=== PATIENT | female | born 1975 | race African-American/Black ===

== ENCOUNTER 2019-06-28 08:25 | Emergency (ER) | payer OTHER, SELFPAY ==
--- NOTE | ~2019-06-28 | XR_ITS ---
XR chest 2V 06/28/2019 09:16 Indication: Chest pain. Shortness of breath. Procedure: 2 view chest Comparison: Comparison to multiple prior studies sequentially, with oldest reviewed study dated 07/2017. Findings: Elevated right diaphragm with right basilar atelectasis. Cardiomegaly. No focal pneumonia, pulmonary edema, pleural effusion or pneumothorax. Impression: 1: Right basilar atelectasis. Reviewed, dictated and finalized at location A. Impression: 1: Right basilar atelectasis.
--- NOTE | 2019-06-28 08:26 | ECG_ITS ---
Measurements Intervals [place] Rate: 83 P: 64 VT: 196 QRS: -17 QRSD: 121 T: 117 QT: 398 QTc: 470 Interpretive Statements SINUS RHYTHM LEFT VENTRICULAR HYPERTROPHY AND ST-T CHANGE DELAYED PRECORDIAL R/S TRANSITION BASELINE WANDER- V4-V6 BORDERLINE ECG Electronically Signed On 06-28-2019 8:59:59 CDT by Chano Camarena D.O.
[2019-06-28 08:31] VITALS: BP 182/126; PULSE 84; RESP 18; TEMP 36.1; O2SAT 99
--- NOTE | 2019-06-28 08:34 | ED.CHESTPAIN ---
HPI - Chest Pain General Chief Complaint: Chest Pain Stated Complaint: chest pain and SOB Time Seen by Provider: 06/28/19 08:33 Source: patient Mode of arrival: ambulatory Limitations: no limitations History of Present Illness HPI narrative: A 44 y/o female presents to the ED with c/o left sided CP. Pt states that that left sided CP started at 0600 this morning while she was in bed and has been intermittent since. She notes that when the episodes of CP occur, they last approximately 5 minutes and are aggravated when lying flat. Pt reports SOB, left arm numbness and tingling, and sweats, but denies N/V. She did not take any pain medication prior to her ED visit. Pt has a PMHx of cardiac catheterization, CHF, and HTN. Dr. White is her alcoholic counselor. complaint: chest pain (Left sided) Pertinent past history: other (HTN, CHF, cardiac catheterization) Onset (ago): hour(s) (2.5) Timing of current episode: episodic Onset: during rest Pain location: left chest Exacerbating factors: other (Lying flat) Associated symptoms: diaphoresis, dyspnea and other (Left arm numbness and tingling) Treatment prior to arrival: none Related Data Home Medications Medication Instructions Recorded Confirmed amlodipine 5 mg PO DAILY 06/28/19 furosemide 60 mg PO DAILY 06/28/19 hydralazine 25 mg PO BID 06/28/19 metoprolol succinate 200 mg PO DAILY 06/28/19 sacubitril-valsartan [Entresto] 1 tablet PO BID 06/28/19 spironolactone 50 mg PO DAILY 06/28/19 Allergies Allergy/AdvReac Type Severity Reaction Status Date / Time No Known Allergies Allergy Verified 06/28/19 08:30 Review of Systems Review of Systems: All systems reviewed & are unremarkable except as noted in HPI and below Cardiovascular: Cardiovascular: Reports chest pain (Left sided) and Reports other (Diaphoresis) Respiratory: Respiratory: Reports dyspnea Gastrointestinal: Gastrointestinal: Denies nausea and Denies vomiting Neurologic: Reports numbness (Left arm) and Reports tingling (Left arm) [facility] Past Medical History Medical History (Updated 06/28/19 @ 13:01 by Hammad Michel MD) Arthritis Asthma CHF (congestive heart failure) History of angina HTN (hypertension) Seasonal allergies Sleep apnea UTI (urinary tract infection) Surgical History Surgical History (Updated 06/28/19 @ 08:50 by Renée Monson) History of cardiac catheterization History of cholecystectomy History of knee surgery Right History of tubal ligation Family History Family History Father Diabetes mellitus Hypertension Asthma Patient's father is in good health Family history of cardiovascular disease Mother Hypertension Patient's mother is in good health Sibling Patient's sister is in good health Social History Social History Smoking status: Never smoker Alcohol intake: never Gender identity (if verbalized by the patient): Female Exam Narrative: Exam Narrative: GENERAL: Well-appearing, well-nourished, and in no acute distress. HEAD: Normocephalic, atraumatic. ENT: Mucous membranes moist. NECK: Supple. CHEST: Clear to auscultation. No respiratory distress. TTP left anterior chest wall mid clavicular line. HEART: Regular rate and rhythm. Normal peripheral pulses. ABDOMEN: Soft, nontender, nondistended. EXTREMITIES: Normal range of motion. No edema. NEURO: Alert and oriented x3. PSYCH: Normal mood and affect. Course Course Emergency Course: Chest pain free s/p tylenol, trop negative x 2. D/c home. Vital Signs Vital signs: Vital Signs Temperature 97 F L 06/28/19 08:31 Pulse Rate 84 06/28/19 08:31 Respiratory Rate 18 06/28/19 08:31 Blood Pressure 182/126 H 06/28/19 08:31 Pulse Oximetry 99 06/28/19 08:31 Temperature 97 F L 06/28/19 08:31 Pulse Rate 73 06/28/19 12:18 Respiratory Rate 21 H 06/28/19 12:18 Blood Pressure 151/90 H 032
[2019-06-28 08:40] VITALS: PULSE 80
[2019-06-28] MEDS: ASPIRIN 81 MG CHEWABLE TABLET 324 MG PO (08:51)
[2019-06-28 09:00] VITALS: BP 135/82; PULSE 82; RESP 20; O2SAT 97
[2019-06-28 09:03] LABS: Basophils Absolute Auto 0.1 K/mm3 (0.0-0.1); Basophils Percent Auto 0.4 % (0.2-1.2); Eosinophils Absolute Auto 0.1 K/mm3 (0-0.3); Eosinophils Percent Auto 0.9 % (0-4.4); Hematocrit 38.9 % (37.0-47.0); Hemoglobin 11.9 g/dL (12.0-15.0); Immature Granulocyte Absolute 0.02 K/mm3 (0.00-0.031); Immature Granulocyte Percent A 0.2 % (0-0.5); Lymphocytes Absolute Auto 3.45 K/mm3 (0.9-3.2); Mean Corpuscular HGB Conc 30.6 g/dl (32-36); Mean Corpuscular Hemoglobin 25.2 pg (26-34); Mean Corpuscular Volume 82.4 fl (80-100); Mean Platelet Volume 11.8 fl (7.4-10.4); Monocytes Absolute Auto 0.6 K/mm3 (0.1-0.6); Monocytes Percent Auto 5.4 % (2.6-8.5); Neutrophils Absolute Auto 6.9 K/mm3 (1.3-6.7); Neutrophils Percent Auto 62.1 % (45.5-73.1); Platelet Count Result 361 k/mm3 (150-375); Red Blood Count 4.72 M/mm3 (4.2-5.4); Red Cell Distribution Width 16.4 % (11.5-14.5); White Blood Count 11.1 K/mm3 (4.5-10.0)
[2019-06-28 09:28] LABS: INR 1.1; Prothrombin Time 14.2 Seconds (11.1-14.7)
[2019-06-28 09:29] LABS: Partial Thromboplastin Time 29.1 SECONDS (22.3-36.8)
[2019-06-28 09:32] LABS: Blood Urea Nitrogen 10 mg/dL (7-17); Calcium 8.6 mg/dL (8.4-10.2); Carbon Dioxide 23 mmol/L (22-30); Chloride 104 mmol/L (98-107); Estimated CRCL calculation 124 ml/min; Estimated Glomerular Filt Rate > 60; Glucose 178 mg/dL (65-105); Potassium 4.1 mmol/L (3.4-5.0); Sodium 137 mmol/L (137-145)
[2019-06-28 09:43] LABS: Troponin I < 0.012 ng/mL (0.000-0.034)
[2019-06-28] MEDS: ACETAMINOPHEN 500 MG TABLET 1000 MG PO (10:28)
[2019-06-28 10:29] VITALS: BP 140/88; PULSE 82; RESP 20; O2SAT 98
--- NOTE | 2019-06-28 11:50 | PC.NURSE ---
Patient ambulated to bathroom. Rates pain in head 4/10 at this time.
[2019-06-28 12:06] LABS: Troponin I < 0.012 ng/mL (0.000-0.034)
[2019-06-28 12:18] VITALS: BP 151/90; PULSE 73; RESP 21; O2SAT 98
[2019-06-28 13:12] VITALS: BP 147/78; PULSE 72; RESP 19; O2SAT 99
== END 2019-06-28 13:12 | disposition home or self-care (01) ==
PROVIDERS: Emergency Provider Emergency Medicine; PCP Family Medicine
DX: R07.89 Other chest pain (principal); I50.9 Heart failure, unspecified; I11.0 Hypertensive heart disease with heart failure; J45.909 Unspecified asthma, uncomplicated; M19.90 Unspecified osteoarthritis, unspecified site; G47.30 Sleep apnea, unspecified; Z87.440 Personal history of urinary (tract) infections; R94.31 Abnormal electrocardiogram [ECG] [EKG]; I51.7 Cardiomegaly
CPT/HCPCS: 36415; 71046; 80048; 84484; 85025; 85610; 85730; 93005; 99284; A9270

== ENCOUNTER 2019-09-30 10:38 | Emergency (ER) | payer OTHER, SELFPAY ==
[2019-09-30 10:39] VITALS: BP 164/86; PULSE 97; RESP 18; TEMP 36.1; O2SAT 100
--- NOTE | 2019-09-30 11:42 | ED.GENADULT ---
HPI - General Adult General Chief complaint: Skin/Abscess/Foreign Body <ARNOLD Contreras Last Filed: 09/30/19 11:47> Stated complaint: rash on breast <ARNOLD Contreras Last Filed: 09/30/19 11:47> Time Seen by Provider: 09/30/19 11:02 <ARNOLD Contreras Last Filed: 09/30/19 11:47> Source: patient <ARNOLD Contreras Last Filed: 09/30/19 11:47> Mode of arrival: ambulatory <ARNOLD Contreras Last Filed: 09/30/19 11:47> Limitations: no limitations <ARNOLD Contreras Last Filed: 09/30/19 11:47> History of Present Illness HPI narrative: Patient is a 44-year-old female who presents for evaluation of rash under the right breast noting itching burning rash that has increased in size with some redness swelling and irritation denies injury trauma recent illness has not taken anything other than some [id number] medications with no improvement patient denies fever chills nausea vomiting is otherwise in the room in no distress upon arrival <ARNOLD Contreras Last Filed: 09/30/19 11:47> Related Data Home medications: Home Medications Medication Instructions Recorded Confirmed amlodipine 5 mg PO DAILY 06/28/19 furosemide 60 mg PO DAILY 06/28/19 hydralazine 25 mg PO BID 06/28/19 metoprolol succinate 200 mg PO DAILY 06/28/19 sacubitril-valsartan [Entresto] 1 tablet PO BID 06/28/19 spironolactone 50 mg PO DAILY 06/28/19 <ARNOLD Contreras Last Filed: 09/30/19 11:47> Allergies/adverse reactions: Allergies Allergy/AdvReac Type Severity Reaction Status Date / Time No Known Allergies Allergy Verified 09/30/19 10:41 <ARNOLD Contreras Last Filed: 09/30/19 11:47> Review of Systems Review of Systems: All systems reviewed & are unremarkable except as noted in HPI and below <ARNOLD Contreras Last Filed: 09/30/19 11:47> PMFSH Past Medical History Medical History: Medical History Arthritis Asthma CHF (congestive heart failure) History of angina HTN (hypertension) Seasonal allergies Sleep apnea UTI (urinary tract infection) <Aries Edwards PA-C - Last Filed: 09/30/19 11:47> Surgical History Surgical History: Surgical History History of cardiac catheterization History of cholecystectomy History of knee surgery Right History of tubal ligation <Aries Edwards PA-C - Last Filed: 09/30/19 11:47> Social History Social History: Social History Smoking status: Never smoker Alcohol intake: never Gender identity (if verbalized by the patient): Female <Aries Edwards PA-C - Last Filed: 09/30/19 11:47> Exam Narrative: Exam Narrative: GENERAL: Well-appearing, well-nourished, and in no acute distress. HEAD: Normocephalic, atraumatic. EYES: PERRLA and EOMI. NECK: Supple. No adenopathy or masses. No carotid bruits or JVD CHEST: Clear to auscultation. No respiratory distress. No wheezes rales or rhonchi HEART: Regular rate and rhythm. No murmur heard. EXTREMITIES: Normal range of motion. No edema. SKIN: Warm, dry, patient with confluent erythematous rash with some satellite lesions under the right breast and spread to the epigastrium NEURO: No focal deficits. Alert and oriented x3. PSYCH: Normal mood and affect. <Aries Edwards PA-C - Last Filed: 09/30/19 11:47> Course Course Emergency Course: Patient in the room in no distress aware of case findings treatment plan and diagnosis <Aries Edwards PA-C - Last Filed: 09/30/19 11:47> Vital Signs Vital signs: Vital Signs Temperature 97.0 F L 09/30/19 10:39 Pulse Rate 97 09/30/19 10:39 Respiratory Rate 18 09/30/19 10:39 Blood Pressure 164/86 H 09/30/19 10:39 Pulse Oximetry 100 09/30/19 10:39 Temperature 97.0
[2019-09-30 12:05] VITALS: BP 129/68; PULSE 75; RESP 16; O2SAT 97
== END 2019-09-30 12:06 | disposition home or self-care (01) ==
PROVIDERS: Emergency Provider Emergency Medicine; PCP Family Medicine
DX: B37.9 Candidiasis, unspecified (principal); M19.90 Unspecified osteoarthritis, unspecified site; J45.909 Unspecified asthma, uncomplicated; I11.0 Hypertensive heart disease with heart failure; I50.9 Heart failure, unspecified; G47.30 Sleep apnea, unspecified
CPT/HCPCS: 99283

== ENCOUNTER 2020-06-10 10:08 | Outpatient (CLI) | payer OTHER, SELFPAY ==
--- NOTE | 2020-06-10 11:00 | NEURO_ITS ---
Impression: # Complains of numbness of hands. # No Carpal Tunnel Syndrome or ulnar neuropathy. # Normal nerve conduction study. # Normal needle/EMG exam. Nerve Conduction Studies Anti Sensory Summary Table Stim Site NR Peak (ms) P-T Amp (?V) Site1 Site2 Delta-P (ms) Dist (cm) Zeferino (m/s) Left Median Anti Sensory (2-3nd Digit) Wrist 2.8 105.8 Wrist 2-3nd Digit 2.8 14.0 50 Wrist 2.9 126.5 Wrist 2-3nd Digit 2.8 14.0 50 Right Median Anti Sensory (2-3nd Digit) Wrist 2.8 96.4 Wrist 2-3nd Digit 2.8 14.0 50 Wrist 2.7 94.2 Wrist 2-3nd Digit 2.8 14.0 50 Left Radial Anti Sensory (Base 1st Digit) Wrist 2.6 36.6 Wrist Base 1st Digit 2.6 0.0 Right Radial Anti Sensory (Base 1st Digit) Wrist 2.3 41.0 Wrist Base 1st Digit 2.3 16.0 70 Left Ulnar Anti Sensory (5th Digit) Wrist 2.7 91.2 Wrist 5th Digit 2.7 14.0 52 Right Ulnar Anti Sensory (5th Digit) Wrist 2.2 57.8 Wrist 5th Digit 2.2 14.0 64 Motor Summary Table Stim Site NR Onset (ms) O-P Amp (mV) Site1 Site2 Delta-0 (ms) Dist (cm) Zeferino (m/s) Left Median Motor (Abd Poll Brev) Wrist 3.2 3.3 Elbow Wrist 4.9 29.0 59 Elbow 8.1 2.0 Right Median Motor (Abd Poll Brev) Wrist 2.9 5.1 Elbow Wrist 4.4 27.0 61 Elbow 7.3 3.1 Left Ulnar Motor (Abd Dig Minimi) Wrist 3.0 5.2 A Elbow Wrist 4.7 29.0 62 A Elbow 7.7 4.3 Right Ulnar Motor (Abd Dig Minimi) Wrist 2.7 5.7 A Elbow Wrist 4.6 27.0 59 A Elbow 7.3 4.9 F Wave Studies NR F-Lat (ms) L-R F-Lat (ms) Left Median (Mrkrs) (Abd Poll Brev) 26.49 0.71 Right Median (Mrkrs) (Abd Poll Brev) 25.78 0.71 Left Ulnar (Mrkrs) (Abd Dig Min) 27.03 0.10 Right Ulnar (Mrkrs) (Abd Dig Min) 26.93 0.10 EMG Side Muscle Nerve Root Ins Act Fibs Amp Dur Recrt Comment Right 1stDorInt Ulnar C8-T1 Nml Nml Nml Nml Nml Right Ext Indicis Radial (Post Int) C7-8 Nml Nml Nml Nml Nml Right Ext Digitorum Radial (Post Int) C7-8 Nml Nml Nml Nml Nml Right BrachioRad Radial C5-6 Nml Nml Nml Nml Nml Right PronatorTeres Median C6-7 Nml Nml Nml Nml Nml Right Abd Poll Brev Median C8-T1 Nml Nml Nml Nml Nml Left 1stDorInt Ulnar C8-T1 Nml Nml Nml Nml Nml Left Ext Indicis Radial (Post Int) C7-8 Nml Nml Nml Nml Nml Left Ext Digitorum Radial (Post Int) C7-8 Nml Nml Nml Nml Nml Left BrachioRad Radial C5-6 Nml Nml Nml Nml Nml Left PronatorTeres Median C6-7 Nml Nml Nml Nml Nml Left Abd Poll Brev Median C8-T1 Nml Nml Nml Nml Nml Right ABD Dig Min Ulnar C8-T1 Nml Nml Nml Nml Nml Left ABD Dig Min Ulnar C8-T1 Nml Nml Nml Nml Nml MTDD
== END 2020-06-10 10:09 | disposition home or self-care (01) ==
LOC: ANHNEURO 10:09
PROVIDERS: PCP Family Medicine; Visit Provider Family Medicine
DX: G56.03 Carpal tunnel syndrome, bilateral upper limbs (principal)
CPT/HCPCS: 95886; 95911

== ENCOUNTER 2020-06-10 11:05 | Emergency (ER) | payer OTHER, SELFPAY ==
--- NOTE | 2020-06-10 11:22 | ECG_ITS ---
Measurements Intervals [place] Rate: 90 P: 21 MD: 158 QRS: -22 QRSD: 120 T: 136 QT: 347 QTc: 425 Interpretive Statements SINUS RHYTHM DELAYED PRECORDIAL R/S TRANSITION LEFT VENTRICULAR HYPERTROPHY AND ST-T CHANGE BASELINE WANDER- V5 BORDERLINE ECG Electronically Signed On 06-10-2020 11:46:25 MATERIAL ANALYST by Chano Camarena D.O.
[2020-06-10 11:52] VITALS: PULSE 83; RESP 17; O2SAT 99
[2020-06-10] MEDS: CYCLOBENZAPRINE HCL 10 MG TABLET PO (11:59)
[2020-06-10 12:00] VITALS: PULSE 83; RESP 22; O2SAT 96
[2020-06-10 12:01] VITALS: BP 151/90; BP 154/91; PULSE 84; PULSE 90; PULSE 92; RESP 14; RESP 18; TEMP 36.4; O2SAT 99
[2020-06-10] MEDS: KETOROLAC 30 MG/ML VIAL (*BKC) IV PUSH (12:01)
--- NOTE | 2020-06-10 12:05 | ED.GENADULT ---
HPI - General Adult General Chief complaint: Unspecified Stated complaint: neck & arm stiff for 45 minutes Time Seen by Provider: 06/10/20 11:16 History of Present Illness HPI narrative: Patient is a 45-year-old female who presents ER with left-sided shoulder pain beginning of 45 minutes prior to arrival. Is a tightness in her trapezius going into her neck. Worse with movements of the arm and head. No numbness or tingling in the arms. No chest pain or shortness of breath. Does not take any pain medication. She does take some diuretic medications. Does not report history of hypokalemia or electrolyte abnormality. Is found no alleviating factors. Related Data Home Medications Medication Instructions Recorded Confirmed amlodipine 5 mg PO DAILY 06/28/19 metoprolol succinate 200 mg PO DAILY 06/28/19 spironolactone 50 mg PO DAILY 06/28/19 albuterol sulfate INHALATION 06/10/20 06/10/20 chlorthalidone 06/10/20 gabapentin 06/10/20 lisinopril 06/10/20 Allergies Allergy/AdvReac Type Severity Reaction Status Date / Time No Known Allergies Allergy Verified 06/10/20 12:47 Review of Systems Review of Systems: All systems reviewed & are unremarkable except as noted in HPI and below Constitutional: Constitutional: Denies chills, Denies fatigue and Denies fever(s) Cardiovascular: Cardiovascular: Denies chest pain, Denies rapid heart rate and Denies radiating jaw, neck or arm pain Respiratory: Respiratory: Denies cough and Denies dyspnea Musculoskeletal: Musculoskeletal: Reports back pain, Reports muscle cramps and Reports neck pain Neurologic: Denies numbness, Denies tingling and Denies weakness [facility] Past Medical History Medical History (Updated 06/10/20 @ 12:52 by Hammad Michel MD) Arthritis Asthma CHF (congestive heart failure) History of angina HTN (hypertension) Seasonal allergies Sleep apnea UTI (urinary tract infection) Surgical History Surgical History History of cardiac catheterization History of cholecystectomy History of knee surgery Right History of tubal ligation Family History Family History Father Diabetes mellitus Hypertension Asthma Patient's father is in good health Family history of cardiovascular disease Mother Hypertension Patient's mother is in good health Sibling Patient's sister is in good health Social History Social History Smoking status: Never smoker Alcohol intake: never Gender identity (if verbalized by the patient): Female Exam Narrative: Exam Narrative: GENERAL: Well-appearing, well-nourished, and in no acute distress. HEAD: Normocephalic, atraumatic. CHEST: Clear to auscultation. No respiratory distress. HEART: Regular rate and rhythm. Normal peripheral pulses. Back: Palpable spasm and tenderness of paraspinal musculature of cervical spine and trapezius. No midline tenderness. No right-sided paraspinal muscular tenderness or trapezius pain. EXTREMITIES: Normal range of motion. No edema. SKIN: Warm, dry, no rash. NEURO: Alert and oriented x3. Course Course Emergency Course: Labs unremarkable. Pain improving with Toradol and Flexeril. Discharge home with anti-inflammatories and muscle relaxers. Patient verbalized understanding treatment plan as well as return precautions. Vital Signs Vital signs: Vital Signs Pulse Rate 83 06/10/20 11:52 Respiratory Rate 17 06/10/20 11:52 Pulse Oximetry 99 06/10/20 11:52 Temperature 97.6 F 06/10/20 12:01 Pulse Rate 81 06/10/20 12:31 Respiratory Rate 20 06/10/20 12:31 Blood Pressure 153/87 H 06/10/20 12:31 Pulse Oximetry 98 06/10/20 12:31 Medical Decision Making Vital Signs Vital Signs: Vital Signs Pulse Rate 83 06/10/20 11:52 Respiratory Rate 17 06/10/20 11:52 Pulse Oximetry 99 06/10/20
[2020-06-10 12:16] VITALS: BP 154/86; PULSE 94; RESP 25; O2SAT 100
[2020-06-10 12:18] LABS: Basophils Absolute Auto 0.1 K/mm3 (0.0-0.1); Basophils Percent Auto 0.5 % (0.2-1.2); Eosinophils Percent Auto 0.3 % (0-4.4); Hematocrit 35.1 % (37.0-47.0); Hemoglobin 11.1 g/dL (12.0-15.0); Immature Granulocyte Absolute 0.03 K/mm3 (0.00-0.031); Immature Granulocyte Percent A 0.3 % (0-0.5); Lymphocytes Percent Auto 30.7 % (18.3-44.2); Mean Corpuscular HGB Conc 31.6 g/dl (32-36); Mean Corpuscular Hemoglobin 25.9 pg (26-34); Mean Corpuscular Volume 81.8 fl (80-100); Mean Platelet Volume 10.8 fl (7.4-10.4); Monocytes Absolute Auto 0.5 K/mm3 (0.1-0.6); Monocytes Percent Auto 4.2 % (2.6-8.5); Neutrophils Absolute Auto 6.9 K/mm3 (1.3-6.7); Platelet Count Result 325 k/mm3 (150-375); Red Blood Count 4.29 M/mm3 (4.2-5.4); White Blood Count 10.7 K/mm3 (4.5-10.0)
[2020-06-10 12:31] VITALS: BP 153/87; PULSE 81; RESP 20; O2SAT 98
[2020-06-10 12:31] LABS: Anion Gap 6 mmol/L (8-16); Blood Urea Nitrogen 23 mg/dL (7-17); Calcium 9.1 mg/dL (8.4-10.2); Carbon Dioxide 27 mmol/L (22-30); Chloride 106 mmol/L (98-107); Estimated Glomerular Filt Rate > 60; Glucose 95 mg/dL (65-105); Sodium 139 mmol/L (137-145)
[2020-06-10 12:46] VITALS: BP 157/88; PULSE 84; RESP 31; O2SAT 98
== END 2020-06-10 13:03 | disposition home or self-care (01) ==
PROVIDERS: Emergency Provider Emergency Medicine; PCP Family Medicine
DX: M62.830 Muscle spasm of back (principal); M19.90 Unspecified osteoarthritis, unspecified site; J45.909 Unspecified asthma, uncomplicated; I50.9 Heart failure, unspecified; I11.0 Hypertensive heart disease with heart failure; G47.30 Sleep apnea, unspecified; Z87.440 Personal history of urinary (tract) infections; I51.7 Cardiomegaly
CPT/HCPCS: 36415; 80048; 85025; 93005; 95886; 95911; 96374; 99284; A9270; J1885

== ENCOUNTER → 2020-08-09 00:18 | Outpatient (CLI) | payer OTHER, SELFPAY ==
[2020-08-09 19:16] LABS: SARS-CoV-2 RNA PCR Negative
== END ==
PROVIDERS: PCP Family Medicine; Visit Provider Internal Medicine Critical Care Medicine
DX: R68.89 Other general symptoms and signs (principal); Z20.822 Contact with and (suspected) exposure to COVID-19
CPT/HCPCS: C9803; U0003; U0005

== ENCOUNTER 2020-08-18 09:38 | Outpatient (CLI) | payer OTHER, SELFPAY ==
--- NOTE | ~2020-08-18 | MM_ITS ---
EXAMINATION: MM screening ursula BI w bob HISTORY: Screening mammogram TECHNIQUE: Craniocaudal and mediolateral oblique 3-D tomosynthesis images were obtained and synthetic 2-D images were generated. CAD analysis was submitted and interpreted. COMPARISON: No prior mammogram is available for comparison at this institution. BREAST PARENCHYMAL COMPOSITION: There are scattered areas of fibroglandular density. FINDINGS: RIGHT BREAST: Focal asymmetry is present in the middle third of the inner, slightly upper breast 7 cm from the nipple. LEFT BREAST: An asymmetry is present in the posterior third of the breast on the mediolateral oblique view. IMPRESSION: 1. Bilateral breast findings which may represent the patient's baseline however no comparison is curr ently available. 2. Comparison with prior mammograms is necessary. BI-RADS Category 0: Incomplete: Needs comparison with prior mammograms. Reviewed, dictated and finalized at location A. IMPRESSION: 1. Bilateral breast findings which may represent the patient's baseline however no comparison is currently available. 2. Comparison with prior mammograms is necessary. BI-RADS Category 0: Incomplete: Needs comparison with prior mammograms.
== END 2020-08-18 09:39 | disposition home or self-care (01) ==
PROVIDERS: PCP Family Medicine; Visit Provider Family Medicine
DX: Z12.31 Encounter for screening mammogram for malignant neoplasm of breast (principal); R92.8 Other abnormal and inconclusive findings on diagnostic imaging of breast
CPT/HCPCS: 77063; 77067

== ENCOUNTER → 2020-08-30 03:30 | Outpatient (CLI) | payer OTHER, SELFPAY ==
[2020-09-01 12:58] LABS: SARS-CoV-2 RNA PCR Negative
== END ==
PROVIDERS: PCP Family Medicine; Visit Provider Internal Medicine Critical Care Medicine
DX: R68.89 Other general symptoms and signs (principal); Z20.822 Contact with and (suspected) exposure to COVID-19
CPT/HCPCS: C9803; U0003; U0005

== ENCOUNTER → 2020-10-26 02:24 | Outpatient (CLI) | payer OTHER, SELFPAY ==
[2020-10-26 17:52] LABS: SARS-CoV-2 RNA PCR Negative
== END ==
PROVIDERS: PCP Family Medicine; Visit Provider Internal Medicine Critical Care Medicine
DX: R68.89 Other general symptoms and signs (principal); Z20.822 Contact with and (suspected) exposure to COVID-19
CPT/HCPCS: C9803; U0003; U0005

== ENCOUNTER 2020-10-29 08:09 | Outpatient (CLI) | payer OTHER, SELFPAY ==
--- NOTE | 2020-11-21 21:34 | WPDSLEEPSTUD ---
Sleep Study Date of Study: 10/29/20 Ordering Provider: Trinh Machado, Interpreting Physician: Melissa Avila MD Sleep Study Type: Split Polysomnogram Height: 1.59 m Weight: 131.542 kg Body Mass Index: 52.2 Neck Circumference (inches): 15 [place]: 5 Reason for Sleep Study nonischemic cardiomyopathy, snoring Sleep History Angelica Kruse is a 45 year old female with nonischemic cardiomyopathy, hypertension, history of supraventricular tachycardia status post ablation, possible bicuspid aortic valve, known obstructive sleep apnea [place] and morbid obesity. Ejection fraction on 06/24/2017 was EF of 30%. She has frequent snoring, rarely loud enough that it bothers others. She frequently has trouble sleeping with a cold. She rarely gasps for breath at night. She rarely sweats excessively at night. She occasionally falls asleep in the day, rarely involuntarily, never while driving. She does not have loss of muscle tone with strong emotion. She rarely feels paralyzed on waking or falling asleep. She rarely has vivid dreamlike scenes upon waking or falling asleep. She is not afraid to go to sleep. She rarely has nightmares. She occasionally remembers her dreams. She rarely has racing thoughts, rarely has anxiety. She occasionally kicks at night and occasionally has uncomfortable feelings in her legs at night. She never has morning jaw pain. She occasionally is bothered by pain in the day, rarely wakes due to pain during the night. She occasionally wakes up feeling stiff in the morning with sore achy muscles and pain in the neck, spine and joints. She has headaches and palpitations. There is a family history of sleep apnea, with her father being treated for obstructive sleep apnea. Normal bedtime is 10 - 11 pm, taking 30-40 minutes to fall asleep, waking 2-3 times , and during these awakenings, she will watch TV and try to get back to sleep. It can take hours to return to sleep. She takes naps, and short naps are not refreshing. She feels better in the afternoon compared to the morning. e wakes in the am at 8:00-9:00 a.m. She estimates getting 6-7 hours of sleep at night. Habits: No tobacco ever, caffeine 1-2 per day, no alcohol or recreational drugs. [facility] Past Medical History Medical History (Updated 11/22/20 @ 15:24 by Melissa Avila MD) Arthritis Asthma CHF (congestive heart failure) History of angina HTN (hypertension) Nonischemic cardiomyopathy Seasonal allergies Sleep apnea UTI (urinary tract infection) Surgical History Surgical History History of cardiac catheterization History of cholecystectomy History of knee surgery Right History of tubal ligation Family History Family History Father Diabetes mellitus Hypertension Asthma Patient's father is in good health Family history of cardiovascular disease Mother Hypertension Patient's mother is in good health Sibling Patient's sister is in good health Social History Social History Smoking status: Never smoker Alcohol intake: never Gender identity (if verbalized by the patient): Female Medications Home Medications Medication Instructions Recorded Confirmed Type amlodipine 5 mg PO DAILY 06/28/19 History metoprolol succinate 200 mg PO DAILY 06/28/19 History spironolactone 50 mg PO DAILY 06/28/19 History albuterol sulfate INHALATION 06/10/20 06/10/20 History chlorthalidone 06/10/20 History cyclobenzaprine 10 mg PO TID PRN #16 tablet 06/10/20 Rx gabapentin 06/10/20 History lisinopril 06/10/20 History naproxen 500 mg PO BID #20 tablet 06/10/20 Rx Sleep Procedure This test was performed using the [employer] multiple channel system including EOG, EEG, submental EMG, EKG, nasal and oral airflow using thermistors and nasal pressure sensors, chest and abdominal belts for body po
[2020-11-22 15:28] VITALS: BMI 52.2
== END 2020-10-30 08:00 | disposition home or self-care (01) ==
LOC: ANHCSM 11-01 08:09
PROVIDERS: PCP Family Medicine; Visit Provider Family Medicine
DX: G47.33 Obstructive sleep apnea (adult) (pediatric) (principal)
CPT/HCPCS: 95811

== ENCOUNTER → 2020-11-05 06:47 | Outpatient (CLI) | payer OTHER, SELFPAY ==
[2020-11-05 18:53] LABS: SARS-CoV-2 RNA PCR Negative
== END ==
PROVIDERS: PCP Family Medicine
DX: Z01.812 Encounter for preprocedural laboratory examination (principal); Z20.822 Contact with and (suspected) exposure to COVID-19
CPT/HCPCS: C9803; U0003; U0005

== ENCOUNTER 2021-06-03 13:25 | Outpatient (CLI) | payer OTHER, SELFPAY ==
[2021-06-03 14:01] LABS: Alveolar/Arterial O2 Gradient 24.6 mmHg; Carboxyhemoglobin 0.1 % THb (0-2.0); Fractional Inspired Oxygen 21 %; HCO3 ABG 22.1 mEq/l (22.0-26.0); Methemoglobin ABG 0.5 %THb (0-1.5); Oxygen Saturation ABG 96.3 % (95.0-100.0); PCO2 ABG 35.6 mmHg (35.0-45.0); PO2 ABG 82.5 mmHg (80.0-100.0); PO2 FiO2 Ratio Arterial Blood 3.93 %; Reduced Hemoglobin 4.4 %THb (0-5.0); Total Hemoglobin 13.4 g/dL (12.0-18.0)
--- NOTE | 2021-06-06 13:13 | WPDPFTINT ---
PFT Procedure Performed PFT Procedure Performed Spirometry with Pre/Post Bronchodilator Plethysmography (Lung Vol) Diffusing Cap (DLCO) Flow Vol Loop PFT Interpretation Lung volumes were measured with the body plethysmography method. The diminished lung volumes are indicative of mild restrictive respiratory disease. Spirometry showed diminished expiratory flow rates and a normal FEV1 to FVC ratio of 83%, also consistent with restrictive respiratory disease. Following administration of a bronchodilator there was no significant increase in expiratory flow rates. Lung diffusion capacity is mildly reduced at 65% predicted. The flow volume loop is consistent with suboptimal effort. Impression: Mild restrictive respiratory disease possibly related to suboptimal effort and or morbid obesity. Clinical correlation advised. Mild reduction in lung diffusion capacity.
== END 2021-06-03 13:26 | disposition home or self-care (01) ==
PROVIDERS: PCP Family Medicine
DX: E66.01 Morbid (severe) obesity due to excess calories (principal); Z68.42 Body mass index [BMI] 45.0-49.9, adult; R94.2 Abnormal results of pulmonary function studies
CPT/HCPCS: 36600; 82375; 82805; 83050; 94060; 94726; 94729

== ENCOUNTER 2021-09-27 10:47 | Outpatient (CLI) | payer OTHER, SELFPAY ==
[2021-09-27 11:22] LABS: Basophils Percent Auto 0.3 % (0.2-1.2); Eosinophils Absolute Auto 0.1 K/mm3 (0-0.3); Eosinophils Percent Auto 1.2 % (0-4.4); Hematocrit 37.6 % (37.0-47.0); Hemoglobin 12.2 g/dL (12.0-15.0); Immature Granulocyte Absolute 0.03 K/mm3 (0.00-0.031); Immature Granulocyte Percent A 0.3 % (0-0.5); Lymphocytes Percent Auto 26.3 % (18.3-44.2); Mean Corpuscular HGB Conc 32.4 g/dl (32-36); Mean Corpuscular Hemoglobin 27.8 pg (26-34); Mean Corpuscular Volume 85.6 fl (80-100); Mean Platelet Volume 12.1 fl (7.4-10.4); Monocytes Absolute Auto 0.5 K/mm3 (0.1-0.6); Monocytes Percent Auto 5.7 % (2.6-8.5); Neutrophils Absolute Auto 6.3 K/mm3 (1.3-6.7); Neutrophils Percent Auto 66.2 % (45.5-73.1); Platelet Count Result 283 k/mm3 (150-375); Red Blood Count 4.39 M/mm3 (4.2-5.4); Red Cell Distribution Width 14.6 % (11.5-14.5); White Blood Count 9.5 K/mm3 (4.5-10.0)
[2021-09-27 11:43] LABS: Alanine Aminotransferase 16 U/L (6-35); Albumin Level 3.8 g/dL (3.5-5.1); Alkaline Phosphatase 73 U/L (38-126); Anion Gap 7 mmol/L (8-16); Aspartate Amino Transferase 29 U/L (14-36); Bilirubin,Total 0.3 mg/dL (0.2-1.3); Blood Urea Nitrogen 9 mg/dL (7-17); Calcium 8.9 mg/dL (8.4-10.2); Carbon Dioxide 29 mmol/L (22-30); Chloride 104 mmol/L (98-107); Cholesterol 181 mg/dL (0-200); Estimated Glomerular Filt Rate > 60; Glucose 94 mg/dL (65-110); HDL Direct 46 mg/dL; Magnesium 1.6 mg/dL (1.6-2.3); Phosphorus 3.4 mg/dL (2.5-4.5); Potassium 3.3 mmol/L (3.4-5.0); Sodium 140 mmol/L (137-145); Triglycerides 142 mg/dL (<150)
[2021-09-27 11:46] LABS: Iron 47 ug/dL (37-170)
[2021-09-27 11:54] LABS: LDL Cholesterol Direct 81 mg/dL; Transferrin 209 mg/dL (206-381)
[2021-09-27 11:58] LABS: Percent Iron Saturation 15 % (20-50)
[2021-09-27 12:09] LABS: Parathyroid Intact 108.3 pg/mL (7.5-53.5)
[2021-09-27 12:33] LABS: Vitamin D 25 Hydroxy 34.9 ng/mL
[2021-09-27 12:48] LABS: Folic Acid 9.5 ng/mL (2.76->20)
[2021-09-30 11:42] LABS: Vitamin B1 <6 nmol/L (8-30)
== END 2021-09-27 10:48 | disposition home or self-care (01) ==
LOC: ANHLAB 10:59
PROVIDERS: PCP Family Medicine
DX: E66.01 Morbid (severe) obesity due to excess calories (principal); Z90.3 Acquired absence of stomach [part of]; Z98.84 Bariatric surgery status
CPT/HCPCS: 36415; 80053; 80061; 82306; 82607; 82728; 82746; 83540; 83550; 83735; 83970; 84100; 84425; 84466; 85025

== ENCOUNTER 2021-10-31 21:33 | Emergency (ER) | payer OTHER, SELFPAY ==
--- NOTE | ~2021-10-31 | US_ITS ---
EXAMINATION: US pelvic complete w TV DATE: 11/01/2021 02:59 INDICATION: Right pelvic pain. Evaluate for torsion. Comparison:No prior studies for comparison. TECHNIQUE: Multiple transabdominal and endovaginal sonographic images of the pelvis performed. FINDINGS: The uterus measures 9 x 5 x 4.5 cm. There is a uterine fibroid posterior aspect of the uter us measuring 2.4 x 1.9 x 2.1 cm. The endometrial complex measures 9 mm. The right ovary measures 4 x 1.9 x 2.1 cm and the left ovary is not visualized. There are small follicles in the right ovary. Normal doppler signal in the right ovaries. There is free fluid in the pelvis. There are no abnormal masses seen on either side. IMPRESSION: 1. Uterine fibroid measuring up to 2.4 cm. 2: Normal right ovary without evidence for torsion. Left ovary not visualized due to bowel gas. Reviewed, dictated and finalized at location L.
--- NOTE | ~2021-10-31 | CT_ITS ---
EXAMINATION: CT abdomen pelvis w con DATE: 10/31/2021 23:58 INDICATION: Lower abdominal pain TECHNIQUE: Computed tomography (CT) of the abdomen and pelvis was performed with 100 mL Omnipaque-300 intravenous contrast. Automated exposure control and iterative reconstruction technique were employe d. The dose-length product was 1138.78 mGy-cm. COMPARISON: Chest CT dated 12/23/2018 FINDINGS: Mild atelectasis at the bilateral lung bases. Chronic elevation the right hemidiaphragm. Heart size i s normal. No pericardial or pleural effusion. Postoperative change of prior Mercedes-en-Y gastric bypass procedure. Cholecystectomy clips the gallbladder fossa. Focal hepatic steatosis at the ligamentum ter es. Pancreas, spleen and bilateral adrenal glands are normal. Bilateral subcentimeter low-attenuation renal cysts the larger on the left measuring 6 mm. Likely nonobstructing 1-2 mm left renal stone. Ve ry small fat-containing umbilical hernia. No bowel obstruction. Normal appendix. Bladder, anteverted uterus and left adnexa are unremarkable. There are couple peripherally enhancing likely corpus luteum cyst at the right adnexa, the larger measuring 1.7 cm in maximal diameter. Small amount of free flui d in the cul-de-sac. No abscess or free intraperitoneal gas. No pathologically enlarged abdominal or pelvic lymphadenopathy. Mild degenerative skeletal changes in the pelvis and visualized spine. IMPRESSION: 1. Small amount of likely physiologic free fluid in the pelvis with a couple small right ovarian like ly corpus luteum cyst. No other acute intra-abdominal/pelvic process. 2. Nonobstructing 1-2 mm left renal stone. Reviewed, dictated and finalized at location A. IMPRESSION: 1. Small amount of likely physiologic free fluid in the pelvis with a couple sm all right ovarian likely corpus luteum cyst. No other acute intra-abdominal/pel nisha process. 2. Nonobstructing 1-2 mm left renal stone.
[2021-10-31 22:19] VITALS: BP 150/97; PULSE 100; RESP 18; TEMP 36.4; O2SAT 99
[2021-10-31 22:22] LABS: Basophils Percent Auto 0.3 % (0.2-1.2); Eosinophils Percent Auto 0.4 % (0-4.4); Hematocrit 39.7 % (37.0-47.0); Hemoglobin 12.5 g/dL (12.0-15.0); Immature Granulocyte Absolute 0.02 K/mm3 (0.00-0.031); Immature Granulocyte Percent A 0.2 % (0-0.5); Lymphocytes Absolute Auto 3.78 K/mm3 (0.9-3.2); Lymphocytes Percent Auto 34.2 % (18.3-44.2); Mean Corpuscular HGB Conc 31.5 g/dl (32-36); Mean Corpuscular Hemoglobin 26.8 pg (26-34); Mean Corpuscular Volume 85.2 fl (80-100); Mean Platelet Volume 12.3 fl (7.4-10.4); Monocytes Absolute Auto 0.7 K/mm3 (0.1-0.6); Neutrophils Absolute Auto 6.5 K/mm3 (1.3-6.7); Neutrophils Percent Auto 58.9 % (45.5-73.1); Platelet Count Result 256 k/mm3 (150-375); Red Blood Count 4.66 M/mm3 (4.2-5.4); Red Cell Distribution Width 14.6 % (11.5-14.5); White Blood Count 11.1 K/mm3 (4.5-10.0)
--- NOTE | 2021-10-31 22:26 | PC.NURSE ---
patient in waiting room eating pizza that she had delivered
[2021-10-31 22:32] LABS: Alanine Aminotransferase 10 U/L (6-35); Albumin Level 3.8 g/dL (3.5-5.1); Alkaline Phosphatase 79 U/L (38-126); Anion Gap 12 mmol/L (8-16); Aspartate Amino Transferase 19 U/L (14-36); Bilirubin,Total 0.4 mg/dL (0.2-1.3); Blood Urea Nitrogen 8 mg/dL (7-17); Calcium 9.4 mg/dL (8.4-10.2); Carbon Dioxide 25 mmol/L (22-30); Chloride 103 mmol/L (98-107); Estimated CRCL calculation 92 ml/min; Estimated Glomerular Filt Rate > 60; Glucose 90 mg/dL (65-110); Lipase 56 U/L (23-300); Potassium 3.6 mmol/L (3.4-5.0); Sodium 140 mmol/L (137-145)
[2021-10-31 23:06] VITALS: O2SAT 98
[2021-10-31 23:11] LABS: Bacteria Urine Trace /hpf; Mucus Urine Few /lpf; RBC Urine 21-50 /hpf (0-2); Squamous Epithelial Cell Urine Many /hpf (Few)
[2021-10-31 23:12] LABS: Appearance Urine Slightly Cloudy (Clear); Bilirubin Urine 2+ (Negative); Blood Urine 2+ (Negative); Color Urine Yellow (Yellow); Glucose Urine UA Negative (Negative); Ketones Urine 4+ mg/dL (Negative); Leukocyte Esterase Ur Negative LEU/UL (Negative); Nitrate Urine Negative (Negative); Protein Urine Trace mg/dL (Negative); Specific Grav Ur >= 1.030 (1.001-1.035); pH Urine 5.5 (5.0-9.0)
[2021-10-31 23:14] LABS: Add Urine Microscopic? YES
[2021-10-31 23:15] VITALS: O2SAT 100
[2021-10-31 23:17] VITALS: BP 152/89; O2SAT 97
[2021-10-31] MEDS: MORPHINE SULFATE (*CRX) 4 MG/ML INJ IV PUSH (23:29)
[2021-10-31] MEDS: ONDANSETRON INJ 4 MG/2 ML VIAL IV PUSH (23:29)
[2021-10-31 23:30] VITALS: O2SAT 100
--- NOTE | 2021-10-31 23:42 | ED.ABDPAIN ---
HPI - Abdominal Pain General Chief Complaint: Abdominal Pain Stated Complaint: abd pain Time Seen by Provider: 10/31/21 22:54 Source: patient and RN notes reviewed Mode of arrival: ambulatory Limitations: no limitations History of Present Illness HPI narrative: This is a 46 year old female who presents for evaluation of right lower abdominal pain. She has been having this pain intermittently for 1 week. She states her pain may last for 1 day and resolve. She is unsure of any exacerbating factors. She has been taking tylenol for her pain with some improvement of her pain. She has nasuea but denies vomiting. She states her last bowel movement was yesterday. She denies fever or chills. She had a gastric bypass in July in [place], [place]. She rates her pain 11/16. MD elicited complaint: abdominal pain Onset (ago): week(s) Pain Consistency: intermittent Location: none Quality: fullness Radiation: RLQ Related Data Home Medications Medication Instructions Recorded Confirmed amlodipine 5 mg tablet 5 mg PO DAILY 06/28/19 metoprolol succinate 200 mg 200 mg PO DAILY 06/28/19 tablet,extended release 24 hr spironolactone 50 mg tablet 50 mg PO DAILY 06/28/19 albuterol sulfate 90 mcg/actuation inhalation 06/10/20 06/10/20 aerosol inhaler chlorthalidone 50 mg tablet 06/10/20 gabapentin 100 mg capsule 06/10/20 lisinopril 40 mg tablet 06/10/20 Allergies Allergy/AdvReac Type Severity Reaction Status Date / Time No Known Allergies Allergy Verified 10/31/21 23:03 Review of Systems Review of Systems: All systems reviewed & are unremarkable except as noted in HPI and below Constitutional: Constitutional: Denies chills and Denies fatigue Gastrointestinal: Gastrointestinal: Reports abdominal pain and Reports nausea Genitourinary: Genitourinary: Denies hematuria, Denies nocturia and Denies dysuria [facility] Past Medical History Medical History Arthritis Asthma CHF (congestive heart failure) History of angina HTN (hypertension) Nonischemic cardiomyopathy Seasonal allergies Sleep apnea UTI (urinary tract infection) Surgical History Surgical History History of cardiac catheterization History of cholecystectomy History of knee surgery Right History of tubal ligation Family History Family History Father Diabetes mellitus Hypertension Asthma Patient's father is in good health Family history of cardiovascular disease Mother Hypertension Patient's mother is in good health Sibling Patient's sister is in good health Social History Social History Smoking status: Never smoker Alcohol intake: never Gender identity (if verbalized by the patient): Female Exam Const: General: alert Nutritional Appearance: obese Orientation/consciousness: patient oriented x3 Limitations: no limitations HENMT: Head: normal to inspection Eyes: EOM: EOMs intact bilaterally Chest: Chest palpation & inspection: normal inspection of the chest Resp: Effort & Inspection: normal respiratory effort Auscultation: clear to auscultation bilaterally and breath sounds present Cardio: Rate: regular rate Rhythm: regular rhythm Heart sounds: no murmurs GI: GI Palp: Yes Soft to palpation, Yes Tenderness to palpation present (GI) (RLQ, RUQ), No Guarding due to palpation present (GI) and No Rigid due to palpation Auscultation: normal bowel sounds Skin: General skin exam: normal color Rashes: no rashes Wounds: no wounds Neuro: General: patient oriented x3, moves all extremities and CN's II-XI intact bilaterally Extrem: General: normal to inspection Psych: Mental Status: mental status grossly normal Affect: normal affect Attitude: cooperative Course Reevaluation(s) Reevaluatio
[2021-11-01] VITALS (20 sets, daily range): BP systolic 123–160; BP diastolic 64–87; PULSE 64–87; RESP 18–20; O2SAT 94–100
[2021-11-01] MEDS: MORPHINE SULFATE (*CRX) 4 MG/ML INJ IV PUSH ×2 (01:40→05:31)
== END 2021-11-01 06:40 | disposition home or self-care (01) ==
PROVIDERS: Emergency Medicine; Emergency Provider General Practice; PCP Family Medicine
DX: N83.201 Unspecified ovarian cyst, right side (principal); J45.909 Unspecified asthma, uncomplicated; I50.9 Heart failure, unspecified; I11.0 Hypertensive heart disease with heart failure; I42.8 Other cardiomyopathies; G47.30 Sleep apnea, unspecified; M19.90 Unspecified osteoarthritis, unspecified site; Z87.440 Personal history of urinary (tract) infections
CPT/HCPCS: 36415; 74177; 76830; 76856; 80053; 81001; 81025; 83690; 85025; 87086; 96365; 96374; 96375; 96376; 99284; J0131; J2270; J2405; Q9967

== ENCOUNTER 2021-11-17 12:38 | Outpatient (CLI) | payer OTHER, SELFPAY ==
[2021-11-17 15:06] LABS: Basophils Absolute Auto 0.1 K/mm3 (0.0-0.1); Basophils Percent Auto 0.5 % (0.2-1.2); Eosinophils Absolute Auto 0.1 K/mm3 (0-0.3); Hematocrit 34.3 % (37.0-47.0); Hemoglobin 10.3 g/dL (12.0-15.0); Immature Granulocyte Absolute 0.02 K/mm3 (0.00-0.031); Immature Granulocyte Percent A 0.2 % (0-0.5); Lymphocytes Absolute Auto 2.49 K/mm3 (0.9-3.2); Lymphocytes Percent Auto 22.1 % (18.3-44.2); Mean Corpuscular Hemoglobin 26.8 pg (26-34); Mean Corpuscular Volume 89.3 fl (80-100); Mean Platelet Volume 12.6 fl (7.4-10.4); Monocytes Absolute Auto 0.9 K/mm3 (0.1-0.6); Monocytes Percent Auto 8.1 % (2.6-8.5); Neutrophils Absolute Auto 7.7 K/mm3 (1.3-6.7); Neutrophils Percent Auto 68.1 % (45.5-73.1); Platelet Count Result 312 k/mm3 (150-375); Red Blood Count 3.84 M/mm3 (4.2-5.4); White Blood Count 11.3 K/mm3 (4.5-10.0)
[2021-11-17 15:17] LABS: Alanine Aminotransferase 14 U/L (6-35); Albumin Level 3.6 g/dL (3.5-5.1); Alkaline Phosphatase 82 U/L (38-126); Amylase 49 U/L (30-110); Anion Gap 9 mmol/L (8-16); Aspartate Amino Transferase 20 U/L (14-36); Bilirubin,Total 0.3 mg/dL (0.2-1.3); Blood Urea Nitrogen 11 mg/dL (7-17); Calcium 8.6 mg/dL (8.4-10.2); Carbon Dioxide 28 mmol/L (22-30); Chloride 100 mmol/L (98-107); Estimated Glomerular Filt Rate > 60; Glucose 89 mg/dL (65-110); Lipase 33 U/L (23-300); Potassium 3.5 mmol/L (3.4-5.0); Sodium 137 mmol/L (137-145)
[2021-11-17 15:19] LABS: Appearance Urine Cloudy (Clear); Bilirubin Urine 3+ (Negative); Color Urine Amber (Yellow); Glucose Urine UA Negative (Negative); Ketones Urine 2+ mg/dL (Negative); Leukocyte Esterase Ur Negative LEU/UL (Negative); Nitrate Urine Positive (Negative); Protein Urine 2+ mg/dL (Negative); Specific Grav Ur >= 1.030 (1.001-1.035); pH Urine 5.5 (5.0-9.0)
[2021-11-17 15:29] LABS: Bacteria Urine Trace /hpf; Calcium Oxalate Crystals Urine Many /hpf; Mucus Urine Heavy /lpf; Squamous Epithelial Cell Urine Many /hpf (Few)
[2021-11-17 15:31] LABS: Add Urine Microscopic? YES; Blood Urine Trace-Intact (Negative)
== END 2021-11-17 12:39 | disposition home or self-care (01) ==
LOC: ANHLAB 12:46
PROVIDERS: PCP Family Medicine
DX: R10.84 Generalized abdominal pain (principal); N39.0 Urinary tract infection, site not specified; R31.9 Hematuria, unspecified; Z98.84 Bariatric surgery status
CPT/HCPCS: 36415; 80053; 81001; 82150; 83690; 85025; 87086; 87088

== ENCOUNTER 2022-01-23 15:15 | Outpatient (CLI) | payer OTHER, SELFPAY ==
[2022-01-23 15:53] LABS: Basophils Absolute Auto 0.1 K/mm3 (0.0-0.1); Basophils Percent Auto 0.7 % (0.2-1.2); Eosinophils Absolute Auto 0.1 K/mm3 (0-0.3); Eosinophils Percent Auto 0.7 % (0-4.4); Hematocrit 37.4 % (37.0-47.0); Hemoglobin 11.7 g/dL (12.0-15.0); Immature Granulocyte Absolute 0.02 K/mm3 (0.00-0.031); Immature Granulocyte Percent A 0.2 % (0-0.5); Lymphocytes Absolute Auto 3.14 K/mm3 (0.9-3.2); Mean Corpuscular HGB Conc 31.3 g/dl (32-36); Mean Corpuscular Hemoglobin 26.2 pg (26-34); Mean Corpuscular Volume 83.7 fl (80-100); Monocytes Absolute Auto 0.5 K/mm3 (0.1-0.6); Monocytes Percent Auto 5.5 % (2.6-8.5); Neutrophils Absolute Auto 5.2 K/mm3 (1.3-6.7); Neutrophils Percent Auto 57.9 % (45.5-73.1); Platelet Count Result 316 k/mm3 (150-375); Red Blood Count 4.47 M/mm3 (4.2-5.4); Red Cell Distribution Width 15.2 % (11.5-14.5)
[2022-01-23 16:06] LABS: Alanine Aminotransferase 12 U/L (6-35); Albumin Level 3.9 g/dL (3.5-5.1); Alkaline Phosphatase 94 U/L (38-126); Anion Gap 9 mmol/L (8-16); Aspartate Amino Transferase 18 U/L (14-36); Bilirubin,Total 0.3 mg/dL (0.2-1.3); Blood Urea Nitrogen 5 mg/dL (7-17); Carbon Dioxide 29 mmol/L (22-30); Chloride 102 mmol/L (98-107); Cholesterol 196 mg/dL (0-200); Estimated Glomerular Filt Rate > 60; Glucose 99 mg/dL (65-110); HDL Direct 56 mg/dL; Sodium 140 mmol/L (137-145); Triglycerides 141 mg/dL (<150)
[2022-01-23 16:13] LABS: Anisocytosis 1+ (NORMAL); Hypochromasia 1+ (NORMAL); Platelet Estimate Adequate (Adequate); Schistocytes None Seen (NORMAL)
[2022-01-23 16:14] LABS: Atypical Lymphocytes Present
[2022-01-23 16:17] LABS: LDL Cholesterol Direct 81 mg/dL
[2022-01-23 16:21] LABS: Vitamin D 25 Hydroxy 22.8 ng/mL
[2022-01-23 17:33] LABS: Folic Acid 6.2 ng/mL (2.76->20)
[2022-01-23 18:25] LABS: Parathyroid Intact 87.9 pg/mL (7.5-53.5)
[2022-01-23 18:53] LABS: Iron 71 ug/dL (37-170); Percent Iron Saturation 22 % (20-50)
[2022-01-25 23:08] LABS: Transferrin 296 mg/dL (206-381)
[2022-01-27 06:21] LABS: Vitamin B1 <6 nmol/L (8-30)
== END 2022-01-23 15:16 | disposition home or self-care (01) ==
PROVIDERS: PCP Physician Assistant
DX: E66.01 Morbid (severe) obesity due to excess calories (principal); K91.2 Postsurgical malabsorption, not elsewhere classified; Z98.84 Bariatric surgery status
CPT/HCPCS: 36415; 80053; 80061; 82306; 82607; 82728; 82746; 83540; 83550; 83735; 83970; 84100; 84425; 84466; 85025

== ENCOUNTER 2022-02-22 14:00 | Outpatient (CLI) | payer OTHER, SELFPAY ==
[2022-02-22 14:27] LABS: Basophils Absolute Auto 0.1 K/mm3 (0.0-0.1); Basophils Percent Auto 0.6 % (0.2-1.2); Eosinophils Absolute Auto 0.1 K/mm3 (0-0.3); Eosinophils Percent Auto 1.1 % (0-4.4); Hematocrit 39.4 % (37.0-47.0); Hemoglobin 12.5 g/dL (12.0-15.0); Immature Granulocyte Absolute 0.04 K/mm3 (0.00-0.031); Immature Granulocyte Percent A 0.4 % (0-0.5); Lymphocytes Absolute Auto 3.29 K/mm3 (0.9-3.2); Lymphocytes Percent Auto 33.1 % (18.3-44.2); Mean Corpuscular HGB Conc 31.7 g/dl (32-36); Mean Corpuscular Hemoglobin 26.4 pg (26-34); Mean Corpuscular Volume 83.1 fl (80-100); Mean Platelet Volume 11.2 fl (7.4-10.4); Monocytes Absolute Auto 0.5 K/mm3 (0.1-0.6); Monocytes Percent Auto 5.4 % (2.6-8.5); Neutrophils Absolute Auto 5.9 K/mm3 (1.3-6.7); Neutrophils Percent Auto 59.4 % (45.5-73.1); Platelet Count Result 325 k/mm3 (150-375); Red Blood Count 4.74 M/mm3 (4.2-5.4); Red Cell Distribution Width 15.6 % (11.5-14.5); White Blood Count 9.9 K/mm3 (4.5-10.0)
[2022-02-22 14:41] LABS: Alanine Aminotransferase 14 U/L (6-35); Albumin Level 4.1 g/dL (3.5-5.1); Alkaline Phosphatase 101 U/L (38-126); Anion Gap 10 mmol/L (8-16); Aspartate Amino Transferase 27 U/L (14-36); Bilirubin,Total 0.4 mg/dL (0.2-1.3); Blood Urea Nitrogen 8 mg/dL (7-17); Calcium 9.2 mg/dL (8.4-10.2); Carbon Dioxide 30 mmol/L (22-30); Chloride 99 mmol/L (98-107); Cholesterol 224 mg/dL (0-200); Estimated Glomerular Filt Rate > 60; Glucose 98 mg/dL (65-110); HDL Direct 63 mg/dL; Potassium 3.2 mmol/L (3.4-5.0); Sodium 139 mmol/L (137-145); Triglycerides 120 mg/dL (<150)
[2022-02-22 14:57] LABS: LDL Cholesterol Direct 93 mg/dL
[2022-02-22 15:06] LABS: Iron 77 ug/dL (37-170)
[2022-02-22 15:15] LABS: Percent Iron Saturation 22 % (20-50)
[2022-02-22 15:24] LABS: Free T4 Free Thyroxine 0.86 ng/mL (0.78-2.19)
[2022-02-22 15:30] LABS: Hemoglobin A1C 5.2 % (<5.7)
[2022-02-22 15:39] LABS: Parathyroid Intact 80.2 pg/mL (7.5-53.5)
[2022-02-22 16:59] LABS: Folic Acid 7.4 ng/mL (2.76->20)
== END 2022-02-22 14:01 | disposition home or self-care (01) ==
LOC: ANHLAB 14:05
PROVIDERS: PCP Physician Assistant
DX: Z98.84 Bariatric surgery status (principal)
CPT/HCPCS: 36415; 80053; 80061; 82607; 82728; 82746; 83036; 83540; 83550; 83970; 84425; 84439; 84443; 85025

== ENCOUNTER 2022-04-06 15:35 | Outpatient (CLI) | payer OTHER, SELFPAY ==
[2022-04-06 17:24] LABS: Hemoglobin A1C 5.5 % (<5.7)
[2022-04-06 17:25] LABS: Free T4 Free Thyroxine 0.97 ng/mL (0.78-2.19); Vitamin D 25 Hydroxy 28.3 ng/mL
== END 2022-04-06 15:36 | disposition home or self-care (01) ==
LOC: ANHLAB 15:38
PROVIDERS: PCP Physician Assistant; Visit Provider Physician Assistant
DX: Z98.84 Bariatric surgery status (principal); E21.3 Hyperparathyroidism, unspecified
CPT/HCPCS: 36415; 82306; 83036; 83970; 84439; 84443

== ENCOUNTER 2022-04-27 15:08 | Outpatient (CLI) | payer OTHER, SELFPAY ==
--- NOTE | ~2022-04-27 | MM_ITS ---
EXAMINATION: MM screening ursula BI w bob HISTORY: Screening mammogram TECHNIQUE: Craniocaudal and mediolateral oblique 3-D tomosynthesis images were obtained and synthetic 2-D images were generated. CAD analysis was submitted and interpreted. COMPARISON: 08/18/2020, 12/01/2014 bilateral screening mammogram examinations BREAST PARENCHYMAL COMPOSITION: There are scattered areas of fibroglandular density. FINDINGS: There is no evidence of suspicious mass, calcification, or architectural distortion to sugg est malignancy in either breast. There has been no suspicious interval change. IMPRESSION: 1. No mammographic evidence of malignancy. 2. Recommend routine screening mammography in one year. BI-RADS Category 1: Negative Reviewed, dictated and finalized at location B. 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
[2022-04-27 15:38] LABS: Basophils Absolute Auto 0.1 K/mm3 (0.0-0.1); Basophils Percent Auto 0.4 % (0.2-1.2); Eosinophils Percent Auto 0.2 % (0-4.4); Hemoglobin 12.2 g/dL (12.0-15.0); Immature Granulocyte Absolute 0.09 K/mm3 (0.00-0.031); Immature Granulocyte Percent A 0.5 % (0-0.5); Lymphocytes Absolute Auto 1.86 K/mm3 (0.9-3.2); Lymphocytes Percent Auto 9.9 % (18.3-44.2); Mean Corpuscular HGB Conc 32.1 g/dl (32-36); Mean Corpuscular Hemoglobin 26.7 pg (26-34); Mean Corpuscular Volume 83.2 fl (80-100); Mean Platelet Volume 11.4 fl (7.4-10.4); Monocytes Percent Auto 5.5 % (2.6-8.5); Neutrophils Absolute Auto 15.7 K/mm3 (1.3-6.7); Neutrophils Percent Auto 83.5 % (45.5-73.1); Platelet Count Result 256 k/mm3 (150-375); Red Blood Count 4.57 M/mm3 (4.2-5.4); Red Cell Distribution Width 17.3 % (11.5-14.5); White Blood Count 18.8 K/mm3 (4.5-10.0)
[2022-04-27 15:53] LABS: Alanine Aminotransferase 17 U/L (6-35); Albumin Level 3.9 g/dL (3.5-5.1); Alkaline Phosphatase 96 U/L (38-126); Anion Gap 7 mmol/L (8-16); Aspartate Amino Transferase 18 U/L (14-36); Bilirubin,Total 0.4 mg/dL (0.2-1.3); Blood Urea Nitrogen 14 mg/dL (7-17); Calcium 8.6 mg/dL (8.4-10.2); Carbon Dioxide 26 mmol/L (22-30); Chloride 104 mmol/L (98-107); Cholesterol 186 mg/dL (0-200); Estimated Glomerular Filt Rate > 60; Glucose 105 mg/dL (65-110); HDL Direct 68 mg/dL; Potassium 3.1 mmol/L (3.4-5.0); Sodium 137 mmol/L (137-145); Triglycerides 118 mg/dL (<150)
[2022-04-27 16:06] LABS: LDL Cholesterol Direct 64 mg/dL
[2022-04-27 16:56] LABS: Folic Acid 12.2 ng/mL (2.76->20)
[2022-04-27 20:05] LABS: Parathyroid Intact 87.7 pg/mL (7.5-53.5)
[2022-04-27 21:19] LABS: Iron 14 ug/dL (37-170)
[2022-04-27 21:31] LABS: Percent Iron Saturation 4 % (20-50)
[2022-05-05 13:27] LABS: Vitamin B1 24 nmol/L (8-30)
== END 2022-04-27 15:09 | disposition home or self-care (01) ==
PROVIDERS: PCP Physician Assistant; Visit Provider Obstetrics & Gynecology Gynecology
DX: Z12.31 Encounter for screening mammogram for malignant neoplasm of breast (principal); E51.9 Thiamine deficiency, unspecified
CPT/HCPCS: 36415; 77063; 77067; 80053; 80061; 82607; 82728; 82746; 83540; 83550; 83970; 84425; 85025

== ENCOUNTER 2022-04-27 16:12 | Emergency (ER) | payer OTHER, SELFPAY ==
--- NOTE | ~2022-04-27 | XR_ITS ---
EXAMINATION: XR chest 2V DATE: 04/27/2022 18:35 INDICATION: Shortness of breath and cough and chest pain. TECHNIQUE: Frontal and lateral views of the chest were obtained. COMPARISON: Chest 2 views 06/28/2019 FINDINGS: There is no pneumonia, pleural effusion, or pneumothorax. The heart size is normal. There a re surgical clips in the abdomen. IMPRESSION: 1. No acute cardiopulmonary disease. Reviewed, dictated and finalized at location A. 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
--- NOTE | ~2022-04-27 | CT_ITS ---
EXAMINATION: CTA chest PE protocol DATE: 04/27/2022 19:54 INDICATION: Chest pain and shortness of breath. TECHNIQUE: Computed tomography angiography (CTA) of the chest was performed with 200 mL Omnipaque-350 intravenous contrast timed to evaluate the pulmonary arteries. Coronal maximum intensity projection 3D-reconstructions were created by the technologist. Automated exposure control and iterative reconst ruction technique were employed. The dose-length product was 522.12 mGy-cm. COMPARISON: Chest CT 12/23/2018 FINDINGS: The lungs demonstrate mild atelectasis. There is mild elevation of right hemidiaphragm. No pleural effusion. The heart size is normal. No pericardial effusion. There is no pulmonary embolus. T here are surgical changes in the stomach. There are changes of cholecystectomy. There are bridging en dplate osteophytes at multiple levels in the spine, consistent with diffuse idiopathic skeletal hyper ostosis (DISH). IMPRESSION: 1. No pulmonary embolus. Reviewed, dictated and finalized at location A. 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 No pulmonary embolus.
[2022-04-27 16:41] VITALS: BP 142/93; PULSE 115; RESP 14; TEMP 36.4; O2SAT 100
[2022-04-27 17:32] LABS: Influenza A QL RT-PCR Negative (Negative); Influenza B QL RT-PCR Negative (Negative); RSV RNA, RT-PCR Negative (Negative); SARS-CoV-2 RNA PCR Negative
--- NOTE | 2022-04-27 17:58 | ED.URI ---
HPI - URI/Sore Throat General Chief Complaint: Upper Respiratory Infection Stated Complaint: chills, body aches Time Seen by Provider: 04/27/22 17:57 Source: patient Mode of arrival: ambulatory Limitations: no limitations History of Present Illness HPI Narrative: Patient is a 47-year-old female who presents the ED with multiple complaints. Patient reports she began feeling unwell early Sunday morning. She states she woke up with sweats and chills. She did not document a fever at that time. She also reports having body aches, fatigue, left upper extremity pain and heaviness, mild cough, sore throat, headache, mild shortness of breath, nausea. Patient has not tried anything for symptoms. She states the heaviness in her left arm seemed to travel into her chest when she woke up this morning, which prompted her presentation. Patient denies any sick contacts. She is vaccinated for COVID and flu. Denies urinary symptoms, abdominal pain. Related Data Home Medications Medication Instructions Recorded Confirmed amlodipine 5 mg tablet 5 mg PO DAILY 06/28/19 metoprolol succinate 200 mg 200 mg PO DAILY 06/28/19 tablet,extended release 24 hr spironolactone 50 mg tablet 50 mg PO DAILY 06/28/19 albuterol sulfate 90 mcg/actuation inhalation 06/10/20 06/10/20 aerosol inhaler chlorthalidone 50 mg tablet 06/10/20 gabapentin 100 mg capsule 06/10/20 lisinopril 40 mg tablet 06/10/20 Allergies Allergy/AdvReac Type Severity Reaction Status Date / Time No Known Allergies Allergy Verified 10/31/21 23:03 Review of Systems Review of Systems: CONSTITUTIONAL: See HPI. ENT: See HPI. CARDIOVASCULAR: See HPI. RESPIRATORY: See HPI. GASTROINTESTINAL: Reports nausea. Denies abdominal pain, vomiting, or diarrhea. GENITOURINARY: Denies dysuria or hematuria. SKIN: Denies rash or itching. MUSCULOSKELETAL: See HPI. NEUROLOGIC: See HPI. All systems reviewed & are unremarkable except as noted in HPI and below PMFSH Past Medical History Medical History Arthritis Asthma CHF (congestive heart failure) History of angina HTN (hypertension) Nonischemic cardiomyopathy Seasonal allergies Sleep apnea UTI (urinary tract infection) Surgical History Surgical History History of cardiac catheterization History of cholecystectomy History of knee surgery Right History of tubal ligation Family History Family History Father Diabetes mellitus Hypertension Asthma Patient's father is in good health Family history of cardiovascular disease Mother Hypertension Patient's mother is in good health Sibling Patient's sister is in good health Social History Social History Smoking status: Never smoker Alcohol intake: never Gender identity (if verbalized by the patient): Female Exam Narrative: GENERAL: Mildly ill appearing, obese, non-toxic, in no acute distress. HEAD: Normocephalic, atraumatic. EYES: PERRLA/EOMI, conjunctiva clear. ENT: Moderate posterior pharynx erythema. Mild tonsillar hypertrophy, no asymmetric enlargement. No tonsillar exudates. Uvula midline. No stridor. Airway patent. NECK: Supple. Mild anterior lymphadenopathy, R > L, no masses. RESPIRATORY: Airway patent, respirations nonlabored. Clear to auscultation bilaterally, no rales, rhonchi, wheezing. CARDIOVASCULAR: Regular rate and rhythm without murmurs, rubs, or gallops. Radial pulses 2+ and equal bilaterally. ABDOMINAL: Soft, nontender, nondistended, no hepatosplenomegaly. Normoactive BS. MUSCULOSKELETAL: Moves all extremities. Strength/ROM intact without gross deformities. No edema. No chest wall tenderness to palpation. SKIN: Warm, dry, normal color. No rashes. NEURO: A&O X3. Speech clear. Cranial nerves II-XII rah
[2022-04-27 18:00] VITALS: BP 138/92; PULSE 109; RESP 12; O2SAT 99
--- NOTE | 2022-04-27 18:14 | ECG_ITS ---
Measurements Intervals [place] Rate: 102 P: 26 WV: 183 QRS: -25 QRSD: 105 T: 97 QT: 342 QTc: 447 Interpretive Statements SINUS TACHYCARDIA DELAYED PRECORDIAL R/S TRANSITION LEFT VENTRICULAR HYPERTROPHY AND ST-T CHANGE CONSIDER INFERIOR INFARCT, AGE INDETERMINATE BORDERLINE T WAVE ABNORMALITY- LATERAL LEADS ABNORMAL ECG COMPARED TO ECG 06/10/2020 11:17:48 SINUS TACHYCARDIA NOW PRESENT Electronically Signed On 04-27-2022 20:21:52 [employer] WORKER by Chano Camarena D.O.
[2022-04-27] MEDS: SODIUM CHLORIDE 0.9% IV 1,000 ML 999 ML IV CONT ×2 (18:46→19:18)
[2022-04-27 19:01] LABS: Basophils Absolute Auto 0.1 K/mm3 (0.0-0.1); Basophils Percent Auto 0.3 % (0.2-1.2); Eosinophils Percent Auto 0.1 % (0-4.4); Hematocrit 37.3 % (37.0-47.0); Hemoglobin 12.3 g/dL (12.0-15.0); Immature Granulocyte Absolute 0.09 K/mm3 (0.00-0.031); Immature Granulocyte Percent A 0.5 % (0-0.5); Lymphocytes Absolute Auto 2.41 K/mm3 (0.9-3.2); Lymphocytes Percent Auto 12.9 % (18.3-44.2); Mean Corpuscular Hemoglobin 26.5 pg (26-34); Mean Corpuscular Volume 80.4 fl (80-100); Mean Platelet Volume 11.4 fl (7.4-10.4); Monocytes Percent Auto 5.5 % (2.6-8.5); Neutrophils Percent Auto 80.7 % (45.5-73.1); Platelet Count Result 253 k/mm3 (150-375); Red Blood Count 4.64 M/mm3 (4.2-5.4); Red Cell Distribution Width 16.8 % (11.5-14.5); White Blood Count 18.6 K/mm3 (4.5-10.0)
[2022-04-27 19:04] LABS: Alanine Aminotransferase 17 U/L (6-35); Alkaline Phosphatase 90 U/L (38-126); Anion Gap 8 mmol/L (8-16); Aspartate Amino Transferase 20 U/L (14-36); Bilirubin,Total 0.4 mg/dL (0.2-1.3); Blood Urea Nitrogen 13 mg/dL (7-17); Calcium 8.9 mg/dL (8.4-10.2); Carbon Dioxide 28 mmol/L (22-30); Chloride 102 mmol/L (98-107); Estimated CRCL calculation 85 ml/min; Estimated Glomerular Filt Rate > 60; Glucose 99 mg/dL (65-110); Potassium 3.2 mmol/L (3.4-5.0); Sodium 138 mmol/L (137-145)
[2022-04-27 19:17] LABS: D Dimer 0.68 ug/mL (<0.48); Troponin I < 0.012 ng/mL (0.000-0.034)
[2022-04-27] MEDS: POTASSIUM CHLORIDE 20 MEQ TABLET 40 MEQ PO (19:18)
[2022-04-27 20:15] LABS: Appearance Urine Clear (Clear); Bilirubin Urine Negative (Negative); Blood Urine Trace-intact (Negative); Color Urine Yellow (Yellow); Glucose Urine UA Negative (Negative); Ketones Urine 1+ mg/dL (Negative); Leukocyte Esterase Ur Negative LEU/UL (Negative); Nitrate Urine Negative (Negative); Protein Urine Negative (Negative); Specific Grav Ur <= 1.005 (1.001-1.035); Urobilinogen Urine 0.2 mg/dL (<2.0); pH Urine 5.5 (5.0-9.0)
[2022-04-27 20:26] VITALS: BP 125/77; PULSE 91; RESP 12; O2SAT 98
[2022-04-27 20:26] LABS: Bacteria Urine Trace /hpf; Mucus Urine Rare /lpf; Squamous Epithelial Cell Urine Many /hpf (Few); WBC Urine 0-3 /hpf
[2022-04-27 20:30] LABS: Add Urine Microscopic? YES
[2022-04-27 20:38] LABS: Strep Group A RT-PCR DETECTED (Negative)
[2022-04-27] MEDS: AMOXICILLIN 500 MG CAPSULE PO (21:13)
[2022-04-27 22:08] VITALS: BP 129/73; PULSE 70; RESP 12; O2SAT 98
== END 2022-04-27 22:09 | disposition home or self-care (01) ==
PROVIDERS: Emergency Medicine; Emergency Provider Physician Assistant; PCP Physician Assistant
DX: J02.0 Streptococcal pharyngitis (principal); D72.829 Elevated white blood cell count, unspecified; Z20.822 Contact with and (suspected) exposure to COVID-19; J45.909 Unspecified asthma, uncomplicated; I50.9 Heart failure, unspecified; I11.0 Hypertensive heart disease with heart failure; I42.8 Other cardiomyopathies; G47.30 Sleep apnea, unspecified; M19.90 Unspecified osteoarthritis, unspecified site; Z87.440 Personal history of urinary (tract) infections; R00.0 Tachycardia, unspecified; I51.7 Cardiomegaly; R94.31 Abnormal electrocardiogram [ECG] [EKG]
CPT/HCPCS: 36415; 71046; 71275; 80053; 81001; 84484; 85025; 85380; 87637; 87651; 93005; 96361; 96365; 99284; A9270; J0131; J7030; Q9967

== ENCOUNTER 2022-05-31 12:10 | Outpatient (RCR) | payer OTHER, SELFPAY | END 2022-05-31 12:12 | disposition home or self-care (01) | LOC: ANHPT 12:10 | PROVIDERS: PCP Physician Assistant; Visit Provider Physician Assistant | DX: M19.012 Primary osteoarthritis, left shoulder (principal) | CPT/HCPCS: 99199 ==

== ENCOUNTER 2022-06-27 13:48 | Outpatient (CLI) | payer OTHER, SELFPAY ==
[2022-06-27 15:43] LABS: Alanine Aminotransferase 14 U/L (6-35); Albumin Level 4.1 g/dL (3.5-5.1); Alkaline Phosphatase 91 U/L (38-126); Anion Gap 6 mmol/L (8-16); Aspartate Amino Transferase 18 U/L (14-36); Bilirubin,Total 0.5 mg/dL (0.2-1.3); Blood Urea Nitrogen 12 mg/dL (7-17); Carbon Dioxide 27 mmol/L (22-30); Chloride 106 mmol/L (98-107); Cholesterol 211 mg/dL (0-200); Estimated Glomerular Filt Rate > 60; Glucose 89 mg/dL (65-110); HDL Direct 65 mg/dL; Magnesium 1.9 mg/dL (1.6-2.3); Potassium 3.8 mmol/L (3.4-5.0); Sodium 139 mmol/L (137-145); Triglycerides 84 mg/dL (<150)
[2022-06-27 15:50] LABS: Basophils Absolute Auto 0.1 K/mm3 (0.0-0.1); Basophils Percent Auto 0.7 % (0.2-1.2); Eosinophils Absolute Auto 0.1 K/mm3 (0-0.3); Eosinophils Percent Auto 1.3 % (0-4.4); Hematocrit 37.5 % (37.0-47.0); Hemoglobin 11.8 g/dL (12.0-15.0); Immature Granulocyte Absolute 0.01 K/mm3 (0.00-0.031); Immature Granulocyte Percent A 0.1 % (0-0.5); Lymphocytes Absolute Auto 2.91 K/mm3 (0.9-3.2); Lymphocytes Percent Auto 38.2 % (18.3-44.2); Mean Corpuscular HGB Conc 31.5 g/dl (32-36); Mean Corpuscular Hemoglobin 27.2 pg (26-34); Mean Corpuscular Volume 86.4 fl (80-100); Mean Platelet Volume 11.4 fl (7.4-10.4); Monocytes Absolute Auto 0.4 K/mm3 (0.1-0.6); Monocytes Percent Auto 5.6 % (2.6-8.5); Neutrophils Absolute Auto 4.1 K/mm3 (1.3-6.7); Neutrophils Percent Auto 54.1 % (45.5-73.1); Platelet Count Result 279 k/mm3 (150-375); Red Blood Count 4.34 M/mm3 (4.2-5.4); Red Cell Distribution Width 15.8 % (11.5-14.5); White Blood Count 7.6 K/mm3 (4.5-10.0)
[2022-06-27 15:55] LABS: LDL Cholesterol Direct 89 mg/dL; Transferrin 245 mg/dL (206-381)
[2022-06-27 15:56] LABS: Parathyroid Intact 107.7 pg/mL (7.5-53.5)
[2022-06-27 16:45] LABS: Iron 67 ug/dL (37-170); Percent Iron Saturation 20 % (20-50)
[2022-06-27 16:52] LABS: Folic Acid 15.3 ng/mL (2.76->20)
[2022-06-27 17:00] LABS: Vitamin D 25 Hydroxy 41.3 ng/mL
[2022-07-02 09:25] LABS: Vitamin B1 16 nmol/L (8-30)
== END 2022-06-27 13:49 | disposition home or self-care (01) ==
PROVIDERS: PCP Physician Assistant
DX: E66.01 Morbid (severe) obesity due to excess calories (principal); K91.2 Postsurgical malabsorption, not elsewhere classified; Z98.84 Bariatric surgery status
CPT/HCPCS: 36415; 80053; 80061; 82306; 82607; 82728; 82746; 83540; 83550; 83735; 83970; 84100; 84425; 84466; 85025

== ENCOUNTER 2022-11-29 12:49 | Outpatient (CLI) | payer OTHER, SELFPAY ==
[2022-12-01 19:37] LABS: Amphetamines NEGATIVE ng/mL (<500); Barbiturates NEGATIVE ng/mL (<300); Benzodiazepines NEGATIVE ng/mL (<100); Cocaine Metabolite POSITIVE ng/mL (<150); Marijuana Metabolite NEGATIVE ng/mL (<20); Methadone Metabolite NEGATIVE ng/mL (<100); Opiates NEGATIVE ng/mL (<100); Oxidant NEGATIVE mcg/mL (<200); pH 5.8 (4.5-9.0)
[2022-12-01 23:29] LABS: Zinc 71 mcg/dL (60-130)
[2022-12-03 00:11] LABS: Vitamin A 50 mcg/dL (38-98)
== END 2022-11-29 12:50 | disposition home or self-care (01) ==
PROVIDERS: PCP Physician Assistant
DX: K28.9 Gastrojejunal ulcer, unspecified as acute or chronic, without hemorrhage or perforation (principal); Z98.84 Bariatric surgery status
CPT/HCPCS: 36415; 80307; 80323; 82525; 84590; 84630; G0480

== ENCOUNTER 2022-12-20 16:00 | Outpatient (CLI) | payer OTHER, SELFPAY ==
[2022-12-20 16:22] LABS: Hematocrit 26.9 % (37.0-47.0); Hemoglobin 8.1 g/dL (12.0-15.0); Mean Corpuscular HGB Conc 30.1 g/dl (32-36); Mean Corpuscular Hemoglobin 24.9 pg (26-34); Mean Corpuscular Volume 82.8 fl (80-100); Platelet Count Result 367 k/mm3 (150-375); Red Blood Count 3.25 M/mm3 (4.2-5.4); Red Cell Distribution Width 16.9 % (11.5-14.5); White Blood Count 6.8 K/mm3 (4.5-10.0)
[2022-12-20 17:12] LABS: Iron 17 ug/dL (37-170)
[2022-12-20 17:21] LABS: Percent Iron Saturation 4 % (20-50)
[2022-12-20 17:47] LABS: Ferritin 3.93 ng/mL (6.24-137)
== END 2022-12-20 16:01 | disposition home or self-care (01) ==
PROVIDERS: PCP Physician Assistant; Visit Provider Nurse Practitioner
DX: D50.9 Iron deficiency anemia, unspecified (principal); K27.9 Peptic ulcer, site unspecified, unspecified as acute or chronic, without hemorrhage or perforation; R82.5 Elevated urine levels of drugs, medicaments and biological substances; R79.89 Other specified abnormal findings of blood chemistry
CPT/HCPCS: 36415; 82728; 83540; 83550; 85027

== ENCOUNTER 2023-01-25 08:15 | Outpatient (CLI) | payer OTHER, SELFPAY ==
[2023-01-28 14:43] LABS: Amphetamines NEGATIVE ng/mL (<500); Barbiturates NEGATIVE ng/mL (<300); Benzodiazepines NEGATIVE ng/mL (<100); Cocaine Metabolite NEGATIVE ng/mL (<150); Marijuana Metabolite NEGATIVE ng/mL (<20); Methadone Metabolite NEGATIVE ng/mL (<100); Opiates NEGATIVE ng/mL (<100); Oxidant NEGATIVE mcg/mL (<200); pH 5.7 (4.5-9.0)
== END 2023-01-25 08:16 | disposition home or self-care (01) ==
PROVIDERS: PCP Physician Assistant
DX: R79.89 Other specified abnormal findings of blood chemistry (principal); R82.5 Elevated urine levels of drugs, medicaments and biological substances
CPT/HCPCS: 36415; 80307; 82310; 83970

== ENCOUNTER 2023-01-26 01:19 | Day surgery (SDC) | payer OTHER, SELFPAY ==
[2023-01-17 12:56] VITALS: BMI 28.9
[2023-01-26 09:46] VITALS: BP 135/90; PULSE 94; RESP 18; TEMP 36.3; O2SAT 100; BMI 28.6
[2023-01-26] MEDS: LACTATED RINGERS 1,000 ML 150 ML IV CONT (09:54)
--- NOTE | 2023-01-26 10:03 | WPDANESEPPF ---
Anes - Initial Pre Proc Eval Procedure: Operation Date: 01/26/23 10:30 Proposed Procedures p Esophagogastroduodenoscopy - Chencho Schultz MD Date/Time: 01/26/23 10:03 Surgeon: Chencho Schultz MD Pre Op Diagnosis: iron deficiency anemia,Peptic ulcer Patient Data Age: 47 Gender: F Height: 1.6 m Weight: 73.3 kg Last Vital Signs Temp 97.3 F L 01/26/23 09:46 Pulse 94 01/26/23 09:46 Resp 18 01/26/23 09:46 BP 135/90 01/26/23 09:46 Pulse Ox 100 01/26/23 09:46 O2 Del Method Room Air 01/26/23 09:46 Allergies Allergy/AdvReac Type Severity Reaction Status Date / Time No Known Allergies Allergy Verified 01/26/23 09:44 Home Medications Medication Instructions Recorded Confirmed Type metoprolol succinate 200 mg 100 mg PO DAILY 06/28/19 01/26/23 History tablet,extended release 24 hr albuterol sulfate 90 mcg/actuation 1 puff inhalation DAILY PRN 06/10/20 01/26/23 History aerosol inhaler allergies cyclobenzaprine 10 mg tablet 10 mg PO TID PRN muscle spasm #16 06/10/20 01/26/23 Rx tabs gabapentin 100 mg capsule 100 mg PO DAILY 06/10/20 01/26/23 History lisinopril 40 mg tablet 40 mg PO DAILY 06/10/20 01/26/23 History omeprazole 40 mg capsule,delayed 40 mg PO BID #60 caps 12/20/22 01/26/23 Rx release sucralfate 100 mg/mL oral 1 g (10 mL) PO ACHS 30 days #1,200 12/20/22 01/26/23 Rx suspension (Carafate) mL ferrous sulfate 324 mg (65 mg 324 mg PO BID #60 tabs 12/21/22 01/26/23 Rx iron) tablet,delayed release ascorbic acid (vitamin C) 500 mg 500 mg PO DAILY 01/17/23 01/26/23 History tablet thiamine HCl (vitamin B1) 50 mg 500 mg PO DAILY 01/17/23 01/26/23 History tablet dicyclomine 10 mg capsule 10 mg PO QID PRN abdominal pain 01/22/23 01/26/23 Rx #120 caps Patient hx anesthesia problems: none Family hx anesthesia problems: none Results Review: All pre-operative results and documents have been reviewed as part of the pre-operative evaluation. [facility] Past Medical History Medical History (Updated 12/20/22 @ 16:13 by Cara Pratt APRN) Abdominal pain Arthritis Asthma CHF (congestive heart failure) Colon cancer screening History of angina HTN (hypertension) Hx of diverticulitis of colon HAYLEY (iron deficiency anemia) Internal hemorrhoid Nonischemic cardiomyopathy PUD (peptic ulcer disease) Seasonal allergies Sleep apnea UTI (urinary tract infection) Surgical History Surgical History (Updated 12/20/22 @ 16:13 by Cara Pratt APRN) History of cardiac catheterization History of cholecystectomy History of knee surgery Right History of tubal ligation Hx of gastric bypass Family History Family History Father Diabetes mellitus Hypertension Asthma Patient's father is in good health Family history of cardiovascular disease Mother Hypertension Patient's mother is in good health Sibling Patient's sister is in good health Social History Social History Smoking status: Never smoker Alcohol intake: never Substance use type: does not use Living arrangements: with family Gender identity (if verbalized by the patient): Female Spiritual care concerns: No Anes - Eval Final PreProcedure Day of Procedure 01/26/23 10:03 Patient weight: normal Heart: regular rate and rhythm Lungs: clear to auscultation Airway: Mallampati scale class II Neurological: alert and oriented Last oral intake: >/= 8 hours ASA classification: III Emergent: no Anesthetic plan: proceed Anesthesia type and monitoring: general GIVS and standard monitoring Results Review: All pre-operative results and documents have been reviewed as part of the pre-operative evaluation. Informed Consent: The patient's anesthetic plan and its attendant risks and benefits were discussed with the patient/family/POA. Questions were nerissa
--- NOTE | 2023-01-26 10:12 | PM.HPGS ---
History of Present Illness History of Present Illness Consent: Risks, benefits, and alternatives have been discussed and questions answered. Patient agrees to proceed with procedure. Chief complaint: iron deficiency anemia,Peptic ulcer Narrative: Angelica Kruse is a 47 year old female with gastric bypass in 2019 as bariatric surgery (it was done in [facility]) then with recurrent anemia/UGIB, she had 2 ulcers measuring 8 mm and 4 mm at the GJ anastomosis junction status post clipping of larger ulcer on the 11/21/2022 and required blood transfusion, colonoscopy 2021.? She has been taking omeprazole 40 mg b.i.d. and carafate suspension, here to reassess site. Review of Systems Constitutional: Constitutional: Denies headache(s) and Denies weakness Eyes: Eyes: Denies blurry vision ENT: Reports Normal hearing present, Denies headache(s) and Denies neck pain Cardiovascular: Cardiovascular: Denies chest pain and Denies dyspnea Respiratory: Respiratory: Denies dyspnea Gastrointestinal: Gastrointestinal: Reports no additional gastrointestinal complaints Genitourinary: Genitourinary: Denies dysuria Musculoskeletal: Musculoskeletal: Denies neck pain Integumentary/Breasts: Skin/Breast: Denies dry skin Neurologic: Reports Normal hearing present, Denies headache(s) and Denies weakness Psychiatric: Psychiatric: Denies anxiety Endocrine: Endocrine: Denies change in body appearance Hematologic/Lymphatic: Hematologic/Lymphatic: Denies easy bleeding Allergic/Immunologic: Allergic/Immunologic: Denies urticaria PMFSH Past Medical History Medical History (Updated 12/20/22 @ 16:13 by Cara Pratt APRN) Abdominal pain Arthritis Asthma CHF (congestive heart failure) Colon cancer screening History of angina HTN (hypertension) Hx of diverticulitis of colon HAYLEY (iron deficiency anemia) Internal hemorrhoid Nonischemic cardiomyopathy PUD (peptic ulcer disease) Seasonal allergies Sleep apnea UTI (urinary tract infection) Surgical History Surgical History (Updated 12/20/22 @ 16:13 by Cara Pratt APRN) History of cardiac catheterization History of cholecystectomy History of knee surgery Right History of tubal ligation Hx of gastric bypass Family History Family History Father Diabetes mellitus Hypertension Asthma Patient's father is in good health Family history of cardiovascular disease Mother Hypertension Patient's mother is in good health Sibling Patient's sister is in good health Social History Social History Smoking status: Never smoker Alcohol intake: never Substance use type: does not use Living arrangements: with family Gender identity (if verbalized by the patient): Female Spiritual care concerns: No Meds Home Medications and Allergies Home Medications Medication Instructions Recorded Confirmed Type metoprolol succinate 200 mg 100 mg PO DAILY 06/28/19 01/26/23 History tablet,extended release 24 hr albuterol sulfate 90 mcg/actuation 1 puff inhalation DAILY PRN 06/10/20 01/26/23 History aerosol inhaler allergies cyclobenzaprine 10 mg tablet 10 mg PO TID PRN muscle spasm #16 06/10/20 01/26/23 Rx tabs gabapentin 100 mg capsule 100 mg PO DAILY 06/10/20 01/26/23 History lisinopril 40 mg tablet 40 mg PO DAILY 06/10/20 01/26/23 History omeprazole 40 mg capsule,delayed 40 mg PO BID #60 caps 12/20/22 01/26/23 Rx release sucralfate 100 mg/mL oral 1 g (10 mL) PO ACHS 30 days #1,200 12/20/22 01/26/23 Rx suspension (Carafate) mL ferrous sulfate 324 mg (65 mg 324 mg PO BID #60 tabs 12/21/22 01/26/23 Rx iron) tablet,delayed release ascorbic acid (vitamin C) 500 mg 500 mg PO DAILY 01/17/23 01/26/23 History tablet thiamine HCl (vitamin B1) 50 mg 500 mg PO DAILY 01/17/23 01/26/23 History tablet dicyclomine 10 mg capsule 10 mg PO QID PRN abdominal
[2023-01-26 10:26] VITALS: BP 129/87; PULSE 78; RESP 20; O2SAT 98
[2023-01-26 10:36] VITALS: BP 120/87; PULSE 72; RESP 22; O2SAT 99
[2023-01-26 10:46] VITALS: BP 140/90; PULSE 76; RESP 19; O2SAT 99
--- NOTE | 2023-01-26 11:23 | SUR.PHASEII ---
daughter delayed picking pt up.
== END 2023-01-26 11:23 | disposition home or self-care (01) ==
PROVIDERS: PCP Physician Assistant; Visit Provider Internal Medicine Gastroenterology
PROC: 0DJ08ZZ Inspection of Upper Intestinal Tract, Via Natural or Artificial Opening Endoscopic (ICD-10-PCS; CPT 43235; principal; 2023-01-26 10:30)
DX: K25.9 Gastric ulcer, unspecified as acute or chronic, without hemorrhage or perforation (principal); K52.9 Noninfective gastroenteritis and colitis, unspecified; D50.9 Iron deficiency anemia, unspecified; J45.909 Unspecified asthma, uncomplicated; I10 Essential (primary) hypertension; I42.8 Other cardiomyopathies; G47.30 Sleep apnea, unspecified; Z79.51 Long term (current) use of inhaled steroids; Z98.84 Bariatric surgery status; Z98.0 Intestinal bypass and anastomosis status
CPT/HCPCS: 43239; 88305; J2704; J7120

== ENCOUNTER 2023-06-28 14:42 | Outpatient (CLI) | payer OTHER, SELFPAY ==
--- NOTE | ~2023-06-28 | MM_ITS ---
EXAMINATION: MM screening ursula BI w bob HISTORY: Screening TECHNIQUE: Craniocaudal and mediolateral oblique 3-D tomosynthesis images were obtained and synthetic 2-D images were generated. CAD analysis was submitted and interpreted. COMPARISON: Comparison to multiple prior studies sequentially, with oldest reviewed study dated 12/01. BREAST PARENCHYMAL COMPOSITION: There are scattered areas of fibroglandular density. FINDINGS: There is no evidence of suspicious mass, calcification, or architectural distortion to sugg est malignancy in either breast. There has been no suspicious interval change. IMPRESSION: 1. No mammographic evidence of malignancy. 2. Recommend routine screening mammography in one year. BI-RADS Category 1: Negative Reviewed, dictated and finalized at location A.
== END 2023-06-28 14:43 | disposition home or self-care (01) ==
PROVIDERS: PCP Physician Assistant; Visit Provider Physician Assistant
DX: Z12.31 Encounter for screening mammogram for malignant neoplasm of breast (principal)
CPT/HCPCS: 77063; 77067

== ENCOUNTER 2023-07-12 09:01 | Outpatient (CLI) | payer OTHER, SELFPAY ==
[2023-07-12 09:26] LABS: Basophils Absolute Auto 0.1 K/mm3 (0.0-0.1); Eosinophils Absolute Auto 0.2 K/mm3 (0-0.3); Eosinophils Percent Auto 2.6 % (0-4.4); Hematocrit 40.7 % (37.0-47.0); Hemoglobin 12.1 g/dL (12.0-15.0); Immature Granulocyte Absolute 0.02 K/mm3 (0.00-0.031); Immature Granulocyte Percent A 0.3 % (0-0.5); Immature Platelet Fraction Pct 4.7 % (0.9-11.2); Lymphocytes Absolute Auto 2.31 K/mm3 (0.9-3.2); Lymphocytes Percent Auto 39.8 % (18.3-44.2); Mean Corpuscular HGB Conc 29.7 g/dl (32-36); Mean Corpuscular Hemoglobin 24.5 pg (26-34); Mean Corpuscular Volume 82.6 fl (80-100); Mean Platelet Volume 10.1 fl (7.4-10.4); Monocytes Absolute Auto 0.3 K/mm3 (0.1-0.6); Monocytes Percent Auto 5.5 % (2.6-8.5); Neutrophils Absolute Auto 2.9 K/mm3 (1.3-6.7); Neutrophils Percent Auto 50.8 % (45.5-73.1); Platelet Count Result 271 k/mm3 (150-375); Red Blood Count 4.93 M/mm3 (4.2-5.4); Red Cell Distribution Width 20.9 % (11.5-14.5); White Blood Count 5.8 K/mm3 (4.5-10.0)
[2023-07-12 10:52] LABS: Anisocytosis 1+; Hypochromasia 1+; Microcytosis 1+ (NORMAL); Ovalocytes 1+; Platelet Estimate Adequate (Adequate); Schistocytes None Seen
[2023-07-12 20:24] LABS: Iron 67 ug/dL (37-170)
[2023-07-12 20:35] LABS: Percent Iron Saturation 19 % (20-50)
== END 2023-07-12 09:02 | disposition home or self-care (01) ==
LOC: ANHLAB 09:04
PROVIDERS: PCP Physician Assistant; Visit Provider Physician Assistant
DX: E61.1 Iron deficiency (principal)
CPT/HCPCS: 36415; 82728; 83540; 83550; 85025; 85055

== ENCOUNTER 2023-08-01 12:56 | Outpatient (CLI) | payer OTHER, SELFPAY ==
--- NOTE | 2023-08-01 14:45 | NEURO_ITS ---
Impression: # Complains of numbness of hands. Non-diabetic. # Normal Nerve Conduction Study. No Carpal Tunnel Syndrome or ulnar neuropathy. # Normal needle/EMG exam. # Clinical correlation recommended. Nerve Conduction Studies Anti Sensory Summary Table Stim Site NR Peak (ms) P-T Amp (?V) Site1 Site2 Delta-P (ms) Dist (cm) Zeferino (m/s) Left Median Anti Sensory (2-3nd Digit) Wrist 2.6 87.6 Wrist 2-3nd Digit 2.6 14.0 54 Wrist 2.8 87.5 Wrist 2-3nd Digit 2.6 14.0 54 Right Median Anti Sensory (2-3nd Digit) Wrist 2.5 80.7 Wrist 2-3nd Digit 2.5 14.0 56 Wrist 2.5 80.3 Wrist 2-3nd Digit 2.5 14.0 56 Left Radial Anti Sensory (Base 1st Digit) Wrist 2.3 22.6 Wrist Base 1st Digit 2.3 0.0 Right Radial Anti Sensory (Base 1st Digit) Wrist 2.2 31.8 Wrist Base 1st Digit 2.2 0.0 Left Ulnar Anti Sensory (5th Digit) Wrist 2.4 75.0 Wrist 5th Digit 2.4 14.0 58 Right Ulnar Anti Sensory (5th Digit) Wrist 2.3 64.5 Wrist 5th Digit 2.3 14.0 61 Motor Summary Table Stim Site NR Onset (ms) O-P Amp (mV) Site1 Site2 Delta-0 (ms) Dist (cm) Zeferino (m/s) Left Median Motor (Abd Poll Brev) Wrist 2.7 5.6 Elbow Wrist 4.6 26.0 57 Elbow 7.3 6.4 Right Median Motor (Abd Poll Brev) Wrist 3.0 6.2 Elbow Wrist 5.1 31.0 61 Elbow 8.1 4.8 Left Ulnar Motor (Abd Dig Minimi) Wrist 2.6 5.7 A Elbow Wrist 4.8 29.0 60 A Elbow 7.4 5.4 Right Ulnar Motor (Abd Dig Minimi) Wrist 2.8 3.4 A Elbow Wrist 5.0 30.0 60 A Elbow 7.8 3.1 F Wave Studies NR F-Lat (ms) L-R F-Lat (ms) Left Median (Mrkrs) (Abd Poll Brev) 25.57 0.53 Right Median (Mrkrs) (Abd Poll Brev) 26.09 0.53 Left Ulnar (Mrkrs) (Abd Dig Min) 26.88 0.30 Right Ulnar (Mrkrs) (Abd Dig Min) 27.17 0.30 EMG Side Muscle Nerve Root Ins Act Fibs Amp Dur Recrt Comment Right 1stDorInt Ulnar C8-T1 Nml Nml Nml Nml Nml Right Ext Indicis Radial (Post Int) C7-8 Nml Nml Nml Nml Nml Right Ext Digitorum Radial (Post Int) C7-8 Nml Nml Nml Nml Nml Right BrachioRad Radial C5-6 Nml Nml Nml Nml Nml Right PronatorTeres Median C6-7 Nml Nml Nml Nml Nml Right Abd Poll Brev Median C8-T1 Nml Nml Nml Nml Nml Right ABD Dig Min Ulnar C8-T1 Nml Nml Nml Nml Nml Left 1stDorInt Ulnar C8-T1 Nml Nml Nml Nml Nml Left Ext Indicis Radial (Post Int) C7-8 Nml Nml Nml Nml Nml Left Ext Digitorum Radial (Post Int) C7-8 Nml Nml Nml Nml Nml Left BrachioRad Radial C5-6 Nml Nml Nml Nml Nml Left PronatorTeres Median C6-7 Nml Nml Nml Nml Nml Left Abd Poll Brev Median C8-T1 Nml Nml Nml Nml Nml Left ABD Dig Min Ulnar C8-T1 Nml Nml Nml Nml Nml MTDD
== END 2023-08-01 12:57 | disposition home or self-care (01) ==
LOC: ANHNEURO 12:58
PROVIDERS: PCP Physician Assistant; Visit Provider Physician Assistant
DX: R20.2 Paresthesia of skin (principal)
CPT/HCPCS: 95886; 95911

== ENCOUNTER 2024-09-25 10:01 | Inpatient (IN) | payer OTHER, SELFPAY ==
[2024-09-25] VITALS (20 sets, daily range): BP systolic 114–179; BP diastolic 55–98; PULSE 67–107; RESP 11–25; TEMP 36.4–37.2; O2SAT 93–100; BMI 42.6
--- NOTE | ~2024-09-25 | CT_ITS ---
CT ANGIOGRAM NECK AND HEAD History: Left-sided weakness. Technique: Serial spiral axial images through the head and neck were obtained during arterial phase I V injection of 100 cc of Omnipaque 350. 3-D postprocessing and MIP images were then reconstructed on the remote workstation. Dose reduction technique was used on this scan by utilizing automated exposur e control and iterative reconstruction technique. The dose-length product (DLP) was 997.70 mGy-cm. CTA neck findings: Bilateral vertebral arteries are patent. Bowel, carotid, internal carotid and ext ernal carotid arteries are patent. No large vessel occlusion or stenosis. No aneurysm. Both internal carotid arteries take a partially retropharyngeal course. The proximal right internal carotid artery demonstrates 0% stenosis relative to the normal distal artery lumen diameter. The proximal left inter nal carotid artery demonstrates 0% stenosis relative to the normal distal artery lumen diameter. CTA head findings: Distal vertebral arteries, basilar artery, and posterior cerebral arteries are pat ent. Distal internal carotid arteries, middle cerebral arteries, and anterior cerebral arteries are p atent. No large vessel occlusion or stenosis. No aneurysm. Impression: No significant abnormality seen. Reviewed, dictated and finalized at location . Impression: No significant abnormality seen.
--- NOTE | ~2024-09-25 | XR_ITS ---
XR chest 2V Ordering provider: Dulce Ellison III, DO History: 49 years Female with . CHEST TIGHTNESS AND PAIN, NUMBNESS IN LEFT ARM X 4 HOURS . Comparison: April 27, 2022 FINDINGS: MEDIASTINUM: The cardiac silhouette is not enlarged. Congestive tracey. LUNGS: No effusions or pneumothorax. Prominent markings in the lower lobes. OTHER: No free air under the diaphragm. IMPRESSION: Prominent markings in the lower lobes which may indicate atelectasis versus pneumonia. Reviewed, dictated and finalized at location A. IMPRESSION: Prominent markings in the lower lobes which may indicate atelectasis versus pne umonia.
--- NOTE | ~2024-09-25 | CT_ITS ---
Non-contrast Head CT History: CVA Technique: Axial non-contrast imaging of the brain was performed. Dose reduction technique was used on this scan by utilizing automated exposure control and iterative reconstruction technique. The dose -length product (DLP) was 605.33 mGy-cm. Findings: There is no evidence of intracranial hemorrhage, mass lesion, or acute infarct. Brain par enchyma appears normal. The ventricles and subarachnoid spaces are normal in size. The calvarium ap pears normal. The visualized paranasal sinuses and mastoid air cells are clear. Impression: No significant abnormality seen. Case discussed with Dr. Gaming at 10:32 AM on 09/25/2024. Reviewed, dictated and finalized at location M. Impression: No significant abnormality seen. Case discussed with Dr. Gaming at 10:32 AM on 09/25/2024.
--- NOTE | ~2024-09-25 | MR_ITS ---
EXAMINATION: MR brain/brain stem wo con DATE: 09/27/2024 13:51 INDICATION: Left-sided weakness TECHNIQUE: Magnetic resonance imaging (MRI) of the brain and brainstem was performed without intraven ous contrast. Sequences included sagittal and axial T1-weighted SE, axial diffusion-weighted FS SE, a xial 3D SWAN, axial T2-weighted FLAIR, and axial T2-weighted FSE. Apparent diffusion coefficient (ADC ) maps were created. COMPARISON: None. FINDINGS: There multiple small foci of restricted diffusion consistent with acute infarct in the bilateral cere bellar hemispheres, bilateral occipital lobes, the left subinsular white matter and in the bilateral frontal and parietal lobes. No intracranial hemorrhage or abnormal intracranial mass lesion. There ar e a few scattered small foci of nonspecific increased T2-weighted signal intensity in the cerebral wh ite matter which is within normal limits for age and likely sequela of chronic small vessel ischemic disease. There are few small foci of susceptibility artifact at the bilateral thalami and basal gangl ia consistent with sequela of chronic microhemorrhage typically seen in the setting of hypertension. The ventricles are symmetric and normal in size. There are no abnormal extra-axial fluid collections. Flow voids are seen in the cerebral arteries on the T2-weighted sequences consistent with their expe cted patency. Mild mucosal thickening the bilateral ethmoid sinuses. Visualized orbits and soft tissu es are unremarkable. IMPRESSION: 1. Multiple small acute infarcts on both the left and right involving predominantly posterior but als o some of the anterior circulation which suggests a shower of emboli from a central source proximal t o the aorta. 2. Several small foci of susceptibility artifact bilateral thalami and basal ganglia consistent with sequela of chronic microhemorrhage such as in the setting of hypertension with differential also incl uding amyloid angiopathy. Reviewed, dictated and finalized at location A. IMPRESSION: 1. Multiple small acute infarcts on both the left and right involving predomina ntly posterior but also some of the anterior circulation which suggests a showe r of emboli from a central source proximal to the aorta. 2. Several small foci of susceptibility artifact bilateral thalami and basal ga nglia consistent with sequela of chronic microhemorrhage such as in the setting of hypertension with differential also including amyloid angiopathy.
--- NOTE | ~2024-09-25 | CT_ITS ---
Clinical Indication: Embolic showering CT Scan of the Chest with Contrast: Technique: Contiguous sections were acquired throughout the chest after intravenous administration of 100 cc of Omnipaque 350. Dose reduction technique was used on this scan by utilizing automated expos ure control and iterative reconstruction technique. The dose-length product (DLP) was 981.64 mGy-cm. COMPARISON: 04/27/2022 Findings: There is no evidence of any significant mediastinal, hilar or axillary lymphadenopathy. There is no f illing defect in the pulmonary arterial tree to suggest pulmonary embolus. There is no evidence of ao rtic dissection or aneurysm. There is no evidence of pleural or pericardial effusion. The lungs are clear, aside from mild right basilar atelectatic change. Images through the upper abdomen reveal no abnormalities. Impression: No significant abnormality seen. Reviewed, dictated and finalized at [facility]. Impression: No significant abnormality seen.
--- NOTE | 2024-09-25 10:02 | ECG_ITS ---
Test Date: 2024-09-25 10:08:55 Measurements Intervals [place] Rate: 96 P: 37 OK: 160 QRS: -14 QRSD: 113 T: 112 QT: 348 QTc: 442 Interpretive Statements SINUS RHYTHM WITH OCCASIONAL VENTRICULAR PREMATURE COMPLEXES POSSIBLE LEFT ATRIAL ENLARGEMENT DELAYED PRECORDIAL R/S TRANSITION LEFT VENTRICULAR HYPERTROPHY WITH ST-T CHANGE BORDERLINE ST-T WAVE ABNORMALITY- LATERAL LEADS BASELINE ARTIFACT- I, II, III ,AVR, AVL, AVF BORDERLINE ECG No previous ECG available for comparison Electronically Signed On 09-25-2024 10:12:39 CDT by Chano Camarena D.O.
--- NOTE | 2024-09-25 10:07 | ED.CHESTPAIN ---
HPI - Chest Pain General Chief Complaint: Chest Pain <ARNOLD Rodriguez Filed: 09/25/24 13:02> Stated Complaint: CHEST PAIN TODAY <ARNOLD Rodriguez Filed: 09/25/24 13:02> Time Seen by Provider: 09/25/24 10:04 <ARNOLD Rodriguez Last Filed: 09/25/24 13:02> Source: patient and old records reviewed <ARNOLD Rodriguez Filed: 09/25/24 13:02> Mode of arrival: ambulatory <ARNOLD Rodriguez Filed: 09/25/24 13:02> Limitations: no limitations <ARNOLD Rodriguez Filed: 09/25/24 13:02> History of Present Illness HPI narrative: Patient is a 49 y/o female, with PMH of gastric bypass surgery, hypertension, CHF, who presents to the ED with c/o CP. Patient reports she developed midsternal chest pain last night as well as a headache. Went to sleep around midnight. She states she woke up around 3:00 a.m. to use the restroom voice she began having some paresthesias of her left arm. Woke up around 7am this morning with persistent CP, persistent paresthesias and weakness of LUE/LLE. States her left arm and leg feel very heavy. Reports mild shortness breath, which has been intermittent over some time. Reports some swelling in her lower extremities. Is on spironolactone, no other diuretics. <ARNOLD Rodriguez Filed: 09/25/24 13:02> Related Data Home Medications: Home Medications ?Medication ?Instructions ?Recorded ?Confirmed ?Last Taken ?Type metoprolol succinate 200 mg 200 mg PO DAILY 06/28/19 09/25/24 09/24/24 History tablet,extended release 24 hr albuterol sulfate 90 mcg/actuation 1 puff inhalation DAILY PRN 06/10/20 09/25/24 09/24/24 History aerosol inhaler allergies gabapentin 100 mg capsule 300 mg PO TID 06/10/20 09/25/2409/24/25 History lisinopril 40 mg tablet 40 mg PO DAILY 06/10/20 09/25/24 09/24/24 History ascorbic acid (vitamin C) 500 mg 500 mg PO DAILY 01/17/23 09/25/24 09/24/24 History tablet thiamine HCl (vitamin B1) 50 mg 500 mg PO DAILY 01/17/23 09/25/24 09/24/24 History tablet biotin 5 mg capsule 5 mg PO DAILY 09/25/24 09/25/24 09/24/24 History buspirone 10 mg tablet 10 mg PO BID 09/25/24 09/25/24 09/24/24 History calcium 600 mg (as 1 tablet PO DAILY 09/25/24 09/25/24 09/24/24 History carbonate)-vitamin D3 10 mcg (400 unit) tablet hydroxyzine HCl 25 mg tablet 25 mg PO TID 09/25/24 09/25/24 09/24/24 History loratadine 10 mg tablet (Allergy 10 mg PO DAILY 09/25/24 09/25/24 09/24/24 History Relief (loratadine)) mecobalamin (vitamin B12) 500 mcg 500 mcg PO DAILY 09/25/24 09/25/24 09/24/24 History chewable tablet metoprolol tartrate 100 mg tablet 100 mg PO BID 09/25/24 09/25/24 09/24/24 History nifedipine 30 mg tablet,extended 30 mg PO DAILY 09/25/24 09/25/24 09/24/24 History release 24 hr nifedipine 60 mg tablet,extended 60 mg PO DAILY 09/25/24 09/25/24 09/24/24 History release 24 hr nifedipine 90 mg tablet,extended 90 mg PO DAILY 09/25/24 09/25/24 09/24/24 History release 24 hr spironolactone 50 mg tablet 50 mg PO DAILY 09/25/24 09/25/24 09/25/24 History <Sunita Gaming PA-C - Last Filed: 09/25/24 13:02> Allergies/Adverse Reactions: Allergies Allergy/AdvReac Type Severity Reaction Status Date / Time No Known Allergies Allergy Verified 09/25/24 13:52 <Sunita Gaming PA-C - Last Filed: 09/25/24 13:02> Review of Systems Review of Systems: All systems reviewed & are unremarkable except as noted in HPI. <Sunita Gaming PA-C - Last Filed: 09/25/24 13:02> All systems reviewed & are unremarkable except as noted in HPI and below <Sunita Gaming PA-C - Last Filed: 09/25/24 13:02> [facility]LY [facility] Past Medical History Medical History: Medical History (Updated 09/25/24 @ 15:03 by Chiquita Olson MD) SVT (supraventricular tachycardia) Colon cancer screening Abdominal pain Internal hemorrhoid Hx of diverticulitis of colon HAYLEY (iron deficiency anemia) PUD (peptic ulcer disease) Nonischemic cardiomyopathy Arthritis UTI (urinary tract infection) Sleep apnea Asthma HTN (hypertension) History of angina Seasonal allergies CHF (congestive heart failure) <Sunita Gaming PA-C - Last Filed: 09/25/24 13:02> Surgical History Surgical History: Surgical History Hx of gastric bypass History of knee surgery Right History of tubal ligation History of cholecystectomy History of cardiac catheterization <Sunita Gaming PA-C - Last Filed: 09/25/24 13:02> Family History Family History: Family History Father Diabetes mellitus Hypertension Asthma Patient's father is in good health Family history of cardiovascular disease Mother Hypertension Patient's mother is in good health Sibling Patient's sister is in good health <Sunita Gaming PA-C - Last Filed: 09/25/24 13:02> Social History Social History: Social History Smoking status: Never smoker Alcohol intake: never Substance use: never Substance use type: does not use Do You Feel Safe in your Home?: Yes Lack of Transportation: No Lack of Food: Never True Current Housing: I Have Housing Concerned About Future Housing: No Difficulty Paying Gas/Electric Bills: No Difficulty Paying for Meds: No Currently Unemployed: No Education: High School Diploma/GED Difficulty w/ Childcare or Family Care: No Living arrangements: with family Gender identity (if verbalized by the patient): Female Spiritual care concerns: No <ARNOLD Rodriguez Last Filed: 09/25/24 13:02> Exam Narrative: GENERAL: Well appearing, morbidly obese with BMI of 42.6, non-toxic, in no acute distress. HEAD: Normocephalic, atraumatic. EYES: PERRL/EOMI, conjunctivae clear bilaterally. No nystagmus. NECK: Supple. No meningeal signs. RESPIRATORY: Airway patent, respirations nonlabored. Rhonchi in bases bilaterally, occasional expiratory wheezing CARDIOVASCULAR: Regular rate and rhythm without murmurs, rubs, or gallops. Radial pulses 2+ and equal bilaterally. MUSCULOSKELETAL: Moves all extremities. No gross deformities. SKIN: Warm, dry, normal color. No rashes. NEURO: A&O X3. Speech clear. No dysarthria or aphasia. Follows commands. CN II-XII intact. Sensation grossly intact, no discrepancies between extremities. No ataxic movements. +pronator drift in LUE. Weakness of LUE/LLE compared to R side, some effort, but noticably weak. Bipo-sk-tjen and gpoxzk-my-giwi testing in RUE/RLE, more difficult in L side. L internal communications intern strength decreased compared to R. PSYCHIATRIC: Appropriate mood and affect. Normal interaction. <ARNOLD Rodriguez Last Filed: 09/25/24 13:02> Course Vital Signs Vital signs: Vital Signs Temperature 97.6 F 09/25/24 10:04 Pulse Rate 99 09/25/24 10:04 Respiratory Rate 20 09/25/24 10:04 Pulse Oximetry 95 09/25/24 10:04 Oxygen Delivery Room Air 09/25/24 10:04 Temperature 98.3 F 09/25/24 13:08 Pulse Rate 71 09/25/24 18:00 Respiratory Rate 18 09/25/24 13:08 Blood Pressure 157/82 H 09/25/24 13:08 Pulse Oximetry 98 09/25/24 13:08 Oxygen Delivery Room Air 09/25/24 16:00 <ARNOLD Rodriguez Filed: 09/25/24 13:02> Vital Signs Temperature 97.6 F 09/25/24 10:04 Pulse Rate 99 09/25/24 10:04 Respiratory Rate 20 09/25/24 10:04 Pulse Oximetry 95 09/25/24 10:04 Oxygen Delivery Room Air 09/25/24 10:04 Temperature 98.3 F 09/25/24 13:08 Pulse Rate 71 09/25/24 18:00 Respiratory Rate 18 09/25/24 13:08 Blood Pressure 157/82 H 09/25/24 13:08 Pulse Oximetry 98 09/25/24 13:08 Oxygen Delivery Room Air 09/25/24 16:00 <Dulce Jamal Ellison III, DO - Last Filed: 09/25/24 18:23> MDM - Chest Pain MDM Narrative Medical decision making narrative: Patient presented to ED with chest pain, headache, also reporting left-sided weakness/paresthesias. Stroke protocol was initiated. On exam, patient does have noticeable left-sided arm and leg weakness compared to the right. No dysarthria, aphasia, facial asymmetry, sensation discrepancies. NIH stroke scale 4 based on weakness of LUE/LLE. CT brain negative. CTA of brain and carotids also unremarkable. EKG with some nonspecific T-wave inversions in lateral leads. Appears fairly consistent with previous records. Baseline troponin is undetectable. Will continue to trend. BNP 1050. CXR w/o pulmonary edema, does show atelectasis versus pneumonia. Patient denies any recent cough or cold symptoms. Denies fevers. HEART score =[address] Lamar, neurology, agrees w/ plan for admission for MRI/ECHO. Will come down to see patient in the ED. Discussed case with Dr. Stevens, hospitalist, accepted patient for admission. Cardiology consulted. Patient in agreement with plan and need for admission. IMU status. <Sunita Gaming PA-C - Last Filed: 09/25/24 13:02> Medical Records Data Attestation: I reviewed the patient's medical records. <ARNOLD Rodriguez Last Filed: 09/25/24 13:02> Lab Data Attestation: I reviewed the patient's lab results. <Suinta Gaming PA-C - Last Filed: 09/25/24 13:02> Result diagrams: 09/25/24 10:35 09/25/24 10:35 <Sunita Gaming PA-C - Last Filed: 09/25/24 13:02> Labs: Lab Results 09/25/24 09/25/24 09/25/24 Range/Units 10:13 10:35 11:26 WBC 9.9 (4.5-10.0) K/mm3 RBC 5.21 (4.2-5.4) M/mm3 Hgb 13.2 (12.0-15.0) g/dL Hct 43.5 (37.0-47.0) % MCV 83.5 (80-100) fl MCH 25.3 L (26-34) pg MCHC 30.3 L (32-36) g/dl RDW 15.9 H (11.5-14.5) % Plt Count 297 (150-375) k/mm3 MPV 11.4 H (7.4-10.4) fl Immature Gran % (Auto) 0.1 (0-0.5) % Neut % (Auto) 54.9 (45.5-73.1) % Lymph % (Auto) 36.5 (18.3-44.2) % [place] % (Auto) 5.9 (2.6-8.5) % Eos % (Auto) 2.1 (0-4.4) % Baso % (Auto) 0.5 (0.2-1.2) % Lymph # (Auto) 3.62 H (0.9-3.2) K/mm3 [place] # (Auto) 0.6 (0.1-0.6) K/mm3 Eos # (Auto) 0.2 (0-0.3) K/mm3 Baso # (Auto) 0.1 (0.0-0.1) K/mm3 Abs Immat Gran (auto) 0.01 (0.00-0.031) K/mm3 Absolute Neuts (auto) 5.4 (1.3-6.7) K/mm3 Absolute Nucleated RBC 0.000 (0.0-0.012) K/mm3 Nucleated RBC % 0.0 (0.0-0.2) % PT 13.5 (11.1-14.7) Seconds INR 1.0 APTT 29.0 (22.3-36.8) Seconds Sodium 140 (137-145) mmol/L Potassium 3.7 (3.4-5.0) mmol/L Chloride 105 (98-107) mmol/L Carbon Dioxide 25 (22-30) mmol/L Anion Gap 10 (4-12) mmol/L BUN 12 (7-17) mg/dL Creatinine 0.63 L (0.7-1.0) mg/dL Estim Creat Clear Calc 107 ml/min Estimated GFR > 60 (59 - ) Glucose 109 (65-110) mg/dL POC Capillary Glucose 107 H (65-105) mg/dl Calcium 9.1 (8.4-10.2) mg/dL Total Bilirubin 0.4 (0.2-1.3) mg/dL AST 31 (14-36) U/L ALT 24 (6-35) U/L Alkaline Phosphatase 97 (38-126) U/L Troponin I < 0.012 (0.000-0.034) ng/mL NT-Pro-B Natriuret Pep 1050 H (19.9-100) pg/mL Total Protein 8.1 (6.3-8.2) g/dL Albumin 4.1 (3.5-5.1) g/dL Lipase 93 (23-300) U/L POC Urine HCG, Qual Negative (Negative) <Sunita Gaming PA-C - Last Filed: 09/25/24 13:02> Lab Results 09/25/24 09/25/24 09/25/24 Range/Units 10:13 10:35 11:26 WBC 9.9 (4.5-10.0) K/mm3 RBC 5.21 (4.2-5.4) M/mm3 Hgb 13.2 (12.0-15.0) g/dL Hct 43.5 (37.0-47.0) % MCV 83.5 (80-100) fl MCH 25.3 L (26-34) pg MCHC 30.3 L (32-36) g/dl RDW 15.9 H (11.5-14.5) % Plt Count 297 (150-375) k/mm3 MPV 11.4 H (7.4-10.4) fl Immature Gran % (Auto) 0.1 (0-0.5) % Neut % (Auto) 54.9 (45.5-73.1) % Lymph % (Auto) 36.5 (18.3-44.2) % [place] % (Auto) 5.9 (2.6-8.5) % Eos % (Auto) 2.1 (0-4.4) % Baso % (Auto) 0.5 (0.2-1.2) % Lymph # (Auto) 3.62 H (0.9-3.2) K/mm3 [place] # (Auto) 0.6 (0.1-0.6) K/mm3 Eos # (Auto) 0.2 (0-0.3) K/mm3 Baso # (Auto) 0.1 (0.0-0.1) K/mm3 Abs Immat Gran (auto) 0.01 (0.00-0.031) K/mm3 Absolute Neuts (auto) 5.4 (1.3-6.7) K/mm3 Absolute Nucleated RBC 0.000 (0.0-0.012) K/mm3 Nucleated RBC % 0.0 (0.0-0.2) % PT 13.5 (11.1-14.7) Seconds INR 1.0 APTT 29.0 (22.3-36.8) Seconds Sodium 140 (137-145) mmol/L Potassium 3.7 (3.4-5.0) mmol/L Chloride 105 (98-107) mmol/L Carbon Dioxide 25 (22-30) mmol/L Anion Gap 10 (4-12) mmol/L BUN 12 (7-17) mg/dL Creatinine 0.63 L (0.7-1.0) mg/dL Estim Creat Clear Calc 107 ml/min Estimated GFR > 60 (59 - ) Glucose 109 (65-110) mg/dL POC Capillary Glucose 107 H (65-105) mg/dl Calcium 9.1 (8.4-10.2) mg/dL Total Bilirubin 0.4 (0.2-1.3) mg/dL AST 31 (14-36) U/L ALT 24 (6-35) U/L Alkaline Phosphatase 97 (38-126) U/L Troponin I < 0.012 (0.000-0.034) ng/mL NT-Pro-B Natriuret Pep 1050 H (19.9-100) pg/mL Total Protein 8.1 (6.3-8.2) g/dL Albumin 4.1 (3.5-5.1) g/dL Lipase 93 (23-300) U/L POC Urine HCG, Qual Negative (Negative) <Dulce Ellison III, DO - Last Filed: 09/25/24 18:23> Imaging Data Attestation: I personally reviewed and interpreted this imaging study as follows: <Sunita Gaming PA-C - Last Filed: 09/25/24 13:02> Radiologist's impression: ITS Impressions Head CT 09/25/24 10:32 Impression: No significant abnormality seen. Case discussed with Dr. Gaming at 10:32 AM on 09/25/2024. Head/Neck CTA 09/25/24 10:33 Impression: No significant abnormality seen. Chest X-Ray 09/25/24 11:27 IMPRESSION: Prominent markings in the lower lobes which may indicate atelectasis versus pneumonia. <Sunita Gaming PA-C - Last Filed: 09/25/24 13:02> ECG Data EKG #1: Attestation: I personally reviewed and interpreted this ECG as follows: <Sunita Gaming PA-C - Last Filed: 09/25/24 13:02> ECG completion date: 09/25/24 <ARNOLD Rodriguez Last Filed: 09/25/24 13:02> ECG completion time: 10:08 <ARNOLD Rodriguez Last Filed: 09/25/24 13:02> Prior ECG tracings: available for review (appears fairly similar to previous 04/27/2022) <ARNOLD Rodriguez Last Filed: 09/25/24 13:02> EKG Interpretation: normal rate (96), sinus rhythm, PVCs and non-specific ST changes (scattered T wave inversions laterally) <ARNOLD Rodriguez Last Filed: 09/25/24 13:02> Discharge Plan Discharge Clinical Impression: Left arm weakness, Left leg weakness, Arm paresthesia, left, Left leg paresthesias Chest pain Qualifiers: Chest pain type: unspecified Qualified Code(s): R07.9 - Chest pain, unspecified <Sunita Gaming PA-C - Last Filed: 09/25/24 13:02> Patient Disposition: Still a Patient <Sunita Gaming PA-C - Last Filed: 09/25/24 13:02> Condition: Stable <Sunita Gaming PA-C - Last Filed: 09/25/24 13:02> Quality Stroke Date of last known normal: 09/24/24 <Sunita Gaming PA-C - Last Filed: 09/25/24 13:02> Time of last known normal: 23:59 <Sunita Gaming PA-C - Last Filed: 09/25/24 13:02> Stroke Scale Stroke Scale 1: Stroke scale date:: 09/25/24 <Sunita Gaming PA-C - Last Filed: 09/25/24 13:02> Stroke scale time:: 10:40 <Sunita Gaming PA-C - Last Filed: 09/25/24 13:02> 1a Level of consciousness: alert-0 <Sunita Gaming PA-C - Last Filed: 09/25/24 13:02> 1b Level of consciousness questions: answers both correctly-0 <Sunita Gaming PA-C - Last Filed: 09/25/24 13:02> 1c Level of consciousness commands: obeys both correctly-0 <Sunita Gaming PA-C - Last Filed: 09/25/24 13:02> 2 Best gaze: normal-0 <Sunita Gaming PA-C - Last Filed: 09/25/24 13:02> 3 Visual: no visual loss-0 <Sunita Gaming PA-C - Last Filed: 09/25/24 13:02> 4 Facial palsy: normal-0 <Sunita Gaming PA-C - Last Filed: 09/25/24 13:02> 5a Motor: left arm: some effort/gravity-2 <Sunita Gaming PA-C - Last Filed: 09/25/24 13:02> 5b Motor: right arm: no drift-0 <Sunita Gaming PA-C - Last Filed: 09/25/24 13:02> 6a Motor: left leg: some effort/gravity-2 <Sunita Gaming PA-C - Last Filed: 09/25/24 13:02> 6b Motor: right leg: no drift-0 <Sunita Gaming PA-C - Last Filed: 09/25/24 13:02> 7 Limb ataxia: absent-0 <Sunita Gaming PA-C - Last Filed: 09/25/24 13:02> 8 Sensory: normal-0 <Sunita Gaming PA-C - Last Filed: 09/25/24 13:02> 9 Best language: no aphasia-0 <Sunita Gaming PA-C - Last Filed: 09/25/24 13:02> 10 Dysarthria: normal-0 <Sunita Gaming PA-C - Last Filed: 09/25/24 13:02> 11 Extinction and inattention: no abnormality-0 <Sunita Gaming PA-C - Last Filed: 09/25/24 13:02> Level:: 4 <Sunita Gaming PA-C - Last Filed: 09/25/24 13:02> 4 <Dulce Ellison IIIDO - Last Filed: 09/25/24 18:23> HEART score for chest pain patients History: moderately suspicious <ARNOLD Rodriguez Last Filed: 09/25/24 13:02> ECG: non specific repolarization disturbance/LBTB/PM <ARNOLD Rodriguez Last Filed: 09/25/24 13:02> Age: > 45 and < 65 years <ARNOLD Rodriguez Last Filed: 09/25/24 13:02> Risk factors: > or = to 3 risk factors of atherosclerotic disease <Sunita Gaming PA-C - Last Filed: 09/25/24 13:02> Troponin: < or = to 1x normal limit <Sunita Gaming PA-C - Last Filed: 09/25/24 13:02> Heart score: 5 <Sunita Gaming PA-C - Last Filed: 09/25/24 13:02> 5 <Dulce Ellison III, DO - Last Filed: 09/25/24 18:23>
[2024-09-25 10:19] LABS: Glucose Point of Care 107 mg/dl (65-105)
--- OUTSIDE RECORDS SUMMARY | 2024-09-25 10:40 | XMS_ITS | Encounter Summary ---
Author Organization [facility] Health Address [address] [place] [address] Care Team Providers Care Network Contract Manager Name Role Phone Shasta Colbert PA-C Primary Care Provider Reason for Visit * Reason Onset Date Comments MEDICATION REFILL 03/15/2022 Encounter Details Date Type Department Care Team (Late st Contact Info) Description 03/15/2022 Refill [facility] [address] [place] [phone] Sunita Lopez APRN-SHANTEL [address] [place] [address] MEDICATION REFILL Social History Tobacco Use Types Packs/Day Years Used Date Smoking Tobacco: Never Smokeless Tobacco: Never Alcohol Use Standard Drinks/Week Comments Never 0 (1 standard drink = 0.6 oz pur e alcohol) AUDIT-C Answer Date Recorded Q1: How often do you have a drink containing alcohol? Never 11/19/2021 Q2: How many drinks containi ng alcohol do you have on a typical day when you are drinking? Patient does not drink Q3: How often do you have si x or more drinks on one occasion? Never 11/19/2021 Hunger Vital Sign Answer Date Recorded Within the past 12 months, y ou worried that your food would run out before you got the money to buy more. Never true 11/11/19 22 Within the past 12 months, t he food you bought just didn't last and you didn't have money to get more. 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 Answer Date of Assessment Author No 11/21/2021 4:13 PM CDT Elizabeth Frausto RN * Is person blind or have serious difficulty seeing? Answer Date of Assessment Author No 11/21/2021 4:13 PM CDT Elizabeth Frausto RN * Does person have serious difficulty walking/climbing stairs? Answer Date of Assessment Author No 11/21/2021 4:13 PM CDT Elizabeth Frausto RN * Does person have difficulty dressing/bathing? Answer Date of Assessment Author No 11/21/2021 4:13 PM CDT Elizabeth Frausto RN * Does person have difficulty doing errands alone? Answer Date of Assessment Author No 11/21/2021 4:13 PM CDT Elizabeth Frausto RN documented as of this encounter Mental Status * Does person have difficulty concentrating/remembering/making decisions? Answer Entry Date Author No 11/21/2021 4:13 PM BHANUT Elizabeth Frausto RN documented in this encounter Plan of Treatment Upcoming Encounters Date Type Department Care Team (Late st Contact Info) Description 12/18/2024 10:00 AM CDT Office Visit [facility] [address] [place] [phone] Ally Moore MD [address] [place] [phone] documented as of this encounter Visit Diagnoses Diagnosis Marginal ulcer Gastrojejunal ulcer, unspecified as acute or chronic, without mention of hemorrhage, perforation, or obstruction documented in this encounter Care Teams Network Contract Manager Relationship Specialty Start Date End Date Shasta Colbert PA-C [address] [place] [phone] PCP - General 12/28/21 documented as of this encounter
--- OUTSIDE RECORDS SUMMARY | 2024-09-25 10:40 | XMS_ITS | Encounter Summary ---
Author Organization [facility] Healthcare Address [address] [place] [address] Care Team Providers Care Medical Education Coordinator Name Role Phone Shasta Colbert Primary Care Provider [phone] Encounter Details Date Type Department Care Team (Late st Contact Info) Description 09/22/2024 Telephone [facility] Cardiology [address] [place] [phone] Diego Corral MD [address] [facility] [address] [place] [address] Social History Tobacco Use Types Packs/Day Years Used Date Smoking Tobacco: Never Smokeless Tobacco: Never Alcohol Use Standard Drinks/Week Comments No 0 (1 standard drink = 0.6 oz pur e alcohol) Personal Safety Answer Date Recorded Have you ever been in or are you currently in a harmful physical or emotional relationship or is someone making you feel afraid or unsafe? 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 * Telephone Encounter - Loretta Rasmussen - 09/22/2024 10:46 AM CDT Pt requesting a call back to discuss her cath that is scheduled for she has some questionsthank you Contact: documented in this encounter Plan of Treatment Not on file documented as of this encounter Visit Diagnoses Not on filedocumented in this encounter Care Teams Medical Education Coordinator Relationship Specialty Start Date End Date Shasta Colbert PA [address] [place] [id number] PCP - General Physician Transport Technician 11/28/21 documented as of this encounter
--- OUTSIDE RECORDS SUMMARY | 2024-09-25 10:40 | XMS_ITS | Clinical Summary ---
Author Organization [facility] Address [address] [place] [address] Care Team Providers Care Research And Development Specialist Name Role Phone Shasta Colbert PA-C Primary Care Provider Source Comments [facility],non-owned Affiliates and Associated Physician Practices is amultiple site organization consisting of ambulatory clinics and hospital sitesin [place], [place], [place] and [place]. This disclosure is being madepursuant to the Care Everywhere program and may not contain all information available regarding this patient. Last updated 17.[facility] Allergies No known active allergies Medications * Be aware that medications may not be up to date on this document. Alwaysverify current medications with the patient. lisinopril (Prinivil; Zestril) 40 MG tablet Take 1 (one) tablet by mouth once daily 3 Active dicyclomine (Bentyl) 10 MG capsule Take 1 (one) capsule by mouth 4 times daily as needed 3 Active ondansetron, disintegrating, (Zofran ODT) 4 MG tablet DISSOLVE 2 TABLETS ON THE TONGUE TWICE DAILY FOR 14 DAYS NEEDED 3 Active albuterol HFA (Proventil HFA) 108 (90 Base) MCG/ACT inhaler Inhale 2 (two) puffs by mouth every 4 hours as needed for Shortness of Breath or Wheezing 6.7 g 3 Active nystatin (Mycostatin) 503554 UNIT/GM powder Apply to affected area 2 times daily 60 g 3 Active Additional Information Patient not taking.Reported on 04/07/2024 witch diana-glycerin (Tucks) pad Apply to affected area as needed 40 Each 3 Active Additional Information Patient not taking.Reported on 12/06/2023 metoclopramide (Reglan) 5 MG tablet Take 1 (one) tablet by mouth every 6 hours as needed for Nausea/Vomiting 20 tablet 3 Active Additional Information Patient not taking.Reported on 03/19/2023 docusate sodium (Colace) 100 MG capsule Take 1 (one) capsule by mouth 2 times daily as needed for Constipation (relief of difficult bowel movements) 3 Active Additional Information Patient not taking.Informant: Patient, Reported on 12/06/2023 magnesium hydroxide (Milk Of Magnesia) 400 MG/5ML suspension Take 15 mL by mouth as needed for Constipation May start 3 days after surgery, if you still haven't had a bowel movement. Give the first dose at least 8 hours to work, before you repeat it to avoid diarrhea. Let us know if you still can't have a BM, with both colace and milk of magnesia, by day 4 after surgery. 3 Active Additional Information Patient not taking.Reported on 03/19/2023 Cholecalciferol 50 MCG (2000 UT) Take 1 (one) tablet by mouth every 7 days Do not restart taking until seen in office in 1 week 3 Active ferrous sulfate 325 (65 FE) MG tabletIndicatio ns:Iron deficiency anemia secondary to inadequate dietary iron intake Take 1 (one) tablet by mouth daily with breakfast Do not restart taking until seen in office in 1 week 3 Active Ascorbic Acid (VITAMIN C PO) Take 1 tablet by mouth 2 times daily Active cyclobenzaprine (Flexeril) 10 MG tablet Take 1 (one) tablet by mouth 2 times daily as needed Active Budesonide-Form oterol Fumarate (SYMBICORT IN) once daily Acti ve busPIRone (Buspar) 5 MG tablet Take 1 (one) tablet by mouth 2 times daily 4 Active fluticasone propionate (Flonase) 50 MCG/ACT nasal spray [place] 1 (one) spray into each nostril 2 times daily Active montelukast (Singulair) 10 MG tablet Take 1 (one) tablet by mouth at bedtime Active spironolactone (Aldactone) 50 MG tablet Take 1 (one) tablet by mouth once 4 Active SUMAtriptan (Imitrex) 100 MG tablet Take 1 (one) tablet by mouth once as needed Active Acetaminophen Extra Strength 500 MG TABS 4 Active NIFEdipine CR osmotic 24hr (Procardia-XL) 60 MG tablet TAKE 1 TABLET BY MOUTH EVERY DAY IN THE MORNING FOR HIGH BLOOD PRESSURE 4 Active hydrOXYzine HCl (Atarax) 25 MG tablet Take 1 (one) tablet by mouth Active gabapentin (Neurontin) 300 MG capsule TAKE 1 CAPSULE BY MOUTH THREE TIMES A DAY NEEDED FOR NERVE PAIN 4 Active NIFEdipine CR osmotic 24hr (Procardia-XL) 90 MG tablet 4 Active metoprolol tartrate IR (Lopressor) 100 MG tablet Take 1 (one) tablet by mouth 2 times daily 4 Active loratadine (Claritin) 10 MG tablet TAKE ONE TABLET BY MOUTH IN THE MORNING FOR ALLERGIES 4 Active famotidine (Pepcid) 20 MG tablet Take 1 (one) tablet by mouth as needed Active Multiple Vitamins-Minera ls (CENTRUM SILVER PO) Take 1 tablet by mouth once daily 4 Active Biotin 5 MG Take 1 capsule by mouth once daily Active Calcium + Vitamin D3 600-10 MG-MCG Take 1 (one) tablet by mouth once daily 4 Active Active Problems Problem Noted Date Diagnosed Date ST elevation 03/09/2023 Secondary hypertension 03/08/2023 Cardiomyopathy, unspecified type 03/08/2023 Lightheadedness 02/21/2023 Anemia, unspecified type 02/21/2023 Upper GI bleeding 11/21/2022 Syncope and collapse 11/20/2022 Tachycardia 11/20/2022 Leukocytosis 11/20/2022 Anemia 11/20/2022 Blood loss anemia 11/20/2022 Lactic acidosis 11/20/2022 Heart murmur 11/20/2022 Epigastric pain 09/29/2022 Marginal ulcer 09/29/2022 Diverticulitis of colon 09/29/2022 Anxiety 09/29/2022 Abdominal pannus 09/29/2022 Elevated PTHrP level 09/29/2022 Thiamine deficiency 09/29/2022 Vitamin D deficiency 09/29/2022 Preop testing 11/21/2021 Melena 11/21/2021 Abnormal weight loss 11/19/2021 Ketosis 11/19/2021 Diverticulosis of colon 11/19/2021 Abdominal pain, generalized 11/09/2021 Urinary tract infection with hematuria, site uns pecified 11/09/2021 S/P gastric bypass 06/27/2021 Iron deficiency anemia secon venecia to inadequate dietary iron intake 11/29/2020 Hypertension 10/29/2020 AUGUST (obstructive sleep apnea) 10/29/2020 Aortic valve disorder 10/29/2020 Aortic valve regurgitation 10/29/2020 Cardiomyopathy 10/29/2020 Congestive heart failure 10/29/2020 Pulmonary hypertension 10/29/2020 Nausea and vomiting Resolved Problems Problem Noted Date Diagnosed Date Resolved Date Class 1 obesity due to exces s calories with serious comorbidity and body mass index (BMI) of 31.0 to 31.9 in adult 09/29/2022 02/24/2023 Morbid obesity 06/27/2021 02/24/2023 BMI 45.0-49.9, adult 10/29/2020 023 Class 3 severe obesity due t o excess calories with serious comorbidity and body mass index (BMI) of 45.0 to 49.9 in adult 10/29/2020 3 Immunizations Immunization Administration Dates Next Due FLU VACCINE QUAD IIV4 SPLIT 0.25 ML IM 0,01/12/2016,12/30/2014 INFLUENZA VACCINE, QUADR. (F LUZONE; FLULAVAL; FLUARIX; AFLURIA QUADRIVALENT; 6MO+), 0.5 ML (IIV4) 02/06/2022 TDAP (7yrs+) 10/28/2014 Family History Medical History Relation Name Comments Arthritis - Rheumatoid Father Asthma Father Diabetes - Type 2 Father Heart Failure Father High Blood Pressure Father High Cholesterol Father Arthritis - Rheumatoid Maternal Grandfather Heart Failure Maternal Grandfather High Blood Pressure Maternal Grandfather High Cholesterol Maternal Grandfather Arthritis - Rheumatoid Maternal Grandmother Diabetes - Type 2 Maternal Grandmother Heart Failure Maternal Grandmother High Blood Pressure Maternal Grandmother Arthritis - Rheumatoid Mother High Blood Pressure Mother High Cholesterol Mother Thyroid Disease Mother Cancer Paternal Grandmother High Blood Pressure Paternal Grandmother High Cholesterol Paternal Grandmother Diabetes - Type 2 Sister Seizures Sister Cancer - Colon Neg Hx Relation Name Status Comments Father Maternal Grandfather Maternal Grandmother Mother Paternal Grandmother Sister Social History Tobacco Use Types Packs/Day Years Used Date Smoking Tobacco: Never Smokeless Tobacco: Never Tobacco Cessation:Counseling Given: Not Answered Alcohol Use Standard Drinks/Week Comments Never 0 (1 standard drink = 0.6 oz pur e alcohol) AUDIT-C Answer Date Recorded Q1: How often do you have a drink containing alcohol? Never 03/08/2023 Q2: How many drinks containi ng alcohol do you have on a typical day when you are drinking? Patient does not drink Q3: How often do you have si x or more drinks on one occasion? Never 03/08/2023 Overall Financial Resource Strain (CARDIA) Answe r Date Recorded How hard is it for you to pa y for the very basics like food, housing, medical care, and heating? Somewhat hard 03/11/2023 PHQ-2 Answer Date Recorded Patient Health Questionnaire-2 Score 2 04/07/2024 [facility] - Occupational Stress Questionnaire Answer Date Recorded Do you feel stress - tense, restless, nervous, or anxious, or unable to sleep at night because your mind is troubled all the time - these days? Not at all 03/11/2023 Hunger Vital Sign Answer Date Recorded Within the past 12 months, y ou worried that your food would run out before you got the money to buy more. Never true 03/11/20 23 Within the past 12 months, t he food you bought just didn't last and you didn't have money to get more. Never true 03/11/2023 PRAPARE - Transportation Answer Date Re corded In the past 12 months, has l ack of transportation kept you from medical appointments or from getting medications? Yes 06/2022 In the past 12 months, has l ack of transportation kept you from meetings, work, or from getting things needed for daily living? Yes 03/11/2023 Housing Stability Vital Sign Answer Yuri e Recorded In the last 12 months, was t here a time when you were not able to pay the mortgage or rent on time? Yes 03/11/2023 In the last 12 months, how many places have you lived? 1 03/11/2023 In the last 12 months, was t here a time when you did not have a steady place to sleep or slept in a usp (including now)? 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 Gender Identity Female 09/26/2020 6:03 PM CDT Sexual Orientation Not on file Last Filed Vital Signs Vital Sign Reading Time Taken Comments Blood Pressure 120/87 03/19/2023 1:00 PM PULP MILL OPERATOR Pulse 81 03/19/2023 1:00 PM PULP MILL OPERATOR Temperature 37.2 C (98.9 F) 03/19/2023 1:00 PM PULP MILL OPERATOR Respiratory Rate 16 03/19/2023 1:00 PM PULP MILL OPERATOR Oxygen Saturation 98% 03/19/2023 1:0 0 PM PULP MILL OPERATOR Inhaled Oxygen Concentration 98% 01/24/2021 10:00 AM CDT Weight 103.4 kg (228 lb) 04/07/2024 3:1 6 PM PULP MILL OPERATOR last visit with Rayon Winder 01/29/24 Height 158.8 cm (5' 2.5) 04/07/2024 3: 16 PM PULP MILL OPERATOR Body Mass Index 41.04 04/07/2024 3:16 PM PULP MILL OPERATOR Plan of Treatment Upcoming Encounters Date Type Department Care Team (Late st Contact Info) Description 12/18/2024 10:00 AM CDT Office Visit [facility] [address] [place] [phone] Ally Moore MD [address] [facility] [phone] Health Maintenance Due Date Last Done Comments COLOGUARD (AGES 45-75) - COLON CA SCREENING 1973 CT COLONOGRAPHY - COLON CA SCREENING 1973 FIT - COLON CA SCREENING 1973 FLEX SIG - COLON CA SCREENING 1973 MAMMOGRAM 1973 HIV SCREENING 1988 HEPATITIS C SCREENING 04/16/1991 HEPATITIS B VACCINE (1 of 3 - 19+ 3-dose series) 1992 PNEUMOCOCCAL VACCINE 50+ (1 of 2 - PCV) 1992 PAP SMEAR 1994 ZOSTER VACCINE (1 of 2) 2023 COVID-19 VACCINE (3 - season) 2023 05/15/2021, 04/15/2021 DEPRESSION SCREENING 04/09/2024 12/06/2023 DTAP/TDAP/TD VACCINES (2 - Td or Tdap) 10/28/2024 10/28/2014 INFLUENZA VACCINE (Season Ended) 2024 02/01/2023, 02/06/2022, 01/12/2020, Additional history exists SCREENING FOR DIABETES 03/13/2026 , 03/13/2023, 03/13/2023, Additional history exists LIPID TESTING 06/28/2027 06/27/2022, 09/08, 09/29/2020 COLON MONITORING 03/22/2032 03/22/2022 COLONOSCOPY - COLON CA SCREENING 03/22/2032 03/22/2022 Colorectal Cancer Screening 03/22/2032 HIB VACCINE Aged Out No longer eligi ble based on patient's age to complete this topic HPV VACCINE Aged Out No longer eligi ble based on patient's age to complete this topic MENINGOCOCCAL (Group B) VACCINE SHARED DECISION-MAKING Aged Out No longer eligible based on patient's age to complete this topic MENINGOCOCCAL GROUPS A/C/Y/W VACCINE Aged Out No longer eligible based on patient's age to complete this topic Procedures Procedure Name Priority Date/Time Associated Diagnosis Comments GLUCOSE - POINT OF CARE Routine 03/13/2023 12:52 PM PULP MILL OPERATOR LIPID PROFILE Routine 09/29/2020 11:24 AM CDT Morbid obesity Hypertension, unspecified type AUGUST (obstructive sleep apnea) from Last 3 Months or Most Recently Relevant to Health Maintenance Results * GLUCOSE - POINT OF CARE (03/13/2023 12:52 PM PULP MILL OPERATOR) Pathologist [facility] Glucose WB/POC 71 70 - 125 mg/dL 03/13/2023 12:59 PM PULP MILL OPERATOR [facility] Specimen Type Cap Fingerstick 2022 12:59 PM PULP MILL OPERATOR [facility] Blood BLOOD SPECIMEN / Unknown 03/13/2023 12:52 PM PULP MILL OPERATOR 03/13/2023 12:59 PM PULP MILL OPERATOR Radha Ruiz MD LAB - POINT OF CARE ORDERABLES Final Result [facility] [address] [place] [address], [facility] * LIPID PROFILE (09/29/2020 11:24 AM CDT) Pathologist [facility] Cholesterol 190 <200 mg/dL 09/29/2020 12:25 PM CDT [facility] Triglycerides 121 <150 mg/dL 09/29/2020 12:25 PM CDT [facility] HDL Cholesterol 52 >40 mg/dL 12:25 PM CDT [facility] Chol HDL Ratio 3.7 1.0 - 6.0 09/29/2020 12:25 PM CDT [facility] LDL Calculated 114 65 - 130 mg/dL 09/29/2020 12:25 PM CDT [facility] VLDL Calculated 24 <=30 mg/dL 12:25 PM CDT [facility] Blood BLOOD SPECIMEN / Unknown Venipuncture / Unknown 09/29/2020 11:24 AM CDT 09/29/2020 11:47 AM CDT Narrative [facility] - 09/29/2020 12:25 PM CDT Lipid Profile Comment: CHOLESTEROL LEVEL..................CLINICAL INTERPRETATION LESS THAN 200 MG/DL..............................DESIRABLE 200-239 MG/DL..............................BORDERLINE HIGH GREATER THAN 240 MG/DL................................HIGH LDL-CHOLESTEROL LEVEL..............CLINICAL INTERPRETATION LESS THAN 100 MG/DL................................OPTIMAL 100-129 MG/DL.................................NEAR OPTIMAL GREATER THAN 160 MG/DL...........................HIGH RISK HDL RISK LEVEL GREATER THEN 60 MG/DL............................DECREASED 40-60 MG/DL........................................AVERAGE LESS THAN 40 MG/DL...............................INCREASED TRIGLYCERIDE LEVEL..................CLINICAL INTERPRETATION LESS THAN 150 MG/DL...............................DESIRABLE 150-199 MG/DL...............................BORDERLINE HIGH 200-499 MG/DL..........................................HIGH GREATER THAN 500..................................VERY HIGH THE NATIONAL CHOLESTEROL EDUCATION PROGRAM HAS SET THE ABOVE GUIDELINES (REFERANCE VALUES) FOR CHOLESTEROL AND HDL. RISK ASSOCIATED WITH CHOLESTEROL/HDL RATIOS RISK....................MALE RATIO.............FEMALE RATIO 1/2 AVERAGE.................<3.4.......................<3.3 LOW RISK.................... 4.0 ...................... 3.8 AVERAGE..................... 5.0 ...................... 4.5 2X AVERAGE.................. 9.5 ...................... 7.0 3X AVERAGE...................>23........................>11 Shawn Hastings MD LAB - CHEMISTRY ORDERABLES Fin al Result [facility] [address] [place] [address], [facility] from Last 3 Months or Most Recently Relevant to Health Maintenance Insurance [facility] Advance Directives * Full Code (Latest Code Status on File) Date Activated Date Inactivated Comments 03/08/2023 4:48 PM 03/13/2023 4:17 PM * Full Code Date Activated Date Inactivated Comments 02/21/2023 11:42 PM 02/24/2023 3:23 PM * Full Code Date Activated Date Inactivated Comments 11/20/2022 7:38 PM 11/25/2022 7:19 PM * Full Code Date Activated Date Inactivated Comments 11/19/2021 6:11 AM 11/22/2021 3:34 PM * Full Code Date Activated Date Inactivated Comments 11/09/2021 12:35 PM 11/11/2021 1:52 PM Care Teams Research And Development Specialist Relationship Specialty Start Date End Date Shasta Colbert PA-C [address] [place] [phone] PCP - General 12/28/21
--- OUTSIDE RECORDS SUMMARY | 2024-09-25 10:40 | XMS_ITS | Clinical Summary ---
Author Organization [facility] Care Team Providers Care Fruit Harvest Machine Operator Name Role Phone Unavailable Primary Care Provider Unavailabl e Social History Tobacco Use Types Packs/Day Years Used Date Smoking Tobacco: Never Assessed Comments Unknown Sex and Gender Information Value Date Recorded Sex Assigned at Not on file Legal Sex Female 9:55 AM PATIENT INSURANCE CLERK Gender Identity Not on file Sexual Orientation Not on file Plan of Treatment Health Maintenance Due Date Last Done Comments Hepatitis C Virus (HCV) Screening 1973 Hepatitis B Immunization (1 of 3 - 19+ 3-dose series) 1992 Pap Smear 1994 Cervical Cancer Screening (CCS) 2003 HPV/Cotest 2003 Colonoscopy 2018 Colorectal Cancer Screening 2018 Cologuard 2023 Immunochemical Fecal Occult Blood 2023 Mammogram 2023 Pneumococcal Immunization (5 0+ years) (1 of 1 - PCV) 2023 Zoster Immunization (1 of 2) 2023 Influenza Immunization (#1) 2023 10/0 08/2019, 01/12/2016, 12/30/2014 SARS-COV-2 Immunization (2023- season) 2023 Respiratory Syncytial Virus (RSV) Immunization (Adult) (1 - 1-dose 75+ series) 2048 DTaP/Tdap/Td Immunization Discontinued 10/28/2014 TdaP Immunization Completed 10/28/2014 Meningococcal Immunization (ACWY) Aged Out No longer eligible based on patient's age to complete this topic Pneumococcal Immunization Combined Aged Out No longer eligible based on patient's age to complete this topic Rotavirus Immunization Aged Out No lo nger eligible based on patient's age to complete this topic
--- OUTSIDE RECORDS SUMMARY | 2024-09-25 10:40 | XMS_ITS | Clinical Summary ---
Author Organization [facility] [place] [address] Address [address] [place] [address] Care Team Providers Care Patient Registration Representative Name Role Phone Shasta Colbert Primary Care Provider [phone] Allergies No known active allergies Medications albuterol HFA (PROVENTIL HFA,VENTOLIN HFA,PROAIR HFA) 90 mcg/actuation inhaler albuterol sulfate HFA 90 mcg/actuation aerosol inhaler INHALE 2 PUFFS BY MOUTH EVERY 4 HOURS as needed for wheezing. 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 Active gabapentin (NEURONTIN) 100 mg capsule Take 3 capsules (300 mg total) by mouth 3 (three) times a day 3 Active omeprazole (PriLOSEC) 40 mg capsule Take 1 capsule (40 mg total) by mouth 2 (two) times a day 60 capsule 1 3 Active Additional Information Patient not taking.Reported on 07/29/2024 acetaminophen (TYLENOL) 325 mg tablet Take 2 tablets (650 mg total) by mouth every 6 (six) hours as needed 3 Active cyclobenzaprine (FLEXERIL) 10 mg tablet Take 1 tablet (10 mg total) by mouth 2 (two) times a day as needed Active NIFEdipine (NIFEdipine XL) 30 mg 24 hr tablet Take 1 tablet (30 mg total) by mouth daily 90 tablet 3 4 Active lisinopriL (PRINIVIL,ZESTR IL) 40 mg tablet Take 1 tablet (40 mg total) by mouth daily 90 tablet 2 4 Active spironolactone (ALDACTONE) 50 mg tablet Take 1 tablet (50 mg total) by mouth daily 90 tablet 2 4 Active calcium carbonate-vitam in D3 (CALTRATE 600 + D) 1500 mg (600 mg elemental) -400 units per tablet Take 1 tablet every day by oral route for 30 days. 3 Active fluticasone propionate (FLONASE) 50 mcg/actuation nasal spray Administer 1 spray into affected nostril(s) 2 (two) times a day 4 Active hydrOXYzine (ATARAX) 25 mg tablet Take 1 tablet (25 mg total) by mouth 4 Active nystatin powder Apply topically 2 (two) times a day 3 Active busPIRone (BUSPAR) 5 mg tablet Take 1 tablet (5 mg total) by mouth 2 (two) times a day 4 Active metoprolol (LOPRESSOR) 100 mg tablet TAKE 1 TABLET BY MOUTH TWICE A DAY 180 tablet 2 5 Active biotin 10,000 mcg capsule Take 0.1 capsules (1,000 mcg total) by mouth daily Active Active Problems Problem Noted Date Diagnosed Date Melena 11/14/2022 Gastrointestinal hemorrhage 11/14/2022 Elevated serum lactate dehydrogenase 11/14/2022 S/P gastric bypass 06/27/2022 H/O chest pain 06/27/2022 Weight loss counseling, encounter for 08/17/2020 Assessment & Plan (09/16/2020 4:31 PM CDT): Reviewed calorie restriction based on BMR as previously detailed. Reviewed recommendation/goal of >/= 150 minutes/week moderate-intensity aerobic exercise. Asked to keep detailed food diary for at least 1 week and bring to next visit and/or continue tracking on phone. Assessment & Plan (08/17/2020 10:15 AM CDT): Discussed that significant health benefits/risk reduction may be seen with even 5% weight loss. Discussed that weight loss will require calorie deficit. Calculated basal metabolic rate and estimated total energy expenditure; discussed 500-1000 kcal/day deficit to lose 1-2 lb per week. Asked to keep detailed food diary for at least 1 week and bring to next visit. Discussed relatively small, although significant, role of exercise in weight loss; greater importance in weight maintenance as shown in Look Ahead study and National Weight Control Registry. Discussed recommendation/goal for 150 minutes per week moderate-intensity aerobic exercise. Migraine 08/17/2020 Osteoarthritis of knee 08/17/2020 Assessment & Plan (09/30/2020 1:55 PM CDT): Discussed potential for improvement and/or reduced progression with weight loss. Ulnar neuropathy 08/17/2020 Borderline diabetes 08/17/2020 Assessment & Plan (09/30/2020 2:01 PM CDT): Discussed insulin resistance including effect on weight and risk for progression to diabetes. Recommended low-carb, low-glycemic diet; choose whole grains and avoid more highly processed carbohydrates. Discussed potential benefits of this 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 Referred to ADA and [email or web address] websites for additional information on topics including glycemic index/carbohydrate choices, protein sources. Assessment & Plan (09/16/2020 4:32 PM CDT): Continue low-carb (<150 g/day), low-glycemic diet. Will attempt to get recent labs from PCP. 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 General weight loss/lifestyle modification strategies discussed (elicit support from others; identify saboteurs; non-food rewards, etc). Diet interventions: as noted. Informal exercise measures discussed, e.g. taking stairs instead of elevator. Regular aerobic exercise program discussed. More detailed recommendations pending review of labs, food record. Assessment & Plan (09/16/2020 4:33 PM CDT): Obesity is unchanged. Diet interventions: as noted. Regular aerobic exercise program discussed. Pursuing bariatric surgery. S/P ablation operation for arrhythmia 01/03/2018 SVT (supraventricular tachycardia) 01/03/2018 Mild intermittent asthma without complication Muscular chest pain 01/03/2018 Obstructive sleep apnea syndrome 04/26/2016 Assessment & Plan (09/30/2020 1:55 PM CDT): Discussed comorbidities associated with sleep apnea, including effects on weight, and stressed importance of adequate treatment if present. Shortness of breath 01/28/2016 Ventricular premature beats 01/28/2016 Nonrheumatic aortic valve stenosis with insuffic iency 07/13/2015 Pulmonary hypertension 06/25/2015 Resolved Problems Problem Noted Date Diagnosed Date Resolved Date Aortic valve disorder 01/03/20182022 Encounters Date Type Department Care Team Description 09/22/2024 Telephone [facility] Cardiology [address] [place] [phone] Alondra Corral MD 08/15/2024 Telephone [facility] Cardiology [address] [place] [address] Alondra Corral MD 08/11/2024 9:15 AM CDT Ancillary Procedure [facility] Medical [facility] Cardiology [address] [place] [phone] 07/29/2024 10:45 AM CDT Office Visit [facility] Cardiology [address] [place] [address] [address] [place] [phone] Alondra Corral MD Nonischemic cardiomyopathy (HCC) (Primary Dx); Exertional shortness of breath; Palpitations; Lipid screening 07/29/2024 10:30 AM CDT Ancillary Procedure [facility] Cardiology [address] [place] [address] [place] [phone] Palpitations 07/29/2024 Results Follow-Up [facility] Cardiology [address] [place] [address] [place] [phone] Alondra Corral MD POCT lipid panel 07/22/2024 Results Follow-Up [facility] Cardiology [address] [place] [address] [place] [phone] Dary De Jesus NP Transthoracic Echo (TTE) Complete W Doppler/CF 07/21/2024 11:15 AM CDT Ancillary Procedure [facility] Cardiology [address] [place] [address] [address] [place] [address] Nonischemic cardiomyopathy (HCC) from Last 3 Months Surgical History Surgery Date Site/Laterality Comments TUBAL LIGATION CHOLECYSTECTOMY KNEE SURGERY CARDIAC CATHETERIZATION BARIATRIC SURGERY 06/27/2021 Medical History Medical History Date Comments Hypertension Asthma Diastolic dysfunction CHF (congestive heart failure) (HCC) Non-ischemic cardiomyopathy (HCC) Peptic ulceration Anxiety Migraines Sleep apnea Menstrual problem Family History Medical History Relation Name Comments Diabetes Father Adan Heart disease Father Adan Heart failure Father Adan Hypertension Father Adan Obesity Father Adan Pacemaker Father Adan Arthritis Mother Roselyn Hypertension Mother Roselyn Relation Name Status Comments Father Adan Alive Mother Roselyn Alive Social History Tobacco Use Types Packs/Day Years [...] on file Legal Sex Female 8:56 AM DIRECTOR ASSET Gender Identity Female 09/16/2020 7:21 AM CDT Sexual Orientation Straight 09/16/2020 7: 22 AM CDT Obstetrics History Last Filed Vital Signs Vital Sign Reading Time Taken Comments Blood Pressure 140/84 07/29/2024 10:55 AM CDT Pulse 105 07/29/2024 10:55 AM CDT Temperature 36.9 C (98.4 F) 11/16/2022 7:25 AM CDT Respiratory Rate 16 11/16/2022 7:25 AM CDT Oxygen Saturation 97% 07/29/2024 10:55 AM CDT Inhaled Oxygen Concentration - - Weight 110.2 kg (243 lb) 07/29/2024 10:55 AM CDT Height 154.9 cm (5' 1) 07/29/2024 10:55 AM CDT Body Mass Index 45.91 07/29/2024 10:55 AM CDT Plan of Treatment Health Maintenance Due Date Last Done Comments Cervical Cancer Screening 1975 Colon Cancer Screening-Colonoscopy 1975 Depression Screening 1975 Hepatitis C Screening 1973 Hepatitis B Screening 1991 Regular Well Visit/Exam 18-64 1991 Pneumococcal vaccine <65 (1 of 2 - PCV) 1992 Zoster Vaccine (1 of 2) 2023 Covid-19 Vaccine (3 - 2023-2 5 season) 2023 05/15/2021, 04/15/2021 Breast Cancer Screening-Mammogram 06/27/2024 06/28/2023, 08/27/2020, 08/18/2020, Additional history exists DTaP/Tdap/Td Vaccine (2 - Td or Tdap) 10/28/2024 10/28/2014 Influenza Vaccine (Season Ended) 2024 02/01/2023, 02/06/2022, 01/12/2020, Additional history exists Procedures Procedure Name Priority Date/Time Associated Diagnosis Comments NM MPI SPECT (REST AND/OR STRESS) MULTIPLE STUDIES Schedule Routine, Read Routine (OP Routine) 08/11/2024 10:51 AM CDT Exertional shortness of breath ELECTROCARDIOGRAM REPORT Routine 07/29/2024 1:08 PM CDT Palpitations EXTENDED/ASSISTED HOLTER PATCH (>48 HOURS UP TO 7 DAYS) Routine 07/29/2024 11:41 AM CDT Palpitations POCT LIPID PANEL Routine 07/29/2024 10:49 AM CDT Lipid screening TRANSTHORACIC ECHO (TTE) COMPLETE W DOPPLER/CF WO CONTRAST Routine 07/21/2024 11:28 AM CDT Nonischemic cardiomyopathy (HCC) from Last 3 Months Results * NM MPI SPECT (Rest and/or Stress) Multiple Studies (08/11/2024 10:51 AM CDT) Anatomical Region Laterality Modality Body N/A Nuclear Medicine 08/11/2024 8:30 AM CDT Narrative 08/11/2024 2:02 PM CDT [facility] Cardiology [address] [facility] [address], [place] [address] [address] [facility] [address] [address] P:[phone] P:[phone] MPI Imaging Report Patient Name: YUMIKO BAILEY : 1975 Study Date: 08/11/2024 8:30:19 AM Gender: F [facility] Provider: ALONDRA CORRAL Height(Cm): 154.9 BSA: Weight(Kg): 110.2 BMI: 45.93 Order Provider: ALONDRA CORRAL PHYSICIAN: Referring Physician: LUCY Ko. HCG Physician: Alondra Corral M.D. Interpreting Physician: Agustin Sharma M.D. Stress Supervision: Cole Fried M.D., F.A.C.C. PROCEDURES: Exercise SPECT Report: Myocardial perfusion imaging with Tc99m Sestamibi SPECT at rest and stress post exercise using the Florentino protocol. INDICATIONS: Chest Pain, Hypertension, Family Hx CAD, Palpitations, NICM, and R06.02 Shortness of breath. FINDINGS: Procedure: One day rest/stress protocol was used. Tc99m Sestamibi injected IV at rest was 12.8 millicuries 37.7 millicuries of Tc99m Sestamibi injected IV at peak stress Patient had no symptoms during stress test. Baseline heart rate was 83 BPM Peak heart rate was 169 BPM Max projected heart rate was 169 Percent predicted max heart rate achieved was 100 % Exercise Time 4:00 min Baseline blood pressure was 152/98 mmHg Peak blood pressure 184/96 mmHg Termination: Fatigue. Exercise Tolerance: Poor for patient's age. Resting ECG: Sinus rhythm. T inversion inferior leads. Post EC mm or more horizontal inf/lat ST depression. Arrhythmia: Frequent PVCs. Perfusion Findings: Abnormal perfusion imaging - see below. Technical quality of study is excellent. Prone imaging was not performed. Left ventricle cavity size at rest is severely enlarged. Left ventricle cavity size with stress is unchanged. A TID of 0.91 was automatically calculated. defect 1: Size is large. Severity is moderate. Location of defect is in the basal inferolateral segment, basal anterolateral segment, mid inferolateral segment and mid anterolateral segment. Reversibility is partial. Type of defect is ischemia with infarction. defect 2: Size is medium. Severity is moderate. Location of defect is in the basal inferior segment and mid inferior segment. Reversibility is full. Type of defect is infarction. LV Function: Left Ventricular Ejection Fraction is 37 %. There is moderate LV dysfunction. CONCLUSIONS: Abnormal Stress ECG with ST changes consistent with ischemia. Frequent PVCs in recovery. Myocardial perfusion imaging is abnormal for lateral ischemia with infarcion. Fixed inferior defect - likely infarction. Anterior and anterseptal defect also noted and likely related to breast attenuation although ischemia is not excluded. Size is large. Severity is moderate. Location of defect is in the basal inferolateral segment, basal anterolateral segment, mid inferolateral segment and mid anterolateral segment. Reversibility is partial. Type of defect is ischemia with infarction. Size is medium. Severity is moderate. Location of defect is in the basal inferior segment and mid inferior segment. Reversibility is full. Type of defect is infarction. Left Ventricular Ejection Fraction is 37 %. There is moderate LV dysfunction. Electronically Signed By: Dr. Cole Fried [facility] 08/11/2024 12:44:41 PM CDT Electronically Signed By: Des Sharma MD 08/11/2024 1:18:08 PM CDT Procedure Note Des Sharma MD - 08/11/2024 [facility] Cardiology [address] [facility] [address], [place] [address] [address] [facility] [address], [place] [address] P:[phone] P:[phone] MPI Imaging Report Patient Name: YUMIKO BAIELY : 1975 Study Date: 08/11/2024 8:30:19 AM Gender: F [facility] Provider: ALONDRA CORRAL Height(Cm): 154.9 BSA: Weight(Kg): 110.2 BMI: 45.93 Order Provider: ALONDRA CORRAL PHYSICIAN: Referring Physician: LUCY Ko. HCG Physician: Alondra Corral M.D. Interpreting Physician: Agustin Sharma M.D. Stress Supervision: Cole Fried M.D., F.A.C.C. PROCEDURES: Exercise SPECT Report: Myocardial perfusion imaging with Tc99m Sestamibi SPECT at rest and stresspost exercise using the Florentino protocol. INDICATIONS: Chest Pain, Hypertension, Family Hx CAD, Palpitations, NICM, and R06.02Shortness of breath. FINDINGS: Procedure: One day rest/stress protocol was used. Tc99m Sestamibi injected IV at rest was 12.8 millicuries 37.7 millicuries of Tc99m Sestamibi injected IV at peak stress Patient had no symptoms during stress test. Baseline heart rate was 83 BPM Peak heart rate was 169 BPM Max projected heart rate was 169 Percent predicted max heart rate achieved was 100 % Exercise Time 4:00 min Baseline blood pressure was 152/98 mmHg Peak blood pressure 184/96 mmHg Termination: Fatigue. Exercise Tolerance: Poor for patient's age. Resting ECG: Sinus rhythm. T inversion inferior leads. Post EC mm or more horizontal inf/lat ST depression. Arrhythmia: Frequent PVCs. Perfusion Findings: Abnormal perfusion imaging - see below. Technical quality of study isexcellent. Prone imaging was not performed. Left ventricle cavity size at rest is severelyenlarged. Left ventricle cavity size with stress is unchanged. A TID of 0.91 wasautomatically calculated. defect 1: Size is large. Severity is moderate. Location of defect is in the basalinferolateral segment, basal anterolateral segment, mid inferolateral segment and midanterolateral segment. Reversibility is partial. Type of defect is ischemia withinfarction. defect 2: Size is medium. Severity is moderate. Location of defect is in the basalinferior segment and mid inferior segment. Reversibility is full. Type of defect isinfarction. LV Function: Left Ventricular Ejection Fraction is 37 %. There is moderate LVdysfunction. CONCLUSIONS: Abnormal Stress ECG with ST changes consistent with ischemia. Frequent PVCs in recovery. Myocardial perfusion imaging is abnormal for lateral ischemia withinfarcion. Fixed inferior defect - likely infarction. Anterior and anterseptal defect alsonoted and likely related to breast attenuation although ischemia is not excluded. Size is large. Severity is moderate. Location of defect is in the basalinferolateral segment, basal anterolateral segment, mid inferolateral segment and midanterolateral segment. Reversibility is partial. Type of defect is ischemia withinfarction. Size is medium. Severity is moderate. Location of defect is in the basalinferior segment and mid inferior segment. Reversibility is full. Type of defect isinfarction. Left Ventricular Ejection Fraction is 37 %. There is moderate LVdysfunction. Electronically Signed By: Dr. Cole Fried [facility] 08/11/2024 12:44:41 PM CDT Electronically Signed By: Des Sharma MD 08/11/2024 1:18:08 PM CDT Alondra Corral MD IMG NM PROCEDURES Final Result * Electrocardiogram Report (07/29/2024 1:08 PM CDT) Alondra Corral MD ECG ORDERABLES Final Result * Extended/Prison Holter Patch (>48 hours up to 7 days) (07/29/2024 11:41 AM CDT) Anatomical Region Laterality Modality Electrocardiogra phy Narrative 08/22/2024 11:50 AM CDT AMBULATORY PRODUCT SAFETY OFFICER REPORT Patient Name: Yumiko Bailey Date of : 1975 Requesting Physician: Dr Corral Date of interpretation: 08/22/24 Type of monitor : 7 day Holter monitor Date of the study/Enrollment period: July 29 till August 05, 2024 Indication: Palpitations Quality of the study: Good. Artifact time was 4 minutes Interpretation: Average heart rate was 91 beats per minute with a minimum heart rate 61 beats per minute and maximum heart rate 169 beats per minute. There was a total of 6596 PVCs with estimated burden less than 1%. There was a total of 76 supraventricular ectopic contractions. There were 5 episodes of supraventricular tachycardia the longest consistent of 6 beats at heart rate 159 beats per minute. There were 5 episodes of ventricular tachycardia the longest consistent of 5 beats at heart rate 135 beats per minute and the fastest 169 beats per minute. No evidence of atrial fibrillation or significant pauses or blocks. Patient reported symptoms on 4 occasions complaining of lightheadedness, shortness of breath, tiredness. Two episodes corresponded to sinus tachycardia. The other 2 episodes corresponded to sinus rhythm with heart rates 89-98 beats per minute. Conclusions: Rare arrhythmias as described above. Symptoms corresponded to sinus rhythm or sinus tachycardia. Voice recognition software was used to complete this document, therefore, cover cutter variances may occur. Cole Fried MD, [facility] 08/22/24 Procedure Note Cole Fried MD - 08/22/2024 AMBULATORY PRODUCT SAFETY OFFICER REPORT Patient Name: Yumiko Bailey Date of : 1975 Requesting Physician: Dr Corral Date of interpretation: 08/22/24 Type of monitor : 7 day Holter monitor Date of the study/Enrollment period: July 29 till August 05, 2024 Indication: Palpitations Quality of the study: Good. Artifact time was 4 minutes Interpretation: Average heart rate was 91 beats per minute with a minimum heart rate 61beats per minute and maximum heart rate 169 beats per minute. There was atotal of 6596 PVCs with estimated burden less than 1%. There was a totalof 76 supraventricular ectopic contractions. There were 5 episodes ofsupraventricular tachycardia the longest consistent of 6 beats at heartrate 159 beats per minute. There were 5 episodes of ventriculartachycardia the longest consistent of 5 beats at heart rate 135 beats perminute and the fastest 169 beats per minute. No evidence of atrialfibrillation or significant pauses or blocks. Patient reported symptomson 4 occasions complaining of lightheadedness, shortness of breath,tiredness. Two episodes corresponded to sinus tachycardia. The other 2episodes corresponded to sinus rhythm with heart rates 89-98 beats perminute. Conclusions: Rare arrhythmias as described above. Symptoms corresponded to sinus rhythm or sinus tachycardia. Voice recognition software was used to complete this document, therefore,cover cutter variances may occur. Cole Fried MD, [facility] 08/22/24 us Alondra Corral MD [facility] PROCEDURES F inal Result * POCT lipid panel (07/29/2024 10:49 AM CDT) Cholesterol, POC 188 mg/dL HDL, POC 75 mg/dL Triglycerides, POC 86 mg/dL LDL Cholesterol POC 96 mg/dL Chol/HDL Ratio, POC 1.3 Non-HDL Cholesterol, POC 113 mg/dL Cholesterol Total, POC 188 mg/dL Capillary blood 07/29/2024 1 0:49 AM CDT us Alondra Corral MD POINT OF CARE TEST ORDERABLES Fi nal Result * TRANSTHORACIC ECHO (TTE) COMPLETE W DOPPLER/CF WO CONTRAST (07/21/2024 11:28 AM CDT) Anatomical Region Laterality Modality Ultrasound 07/21/2024 11:0 1 AM CDT Narrative 07/21/2024 11:35 AM CDT [facility] Cardiology [address] [facility] [address], [place] [address] [address] [facility] [address], [place] [address] P:[phone] P:[phone] Echocardiographic Report Patient Name: YUMIKO BAILEY : 1975 Study Date: 07/21/2024 11:01:23 AM Gender: F Tech: Location: [facility] Provider: DARY DE JESUS Height(Cm): 155 BSA: 2.11 Weight(Kg): 103.4 Heart Rate: 88 BP: 140 / 84 Quality: Good Order Provider: DARY DE JESUS PROCEDURES: Echocardiographic Report: Transthoracic echocardiogram with complete 2D, M-Mode, and color Doppler examination. With Strain Analysis. INDICATIONS: Nonischemic cardiomyopathy. MEASUREMENTS: 2D/MM Value Range Doppler Value Range EF Mod BP 57 % [ 54 - 74 ] LA Vmax 2.18 cm2 [ 2.00 - 4.00 ] EF Teich MM 45 % [ 54 - 74 ] AV Mean PG 9 mmHg LVIDd 2D 6.16 cm [ 3.80 - 5.20 ] AV Peak Zeferino 2.09 m/s [ 1.00 - 1.70 ] LVIDd MM 5.31 cm [ 3.80 - 5.20 ] AV Peak PG 18 mmHg LVIDs 2D 4.86 cm [ 2.20 - 3.50 ] AV VTI 41.94 cm LVIDs MM 4.12 cm [ 2.20 - 3.50 ] LVOT Diam 2.02 cm [ 1.70 - 2.10 ] LVPWd 2D 1.22 cm [ 0.60 - 0.90 ] LVOT Peak Zeferino 1.43 m/s [ 0.70 - 1.10 ] LVPWd MM 1.36 cm [ 0.60 - 0.90 ] LVOT VTI 29.63 cm IVSd 2D 1.54 cm [ 0.60 - 0.90 ] MV E Peak Zeferino 0.72 m/s [ 0.60 - 1.30 ] IVSd MM 1.18 cm [ 0.60 - 0.90 ] MV A Peak Zeferino 0.93 m/s [ 1.00 - 1.20 ] LA Dimension MM 4.24 cm [ 2.70 - 3.80 ] MV Decel Time 133 msec [ 104 - 258 ] AoR Diam MM 3.63 cm [ 2.70 - 3.70 ] PV Peak Zeferino 0.90 m/s [ 0.40 - 0.80 ] LA Volume Index 34 cc/m2 [ 16 - 34 ] TR Peak Zeferino 2.85 m/s [ 1.00 - 2.80 ] TR Peak PG 32 mmHg RVSP 40.00 mmHg [ 10.00 - 36.00 ] Lateral E` 0.06 m/s [ 0.10 - 0.15 ] E` 0.04 m/s E/E` 12 2D/MM Value Range Doppler Value Range - FINDINGS: Interpretation Site: Exam was interpreted at [facility]. Left Ventricle: Moderate concentric left ventricular hypertrophy. Mild enlargement of left ventricle cavity. Diastolic dysfunction is present. Ejection fraction is measured at 57 %. Global Longitudinal Strain is -12 %. GLS is abnormal. Right Ventricle: Normal right ventricular size. Normal right ventricular systolic function. Left Atrium: There is mild enlargement of left atrium. Right Atrium: The right atrium is normal in size. Atrial Septum: Normal atrial septum. Mitral Valve: Normal appearance of the mitral valve. Mild mitral valve regurgitation. There is no hemodynamically significant mitral stenosis by Doppler. Aortic Valve: No evidence of hemodynamically significant aortic stenosis by Doppler. Aortic cusps appear mildly sclerotic. Trileaflet aortic valve. Mild aortic valve regurgitation. Tricuspid Valve: Normal appearance of the tricuspid valve. Estimated peak RVSP is 40 mmHg. Mild tricuspid regurgitation. Pulmonic Valve: Normal appearance of the pulmonic valve. No evidence of pulmonic regurgitation. Pericardium: Normal pericardium with no significant pericardial effusion. Aorta: Sinus of Valsalva is normal. IVC: Normal size and normal respiratory collapse consistent with normal right atrial pressure (<5 mmHg). Pulmonary Artery: Normal pulmonary artery size. CONCLUSIONS: Moderate concentric left ventricular hypertrophy. Mild enlargement of left ventricle cavity. Diastolic dysfunction is present. Ejection fraction is measured at 57 %. Global Longitudinal Strain is -12 %. GLS is abnormal. There is mild enlargement of left atrium. Mild mitral valve regurgitation. No evidence of hemodynamically significant aortic stenosis by Doppler. Aortic cusps appear mildly sclerotic. Trileaflet aortic valve. Mild aortic valve regurgitation. Estimated peak RVSP is 40 mmHg. Mild tricuspid regurgitation. Electronically Signed By: Dr. Cole Fried [facility] 07/21/2024 11:34:50 AM CDT Procedure Note Cole Fried MD - 07/21/2024 [facility] Cardiology [address] [facility] [address] [address] [address] [facility] [address] [address] P:[phone] P:[phone] Echocardiographic Report Patient Name: YUMIKO BAILEY : 1975 Study Date: 07/21/2024 11:01:23 AM Gender: F Tech: Location: [facility] Provider: DARY DE JESUS Height(Cm): 155 BSA: 2.11 Weight(Kg): 103.4 Heart Rate: 88 BP: 140 / 84 Quality: Good Order Provider: DARY DE JESUS PROCEDURES: Echocardiographic Report: Transthoracic echocardiogram with complete 2D, M-Mode, and color Dopplerexamination. With Strain Analysis. INDICATIONS: Nonischemic cardiomyopathy. MEASUREMENTS: 2D/MM Value Range Doppler ValueRange EF Mod BP 57 % [ 54 - 74 ] LA Vmax 2.18cm2 [ 2.00 - 4.00 ] EF Teich MM 45 % [ 54 - 74 ] AV Mean PG 9mmHg LVIDd 2D 6.16 cm [ 3.80 - 5.20 ] AV Peak Zeferino 2.09m/s [ 1.00 - 1.70 ] LVIDd MM 5.31 cm [ 3.80 - 5.20 ] AV Peak PG 18mmHg LVIDs 2D 4.86 cm [ 2.20 - 3.50 ] AV VTI 41.94cm LVIDs MM 4.12 cm [ 2.20 - 3.50 ] LVOT Diam 2.02 cm[ 1.70 - 2.10 ] LVPWd 2D 1.22 cm [ 0.60 - 0.90 ] LVOT Peak Zeferino 1.43m/s [ 0.70 - 1.10 ] LVPWd MM 1.36 cm [ 0.60 - 0.90 ] LVOT VTI 29.63cm IVSd 2D 1.54 cm [ 0.60 - 0.90 ] MV E Peak Zeferino 0.72m/s [ 0.60 - 1.30 ] IVSd MM 1.18 cm [ 0.60 - 0.90 ] MV A Peak Zeferino 0.93m/s [ 1.00 - 1.20 ] LA Dimension MM 4.24 cm [ 2.70 - 3.80 ] MV Decel Time 133msec [ 104 - 258 ] AoR Diam MM 3.63 cm [ 2.70 - 3.70 ] PV Peak Zeferino 0.90m/s [ 0.40 - 0.80 ] LA Volume Index 34 cc/m2 [ 16 - 34 ] TR Peak Zeferino 2.85m/s [ 1.00 - 2.80 ] TR Peak PG 32 mmHg RVSP 40.00 mmHg [ 10.00 - 36.00 ] Lateral E` 0.06 m/s [ 0.10 - 0.15 ] E` 0.04 m/s E/E` 12 2D/MM Value Range Doppler ValueRange - FINDINGS: Interpretation Site: Exam was interpreted at [facility]. Left Ventricle: Moderate concentric left ventricular hypertrophy. Mild enlargement of leftventricle cavity. Diastolic dysfunction is present. Ejection fraction is measured at57 %. Global Longitudinal Strain is -12 %. GLS is abnormal. Right Ventricle: Normal right ventricular size. Normal right ventricular systolicfunction. Left Atrium: There is mild enlargement of left atrium. Right Atrium: The right atrium is normal in size. Atrial Septum: Normal atrial septum. Mitral Valve: Normal appearance of the mitral valve. Mild mitral valve regurgitation.There is no hemodynamically significant mitral stenosis by Doppler. Aortic Valve: No evidence of hemodynamically significant aortic stenosis by Doppler.Aortic cusps appear mildly sclerotic. Trileaflet aortic valve. Mild aortic valveregurgitation. Tricuspid Valve: Normal appearance of the tricuspid valve. Estimated peak RVSP is 40 mmHg.Mild tricuspid regurgitation. Pulmonic Valve: Normal appearance of the pulmonic valve. No evidence of pulmonicregurgitation. Pericardium: Normal pericardium with no significant pericardial effusion. Aorta: Sinus of Valsalva is normal. IVC: Normal size and normal respiratory collapse consistent with normal rightatrial pressure (<5 mmHg). Pulmonary Artery: Normal pulmonary artery size. CONCLUSIONS: Moderate concentric left ventricular hypertrophy. Mild enlargement of leftventricle cavity. Diastolic dysfunction is present. Ejection fraction is measured at57 %. Global Longitudinal Strain is -12 %. GLS is abnormal. There is mild enlargement of left atrium. Mild mitral valve regurgitation. No evidence of hemodynamically significant aortic stenosis by Doppler.Aortic cusps appear mildly sclerotic. Trileaflet aortic valve. Mild aortic valveregurgitation. Estimated peak RVSP is 40 mmHg. Mild tricuspid regurgitation. Electronically Signed By: Dr. Cole Fried [facility] 07/21/2024 11:34:50 AM CDT Dary De Jesus NP CV ECHO PROCEDURES Final Result from Last 3 Months Insurance [facility] Advance Directives For more information, please contact: [phone] * Full Code (Latest Code Status on File) Date Activated Date Inactivated Comments 11/14/2022 5:41 PM 11/16/2022 5:51 PM Care Teams Patient Registration Representative Relationship Specialty Start Date End Date Shasta Colbert PA [address] [place] [address], [place] [address] PCP - General Physician Polishing Machine Tender 11/28/21
--- OUTSIDE RECORDS SUMMARY | 2024-09-25 10:40 | XMS_ITS | Clinical Summary ---
Author Organization [facility] Address [address] [place] [address] [place] [address] Care Team Providers Care Fund Controller Name Role Phone Unavailable Primary Care Provider Unavailabl e Allergies No known active allergies Medications albuterol sulfate HFA 90 mcg/actuation aerosol inhaler inhale 2 puffs by mouth every 4 to 6 hours as needed Active FeroSuL 325 mg (65 mg iron) tablet TAKE 1 TABLET BY MOUTH THREE TIMES DAILY BEFORE MEALS Active gabapentin (NEURONTIN) 300 mg capsule TAKE 1 CAPSULE BY MOUTH THREE TIMES DAILY NEEDED FOR NERVE PAIN Active lisinopriL (PRINIVIL) 40 mg tablet Take 40 mg by mouth daily. 11/07/2022 Active loratadine (CLARITIN) 10 mg tablet 07/09/2023 Active hydrOXYzine HCL (ATARAX) 25 mg tablet Take 25 mg by mouth 3 times daily as needed for Itching. Active metoprolol tartrate (LOPRESSOR) 100 mg tablet Take 100 mg by mouth 2 times daily. Active omeprazole (PriLOSEC) 40 mg Capsule, Delayed Release(E.C.) Take 40 mg by mouth daily. Active Active Problems No known active problems Encounters Date Type Department Care Team Description 07/22/2024 External Device Data [facility] ABSTRACTION Provider, Abstract 06/25/2024 External Device Data [facility]STRACTION Provider, Abstract from Last 3 Months Family History Medical History Relation Name Comments Heart Disease Father Relation Name Status Comments Brother Daughter Alive Father Alive Mother Alive Sister Alive Son Alive Social History Tobacco Use Types Packs/Day Years Used Date Smoking Tobacco: Never Smokeless Tobacco: Never Tobacco Cessation:Counseling Given: Not Answered Alcohol Use Standard Drinks/Week Comments Never 0 (1 standard drink = 0.6 oz pur e alcohol) Comments Unknown Sex and Gender Information Value Date Recorded Sex Assigned at Not on file Legal Sex Female 10:39 AM CDT Gender Identity Not on file Sexual Orientation Not on file Last Filed Vital Signs Vital Sign Reading Time Taken Comments Blood Pressure 152/97 07/24/2023 11:06 AM CDT Pulse 93 07/24/2023 11:05 AM CDT Temperature 36 C (96.8 F) 07/24/2023 11:05 AM CDT Respiratory Rate 14 07/24/2023 11:05 AM CDT Oxygen Saturation 96% 07/24/2023 11:05 AM CDT Inhaled Oxygen Concentration - - Weight 81.6 kg (180 lb) 07/24/2023 11:05 AM CDT Height 160 cm (5' 3) 07/24/2023 11:05 AM CDT Body Mass Index 31.89 07/24/2023 11:05 AM CDT Plan of Treatment Health Maintenance Due Date Last Done Comments Pre-Diabetes and Diabetes Screening 1975 HEPATITIS B VACCINES (1 of 3 - 19+ 3-dose series) 1992 HPV/Cotest (21-29) 1994 CERVICAL CANCER SCREENING 2003 HPV/Cotest (30-65) 2003 PAP SMEAR 2003 BREAST CANCER SCREENING 2013 COLORECTAL SCREENING 2018 Colorectal Cancer Screening 2018 FIT-DNA Q 3 years 2018 FIT/FOBT Q 1 year 2018 Flex Sig/CT Colonography Q 5 years 2018 ZOSTER VACCINE (1 of 2) 2023 INFLUENZA VACCINE (#1) 2023 3, 02/06/2022, 01/12/2020, Additional history exists COVID-19 Vaccine (3 - 2023-2 5 season) 2023 05/15/2021, 04/15/2021 DTAP/TDAP/TD VACCINES (2 - T d or Tdap) 10/28/2024 10/28/2014 Insurance [facility] MEDICAID
--- OUTSIDE RECORDS SUMMARY | 2024-09-25 10:40 | XMS_ITS | Clinical Summary ---
Author Organization [facility] Address [facility] [address] [place] [address] Care Team Providers Care Land Reclamation Specialist Name Role Phone Trinh Machado MD Primary Care Provider [phone] Allergies No known active allergies Social History Tobacco Use Types Packs/Day Years Used Date Smoking Tobacco: Never Assessed Comments No Sex and Gender Information Value Date Recorded Sex Assigned at Not on file Legal Sex Female 4:09 PM CDT Gender Identity Not on file Sexual Orientation Not on file Last Filed Vital Signs Vital Sign Reading Time Taken Comments Blood Pressure 135/107 11/03/2021 4:16 PM CDT Pulse 104 11/03/2021 4:16 PM CDT Temperature 36.2 C (97.2 F) 11/03/2021 4:16 PM CDT Respiratory Rate 20 11/03/2021 4:16 PM CDT Oxygen Saturation 98% 11/03/2021 4:16 PM CDT Inhaled Oxygen Concentration - - Weight 94.3 kg (208 lb) 11/03/2021 4:16 PM CDT Height 162.6 cm (5' 4) 11/03/2021 4:16 PM CDT Body Mass Index 35.7 11/03/2021 4:16 PM CDT Plan of Treatment Health Maintenance Due Date Last Done Comments Cervical Cancer Screening Pa p Smear (Age 30 to 64) Every 3 Years 1975 Colorectal Cancer Screening Colonoscopy (10 Years) 1973 Annual Physical 1976 Hepatitis C 1991 Hepatitis B Vaccines (1 of 3 - 19+ 3-dose series) 1992 Cervical Cancer Screening Pa p with HPV Testing (Age 30 to 64) Every 5 Years 2003 Cervical Cancer Screening wi th HPV 2003 Mammogram Screening 2013 Pneumococcal Vaccine: 50+ Years (1 of 1 - PCV) 2023 Zoster Vaccines (1 of 2) 2023 COVID-19 Vaccine (3 - 2023-2 5 season) 2023 05/15/2021, 04/15/2021 DTaP, Tdap and Td Vaccines ( 2 - Td or Tdap) 10/28/2024 10/28/2014 Meningococcal B Vaccine Aged Out No l onger eligible based on patient's age to complete this topic Meningococcal Vaccine Aged Out No andres cisco eligible based on patient's age to complete this topic RSV Immunizations Under 20 Months Aged Out No longer eligible b ased on patient's age to complete [place] [address] [place] Care Teams Land Reclamation Specialist Relationship Specialty Start Date End Date Trinh Machado MD [facility] [address] [place] [id number] PCP - General FAMILY PRACTICE 11/03/21
--- OUTSIDE RECORDS SUMMARY | 2024-09-25 10:40 | XMS_ITS | Encounter Summary ---
Author Organization [facility] Healthcare Address [address] [place] [address] Care Team Providers Care Venetian Blind Maker Name Role Phone Marya Harding MD Primary Care Provider Kristin Sousa MD Primary Care Provider Trinh Machado MD Primary Care Provider [phone] Shasta Colbert Primary Care Provider [phone] Encounter Details Date Type Department Care Team (Late st Contact Info) Description 07/24/2017 Orders Only [facility] Information Management [address] [place] [id number] Scanning, Provider Social History Tobacco Use Types Packs/Day Years Used Date Smoking Tobacco: Never Assessed Comments Unknown Sex and Gender Information Value Date Recorded Sex Assigned at Not on file Legal Sex Female 8:56 AM ELECTRIC SIGN WIRER Gender Identity Female 09/16/2020 7:21 AM CDT Sexual Orientation Straight 09/16/2020 7: 22 AM CDT documented as of this encounter Plan of Treatment Not on file documented as of this encounter Procedures Procedure Name Priority Date/Time Associated Diagnosis Comments SCAN - LABS 07/24/2017 CARDIOLOGY DOCUMENT SCAN 07/24/2017 documented in this encounter Results * SCAN - LABS (07/24/2017) us Provider Scanning Final Result * Cardiology Document Scan (07/24/2017) Anatomical Region Laterality Modality Other us Provider Scanning CV CARDIAC SERVICES PROCEDURES Final Result documented in this encounter Visit Diagnoses Not on filedocumented in this encounter Care Teams Venetian Blind Maker Relationship Specialty Start Date End Date Marya Harding MD [address] [address] PCP - General Internal Medicine 07/08/17 01/01/18 Kristin Sousa MD [address] [place] [address] PCP - General Family Medicine 01/02/18 01/18/20 Trinh Machado MD [address] [place] [address] PCP - General Family Medicine 01/19/20 11/27/21 Shasta Colbert PA [address] [place] [address] PCP - General Physician Senior It Project Manager 11/28/21 documented as of this encounter
--- OUTSIDE RECORDS SUMMARY | 2024-09-25 10:40 | XMS_ITS | CONTINUITY OF CARE DOCUMENT ---
Author Name ilene dayannaguanako Address Unknown Organization [facility] Address [id number] [place] [address] [address] [place] [address] Phone [phone] Care Team Providers Care Health Care Marketing Manager Name Role Phone Joshua FERNANDEZ, Byron Unavailable [phone] FAB PINA MD Unavailable FAB PINA MD Unavailable PROBLEMS Condition Status Date Provider Notes Other symptoms involving cardiovascular system completed - Byron Lewis MD HTN essential active Byron Lewis MD Asthma active Byron Lewis MD Pulmonary hypertension active Byron stacy MD SVT active Byron Lewis MD PVC's active Byron Lewis MD Chest pain-type to be determined active Byron Lewis MD Shortness of breath active Byron slaughter MD Palpitations active Noah Eduard Obesity active Byron Lewis MD Sleep apnea, obstructive, mild active Byron Lewis MD Aortic regurgitation active Byron flores MD CHF active Byron Lewis MD ENCOUNTERS Date Type Provider Location Encounter Diag nosis - In-person encounter Office Visit Byron Lewis MD [facility] Sleep apnea, obstructive, mildAortic regurgitationCHF - In-person encounter Office Visit Byron Lewis MD [facility] Obesity - In-person encounter Office Visit Byron Lewis MD [facility] AsthmaPVC'sChest pain-type to be determinedShortness of breathPalpitations - In-person encounter Office Visit Byron Lewis MD [facility] Other symptoms involving cardiovascular systemPulmonary hypertensionSVT - In-person encounter Office Visit Byron Lewis MD [facility] HTN essentialAsthma VITAL SIGNS Date Observation Value Provider Body Mass Index (Ratio) 48.10 kg/m2 Saeed Chapa blood pressure, cuff size large Reji Smith blood pressure, diastolic 100 mm[Hg] Loretta Candelario blood pressure, systolic 160 mm[Hg] Gin Candelario oxygen saturation, oximetry 97 % Sera Candelario respiratory rate E&M 16 /min Sera Candelario pulse rate 92 /min Sera Candelario weight E&M 263 [lb_av] Sera Candelario height E&M 62 [in_i] Sera Candelario Body Mass Index (Ratio) 47.92 kg/m2 Saeed Chapa blood pressure, resting Yes Saeed Chapa blood pressure, cuff size regular Rogelio larkini Rosa M blood pressure, diastolic 99 mm[Hg] Rogelio rri Rosa M blood pressure, systolic 155 mm[Hg] Brittany Mederos oxygen saturation, oximetry 98 % Thania Mederos respiratory rate E&M 16 /min Thania arenas pulse rate 92 /min Thania madrid weight E&M 262 [lb_av] Thania madrid height E&M 62 [in_i] Thania [place] blood pressure, diastolic 103 mm[Hg] Al yarelis [facility] blood pressure, systolic 176 mm[Hg] Iliana farley Doyle pulse rate 84 /min Hayley [facility] oxygen saturation, oximetry 97 % Hayley Doyle respiratory rate E&M 15 /min Hayley [facility] Body Mass Index (Ratio) 47.92 kg/m2 Daniela seymour [facility] weight E&M 262 [lb_av] Hayley [facility] blood pressure, diastolic 118 mm[Hg] Al yarelis [facility] blood pressure, systolic 191 mm[Hg] Iliana farley [facility] pulse rate 82 /min Hayley [facility] oxygen saturation, oximetry 97 % Hayley Doyle respiratory rate E&M 15 /min Hayley [facility] Body Mass Index (Ratio) 47.00 kg/m2 Danielarica seymour [facility] weight E&M 257 [lb_av] Hayley Doyle respiratory rate E&M 16 /min Hayley Love pulse rate 71 /min Hayley Love oxygen saturation, oximetry 97 % Hayley Love height E&M 62 [in_i] Hayley Love weight E&M 267.8 [lb_av] Hayley Love ALLERGIES No Known Drug Allergies RESULTS Date Observation Value Provider Reference Range Interpretation Location coagulation managed by Ritchie Fajardo RN international normalized ratio (INR) 1.9 [facility] Normal prothrombin time (patient) 22.9 s Abigail Blair urea nitrogen/creatini ne ratio, serum 18.0 [facility] - Estimated Glomerular Filtration Rate (calc) 143.8 (?) [facility] 59.0 - chloride, serum 99.5 mmol/L [facility] 98.0 - 107.0 potassium, serum 3.5 mmol/L [facility] 3.5 - 5.1 sodium, serum 139.0 mmol/L [facility] 136.0 - 145.0 creatinine, serum 0.5 mg/dL [facility] 0[facility] - 1.0 carbon dioxide, venous blood 27.0 mmol/L [facility] 22.0 - 29.0 calcium, serum 9.2 mg/dL [facility] 8.6 - 10.2 urea nitrogen, blood 9.0 mg/dL [facility] 6.0 - 20.0 blood glucose, random 105.0 mg/dL [facility] 74.0 - 99.0 High red blood cell distribution width, size density 47.4 fL [facility] - immature granulocytes, percentage of total cells, blood 0.1 % [facility] nucleated red blood cells as percent of blood leukocytes 0.0 % [facility] - red blood cell (erythrocyte) count, per high power field 0.0 10*3/UL [facility] - eosinophils as percent of blood leukocytes 1.4 % [facility] - neutrophils as percent of blood leukocytes 55.2 % [facility] - Absolute Neutrophils 4.0 CELLS/UL [facility] 1.5 - 7.8 basophils as percent of blood leukocytes 0.6 % [facility] - Absolute Basophils 0.0 CELLS/UL [facility] 0.0 - 0.2 monocytes as percent of blood leukocytes 9.4 % [facility] - Absolute Monocytes 0.7 CELLS/UL [facility] 0.2 - 1.0 lymphocytes as percent of blood leukocytes 33.3 % [facility] - Absolute Lymphocytes 2.4 CELLS/UL [facility] 0.9 - 3.9 mean platelet volume 11.9 (?) [facility] - platelet count 286.0 THOUSAND/U L [facility] 100.0 - 400.0 mean corpuscular hemoglobin concentration, RBC 31.6 G/DL [facility] 31.0 - 38.0 mean corpuscular hemoglobin, RBC 26.5 pg [facility] 25.0 - 35.0 mean corpuscular volume, RBC 83.9 fL [facility] 75.0 - 100.0 hematocrit, blood 38.6 % [facility] 35.0 - 55.0 hemoglobin, blood 12.2 g/dL [facility] 11.5 - 16.5 erythrocyte count, whole blood 4.6 MILLION/UL [facility] 3.5 - 5.5 prothrombin time (patient) 11.1 s [facility] 9.0 - 11.5 international normalized ratio (INR) 1.0 [facility] 0.9 - 1.1 coagulation managed by Ritchie Fajardo RN international normalized ratio (INR) 1.1 Abigail Rich Normal prothrombin time (patient) 13.3 s Abigail Rich coagulation managed by Ritchie Fajardo RN international normalized ratio (INR) 1.1 Abigail Rich Normal prothrombin time (patient) 12.9 s Abigail Rich HISTORY OF MEDICATION USE Medication Status Instructions Dates Provider Indications Com ments COUMADIN 2.5 MG ORAL TABLET completed one tab daily EXCEPT on Kxgv-Hkgdt-Abh take 2 tabs - Noah Chapa MAGNESIUM OXIDE 400 MG ORAL TABLET active ONE TAB ONCE A DAY Hayley Doyle METOPROLOL SUCCINATE ER 50 MG ORAL TABLET EXTENDED RELEASE 24 HOUR active one tab. daily Hayley Doyle LOSARTAN POTASSIUM 100 MG ORAL TABLET active ONCE DAILY Hayley Doyle HYDRALAZINE HCL 25 MG ORAL TABLET completed Take 1 1/2 Tablets Once a Day. - Hayley Doyle ISOSORBIDE DINITRATE 20 MG ORAL TABLET completed Take 1 Tablet Once a Day. - Hayley Doyle May give generic/two separate medications such as Hydralazine and Isosorbide if copay is high LISINOPRIL 40 MG ORAL TABLET completed ONE TAB. DAILY - Hayley Doyle VENTOLIN HFA 108 (90 Base) MCG/ACT INHALATION AEROSOL SOLUTION active 2 puffs every 4-6 hours Hayley Doyle CHLORTHALIDONE 25 MG ORAL TABLET active once daily Hayley Doyle NAPROSYN 500 MG ORAL TABLET completed twice daily - Hayley Doyle IMITREX 100 MG ORAL TABLET active ud Hayley Love LISINOPRIL-HYDROC HLOROTHIAZIDE 20-25 MG ORAL TABLET completed once daily - Hayley Doyle CARTIA XT 240 MG ORAL CAPSULE EXTENDED RELEASE 24 HOUR active One capsule at night Noah Chapa ATENOLOL 50 MG ORAL TABLET completed twice daily - Hayley Doyle PROAIR HFA 108 (90 Base) MCG/ACT INHALATION AEROSOL SOLUTION completed 2 puffs every 4 hours prn - Hayley Vivek SOCIAL HISTORY Date Observation Value Provider social history reviewed E&M revi ewed - no changes required Noah Chapa smoking status Never smoker Sera Candelario social history reviewed E&M revi ewed - no changes required Noah Chapa smoking status Never smoker Thania keith social history reviewed E&M revi ewed - no changes required Byron Lewis MD social history E&M Smoking Histo ry: P arnold has never smoked. Byron Lewis MD smoking status Never smoker Hayley wolf social history E&M Smoking Histo ry: Iggy barrett has never smoked. Byron Lewis MD social history reviewed E&M revi ewed - no changes required Byron Lewis MD smoking status Never smoker Hayley Dale wolf smoking status Never smoker Hayley Love FAMILY HISTORY Family Member Condition Mother Family History of Hy pertension: Father Family History of Co ronary Artery Disease: Father Family History of Hy pertension: INSURANCE PROVIDERS Payer name Policy type / Coverage type [place] [employer] [place] [employer] MEDICAID (2) Medicaid [id number] ADVANCE DIRECTIVES Name Date DISCUSSED - NO DECISION MADE TREATMENT PLAN Date Name Performer Cardiology Follow up faxed 07/18/16 0914:Weight loss and exercise advised. Noah Eduard Cardiology Follow up faxed 07/18/16 0914:Her updated medication list for this problem includes: Metoprolol Succinate 50 Mg Tb24 (Metoprolol succinate) ..... One tab. daily Cartia Xt 240 Mg Oral [id number] (Diltiazem hcl coated beads) ..... One capsule at night Orders: E KG (CPT-53597) H olter Monitor 24 Hr (CPT-99719) Noah Eduard Cardiology Follow up faxed 07/18/16 0914:Her updated medication list for this problem includes: Metoprolol Succinate 50 Mg Tb24 (Metoprolol succinate) ..... One tab. daily Cartia Xt 240 Mg Oral Et64z-ytz (Diltiazem hcl coated beads) ..... One capsule at night Orders: E KG (CPT-04253) H olter Monitor 24 Hr (CPT-69202) Noah Eduard Cardiology Follow up faxed 07/18/16 0914:Her updated medication list for this problem includes: Metoprolol Succinate 50 Mg Tb24 (Metoprolol succinate) ..... One tab. daily Losartan Potassium 100 Mg Oral Tabs (Losartan potassium) ..... Once daily Chlorthalidone 25 Mg Oral Tabs (Chlorthalidone) ..... Once daily Cartia Xt 240 Mg Oral Ir87l-yob (Diltiazem hcl coated beads) ..... One capsule at night Noah Chapa Cardiology Follow up faxed 07/18/16 0914:Followed at [facility]. Not on CPAP currently. Noah Chapa Cardiology Follow up faxed 07/18/16 0914:Goal for systolic BP is 160mmHg due to presence of aortic insufficiency. BP today: 160/100 P rior BP: 155/99 (04/07/2016) Her updated medication list for this problem includes: Metoprolol Succinate 50 Mg Tb24 (Metoprolol succinate) ..... One tab. daily Losartan Potassium 100 Mg Oral Tabs (Losartan potassium) ..... Once daily Chlorthalidone 25 Mg Oral Tabs (Chlorthalidone) ..... Once daily Cartia Xt 240 Mg Oral Ml13c-pew (Diltiazem hcl coated beads) ..... One capsule at night Noah Chapa Cardiology Follow up faxed 07/18/16 0914:Mild to moderate by echo last year. Orders: S NOMED-CT: [id number] Current Medications Documented ([facility]-[id number]) C omplete Echo (CPT-26615) Noah Chapa Cardiology Follow up faxed 04/26/16:BP today: 155/99 P rior BP: 176/103 (01/28/2016) Her updated medication list for this problem includes: Metoprolol Succinate 50 Mg Tb24 (Metoprolol succinate) ..... One tab. daily Losartan Potassium 100 Mg Oral Tabs (Losartan potassium) ..... Once daily Chlorthalidone 25 Mg Oral Tabs (Chlorthalidone) ..... Once daily Cartia Xt 240 Mg Oral Rm06x-odb (Diltiazem hcl coated beads) ..... One capsule at night Noah Cahpa Cardiology Follow up faxed Noah [facility] Cardiology Follow up faxed 04/26/16:Her updated medication list for this problem includes: Metoprolol Succinate 50 Mg Tb24 (Metoprolol succinate) ..... One tab. daily Cartia Xt 240 Mg Oral Nt52s-gkt (Diltiazem hcl coated beads) ..... One capsule at night Noah Chapa Cardiology Follow up faxed 04/26/16:S/P ablation 03/28. Will check an event monitor in 3 months. Noah Chapa Cardiology Noah zuñiga Cardiology:Orders: S NOMED-CT: [id number] Current Medications Documented ([facility]-[id number]) E KG (CPT-44254) H olter Monitor 48 Hr (CPT-22866) S TR - Echo (CPT-09942) Noah Chapa Cardiology:No CAD by cath in 2014. Noah Chpaa EP faxed 07/16/15 0904 :In summary, I saw and examined the patient in person in room 527, bed 2. The patient has diagnosed newly supraventricular tachycardia. She tells she near was treated for that, she never had a syncope. She had tightness in the chest. She had minimally elevated troponins. EKG shows narrow complex tachycardia with short RP intenral. Diffuse ST-T was abnormalities present. She was hypertensive in a ddition to that. Recommend echo. Do not do stress test because that may induce arrhythmia again. Treat w ith diltiazem orally now; however, if heart rate goes up to 150 or the patient symptomatic during tachycardia start diltiazem followed by drip at 10 mg/hour and adjust if needed. Recommend outpatient EP kasandra cummings with possible ablation of SVT. We will get additional information. T medhat gee for allowing me to participate in this patient?s care. Dictated by: Byron Lewis MD, MD EP faxed 07/16/15 0904 :The following medications were removed from the medication list: Proair Hfa 108 (90 Base) Mcg/act Inh Aers (Albuterol sulfate) ..... 2 puffs every 4 hours prn Her updated medication list for this problem includes: Ventolin Hfa 108 (90 Base) Mcg/act Aers (Albuterol sulfate) ..... 2 puffs every 4-6 hours Byron Lewis MD EP faxed 07/16/15 0904 :BP today: 191/118 The following medications were removed from the medication list: Lisinopril-hydrochlorothiazide 20-25 Mg Oral Tabs (Lisinopril-hydrochlorothiazide) ..... Once daily Her updated medication list for this problem includes: Lisinopril 40 Mg Tabs (Lisinopril) ..... One tab. daily Chlorthalidone 25 Mg Oral Tabs (Chlorthalidone) ..... Once daily Cartia Xt 240 Mg Oral Kr91w-mog (Diltiazem hcl coated beads) ..... Once daily Atenolol 50 Mg Oral Tabs (Atenolol) ..... Twice daily Byron Lewis MD Cardiology Byron slaughter MD Cardiology: O rders: 9 9214 MOD Complex (CPT-37726) Byron Lewis MD Cardiology:continue BB, CC, diuretic and LALI-I H er updated medication list for this problem includes: Lisinopril-hydrochlorothiazide 20-25 Mg Oral Tabs (Lisinopril-hydrochlorothiazide) ..... Once daily Cartia Xt 240 Mg Oral Nn72o-dns (Diltiazem hcl coated beads) ..... Once daily Atenolol 50 Mg Oral Tabs (Atenolol) ..... Twice daily Byron Lewis MD Date Name Renal Artery Duplex Holter Monitor 24 Hr Complete Echo Mobile Cardiac Tele BASIC METABOLIC PANE L W/EGFR CBC (INCLUDES DIFF/P LT) PARTIAL THROMBOPLAST IN TIME, ACTIVATED Holter Monitor 24 Hr STR - Echo DLCO - 86488 FRC - 98433 FVC - 05916 Holter Monitor 24 Hr Complete Echo DLCO Order - [id number] FRC Order - 09832 FVC Order - 14180 Full PFT Complete Echo HISTORY OF PROCEDURES Procedure Date Procedure Name Provider Procedure Notes S tatus EKG Byron slaughter MD completed SNOMED-CT: [id number] Current Medications Documented Byron Lewis MD completed Event Monitor Vitaly Conner [facility] EKG Byron slaughter MD completed SNOMED-CT: 429040916847343 Current Medications Documented Byron Lewis MD completed Donya slaughter MD completed Donya slaughter MD completed Protime Byron slaughter MD completed BLOOD COUNT HEMOGLOBIN Byron astorga MD completed FVC - 43319 Byron slaughter MD completed FRC - 12388 Byron slaughter MD completed DLCO - 04532 Byron slaughter MD completed Holter, 24 or 48 Byron flores MD completed EKG Byron slaughter MD completed SNOMED-CT: 917392075856012 Current Medications Documented Byrno Lewis MD completed Schedule Followup Byron shah MD 1 month completed EKG Byron slaughter MD completed SNOMED-CT: 375350491787787 Current Medications Documented Byron Lewis MD completed BLOOD COUNT HEMOGLOBIN Byron astorga MD completed Schedule Followup Byron shah MD in 1 year with SK completed EKG Byron slaughter MD completed
--- OUTSIDE RECORDS SUMMARY | 2024-09-25 10:40 | XMS_ITS | Encounter Summary ---
Author Organization [facility] Health Address [address] [place] [address] Care Team Providers Care Ep Tech Name Role Phone Shasta Colbert PA-C Primary Care Provider [phone] Reason for Visit * Reason Onset Date Comments MEDICATION REFILL 08/29/2022 Encounter Details Date Type Department Care Team (Late st Contact Info) Description 08/29/2022 Refill [facility] Weight Management Services [address] [place] [address] Sunita Lopez APRN-WAITER/WAITRESS FIRST CLASS [address] [place] [address] MEDICATION REFILL Social History Tobacco Use Types [...] PM CDT Legal Sex Female 5:32 AM CONCRETE FOREMAN Gender Identity Female 09/26/2020 6:03 PM CDT Sexual Orientation Not on file documented as of this encounter Functional Status * Is person deaf or have serious hearing difficulty? Answer Date of Assessment Author No 05/17/2022 12:29 PM CONCRETE FOREMAN Erika Martin RN * Is person blind or have serious difficulty seeing? Answer Date of Assessment Author No 05/17/2022 12:29 PM CONCRETE FOREMAN Erika Martin RN * Does person have serious difficulty walking/climbing stairs? Answer Date of Assessment Author No 05/17/2022 12:29 PM CONCRETE FOREMAN Erika Martin RN * Does person have difficulty dressing/bathing? Answer Date of Assessment Author No 05/17/2022 12:29 PM CONCRETE FOREMAN Erika Martin RN * Does person have difficulty doing errands alone? Answer Date of Assessment Author No 05/17/2022 12:29 PM Erika Power RN documented as of this encounter Mental Status * Does person have difficulty concentrating/remembering/making decisions? Answer Entry Date Author No 05/17/2022 12:29 PM Erika Power RN documented in this encounter Plan of Treatment Upcoming Encounters Date Type Department Care Team (Late st Contact Info) Description 12/18/2024 10:00 AM CDT Office Visit [facility] Weight Management Services [address] [place] [phone] Ally Moore MD [address] [place] [address] documented as of this encounter Visit Diagnoses Not on filedocumented in this encounter Care Teams Ep Tech Relationship Specialty Start Date End Date Shasta Colbert PA-C [address] [place] [address] PCP - General 12/28/21 documented as of this encounter
--- OUTSIDE RECORDS SUMMARY | 2024-09-25 10:40 | XMS_ITS | Encounter Summary ---
Author Organization [facility] Health Address [address] [facility] [address] Care Team Providers Care Waste Machine Offbearer Name Role Phone Shasta Colbert PA-C Primary Care Provider Reason for Visit * Reason Onset Date Comments MEDICATION REFILL 10/06/2022 Encounter Details Date Type Department Care Team (Late st Contact Info) Description 10/06/2022 Refill [facility] Weight Management Services [address] [place] [address] Sunita Lopez APRN-SHANTEL [address] [place] [address] MEDICATION REFILL Social History Tobacco Use Types [...] PM CDT Legal Sex Female 5:32 AM VFX ARTIST Gender Identity Female 09/26/2020 6:03 PM CDT Sexual Orientation Not on file documented as of this encounter Functional Status * Is person deaf or have serious hearing difficulty? Answer Date of Assessment Author No 05/17/2022 12:29 PM VFX ARTIST Erika Martin RN * Is person blind or have serious difficulty seeing? Answer Date of Assessment Author No 05/17/2022 12:29 PM VFX ARTIST Erika Martin RN * Does person have serious difficulty walking/climbing stairs? Answer Date of Assessment Author No 05/17/2022 12:29 PM VFX ARTIST Erika Martin RN * Does person have difficulty dressing/bathing? Answer Date of Assessment Author No 05/17/2022 12:29 PM VFX ARTIST Erika Martin RN * Does person have [...] Description 12/18/2024 10:00 AM CDT Office Visit [facility] Weight Management Services [address] [facility] [place] [phone] Ally Moore MD [address] [place] [address] documented as of this encounter Visit Diagnoses Diagnosis Epigastric pain Abdominal pain, epigastric documented in this encounter Care Teams Waste Machine Offbearer Relationship Specialty Start Date End Date Shasta Colbert PA-C [address] [place] [address] PCP - General 12/28/21 documented as of this encounter
--- OUTSIDE RECORDS SUMMARY | 2024-09-25 10:40 | XMS_ITS | Data Portability ---
Author Organization [place] [facility], Main Office Address [address] [place] [address] Assessment Encounter Date Assessment Date Assessment LastModified by Organization Details LastModified Time 08/27/2023 08/27/2023 Assessment: Rhinitis AUGUST PLMD Hypoventilation Plan: The following were reviewed and explained to the patient: primary care/referral note [facility] sleep study 10/29/20 sleep onset = 22.5 minutes, AHI = 7, ResMed medium AirFit F30 full face mask, PLMI = 0.0 General information on sleep disordered breathing, evaluation of sleep disordered breathing, treatment with PAP therapy, and living with PAP therapy were covered. PSG is medically necessary to determine the degree of and management of sleep apnea. We discussed with the patient the impact of weight on: Sleep disordered breathing IFG Hypertension CHF HEMALATHA We discussed with the patient the benefit of PAP therapy on: Sleep disordered breathing Anxiety Headaches Rhinitis IFG Hypertension CHF HEMALATHA Educated the patient on sleep hygiene measures. Relaxing rituals to rest easy, understanding foods with positive and negative impact on sleep, creating a peaceful sleep environment, timing of exercise, using herbal sleep aids, and practicing sleep-friendly meditation were covered. To determine how much sleep is needed, the patient will assess where she falls on the spectrum, examine what lifestyle factor such as stress is affecting the quality and quantity of sleep. In general, adults need 7-9 hours of sleep. Educated the patient regarding foods that promote sleep. These include but are not limited to cherries, bananas, toast, oatmeal, and warm milk. Educated the patient regarding foods and drinks to avoid before bedtime. These include but are not limited to aged cheese, chocolate, spicy foods, tomato-based sauces, soy, ginseng tea and processed meat. Advocated influenza vaccination annually and pneumonia vaccination EMIGDIO. Advocated weight loss through diet and exercise. Patient's ideal body weight according to height and gender is up to 125 lbs. Encouraged patient to adjust caloric intake to maintain/achieve ideal body weight, emphasizing on fruits, vegetables, whole grains, and fat-free or low-fat products. These include lean meats, poultry, fish, beans, eggs, and nuts and foods that are low in saturated fats, trans-fats, cholesterol, salt (sodium), and glycemic index. Stressed the importance of regular exercise up to the patient's capacity limits. In this case, we recommend 20 min daily walking, 2 days a week of resistance training. Patient to monitor BP daily and bring records to PCP for further management. Follow-up: 1 week after split sleep study [email or web address] Not available 08/27/2023 12:27:45 Plan of Treatment Reminders Order Date Submit Date Provider Last Modified By Organization Details Last Modified Time Details Appointments None recorded. Lab None recorded. Referral None recorded. Procedures None recorded. Surgeries None recorded. Imaging polysomnog bianca, split night - no auth required 2023 024 [email or web address] 25 [facility], [address] [place], [address], 4 08:55:45 Medication Orders None recorded. Patient TargetsNo targets recorded. Patient InstructionsNo instructions recorded. Reason for Referral None Reported. Results Created Date Observation Date Name Description Value Unit Range Abnormal Flag Note LastModifiedBy Organization Detail LastModifiedTime 08/27/19 24 10/29/2020 polys omnog bianca, split night No observ ation record ed. BARCODE Not Available 2023 12:52:51 10/26/19 24 10/17/2023 polys omnog bianca, diagn ostic , 6 yrs or older No observ ation record ed. BARCODE Not Available 2023 11:49:22 Result Notes None recorded. Problems Name Problem SNOMED Code Status Onset Date Resolution Date Notes Provider Name and Address Organization Details Recorded Time Obstructive sleep apnea syndrome 91724316 Active 024 Ad Valero MD [address] [facility], [facility] [address], [place], [address] , [facility] 4 12:18:21 Notes:Medical History: Anxie ty Migraine headaches Right tinnitus Rhinitis Bruxism Obesity with mild OSAHS, AHI = 7, 10/29/20 Obesity with mild OSAHS, AHI = 4.5, 10/16/20 IFG Hypertension AI Nonischemic cardiomyopathy CHF EF 30% HEMALATHA Left shoulder OA Bilateral ulnar neuropathy Procedure History: Right knee surgery 2002 Tubal ligation 2004 Cholecystectomy 2005 SVT ablation 2014 Cardiac catheterization 2015 Bariatric surgery 2021 Occupational History: Retired [employer] Problem Notes None recorded. Medical Equipment None Reported. Allergies No known drug allergies Medications Name Sig Start Date Stop Date Status Note LastModified by Organization Details LastModified Time cyclobenzap rine 10 mg tablet TAKE 1 TABLET BY MOUTH TWICE DAILY NEEDED active Not Available Not Available No t Available acetaminoph en 325 mg tablet 08/26 completed Not Available Not Available Not Available metoprolol tartrate 100 mg tablet active Not Available Not Available Not Available metoprolol succinate ER 50 mg tablet,exte nded release 24 hr 07/26 completed Not Available Not Available Not Available sumatriptan 100 mg tablet active Not Available Not Available Not Available sucralfate 100 mg/mL oral suspension SHAKE LIQUID AND TAKE 10 ML BY MOUTH FOUR TIMES DAILY BEFORE MEALS AND AT NIGHT 08/26 completed Not Available Not Available Not Available metoprolol succinate ER 100 mg tablet,exte nded release 24 hr TK 1 T PO QD active Not Available Not Available No t Available warfarin 2.5 mg tablet 08/26 completed Not Available Not Available Not Available hydralazine 25 mg tablet Take 1 tablet twice a day by oral route. 08/26 completed Not Available Not Available Not Available nifedipine ER 30 mg tablet,exte nded release TAKE 1 TABLET BY MOUTH EVERY DAY active Not Available Not Available No t Available chlorthalid one 25 mg tablet active Not Available Not Available Not Available omeprazole 40 mg capsule,del ayed release TAKE ONE CAPSULE BY MOUTH TWICE DAILY active Not Available Not Available No t Available acetaminoph en 500 mg tablet TAKE 2 TABLETS BY MOUTH EVERY 6 HOURS NEEDED FOR PAIN 08/26 completed Not Available Not Available Not Available famotidine 20 mg tablet active Not Available Not Available Not Available magnesium oxide 400 mg (241.3 mg magnesium) tablet TK 1 T PO QD 07/26 completed Not Available Not Available Not Available metoclopram marely 5 mg tablet TAKE 1 TABLET BY MOUTH EVERY 6 HOURS NEEDED FOR NAUSEA OR VOMITING 08/26 completed Not Available Not Available Not Available pantoprazol e 40 mg tablet,jack yed release TAKE 1 TABLET BY MOUTH TWICE DAILY active Not Available Not Available No t Available isosorbide dinitrate 20 mg tablet 07/26 completed Not Available Not Available Not Available gabapentin 300 mg capsule TAKE 1 CAPSULE BY MOUTH THREE TIMES DAILY NEEDED FOR NERVE PAIN active Not Available Not Available No t Available montelukast 10 mg tablet active Not Available Not Available Not Available hydroxyzine HCl 25 mg tablet TAKE 1 TABLET BY MOUTH THREE TIMES DAILY NEEDED FOR ANXIETY active Not Available Not Available No t Available Cartia XT 240 mg capsule,ext ended release active Not Available Not Available Not Available gabapentin 100 mg capsule TAKE 1 CAPSULE BY MOUTH THREE TIMES DAILY 08/26 completed Not Available Not Available Not Available methylpredn isolone 4 mg tablets in a dose pack 08/26 completed Not Available Not Available Not Available albuterol sulfate HFA 90 mcg/actuati on aerosol inhaler INHALE 2 PUFFS BY MOUTH EVERY 4 TO 6 HOURS NEEDED active Not Available Not Available No t Available lisinopril 40 mg tablet active Not Available Not Available Not Available ondansetron 4 mg disintegrat ing tablet DISSOLVE 2 TABLETS ON THE TONGUE TWICE DAILY FOR 14 DAYS NEEDED 08/26 completed Not Available Not Available Not Available losartan 100 mg tablet 07/26 completed Not Available Not Available Not Available fluticasone propionate 50 mcg/actuati on nasal spray,suspe nsion SHAKE LIQUID AND USE 1 SPRAY IN EACH NOSTRIL EVERY DAY DIRECTED FOR ALLERGIES active Not Available Not Available No t Available dicyclomine 10 mg capsule TAKE 1 CAPSULE BY MOUTH FOUR TIMES DAILY NEEDED FOR ABDOMINAL PAIN active Not Available Not Available No t Available atenolol 50 mg tablet 07/26 completed Not Available Not Available Not Available loratadine 10 mg tablet active Not Available Not Available Not Available spironolact one 50 mg tablet active Not Available Not Available Not Available Nyamyc 100,000 unit/gram topical powder APPLY EXTERNALL Y TO THE AFFECTED AREA TWICE DAILY 08/26 completed Not Available Not Available Not Available Symbicort 160 mcg-4.5 mcg/actuati on HFA aerosol inhaler active Not Available Not Available Not Available FeroSul 325 mg (65 mg iron) tablet TAKE 1 TABLET BY MOUTH THREE TIMES DAILY BEFORE MEALS active Not Available Not Available No t Available Aerospan 80 mcg/actuati on HFA aerosol inhaler active Not Available Not Available Not Available Vitals Date Recorded Heart rate Respiratory rate Provider N jarvis and Address Organization Details Last Updated DateTime 08/27/2023 84 /min 15 /min Ad Valero MD [address], 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 Yes [email or web address] Information not available 08/27/2023 In The 14 Days Before Symptom Onset, Have You Had Close Contact With A Laboratory-confir med COVID-19 While That Case Was Ill? No [email or web address] Information not available 08/27/2023 In The 14 Days Before Symptom Onset, Have You Had Close Contact With A Person Who Is Under Investigation For COVID-19 While That Person Was Ill? No [email or web address] Information not available 08/27/2023 What Type Of Diet Are You Following? REGULAR [email or web address] Information not available 08/27/2023 Where Do You Live? SingleLevelHouse [email or web address] Information not available 08/27/2023 How Many Children Do You Have? 2 [email or web address] Information not available 08/27/2023 What Is Your Relationship Status? [email or web address] Information not available 08/27/2023 Do You Use Your Seat Belt Or Car Seat Routinely? Yes [email or web address] Information not available 08/27/2023 Do You Have Smoke And Carbon Monoxide Detectors In Your Home? Yes Information not available 08/27/2023 Are You Passively Exposed To Smoke? Yes Mom [email or web address] Information no t available 08/27/2023 Do You Use Sunscreen Routinely? Yes Information not available 08/27/2023 Have You Recently Traveled Abroad? No [email or web address] Information not available 08/27/2023 Sex: Unknown Functional Status Question Answer Note LastModified by Organizat ion Details LastModified Time Do you use any illicit or recreational drugs? No [email or web address] Information not available 08/27/2023 What is your level of alcohol consumption? None [email or web address] Information not available 08/27/2023 Are you currently employed? No [email or web address] Information not available 08/27/2023 What is your exercise level? Moderate Information not available 08/27/2023 Mental Status Question Answer Note LastModified by Organizat ion Details LastModified Time Do you feel stressed (tense, restless, nervous, or anxious, or unable to sleep at night)? [id number] Depends on Medical Situation [email or web address] Information not available 08/27/2023 Family History Relationship Description Onset Age of this Age Resolved Age Notes LastModified by Organization Details LastModified Time Mother Disorder of thyroid gland [email or web address] Not available 2023 12:21:38 Mother Hypertensive disorder [email or web address] Not available 2023 12:21:47 Mother Obstructive sleep apnea syndrome [email or web address] Not available 2023 12:21:17 Father Asthma [email or web address] Not available 03/2024 12:21:55 Father Hypertensive disorder [email or web address] Not available 2023 12:22:04 Father Migraine [email or web address] Not available 0 08/19/2023 12:22:16 Father Diabetes mellitus [email or web address] Not available 2023 00:28:23 Father Obstructive sleep apnea syndrome [email or web address] Not available 2023 12:21:08 Father Chronic obstructive pulmonary disease [email or web address] Not available 2023 12:23:03 Father Cardiac pacemaker in situ [email or web address] Not available 2023 12:23:14 Father Osteoarthrit is [email or web address] Not available 2023 12:23:21 Maternal Grandfather Diabetes mellitus [email or web address] Not available 2023 12:21:35 Maternal Grandfather Dementia [email or web address] Not available 08/26 12:22:30 Maternal Grandfather Chronic obstructive pulmonary disease [email or web address] Not available 2023 12:22:43 Maternal Grandmother Diabetes mellitus [email or web address] Not available 2023 12:21:39 Maternal Grandmother Heart disease [email or web address] Not available 2023 12:21:54 Maternal Grandmother Anemia [email or web address] Not available 2023 12:22:03 Maternal Grandmother Dementia [email or web address] Not available 08/26 12:22:36 Sister Epilepsy [email or web address] Not available 0 08/27/2023 12:23:57 Sister Hypertensive disorder [email or web address] Not available 2023 12:24:00 Medical History No medical history recorded. Gynecological HistoryNo gynecological history recorded. Obstetrics History GPAL:G 0 P 0 0 0 0 Past Encounters Encounter ID Performer Location Encounter Start Date Encounter Closed Date Diagnosis/Indication Diagnosis SNOMED-CT Code Diagnosis ICD10 Code Diagnosis Note [id number] Ad Valero MD [facility] [address] [address] 08/27/2023 11:25:46 08/27/2023 12:49:02 Obstructive sleep apnea syndrome 78766512 G47.33 G47.36 G47.61 Health Concerns Section Related Observation LastModified by Organization Detai ls LastModified Time None Recorded Concern Status LastModified by Organization Details LastModified Time None Recorded Advance Directives Directive None Recorded Payers Insurance Date Sequence Insurance Name Policy Number Policy Benedict Covered Member ID Benedict Member ID Guarantor Name 11/09/2023 1 [facility] ON OR AFTER 10/07/20 (MEDICAID REPLACEMENT - HMO) Angelica Kruse [id number] Angelica Kruse 08/28/2023 1 [facility] PRIOR TO 10/07/2020 (MEDICAID REPLACEMENT - HMO) Angelica Kruse [id number] Angelica Kruse Notes Date Note Type Note Provider Name and Address Organization Details Recorded Time 08/27/2023 text/html Primary care/Referring provider: Shasta Colbert PA-C During the [facility] sleep study on 10/29/20 sleep onset = 22.5 minutes, AHI = 7, ResMed medium AirFit F30 full face mask @ 8 cmH2O, PLMI = 0.0. The patient never received a CPAP unit. At home, the patient sleeps from 11 pm to 8 am and wakes up with an alarm. Snoring: moderate, since . Snorting: yes Choking: yes Coughing: yes Gasping: yes Gagging: no Sighing: yes Witnessed apnea: yes Twitching or jerking of leg(s), arm(s), body, head: yes Teeth grinding: yes Teeth clenching: yes Sleeptalking: yes Sleepwalking: no Sleep crying: no Bedwetting: no Tongue/lip/gum/gisela k biting: yes Sleeping with open mouth: yes Sleep paralysis: yes Hypnagogic hallucinations: no Hypnopompic hallucinations: no Vivid dreams: yes Difficulty with sleep onset: yes Difficulty with sleep maintenance: yes Sleep interruptions: hand paresthesia Patient wakes up with: fatigue, xerostomia, hoarse voice, headaches, jaw pain, confusion, cognitive impairment, mobility impairment, dexterity impairment Daytime cataplexy: no Morning hypersomnolence: yes Afternoon hypersomnolence: yes Caffeine sources in diet: tea 1/2 cup per week Associated medical and psychiatric conditions: Congestive heart failure: yes Coronary artery disease: no Myocardial infarction: no Hypertension: yes Stroke: no Bronchial asthma: no Chronic obstructive pulmonary disease: no Depression: no Bipolar disorder: no Anxiety: yes Panic disorder: no Posttraumatic stress disorder: no Attention deficit and hyperactivity disorder: no Obsessive Compulsive disorder: no Schizophrenia: no Schizoaffective disorder: no Personality disorder: no Chronic analgesic use: no Chronic sedative/hypnotic use: no EPWORTH SLEEPINESS SCALE (ESS) CHANCE OF DOZING SCORE 0 = would never doze 1 = slight chance of dozing 2 = moderate chance of dozing 3 = high chance of dozing SITUATION AND CHANCE OF DOZING Sitting and reading - 1 Watching television - 3 Sitting inactive in a public place (e.g. a theater or meeting) - 2 As a passenger in a car for an hour without a break - 3 Lying down to rest in the afternoon when circumstances permit - 1 Sitting and talking to someone - 0 Sitting quietly after lunch without alcohol - 2 In a car, while stopped for a few minutes in the traffic - 0 TOTAL SCORE 12 Subjectively, patient has a moderate chance of dozing. Ad Valero MD [address] [address], [place], [address], [facility] [employer] [facility] 08/27/2023 12:30:44 OBGyn Episode No OBEpisode recorded.
--- OUTSIDE RECORDS SUMMARY | 2024-09-25 10:40 | XMS_ITS | Encounter Summary ---
Author Organization [facility] Healthcare Address [address] [place] [address] Care Team Providers Care Certified Prosthetist Name Role Phone Shasta Colbert Primary Care Provider [phone] Encounter Details Date Type Department Care Team (Late st Contact Info) Description 07/29/2024 Results Follow-Up [facility] Medical Group Cardiology [address] [facility] [address] [place] [phone] Diego Corral MD [address] [facility] [address] [facility] [address] [place] [address] POCT lipid panel Social History Tobacco Use Types Packs/Day Years [...] on file Legal Sex Female 8:56 AM [employer] Gender Identity Female 09/16/2020 7:21 AM CDT Sexual Orientation Straight 09/16/2020 7: 22 AM CDT documented as of this encounter Plan of Treatment Not on file documented as of this encounter Visit Diagnoses Not on filedocumented in this encounter Care Teams Certified Prosthetist Relationship Specialty Start Date End Date Shasta Colbert PA [facility] [place] [address] PCP - General Physician Healthcare Administration Intern 11/28/21 documented as of this encounter
--- OUTSIDE RECORDS SUMMARY | 2024-09-25 10:40 | XMS_ITS | Referral Summary ---
Author Organization [place] [address] Address [address] [facility] [address] [place] [address] Care Team Providers Care Shingle Shearing Machine Operator Name Role Phone Shasta Colbert Primary Care Provider [phone] Encounters Date Type Department Care Team Description 09/22/2024 Telephone [facility] Cardiology [address] [place] [address] [address] [place] [phone] Alondra Corral MD 08/15/[address] [place] [address] Alondra Corral MD 08/11/2024 9:15 AM CDT Ancillary Procedure [address] [place] [address] 07/29/2024 Results Follow-Up [facility] Cardiology [address] [place] [address] [address] [place] [address] Alondra Corral MD POCT lipid panel 07/29/2024 10:30 AM CDT Ancillary Procedure [address] [place] [address] Palpitations 07/29/2024 10:45 AM CDT Office Visit [facility] Cardiology [address] [place] [address] [address] [place] [address] Alondra Corral MD Nonischemic cardiomyopathy (HCC) (Primary Dx); Exertional shortness of breath; Palpitations; Lipid screening 07/22/2024 Results Follow-Up [facility] Cardiology [address] [place] [address] Dary De Jesus NP Transthoracic Echo (TTE) Complete W Doppler/CF 07/21/2024 11:15 AM CDT Ancillary Procedure [facility] Cardiology [address] [place] [address] Nonischemic cardiomyopathy (HCC) from Last 3 Months Allergies No known active allergies Medications albuterol [...] mcg total) by mouth daily Active mv,Ca,min-iron imtz-OB-qiblrj 1 mg iron-66.7 mcg-1,000 mcg tablet Take 1 tablet by mouth security tech before breakfast Active gabapentin (NEURONTIN) 100 mg [...] 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 Gender Identity Female 09/16/2020 7:21 AM CDT Sexual Orientation Straight 09/16/2020 7: 22 AM CDT Last Filed Vital Signs Vital Sign Reading [...] 07/29/2024 10:55 AM CDT Plan of Treatment Not on file Procedures Procedure Name Priority Date/Time Associated Diagnosis Comments NM MPI SPECT (REST AND/OR STRESS) MULTIPLE STUDIES Schedule Routine, Read Routine (OP Routine) 08/11/2024 10:51 AM CDT Exertional shortness of breath ELECTROCARDIOGRAM REPORT Routine 07/29/2024 1:08 PM CDT Palpitations EXTENDED/PENITENTIARY HOLTER PATCH (>48 HOURS UP TO 7 [...] AM CDT Narrative 08/11/2024 2:02 PM CDT [facility] Cardiology [address] [facility] [address], [place] [address] [address] [facility] [address], [place] [address] P:[phone] P:[phone] MPI Imaging Report Patient Name: YUMIKO BAILEY : 1975 Study Date: 08/11/2024 8:30:19 AM Gender: F Tech: CALEB IBRAHIM Location: [facility] Ref Provider: ALONDRA CORRAL Height(Cm): 154.9 BSA: Weight(Kg): [...] dysfunction. Electronically Signed By: Dr. Cole Fried [facility] 08/11/2024 12:44:41 PM CDT Electronically Signed By: Des Sharma MD 08/11/2024 1:18:08 PM CDT Procedure Note Des Sharma MD - 08/11/2024 [facility] Cardiology [address] [facility] [address], [place] [address] [address] [facility] [id number], [place] [address] P:[phone] P:[phone] MPI Imaging Report Patient Name: YUMIKO BAILEY : 1975 Study Date: 08/11/2024 8:30:19 AM Gender: F Tech: [facility] Location: [facility] Provider: ALONDRA CORRAL Height(Cm): 154.9 BSA: Weight(Kg): 110.2 BMI: 45.93 Order Provider: ALONDRA CORRAL PHYSICIAN: Referring Physician: PA. Stefani HCG Physician: Cortez Ko, M.D. Interpreting Physician: Agustin Sharma M.D. Stress [...] LVdysfunction. Electronically Signed By: Dr. Cole Fried [facility] 08/11/2024 12:44:41 PM CDT Electronically Signed By: Des Sharma MD 08/11/2024 1:18:08 PM CDT us Alondra Corral MD IMG NM PROCEDURES Final Result * Electrocardiogram Report (07/29/2024 1:08 PM CDT) us Alondra Corral MD ECG ORDERABLES Final Result * Extended/Residential Holter Patch (>48 hours up to 7 days) (07/29/2024 11:41 AM CDT) Anatomical Region Laterality Modality Electrocardiogra phy Narrative 08/22/2024 11:50 AM CDT AMBULATORY ENAMEL SHADER REPORT Patient Name: Yumiko Bailey Date of [...] was used to complete this document, therefore, raw material planner variances may occur. Cole Fried MD, [facility] 08/22/24 Procedure Note Cole Fried MD - 08/22/2024 AMBULATORY ENAMEL SHADER REPORT Patient Name: Yumiko Bailey Date of [...] software was used to complete this document, therefore,raw material planner variances may occur. Cole Fried MD, [facility] 08/22/24 us Alondra Corral MD CV CARDIAC [...] AM CDT Narrative 07/21/2024 11:35 AM CDT [facility]iology [address] [facility] [address], [place] [address] [place] [address] [address], [place] [address] P:[phone] P:[phone] Echocardiographic Report Patient Name: YUMIKO BAILEY : 1975 Study Date: 07/21/2024 11:01:23 AM Gender: F Tech: Location: [facility] Provider: DARY DE JESUS Height(Cm): 155 BSA: [...] FINDINGS: Interpretation Site: Exam was interpreted at [facility] [place]. Left Ventricle: Moderate concentric left ventricular hypertrophy. [...] regurgitation. Electronically Signed By: Dr. Cole Fried [facility] 07/21/2024 11:34:50 AM CDT Procedure Note Cole Fried MD - 07/21/2024 [facility]iology [address], [place] [address] [address] [facility] [id number], [place] [address] P:[phone] P:[phone] Echocardiographic Report Patient Name: YUMIKO BAILEY : 1975 Study Date: 07/21/2024 11:01:23 AM Gender: F Tech: Location: [facility] Provider: DARY DE JESUS Height(Cm): 155 BSA: [...] [ 2.70 - 3.70 ] PV Peak Zeferion 0.90m/s [ 0.40 - 0.80 ] LA [...] FINDINGS: Interpretation Site: Exam was interpreted at [facility]. Left Ventricle: Moderate concentric left ventricular hypertrophy. [...] regurgitation. Electronically Signed By: Dr. Cole Fried [facility] 07/21/2024 11:34:50 AM CDT Dary De Jesus NP CV ECHO PROCEDURES Final Result from Last 3 Months Insurance [facility] Advance Directives For more information, please contact: [phone] * Full Code (Latest Code Status on File) Date Activated Date Inactivated Comments 11/14/2022 5:41 PM 11/16/2022 5:51 PM Care Teams Shingle Shearing Machine Operator Relationship Specialty Start Date End Date Shasta Colbert PA [address] [place] [id number] PCP - General Physician Methodologist 11/28/21
--- OUTSIDE RECORDS SUMMARY | 2024-09-25 10:41 | XMS_ITS | Data Portability ---
Author Organization ANDREZ CYRUS Po Garcia Address [address] [facility] [place] [address] Care Team Providers Care [employer] Name Role Phone GILES MESA Velocity Shooter [phone] SHASTA MAURICIO Primary Care Provider Assessment No assessment recorded. Plan of Treatment Reminders Order Date Submit Date Provider Last Modified By Organization Details Last Modified Time Details Appointments None recorded. Lab CMP, serum or plasma 2024 025 [facility], [address], [place], [address], 5 00:11:50 lipid panel, serum or plasma 2024 025 [facility], [address], [place], [address], 5 04:06:11 CBC w/ auto diff 2024 025 [facility], [address], [place], [address], 5 00:11:51 TSH + free T4, serum 2024 025 [facility], [address], [place], [address], 5 09:02:10 HbA1c (hemoglobin A1c), blood 2024 025 [facility], [address], [place], [address], 5 09:02:11 cytology report, thin prep, smear or scraping, cervical or vaginal 2023 024 [facility], [address], [place], [address], 4 11:14:07 bacterial vaginosis score, MARIANELA+probe, vaginal fluid (OBS) 2023 024 [facility], [address], [place], [address], 4 11:16:54 CBC w/ auto diff 2022 023 [facility], [address], [place], [address], 3 08:26:33 iron + total iron-bindin g capacity (TIBC), serum 2022 023 [facility], [address], [place], [address], 3 09:14:29 ferritin, serum or plasma 2022 023 [facility], [address], [place], [address], 3 09:14:30 CMP, serum or plasma 2022 023 [facility], [address], [place], [address], 3 08:26:32 lipid panel, serum 2022 023 [facility], [address], [place], [address], 3 08:26:32 TSH + free T4, serum 2022 023 [facility], [address], [place], [address], 3 09:14:29 HbA1c (hemoglobin A1c), blood 2022 023 [facility], [address], [place], [address], 3 09:14:30 Referral gastroenter ologist referral 2024 025 [place] [address] Mariusz Rivera MD, [address] [facility] [address], [address], [place], [address], 5 08:12:25 bariatric medicine referral [address] [facility], [address] , [address], [place], [address], 4 08:02:49 physical therapist referral [address] (Outpatient Physical Therapy), [address], [place], [address], 4 07:56:50 sleep medicine referral [address] [facility], [address] [place], [address], 4 08:30:50 Procedures None recorded. Surgeries None recorded. Imaging electromyog bianca + nerve conduction study - BILAT UPPER EXTREMITY 2023 024 [facility] (Cardiology & Emg), [address] [facility] [address], [place], [address], 4 12:21:39 polysomnogr am [address], [address] [facility] [address], [place], [address], 3 14:31:06 MAMMO, screening, bilateral 2022 023 [facility], [address], [place] [address], [place], [address], 4 16:04:45 Medication Orders omeprazole 40 mg capsule,del ayed release 2024 025 [facility], [address], [place], [address], 5 17:55:56 buspirone 10 mg tablet 2024 025 [facility], [address], [place], [address], 5 17:55:56 nifedipine ER 30 mg tablet,exte nded release 24 hr 2024 025 [facility], [address], [place], [address], 5 17:55:56 nifedipine ER 60 mg tablet,exte nded release [address] [facility], [address] [place] [address], [id number], 4 17:17:52 buspirone [address] [facility], [address] [place] [address], [id number], 4 12:28:17 nifedipine ER 60 mg tablet,exte nded release 24 hr 2023 024 [facility]56, [address] [place] [address], [id number], 4 12:29:36 loratadine 10 mg tablet 2023 024 [facility]40388, [address] [place] [address], [id number], 4 11:00:55 fluticasone propionate 50 mcg/actuati on nasal spray,suspe nsion 2023 024 [facility]10170, [address] [place] [address], [id number], 4 11:00:43 hydroxyzine HCl 25 mg tablet 2023 024 [facility]95, [address] [place] [address], [id number], 4 10:56:00 gabapentin 300 mg capsule 2023 024 [facility]15986, [address] [place] [address], [id number], 4 09:43:14 Patient TargetsNo targets recorded. Patient Instructions Encounter Date Encounter Id Patient Instructions Last Modified By Organization Details Last Modified Time 07/06/2023 [id number] A healthy lifestyle: care instructions [email or web address] Not available 07/06/2023 09:49:16 01/02/2024 [id number] A healthy lifestyle: care instructions [email or web address] Not available 01/02/2024 17:34:36 07/22/2024 [id number] A healthy lifestyle: care instructions [email or web address] Not available 07/22/2024 12:25:22 Reason for Referral Sleep Medicine Referral for Obstructive sleep apnea syndrome Referring Physician: [facility], Encounter Date: 07/06/2023 Physical Therapist Referral for Low back pain Referring Physician: [facility], Encounter Date: 10/23/2023 Bariatric Medicine Referral for Morbid obesity Referring Physician: [facility], Encounter Date: 01/02/2024 Cost Coordinator Referral for Feeling of lump in throat Referring Physician: Shasta Mauricio, Family Medicine, Encounter Date: 07/22/2024 Results Created Date Observation Date Name Description Value Unit Range Abnormal Flag Note LastModifiedBy Organization Detail LastModifiedTime 02/21/2002/20/2023 Preal bumin [Mass /volu me] in Serum or Plasm a prealbumin [mass/volume ] in serum or plasma by nephelometry 13.4 mg/dL low: 16mg/d Lhigh: 45mg/d L low Preal bumin 13.4 (L) 16.0 - 45.0 mg/dL 02/20 2:12 PM [facility] Not Available Not Available 07/21/2024 15:11:54 02/21/20 23 02/20/2023 Preal bumin [Mass /volu me] in Serum or Plasm a interpretati on and review of laboratory results Abnorm al Not Available Not Available 15:11:54 02/21/20 23 02/20/2023 Album in [Mass /volu me] in Serum or Plasm a albumin [mass/volume ] in serum or plasma 3 text: 3.4 - 4.8 gm/dL low Album in 3.0 (L) 3.4 - 4.8 gm/dL 02/20 1:52 PM [facility] Not Available Not Available 07/21/2024 15:11:54 02/21/20 23 02/20/2023 Album in [Mass /volu me] in Serum or Plasm a interpretati on and review of laboratory results Abnorm al Not Available Not Available 15:11:54 02/21/20 23 02/20/2023 Lorie tin [Mass /volu me] in Serum or Plasm a ferritin [mass/volume ] in serum or plasma by immunoassay 4 NG/mL low: 5NG/mL high: 204NG/ mL low Lorie tin 4 (L) 5 - 204 ng/mL 02/20 2:12 PM [facility] Not Available Not Available 07/21/2024 15:11:54 11/02/20/2023 Lorie tin [Mass /volu me] in Serum or Plasm a interpretati on and review of laboratory results Abnorm al Not Available Not Available 15:11:54 02/21/20 23 02/20/2023 Iron satur ation [Mass Fract ion] in Serum or Plasm a iron [mass/volume ] in serum or plasma 9 ug/dL low: 50ug/d Lhigh: 170ug/ dL low Iron 9 (L) 50 - 170 ug/dL 02/20 1:56 PM [facility] Not Available Not Available 07/21/2024 15:11:54 02/21/20 23 02/20/2023 Iron satur ation [Mass Fract ion] in Serum or Plasm a transferrin [mass/volume ] in serum or plasma 299 mg/dL low: 180mg/ dLhigh : 382mg/ dL Trans lorie n 299 180 - 382 mg/dL 02/20 1:56 PM [facility] Not Available Not Available 07/21/2024 15:11:54 02/21/20 23 02/20/2023 Iron satur ation [Mass Fract ion] in Serum or Plasm a iron binding capacity [mass/volume ] in serum or plasma 374 ug/dL low: 261ug/ dLhigh : 497ug/ dL TIBC Calcu lated 374 261 - 497 ug/dL 02/20 1:56 PM [facility] Not Available Not Available 07/21/2024 15:11:54 02/21/20 23 02/20/2023 Iron satur ation [Mass Fract ion] in Serum or Plasm a iron saturation [mass fraction] in serum or plasma 2 % low: 11%hig h: 45% low Iron Satur ation % 2 (L) 11 - 45 % 02/20 1:56 PM [facility] Not Available Not Available 07/21/2024 15:11:54 02/21/20 23 02/20/2023 Iron satur ation [Mass Fract ion] in Serum or Plasm a interpretati on and review of laboratory results Abnorm al Not Available Not Available 15:11:54 02/21/20 23 02/20/2023 CBC W Auto Diffe renti al panel - Blood leukocytes [#/volume] in blood by automated count 7.3 text: 4.0 - 10.0 x10e9/ L WBC 7.3 4.0 - 10.0 x10E9 /L 02/20 2:01 PM [facility] Not Available Not Available 07/21/2024 15:11:53 02/21/20 23 02/20/2023 CBC W Auto Diffe renti al panel - Blood erythrocytes [#/volume] in blood by automated count 3.4 text: 3.93 - 5.22 x10e12 /L low RBC 3.40 (L) 3.93 - 5.22 x10E1 2/L 02/20 2:01 PM [facility] Not Available Not Available 07/21/2024 15:11:53 02/21/20 23 02/20/2023 CBC W Auto Diffe renti al panel - Blood hemoglobin [mass/volume ] in blood 6.6 text: 11.2 - 15.7 gm/dL low Hemog lobin 6.6 (L) 11.2 - 15.7 gm/dL 02/20 2:01 PM [facility] Not Available Not Available 07/21/2024 15:11:53 02/21/20 23 02/20/2023 CBC W Auto Diffe renti al panel - Blood hematocrit [volume fraction] of blood by automated count 22.9 % low: 34.1%h igh: 44.9% low Hemat ocrit 22.9 (L) 34.1 - 44.9 % 02/20 2:01 PM [facility] Not Available Not Available 07/21/2024 15:11:53 02/21/20 23 02/20/2023 CBC W Auto Diffe renti al panel - Blood MCV [entitic mean volume] in red blood cells by automated count 67.4 fL low: 78fLhi gh: 100fL low MCV 67.4 (L) 78.0 - 100.0 fl 02/20 2:01 PM [facility] Not Available Not Available 07/21/2024 15:11:53 02/21/20 23 02/20/2023 CBC W Auto Diffe renti al panel - Blood MCH [entitic mass] by automated count 19.4 pg low: 25.6pg high: 34pg low MCH 19.4 (L) 25.6 - 34.0 pg 02/20 2:01 PM [facility] Not Available Not Available 07/21/2024 15:11:53 02/21/20 23 02/20/2023 CBC W Auto Diffe renti al panel - Blood MCHC [entitic mass/volume] in red blood cells by automated count 28.8 text: 32.3 - 36.5 gm/dL low MCHC 28.8 (L) 32.3 - 36.5 gm/dL 02/20 2:01 PM [facility] Not Available Not Available 07/21/2024 15:11:53 02/21/20 23 02/20/2023 CBC W Auto Diffe renti al panel - Blood erythrocyte [distwidth] in red blood cells by automated count 20.4 % low: 11.6%h igh: 14.4% high RDW 20.4 (H) 11.6 - 14.4 % 02/20 2:01 PM [facility] Not Available Not Available 07/21/2024 15:11:53 02/21/20 23 02/20/2023 CBC W Auto Diffe renti al panel - Blood platelet [entitic mean volume] in blood by automated count 10 fL low: 9.4fLh igh: 12.4fL MPV 10.0 9.4 - 12.4 fl 02/20 2:01 PM [facility] Not Available Not Available 07/21/2024 15:11:53 02/21/20 23 02/20/2023 CBC W Auto Diffe renti al panel - Blood platelets [#/volume] in blood by automated count 527 text: 163 - 369 x10e9/ L high Plate let Count 527 (H) 163 - 369 x10E9 /L 02/20 2:01 PM [facility] Not Available Not Available 07/21/2024 15:11:53 02/21/20 23 02/20/2023 CBC W Auto Diffe renti al panel - Blood neutrophils/ leukocytes in blood by automated count 55.3 % low: 40%hig h: 75% Neutr ophil s % 55.3 40.0 - 75.0 % 02/20 2:01 PM [facility] Not Available Not Available 07/21/2024 15:11:53 02/21/20 23 02/20/2023 CBC W Auto Diffe renti al panel - Blood lymphocytes/ leukocytes in blood by automated count 36.3 % low: 19.3%h igh: 53.1% Lymph ocyte s % 36.3 19.3 - 53.1 % 02/20 2:01 PM [facility] Not Available Not Available 07/21/2024 15:11:53 02/21/20 23 02/20/2023 CBC W Auto Diffe renti al panel - Blood monocytes/le ukocytes in blood by automated count 6.6 % low: 4.7%hi gh: 12.5% Monoc ytes % 6.6 4.7 - 12.5 % 02/20 2:01 PM [facility] Not Available Not Available 07/21/2024 15:11:53 02/21/20 23 02/20/2023 CBC W Auto Diffe renti al panel - Blood eosinophils/ leukocytes in blood by automated count 1 % low: 0.7%hi gh: 7% Eosin ophil s % 1.0 0.7 - 7.0 % 02/20 2:01 PM [facility] Not Available Not Available 07/21/2024 15:11:53 02/21/20 23 02/20/2023 CBC W Auto Diffe renti al panel - Blood basophils/le ukocytes in blood by automated count 0.7 % low: 0.1%hi gh: 1.2% Basop hils % 0.7 0.1 - 1.2 % 02/20 2:01 PM [facility] Not Available Not Available 07/21/2024 15:11:53 02/21/20 23 02/20/2023 CBC W Auto Diffe renti al panel - Blood immature granulocytes /leukocytes in blood by automated count 0.1 % low: 0%high : 0.5% Immat ure Granu locyt es 0.1 0 - 0.5 % 02/20 2:01 PM [facility] Not Available Not Available 07/21/2024 15:11:53 02/21/20 23 02/20/2023 CBC W Auto Diffe renti al panel - Blood neutrophils [#/volume] in blood by automated count 4.04 text: 1.56 - 6.13 x10e9/ L Neutr ophil Absol robinson 4.04 1.56 - 6.13 x10E9 /L 02/20 2:01 PM [facility] Not Available Not Available 07/21/2024 15:11:53 02/21/20 23 02/20/2023 CBC W Auto Diffe renti al panel - Blood lymphocytes [#/volume] in blood by automated count 2.65 text: 1.18 - 3.74 x10e9/ L Lymph ocyte s Absol robinson 2.65 1.18 - 3.74 x10E9 /L 02/20 2:01 PM [facility] Not Available Not Available 07/21/2024 15:11:53 02/21/20 23 02/20/2023 CBC W Auto Diffe renti al panel - Blood monocytes [#/volume] in blood by automated count 0.48 text: 0.24 - 0.86 x10e9/ L Monoc ytes Absol robinson 0.48 0.24 - 0.86 x10E9 /L 02/20 2:01 PM [facility] Not Available Not Available 07/21/2024 15:11:53 02/21/20 23 02/20/2023 CBC W Auto Diffe renti al panel - Blood eosinophils [#/volume] in blood by automated count 0.07 text: 0.04 - 0.54 x10e9/ L Eosin ophil s Absol robinson 0.07 0.04 - 0.54 x10E9 /L 02/20 2:01 PM [facility] Not Available Not Available 07/21/2024 15:11:53 02/21/20 23 02/20/2023 CBC W Auto Diffe renti al panel - Blood basophils [#/volume] in blood by automated count 0.05 text: 0.01 - 0.08 x10e9/ L Basop hils Absol robinson 0.05 0.01 - 0.08 x10E9 /L 02/20 2:01 PM [facility] Not Available Not Available 07/21/2024 15:11:53 02/21/20 23 02/20/2023 CBC W Auto Diffe renti al panel - Blood immature granulocytes [#/volume] in blood by automated count 0.01 text: 0 - 0.03 x10e9/ L Immat ure Granu locyt es Absol robinson 0.01 0 - 0.03 x10E9 /L 02/20 2:01 PM [facility] Not Available Not Available 07/21/2024 15:11:53 02/21/20 23 02/20/2023 CBC W Auto Diffe renti al panel - Blood nucleated erythrocytes /leukocytes [ratio] in blood by automated count 0 text: <=0 /100 WBC nRBC Auto 0 <=0 /100 WBC 02/20 2:01 PM [facility] Not Available Not Available 07/21/2024 15:11:53 02/21/20 23 02/20/2023 CBC W Auto Diffe renti al panel - Blood nucleated erythrocytes [#/volume] in blood by automated count 0 text: <=0 x10e9/ L nRBC Absol robinson 0.00 <=0 x10E9 /L 02/20 2:01 PM [facility] Not Available Not Available 07/21/2024 15:11:53 02/21/20 23 02/20/2023 CBC W Auto Diffe renti al panel - Blood interpretati on and review of laboratory results Abnorm al Not Available Not Available 15:11:53 03/13/20 23 03/13/2023 Gluco se [Mass /volu me] in Arter ial blood glucose [mass/volume ] in capillary blood by glucometer 71 mg/dL low: 70mg/d Lhigh: 125mg/ dL Gluco se WB/PO C 71 70 - 125 mg/dL 03/13 12:59 PM [facility] Not Available Not Available 06/02/2024 11:13:57 03/13/20 23 03/13/2023 Gluco se [Mass /volu me] in Arter ial blood specimen source identified Cap Finger stick Speci men Type Cap Finge rstic k 03/13 12:59 PM [facility] Not Available Not Available 06/02/2024 11:13:57 03/21/2003/22/2023 CBC WITH DIFFE RENTI AL/PL ATELE T WBC 9.1 x10e3 /uL 3.4-10 .8 Not Available [facility] ([facility]) [address] [facility], [place], [address], 03/22/2023 08:26:33 03/21/2003/22/2023 CBC WITH DIFFE RENTI AL/PL ATELE T RBC 4.17 x10e6 /uL 3.77-5 .28 Not Available [facility] ([facility]) [address] [place], [address], 03/22/2023 08:26:33 03/21/20 23 03/22/2023 CBC WITH DIFFE RENTI AL/PL ATELE T hemoglobin 9.0 g/dL 11.1-1 5.9 below low normal Not Available [facility] ([facility]) [address] [place], [address], 03/22/2023 08:26:33 03/21/20 23 03/22/2023 CBC WITH DIFFE RENTI AL/PL ATELE T hematocrit 30.4 % 34.0-4 6.6 below low normal Not Available [facility] ([facility]) [address] [place], [address], 03/22/2023 08:26:33 03/21/20 23 03/22/2023 CBC WITH DIFFE RENTI AL/PL ATELE T MCV 73 fL 79-97 below low normal Not Available [facility] ([facility]) [address] [place] [address], [address], 03/22/2023 08:26:33 03/21/20 23 03/22/2023 CBC WITH DIFFE RENTI AL/PL ATELE T MCH 21.6 pg 26.6-3 3.0 below low normal Not Available [facility] ([facility]) [address] [facility], [place], [address], 03/22/2023 08:26:33 03/21/20 23 03/22/2023 CBC WITH DIFFE RENTI AL/PL ATELE T MCHC 29.6 g/dL 31.5-3 5.7 below low normal Not Available [facility] ([facility]) [address] [place], [address], 03/22/2023 08:26:33 03/21/20 23 03/22/2023 CBC WITH DIFFE RENTI AL/PL ATELE T RDW 25.7 % 11.7-1 5.4 above high normal Not Available [facility] ([facility]) [address] [place], [address], 03/22/2023 08:26:33 03/21/20 23 03/22/2023 CBC WITH DIFFE RENTI AL/PL ATELE T platelets 573 x10e3 /uL 150-45 0 above high normal Not Available [facility] ([facility]) [address] [place], [address], 03/22/2023 08:26:33 03/21/20 23 03/22/2023 CBC WITH DIFFE RENTI AL/PL ATELE T neutrophils 63 % notest ab. Not Available [facility] ([facility]) [address] [place], [address], 03/22/2023 08:26:33 03/21/20 23 03/22/2023 CBC WITH DIFFE RENTI AL/PL ATELE T lymphs 29 % notest ab. Not Available [facility] ([facility]) [address] [place], [address], 03/22/2023 08:26:33 03/21/20 23 03/22/2023 CBC WITH DIFFE RENTI AL/PL ATELE T monocytes 5 % notest ab. Not Available [facility] ([facility]) [address] [facility], [place], [address], 03/22/2023 08:26:33 03/21/20 23 03/22/2023 CBC WITH DIFFE RENTI AL/PL ATELE T eos 2 % notest ab. Not Available [facility] ([facility]) [address] [facility], [place], [address], 03/22/2023 08:26:33 03/21/20 23 03/22/2023 CBC WITH DIFFE RENTI AL/PL ATELE T basos 1 % notest ab. Not Available [facility] ([facility]) [address] [facility], [place], [address], 03/22/2023 08:26:33 03/21/20 23 03/22/2023 CBC WITH DIFFE RENTI AL/PL ATELE T neutrophils (absolute) 5.7 x10e3 /uL 1.4-7. 0 Not Available [facility] ([facility]) [address] [facility], [place], [address], 03/22/2023 08:26:33 03/21/20 23 03/22/2023 CBC WITH DIFFE RENTI AL/PL ATELE T lymphs (absolute) 2.6 x10e3 /uL 0.7-3. 1 Not Available [facility] ([facility]) [address] [facility], [place], [address], 03/22/2023 08:26:33 03/21/20 23 03/22/2023 CBC WITH DIFFE RENTI AL/PL ATELE T monocytes(ab solute) 0.5 x10e3 /uL 0.1-0. 9 Not Available [facility] ([facility]) [address] [facility], [place], [address], 03/22/2023 08:26:33 03/21/20 23 03/22/2023 CBC WITH DIFFE RENTI AL/PL ATELE T eos (absolute) 0.2 x10e3 /uL 0.0-0. 4 Not Available [facility] ([facility]) [address] [facility], [place], [address], 03/22/2023 08:26:33 03/21/20 23 03/22/2023 CBC WITH DIFFE RENTI AL/PL ATELE T baso (absolute) 0.1 x10e3 /uL 0.0-0. 2 Not Available [facility] ([facility]) [address] [facility], [place], [address], 03/22/2023 08:26:33 03/21/20 23 03/22/2023 CBC WITH DIFFE RENTI AL/PL ATELE T immature granulocytes 0 % notest ab. Not Available [facility] ([facility]) [address] [facility], [place], [address], 03/22/2023 08:26:33 03/21/20 23 03/22/2023 CBC WITH DIFFE RENTI AL/PL ATELE T immature grans (abs) 0.0 x10e3 /uL 0.0-0. 1 Not Available [facility] ([facility]) [address] [facility], [place], [address], 03/22/2023 08:26:33 03/21/20 23 03/22/2023 CBC WITH DIFFE RENTI AL/PL ATELE T hematology comments: Note: Verif ied by micro sergio bellei natanisa n. Not Available [facility] ([facility]) [address] [place], [address], 03/22/2023 08:26:33 03/21/20 23 03/22/2023 IRON AND TIBC iron bind.cap.(TI BC) 370 ug/dL 250-45 0 Not Available [facility] ([facility]) [address] [place], [address], 03/22/2023 09:14:29 03/21/20 23 03/22/2023 IRON AND TIBC UIBC 348 ug/dL 131-42 5 Not Available [facility] ([facility]) [address] [place], [address], 03/22/2023 09:14:29 03/21/20 23 03/22/2023 IRON AND TIBC iron 22 ug/dL 27-159 below low normal Not Available [facility] ([facility]) [address] [place], [address], 03/22/2023 09:14:29 03/21/2003/22/2023 IRON AND TIBC iron saturation 6 % 15-55 alert low Not Available [facility] ([facility]) [address] [place], [address], 03/22/2023 09:14:29 03/21/2003/22/2023 LORIE TIN ferritin 17 NG/mL 15-150 Not Available [facility] ([facility]) [address] [place], [address], 03/22/2023 09:14:30 03/21/2003/22/2023 HEMOG LOBIN A1C hemoglobin A1C 5.5 % 4.8-5. 6 Predi abete s: 5.7 - 6.4 Diabe frances: >6.4 Glyce wesley contr ol for adult s with diabe frances: <7.0 Not Available [facility] ([facility]) [address] [place], [address], 03/22/2023 09:14:30 03/21/2003/22/2023 TSH+F REE T4 TSH 1.510 uIU/m L 0.450- 4.500 Not Available [facility] ([facility]) [address] [place], [address], 03/22/2023 09:14:28 03/21/2003/22/2023 TSH+F REE T4 T4,free(dire ct) 0.94 NG/dL 0.82-1 .77 Not Available [facility] ([facility]) [address] [facility] [place], [address], 03/22/2023 09:14:28 03/21/20 23 03/22/2023 COMP. METAB OLIC PANEL (14) glucose 93 mg/dL 70-99 Not Available [facility] ([facility]) [address] [facility] [place], [address], 03/22/2023 08:26:32 03/21/20 23 03/22/2023 COMP. METAB OLIC PANEL (14) BUN 17 mg/dL 6-24 Not Available [facility] ([facility]) [address] [facility] [place], [address], 03/22/2023 08:26:32 03/21/20 23 03/22/2023 COMP. METAB OLIC PANEL (14) creatinine 0.51 mg/dL 0.57-1 .00 below low normal Not Available [facility] ([facility]) [address] [place], [address], 03/22/2023 08:26:32 03/21/20 23 03/22/2023 COMP. METAB OLIC PANEL (14) eGFR 114 mL/mi n/1.7 3 >59 Not Available [facility] ([facility]) [address] [place], [address], 03/22/2023 08:26:32 03/21/20 23 03/22/2023 COMP. METAB OLIC PANEL (14) BUN/creatini ne ratio 33 9-23 above high normal Not Available [facility] ([facility]) [address] [place], [address], 03/22/2023 08:26:32 03/21/20 23 03/22/2023 COMP. METAB OLIC PANEL (14) sodium 140 mmol/ L 134-14 4 Not Available [facility] ([facility]) [address] [place], [address], 03/22/2023 08:26:32 03/21/20 23 03/22/2023 COMP. METAB OLIC PANEL (14) potassium 4.5 mmol/ L 3.5-5. 2 Not Available [facility] ([facility]) [address] [place], [address], 03/22/2023 08:26:32 03/21/20 23 03/22/2023 COMP. METAB OLIC PANEL (14) chloride 103 mmol/ L 96-106 Not Available [facility] ([facility]) [address] [place], [address], 03/22/2023 08:26:32 03/21/20 23 03/22/2023 COMP. METAB OLIC PANEL (14) carbon dioxide, total 26 mmol/ L 20-29 Not Available [facility] ([facility]) [address] [place], [address], 03/22/2023 08:26:32 03/21/20 23 03/22/2023 COMP. METAB OLIC PANEL (14) calcium 9.1 mg/dL 8.7-10 .2 Not Available [facility] ([facility]) [address] [place], [address], 03/22/2023 08:26:32 03/21/20 23 03/22/2023 COMP. METAB OLIC PANEL (14) protein, total 6.5 g/dL 6.0-8. 5 Not Available [facility] ([facility]) [address] [place], [address], 03/22/2023 08:26:32 03/21/20 23 03/22/2023 COMP. METAB OLIC PANEL (14) albumin 3.7 g/dL 3.9-4. 9 below low normal Not Available [facility] ([facility]) [address] [place], [address], 03/22/2023 08:26:32 03/21/20 23 03/22/2023 COMP. METAB OLIC PANEL (14) globulin, total 2.8 g/dL 1.5-4. 5 Not Available [facility] ([facility]) [address] [employer], [place], [address], 03/22/2023 08:26:32 03/21/20 23 03/22/2023 COMP. METAB OLIC PANEL (14) A/G ratio 1.3 1.2-2. 2 Not Available [facility] ([facility]) [address] [place], [address], 03/22/2023 08:26:32 03/21/20 23 03/22/2023 COMP. METAB OLIC PANEL (14) bilirubin, total <0.2 mg/dL 0.0-1. 2 Not Available [facility] ([facility]) [address] [facility], [place], [address], 03/22/2023 08:26:32 03/21/20 23 03/22/2023 COMP. METAB OLIC PANEL (14) alkaline phosphatase 76 IU/L 44-121 Not Available [facility] ([facility]) [address] [facility], [place], [address], 03/22/2023 08:26:32 03/21/20 23 03/22/2023 COMP. METAB OLIC PANEL (14) AST (SGOT) 15 IU/L 0-40 Not Available [facility] ([facility]) [address] [facility], [place], [address], 03/22/2023 08:26:32 03/21/20 23 03/22/2023 COMP. METAB OLIC PANEL (14) ALT (SGPT) 14 IU/L 0-32 Not Available [facility] ([facility]) [address] [facility], [place], [address], 03/22/2023 08:26:32 03/21/20 23 03/22/2023 LIPID PANEL WITH LDL/H DL RATIO cholesterol, total 170 mg/dL 100-19 9 Not Available [facility] ([facility]) [address] [place], [address], 03/22/2023 08:26:32 03/21/20 23 03/22/2023 LIPID PANEL WITH LDL/H DL RATIO triglyceride s 71 mg/dL 0-149 Not Available [facility] ([facility]) [address] [facility], [place], [address], 03/22/2023 08:26:32 03/21/20 23 03/22/2023 LIPID PANEL WITH LDL/H DL RATIO HDL cholesterol 59 mg/dL >39 Not Available [facility] ([facility]) [address] [place], [address], 03/22/2023 08:26:32 03/21/20 23 03/22/2023 LIPID PANEL WITH LDL/H DL RATIO VLDL cholesterol benita 14 mg/dL 5-40 Not Available [facility] ([facility]) [address] [place], [address], 03/22/2023 08:26:32 03/21/20 23 03/22/2023 LIPID PANEL WITH LDL/H DL RATIO LDL chol calc ([facility]) 97 mg/dL 0-99 Not Available [facility] ([facility]) [address] [place], [address], 03/22/2023 08:26:32 03/21/20 23 03/22/2023 LIPID PANEL WITH LDL/H DL RATIO LDL/HDL ratio 1.6 ratio 0.0-3. 2 LDL/H DL Ratio Men Women 1/2 Avg.R isk 1.0 1.5 Avg.R isk 3.6 3.2 2X Avg.R isk 6.2 5.0 3X Avg.R isk 8.0 6.1 Not Available [facility] ([facility]) [address] [place], [address], 03/22/2023 08:26:32 01/02/20 24 01/06/2024 NUA B VG+, HSV atopobium vaginae HIGH - 2 score abnormal Not Available [facility] ([facility]) [address] [place], [address], 01/08/2024 11:16:54 01/02/20 24 01/06/2024 NUA B VG+, HSV bvab 2 LOW - 0 score Not Available [facility] ([facility]) [address] [place], [address], 01/08/2024 11:16:54 01/02/20 24 01/06/2024 NUA B VG+, HSV megasphaera 1 HIGH - 2 score abnormal Calcu late total score by kaitlin g the 3 indiv idual bacte rial vagin osis (BV) marke r score s toget her. Total score is inter prete d as follo ws: Total score 0-1: Indic ates the absen ce of BV. Total score 2: Indet ermin ate for BV. Addit ional clini benita data shoul d be evalu ated to estab clayton a diagn osis. Total score 3-6: Indic ates the prese nce of BV. Not Available [facility] ([facility]) [address] [place], [address], 01/08/2024 11:16:54 01/02/20 24 01/06/2024 NUA B VG+, HSV dana albicans, MARIANELA NEGATI VE negati ve Not Available [facility] ([facility]) [address] [place], [address], 01/08/2024 11:16:54 01/02/20 24 01/06/2024 NUSWA B VG+, HSV dana glabrata, MARIANELA NEGATI VE negati ve Not Available [facility] ([facility]) [address] [place], [address], 01/08/2024 11:16:54 01/02/20 24 01/07/2024 NUA B VG+, HSV trich vag by MARIANELA NEGATI VE negati ve Not Available [facility] ([facility]) [address] [facility], [place], [address], 01/08/2024 11:16:54 01/02/20 24 01/07/2024 NUA B VG+, HSV chlamydia trachomatis, MARIANELA NEGATI VE negati ve Not Available [facility] ([facility]) [address] [facility], [place], [address], 01/08/2024 11:16:54 01/02/20 24 01/07/2024 NUA B VG+, HSV neisseria gonorrhoeae, MARIANELA NEGATI VE negati ve Not Available [facility] ([facility]) [address] [facility], [place], [address], 01/08/2024 11:16:54 01/02/20 24 01/08/2024 NUA B VG+, HSV hsv 1 MARIANELA NEGATI VE negati ve Not Available [facility] ([facility]) [address] [facility], [place], [address], 01/08/2024 11:16:54 01/02/20 24 01/08/2024 NUA B VG+, HSV hsv 2 MARIANELA NEGATI VE negati ve Not Available [facility] ([facility]) [address] [place], [address], 01/08/2024 11:16:54 01/02/20 24 01/04/2024 IGP, APTIM A HPV, RFX 16/18 ,45 HPV aptima NEGATI VE negati ve This nucle ic acid ampli ficat ion test detec ts fourt een high- risk HPV types (16,1 8,31, 33,35 ,39,4 5,51, 52,56 ,58,5 9,66, 68) witho ut diffe renti ation . Not Available [facility] ([facility]) [address] [facility], [place], [address], 01/09/2024 11:14:07 01/02/20 24 01/09/2024 IGP, APTIM A HPV, RFX 16/18 ,45 diagnosis: RUSSELL GASPAR SNEHAL FOR INTRA EPITH ELIAL LESIO N OR SOFI ADRIANA . Not Available [facility] ([facility]) [address] [facility], [place], [address], 01/09/2024 11:14:07 01/02/20 24 01/09/2024 IGP, APTIM A HPV, RFX 16/18 ,45 specimen adequacy: RUSSELL Panchal Satis facto ry for evalu ation . Endoc ervic al and/o r squam ous metap lasti c cells (endo cervi benita compo nent) are prese nt. Not Available [facility] ([facility]) [address] [facility], [place], [address], 01/09/2024 11:14:07 01/02/20 24 01/09/2024 IGP, APTIM A HPV, RFX 16/18 ,45 clinician provided ICD10: RUSSELL Panchal Z12.4 Not Available [facility] ([facility]) [address] [facility], [place], [address], 01/09/2024 11:14:07 01/02/20 24 01/09/2024 IGP, APTIM A HPV, RFX 16/18 ,45 performed by: RUSSELL huerta, Cytoabdulkadir panchal (ASCP ) Not Available [facility] ([facility]) [address] [facility], [place], [address], 01/09/2024 11:14:07 01/02/20 24 01/09/2024 IGP, APTIM A HPV, RFX 16/18 ,45 . . Not Available [facility] ([facility]) [address] [place], [address], 01/09/2024 11:14:07 01/02/20 24 01/09/2024 IGP, APTIM A HPV, RFX 16/18 ,45 note: COMMEN T The Pap smear is a scree mandi test desig bull to aid in the detec tion of juan miguel ligna nt and malig nant condi tions of the uteri ne cervi x. It is not a diagn ostic proce dure and shoul d not be used as the sole means of detec ting cervi benita cance r. Both false -posi tive and false -nega tive repor ts do occur . Not Available [facility] ([facility]) [address] [place], [address], 01/09/2024 11:14:07 01/02/20 24 01/09/2024 IGP, APTIM A HPV, RFX 16/18 ,45 HPV genotype reflex COMMEN T Crite kaela not met, HPV Genot ype not perfo rmed. Not Available [facility] ([facility]) [address] [facility], [place], [address], 01/09/2024 11:14:07 07/23/1907/23/2024 LIPID PANEL WITH LDL/H DL RATIO cholesterol, total 200 mg/dL 100-19 9 above high normal Not Available [facility] [address] [place], [address], 07/23/2024 00:11:49 07/23/1907/23/2024 LIPID PANEL WITH LDL/H DL RATIO triglyceride s 116 mg/dL 0-149 Not Available [facility] [address] [place], [address], 07/23/2024 00:11:49 07/23/1907/23/2024 LIPID PANEL WITH LDL/H DL RATIO HDL cholesterol 67 mg/dL 40-[address] [facility] [address] [place], [address], 07/23/2024 00:11:49 07/23/19 25 07/23/2024 LIPID PANEL WITH LDL/H DL RATIO VLDL cholesterol benita 23 mg/dL 5-40 Not Available [facility] [address] [place], [address], 07/23/2024 00:11:49 07/23/19 25 07/23/2024 LIPID PANEL WITH LDL/H DL RATIO LDL chol calc (nih) 125 mg/dL 0-99 above high normal Not Available [facility] [address] [place], [address], 07/23/2024 00:11:49 07/23/1907/23/2024 LIPID PANEL WITH LDL/H DL RATIO LDL/HDL ratio 1.9 0-3.2 Not Available [facility] [address] [place] [address], [address], 07/23/2024 00:11:49 07/23/19 25 07/23/2024 COMP. METAB OLIC PANEL (14) glucose 121 mg/dL 70-99 above high normal Not Available [facility] [address] [place], [address], 07/23/2024 00:11:49 07/23/19 25 07/23/2024 COMP. METAB OLIC PANEL (14) BUN 11 mg/dL 6-24 Not Available [facility] [address] [place], [address], 07/23/2024 00:11:49 07/23/19 25 07/23/2024 COMP. METAB OLIC PANEL (14) creatinine 0.73 mg/dL 0.76-1 .27 below low normal Not Available [facility] [address] [place], [address], 07/23/2024 00:11:49 07/23/19 25 07/23/2024 COMP. METAB OLIC PANEL (14) eGFR 100 >=60 Units for eGFR value s are mL/mi n/1.7 3 The eGFR Calcu latio n has not been valid ated for patie nts under the age of 18. If test resul ts are displ ayed for a patie nt under the age of 18, disre maricel that value . Not Available [facility] [address] [place] [address], [address], 07/23/2024 00:11:49 07/23/19 25 07/23/2024 COMP. METAB OLIC PANEL (14) BUN/creatini ne ratio 15 9- Not Available [facility] [address] [place] [address], [address], 07/23/2024 00:11:49 07/23/1907/23/2024 COMP. METAB OLIC PANEL (14) sodium 141 mmol/ L 134-14 4 Not Available [facility] [address] [place] [address], [address], 07/23/2024 00:11:49 07/23/1907/23/2024 COMP. METAB OLIC PANEL (14) potassium 3.8 mmol/ L 3.5-5. 2 Not Available [facility] [address] [place] [address], [address], 07/23/2024 00:11:49 07/23/19 25 07/23/2024 COMP. METAB OLIC PANEL (14) chloride 105 mmol/ L 96-106 Not Available [facility] [address] [place] [address], [address], 07/23/2024 00:11:49 07/23/19 25 07/23/2024 COMP. METAB OLIC PANEL (14) carbon dioxide, total 25 mmol/ L 20-29 Not Available [facility] [address] [place] [address], [address], 07/23/2024 00:11:49 07/23/19 25 07/23/2024 COMP. METAB OLIC PANEL (14) calcium 9.5 mg/dL 8.7-10 .2 Not Available [facility] [address] [place], [address], 07/23/2024 00:11:49 07/23/1907/23/2024 COMP. METAB OLIC PANEL (14) protein, total 6.8 g/dL 6.0-8. 5 Not Available [facility] [address] [place], [address], 07/23/2024 00:11:49 07/23/1907/23/2024 COMP. METAB OLIC PANEL (14) albumin 3.8 g/dL 3.8-4. 9 Not Available [facility] [address] [place], [address], 07/23/2024 00:11:49 07/23/19 25 07/23/2024 COMP. METAB OLIC PANEL (14) globulin, total 3.0 g/dL 1.5-4. 5 Not Available [facility] [address] [place], [address], 07/23/2024 00:11:49 07/23/1907/23/2024 COMP. METAB OLIC PANEL (14) A/G ratio 1.3 1.2-2. 2 Not Available [facility] [address] [place], [address], 07/23/2024 00:11:49 07/23/1907/23/2024 COMP. METAB OLIC PANEL (14) bilirubin, total <=0.2 mg/dL 0.0-1. 2 Not Available [facility] [address] [place], [address], 07/23/2024 00:11:49 07/23/1907/23/2024 COMP. METAB OLIC PANEL (14) alkaline phosphatase 80 IU/L 44-[address] [facility] [address] [place], [address], 07/23/2024 00:11:49 07/23/19 25 07/23/2024 COMP. METAB OLIC PANEL (14) AST (SGOT) 13 U/L 0-40 Not Available [facility] [address] [place], [address], 07/23/2024 00:11:49 07/23/1907/23/2024 COMP. METAB OLIC PANEL (14) ALT (SGPT) 11 IU/L 0-32 Not Available [facility] [address] [place], [address], 07/23/2024 00:11:49 07/23/1907/23/2024 CBC WITH DIFFE RENTI AL/PL ATELE T WBC 7.8 x10e3 /uL 3.4-10 .8 Not Available [facility] [address] [place], [address], 07/23/2024 00:11:51 07/23/1907/23/2024 CBC WITH DIFFE RENTI AL/PL ATELE T RBC 4.51 x10e6 /uL 3.77-5 .28 Not Available [facility] [address] [place], [address], 07/23/2024 00:11:51 07/23/1907/23/2024 CBC WITH DIFFE RENTI AL/PL ATELE T hemoglobin 11.7 g/dL 11.1-1 5.9 Not Available [facility] [address] [place], [address], 07/23/2024 00:11:51 07/23/1907/23/2024 CBC WITH DIFFE RENTI AL/PL ATELE T hematocrit 37.7 % 34.0-4 6.6 Not Available [facility] [address] [place], [address], 07/23/2024 00:11:51 07/23/1907/23/2024 CBC WITH DIFFE RENTI AL/PL ATELE T MCV 84 fL 79-97 Not Available [facility] [address] [place], [address], 07/23/2024 00:11:51 07/23/1907/23/2024 CBC WITH DIFFE RENTI AL/PL ATELE T MCH 25.9 pg 26.6-3 3.0 below low normal Not Available [facility] [address] [place], [address], 07/23/2024 00:11:51 07/23/1907/23/2024 CBC WITH DIFFE RENTI AL/PL ATELE T MCHC 31.0 g/dL 31.5-3 5.7 below low normal Not Available [facility] [address] [place], [address], 07/23/2024 00:11:51 07/23/1907/23/2024 CBC WITH DIFFE RENTI AL/PL ATELE T RDW 14.9 % 11.5-1 4.5 above high normal Not Available [facility] [address] [place], [address], 07/23/2024 00:11:51 07/23/1907/23/2024 CBC WITH DIFFE RENTI AL/PL ATELE T platelets 287 x10e3 /uL 150-45 0 Not Available [facility] [address] [place], [address], 07/23/2024 00:11:51 07/23/1907/23/2024 CBC WITH DIFFE RENTI AL/PL ATELE T neutrophils 65 % notest b. Not Available [facility] [address] [place], [address], 07/23/2024 00:11:51 07/23/1907/23/2024 CBC WITH DIFFE RENTI AL/PL ATELE T lymphs 27 % notest b. Not Available [facility] [address] [place], [address], 07/23/2024 00:11:51 07/23/1907/23/2024 CBC WITH DIFFE RENTI AL/PL ATELE T monocytes 5 % notest b. Not Available [facility] [address] [place], [address], 07/23/2024 00:11:51 07/23/1907/23/2024 CBC WITH DIFFE RENTI AL/PL ATELE T eos 2 % notest b. Not Available [facility] [address] [place], [address], 07/23/2024 00:11:51 07/23/1907/23/2024 CBC WITH DIFFE RENTI AL/PL ATELE T basos 1 % notest b. Not Available [facility] [address] [place], [address], 07/23/2024 00:11:51 07/23/1907/23/2024 CBC WITH DIFFE RENTI AL/PL ATELE T neutrophils (absolute) 5.1 x10e3 /uL 1.4-7. 0 Not Available [facility] [address] [place], [address], 07/23/2024 00:11:51 07/23/1907/23/2024 CBC WITH DIFFE RENTI AL/PL ATELE T lymphs (absolute) 2.1 x10e3 /uL 0.7-3. 1 Not Available [facility] [address] [place], [address], 07/23/2024 00:11:51 07/23/1907/23/2024 CBC WITH DIFFE RENTI AL/PL ATELE T monocytes(ab solute) 0.4 x10e3 /uL 0.1-0. 9 Not Available [facility] [address] [place], [address], 07/23/2024 00:11:51 07/23/1907/23/2024 CBC WITH DIFFE RENTI AL/PL ATELE T eos (absolute) 0.2 x10e3 /uL 0.0-0. 4 Not Available [facility] [address] [place], [address], 07/23/2024 00:11:51 07/23/1907/23/2024 CBC WITH DIFFE RENTI AL/PL ATELE T baso (absolute) 0.1 x10e3 /uL 0.0-0. 2 Not Available [facility] [address] [place], [address], 07/23/2024 00:11:51 07/23/1907/23/2024 CBC WITH DIFFE RENTI AL/PL ATELE T immature granulocytes 0.3 % notest b. Not Available [facility] [address] [place], [address], 07/23/2024 00:11:51 07/23/1907/23/2024 CBC WITH DIFFE RENTI AL/PL ATELE T immature grans (abs) 0.0 x10e3 /uL 0.0-0. 1 Not Available [facility] [address] [place], [address], 07/23/2024 00:11:51 07/23/1907/23/2024 CBC WITH DIFFE RENTI AL/PL ATELE T NRBC 0 % 0-0 Not Available [facility] [address] [place], [address], 07/23/2024 00:11:51 07/23/1907/23/2024 TSH+F REE T4 TSH 2.020 uIU/m L 0.450- 4.500 Not Available [facility] ([facility]) [address] [facility], [place], [address], 07/23/2024 09:02:10 07/23/1907/23/2024 TSH+F REE T4 T4,free(dire ct) 1.02 NG/dL 0.82-1 .77 Not Available [facility] ([facility]) [address] [facility], [place], [address], 07/23/2024 09:02:10 07/23/19 25 07/23/2024 HEMOG LOBIN A1C hemoglobin A1C 5.8 % 4.8-5. 6 above high normal Predi abete s: 5.7 - 6.4 Diabe frances: >6.4 Glyce wesley contr ol for adult s with diabe frances: <7.0 Not Available [facility] ([facility]) [address] [facility], [place], [address], 07/23/2024 09:02:11 06/28/19 24 06/28/2023 MAMMO , scree mandi, bilat eral No observ ation record ed. [email or web address] [facility] [address] [facility], [place], [address], 07/02/2023 08:28:50 07/06/19 24 06/18/2023 , echoc ardio gram, trans thora cic, compl ete No observ ation record ed. [facility] [address] [facility] [address], [place], [address], 07/11/2023 12:28:33 08/06/19 24 08/01/2023 elect romyo gram + nerve condu ction study No observ ation record ed. [facility] (Medical Records) [address] [facility] [address], [place], [address], 08/07/2023 11:14:54 Result Notes None recorded. Problems Name Problem SNOMED Code Status Onset Date Resolution Date Notes Provider Name and Address Organization Details Recorded Time History of bariatric surgical procedure 134140073 Active 2021 Nicol-En-Y on 06/27/21, reversal on 03/08/23 due to ulcers at anastamos is causing anemia LUCY ZAMBRANO Attn: Accounting ,[address] [facility], [place], [address] , [place] [facility] 3 14:13:31 Osteoarth ritis of joint of left shoulder region 35314873095 9108 Active 2021 LUCY ZAMBRANO Attn: Accounting ,[address] [facility], [place], [address] , [place] [facility] 2 14:23:51 Essential hypertens ion 89609414 Active 2021 LUCY ZAMBRANO Attn: Accounting ,[address] [facility], [place], [address] , [place] [facility] 2 14:23:48 Nonischem ic congestiv e cardiomyo miguel 20747933968 4 Active 2021 LUCY ZAMBRANO Attn: Accounting ,[address] [facility], [place], [place], [address] [place] [address] , [place] [facility] 2 21:44:47 Gastric ulcer 625444130 Active 2021 LUCY ZAMBRANO Attn: Accounting ,[address] [facility], [place], [address] , [place] [facility] 2 16:19:33 Hypokalem ia 87558535 Active 2021 LUCY ZAMBRANO Attn: Accounting ,[address] [facility], [place], [address] [place] [address] , [place] [facility] 2 16:21:17 Gastric ulcer with hemorrhag e 44922259 Active 2022 LUCY ZAMBRANO Attn: Accounting ,[address] [facility], [place], [address] , [place] [facility] 3 14:37:43 Benign hypertens ion 27941930 Active Not Available [facility] 01:21:08 Overweigh t 537457294 Active Not Available [facility] 1 01:21:08 Migraine 78885134 Active Not Available [facility] 1 01:21:08 Injury of ankle 419050201 Active Not Available [facility] 01:21:08 Asthma 152105286 Active Not Available [facility] 01:21:08 Ulnar neuropath y 878205695 Active Not Available [facility] 1 01:21:08 Impaired fasting glycemia 310073405 Active Not Available [facility] 01:21:08 Pain in lower limb 06857384 Active Not Available [facility] 1 01:21:08 Supravent ricular tachycard ia 0355088 Active Not Available [facility] 01:21:08 Osteoarth ritis of knee 136482405 Active Not Available [facility] 01:21:08 Headache 76650407 Active Not Available [facility] 01:21:08 Apnea 1613683 Active Not Available [facility] 1 01:21:08 Edema of lower extremity 776944283 Active Not Available [facility] 1 01:21:08 Follow-up visit Active Not Available [facility] 1 01:21:08 Chest pain 04109800 Active Not Available [facility] 1 01:21:08 Aortic valve regurgita tion 99018751 Active 2016 Not Available [facility] 1 01:21:08 Notes:Some problems listed i n Documents: #[id number], #[id number] could not be added to this patient's chart. Please review these documents and add these problems to the patient's chart manually as needed. Problem Notes None recorded. Procedures Surgical History Date Name Laterality Status Provider Name and Address Organization Details Recorded Time 4 Date of Last Mammogram completed SATHISH Khalil [facility] 07/06/2023 09:28:04 9 Date of Last Pap Smear completed SATHISH Carrion [facility] 01/12/2020 16:05:35 Knee Surgery completed SATHISH Carrion [facility] 12/12/2019 14:38:53 Heart Surgery completed SATHISH Carrion [facility] 12/12/2019 14:38:58 Tubal Ligation completed July Adis hopkins [place] [facility] 10/28/2014 11:18:58 Imaging Results None recorded. Procedure Notes None recorded. Medical Equipment None Reported. Allergies No known drug allergies Medications Name Sig Start Date Stop Date Status Note LastModified by Organization Details LastModified Time nifedipine ER 30 mg tablet,exte nded release 24 hr TAKE 1 TABLET BY MOUTH EVERY DAY TO TAKE WITH 60 MG TABLET 2024 active Not Available Not Available Not Avai lable celecoxib 200 mg capsule TAKE 1 CAPSULE BY MOUTH ONCE FOR 1 DOSE 02/06 completed Not Available Not Available Not Available cyclobenzap rine 10 mg tablet TAKE 1 TABLET BY MOUTH TWICE A DAY NEEDED 2024 active Not Available Not Available Not Avai lable amoxicillin 500 mg capsule TAKE 1 CAPSULE BY MOUTH EVERY 12 HOURS FOR 10 DAYS 11/29 completed Not Available Not Available Not Available furosemide 40 mg tablet 12/11 completed Not Available Not Available Not Available buspirone 5 mg tablet TAKE 1 TABLET BY MOUTH TWICE A DAY 2024 active Not Available Not Available Not Avai lable acetaminoph en 325 mg tablet 08/21 completed Not Available Not Available Not Available diltiazem ER (XR/XT) 240 mg capsule,ext ended release 24 hr, controlled TAKE 1 CAPSULE BY MOUTH DAILY 04/19 completed Not Available Not Available Not Available biotin 5 mg capsule TAKE 1 CAPSULE BY MOUTH DAILY 2024 active Not Available Not Available Not Avai lable ibuprofen 800 mg tablet TAKE 1 TABLET BY MOUTH EVERY 6-8 HOURS NEEDED 07/22 completed Not Available Not Available Not Available nifedipine ER 90 mg tablet,exte nded release Take 1 tablet every day by oral route for 90 days. 07/22 completed Not Available Not Available Not Available metoprolol tartrate 100 mg tablet 07/22 completed Not Available Not Available Not Available fluconazole 150 mg tablet 12/11 completed Not Available Not Available Not Available metoprolol succinate ER 50 mg tablet,exte nded release 24 hr 12/11 completed Not Available Not Available Not Available sumatriptan 100 mg tablet Take 100 mg every day by oral route as needed for 9 days. 12/11 completed Not Available Not Available Not Available hydrocodone 5 mg-acetamin ophen 325 mg tablet TAKE 1 TABLET BY MOUTH EVERY 6 HOURS NEEDED FOR PAIN 02/06 completed Not Available Not Available Not Available sucralfate 100 mg/mL oral suspension SHAKE LIQUID AND TAKE 10 ML BY MOUTH FOUR TIMES DAILY BEFORE MEALS AND AT NIGHT 03/21 completed Not Available Not Available Not Available sucralfate 1 gram tablet TAKE 1 TABLET BY MOUTH FOUR TIMES DAILY 02/06 completed Not Available Not Available Not Available metoprolol succinate ER 200 mg tablet,exte nded release 24 hr TAKE 1 TABLET BY MOUTH ONCE DAILY 02/06 completed Not Available Not Available Not Available phenazopyri dine 200 mg tablet 02/06 completed Not Available Not Available Not Available metronidazo le 0.75 % (37.5 mg/5 gram) vaginal gel INSERT 1 APPLICATO RFUL VAGINALLY AT BEDTIME FOR 5 DAYS 02/06 completed Not Available Not Available Not Available lisinopril 20 mg tablet 02/06 completed Not Available Not Available Not Available ondansetron HCl 4 mg tablet TAKE 2 TABLETS BY MOUTH TWICE DAILY FOR 7 DAYS NEEDED 03/21 completed Not Available Not Available Not Available prednisone 20 mg tablet TAKE 3 TABLETS BY MOUTH DAILY FOR 5 DAYS 02/06 completed Not Available Not Available Not Available dexamethaso ne 6 mg tablet TAKE 1 TABLET BY MOUTH DAILY 02/06 completed Not Available Not Available Not Available metoprolol succinate ER 100 mg tablet,exte nded release 24 hr Take 1 tablet every day by oral route for 30 days. 12/11 completed Not Available Not Available Not Available terconazole 0.8 % vaginal cream INSERT 1 APPLICATO RFUL VAGINALLY AT BEDTIME FOR 3 DAYS 02/06 completed Not Available Not Available Not Available thiamine HCl (vitamin B1) 100 mg tablet 11/29 completed Not Available Not Available Not Available warfarin 2.5 mg tablet 12/11 completed Not Available Not Available Not Available oxycodone 5 mg/5 mL oral solution 02/06 completed Not Available Not Available Not Available diltiazem ER 240 mg capsule,24 hr,extended release Take 1 capsule every day by oral route for 30 days. 11/23 completed Not Available Not Available Not Available hydralazine 25 mg tablet 12/11 completed Not Available Not Available Not Available acetaminoph en 300 mg-codeine 15 mg tablet TAKE 1 TABLET BY MOUTH EVERY 6-8 HOURS NEEDED FOR PAIN 12/03 completed Not Available Not Available Not Available metronidazo le 500 mg tablet TAKE 1 TABLET BY MOUTH EVERY 6 HOURS FOR 10 DAYS 07/22 completed Not Available Not Available Not Available nifedipine ER 30 mg tablet,exte nded release Take 1 tablet every day by oral route for 90 days. 07/22 completed Not Available Not Available Not Available acetaminoph en 300 mg-codeine 30 mg tablet 12/11 completed Not Available Not Available Not Available chlorthalid one 25 mg tablet Take 1 tablet(s) every day by oral route for 90 days. 12/11 completed Not Available Not Available Not Available amlodipine 5 mg tablet TAKE 1 TABLET BY MOUTH ONCE DAILY 02/06 completed Not Available Not Available Not Available chlorthalid one 50 mg tablet Take 1 tablet by mouth once daily 02/06 completed Not Available Not Available Not Available ciprofloxac in 500 mg tablet 02/06 completed Not Available Not Available Not Available sulfamethox azole 800 mg-trimetho prim 160 mg tablet TAKE 1 TABLET BY MOUTH EVERY 12 HOURS WITH MEALS FOR 7 DAYS active Not Available Not Available No t Available omeprazole 40 mg capsule,del ayed release Take 1 capsule every day by oral route in the morning for 30 days, for acid reflux. 2024 active Not Available Not Available Not Avai lable tramadol 50 mg tablet 12/30 completed Not Available Not Available Not Available acetaminoph en 500 mg tablet TAKE 2 TABLETS (1000 MG) BY MOUTH EVERY SIX HOURS NEEDED FOR PAIN 2024 active Not Available Not Available Not Avai lable amoxicillin 500 mg tablet TAKE 1 TABLET BY MOUTH THREE TIMES DAILY FOR 5 DAYS 12/03 completed Not Available Not Available Not Available acetaminoph en ER 650 mg tablet,exte nded release Take 2 tablets every 8 hours by oral route as needed for 10 days. 06/24 completed Not Available Not Available Not Available meloxicam 7.5 mg tablet 12/30 completed Not Available Not Available Not Available calcium 600 mg (as calcium carbonate 1,500 mg) tablet Take 1 tablet by oral route. 07/22 completed Not Available Not Available Not Available potassium chloride ER 20 mEq tablet,exte nded release(par t/cryst) TAKE 1 TABLET BY MOUTH EVERY DAY WITH MEALS 03/21 completed Not Available Not Available Not Available famotidine 20 mg tablet 03/21 completed Not Available Not Available Not Available metoclopram marely 5 mg tablet TAKE 1 TABLET BY MOUTH EVERY 6 HOURS NEEDED FOR NAUSEA OR VOMITING 03/21 completed Not Available Not Available Not Available cyanocobala min (vit B-12) 500 mcg tablet TAKE 1 TABLET BY MOUTH DAILY 2024 active Not Available Not Available Not Avai lable nifedipine ER 60 mg tablet,exte nded release 24 hr Take 2 tablets every day by oral route in the morning for 30 days, for high blood pressure. 2023 active Not Available Not Available Not Avai lable betamethaso ne valerate 0.1 % topical cream APPLY TOPICALLY TO THE AFFECTED AREA TWICE DAILY 02/06 completed Not Available Not Available Not Available nifedipine ER 90 mg tablet,exte nded release 24 hr TAKE 1 TABLET (90 MG) BY MOUTH EVERY DAY, ALONG WITH A 30 MG TABLET TO = 120 MG. 2024 active Not Available Not Available Not Avai lable benzonatate 100 mg capsule 02/06 completed Not Available Not Available Not Available hydrocodone 7.5 mg-acetamin ophen 325 mg tablet TAKE 1 TABLET BY MOUTH EVERY 6 HOURS NEEDED FOR PAIN CONTROL 02/06 completed Not Available Not Available Not Available cephalexin 500 mg capsule 02/06 completed Not Available Not Available Not Available pantoprazol e 40 mg tablet,jack yed release TAKE 1 TABLET BY MOUTH TWICE DAILY 11/29 completed Not Available Not Available Not Available isosorbide dinitrate 20 mg tablet 12/11 completed Not Available Not Available Not Available buspirone 10 mg tablet Take 1 tablet twice a day by oral route as directed for 30 days, for ANXIETY. 2024 active Not Available Not Available Not Avai lable gabapentin 300 mg capsule TAKE 1 CAPSULE BY MOUTH THREE TIMES A DAY NEEDED FOR NERVE PAIN 2024 active Not Available Not Available Not Avai lable omeprazole 20 mg capsule,del ayed release TAKE ONE CAPSULE BY MOUTH DAILY 02/06 completed Not Available Not Available Not Available lisinopril 20 mg-hydrochl orothiazide 25 mg tablet Take 1 tablet every day by oral route for 30 days. 11/23 completed Not Available Not Available Not Available montelukast 10 mg tablet 12/11 completed Not Available Not Available Not Available hydroxyzine HCl 25 mg tablet TAKE ONE TABLET BY MOUTH THREE TIMES A DAY NEEDED FOR ANXIETY 2024 active Not Available Not Available Not Avai lable Cartia XT 240 mg capsule,ext ended release Take 1 capsule every day by oral route. 12/11 completed Not Available Not Available Not Available bisacodyl 5 mg tablet,jack yed release TAKE 2 TABLETS BY MOUTH WITH 8 OUNCES OF WATER AT 4 PM AND 2 TABLETS WITH 8 OUNCES OF WATER AT 8 PM DIRECTED 11/29 completed Not Available Not Available Not Available hydralazine 50 mg tablet TAKE 1 TABLET BY MOUTH TWICE DAILY 02/06 completed Not Available Not Available Not Available hydrochloro thiazide 25 mg tablet TAKE 1 TABLET BY MOUTH EVERY DAY 11/23 completed Not Available Not Available Not Available gabapentin 100 mg capsule TAKE 1 CAPSULE BY MOUTH THREE TIMES DAILY 07/05 completed Not Available Not Available Not Available ergocalcife rol (vitamin D2) 1,250 mcg (50,000 unit) capsule TAKE ONE CAPSULE BY MOUTH EVERY 7 DAYS 02/06 completed Not Available Not Available Not Available diazepam 10 mg tablet INSERT 1 TABLET PER VAGINA EVERY NIGHT AT BEDTIME FOR 10 NIGHTS 02/06 completed Not Available Not Available Not Available ibuprofen 600 mg tablet TAKE 1 TABLET BY MOUTH EVERY 6 TO 8 HOURS NEEDED 07/22 completed Not Available Not Available Not Available polyethylen e glycol 3350 17 gram/dose oral powder 11/29 completed Not Available Not Available Not Available levofloxaci n 750 mg tablet TAKE 1 TABLET BY MOUTH ONCE DAILY FOR 10 DAYS 02/10 completed Not Available Not Available Not Available scopolamine 1 mg over 3 days transdermal patch APPLY ONE PATCH TO SKIN EVERY 3 DAYS FOR 1ST DOSE APPLY PATCH THE NIGHT BEFORE SURGERY BEHIND YOUR EAR 02/06 completed Not Available Not Available Not Available methylpredn isolone 4 mg tablets in a dose pack 12/11 completed Not Available Not Available Not Available albuterol sulfate HFA 90 mcg/actuati on aerosol inhaler INHALE TWO PUFFS BY MOUTH EVERY 4-6 HOURS NEEDED active Not Available Not Available No t Available lisinopril 40 mg tablet TAKE 1 TABLET BY MOUTH EVERY DAY 2024 active Not Available Not Available Not Avai lable ondansetron 4 mg disintegrat ing tablet DISSOLVE TWO TABLETS ON THE TONGUE TWICE A DAY FOR 14 DAYS NEEDED 07/22 completed Not Available Not Available Not Available losartan 100 mg tablet Take 1 tablet every day by oral route for 90 days. 12/11 completed Not Available Not Available Not Available fluticasone propionate 50 mcg/actuati on nasal spray,suspe nsion [place] 1 spray every day by intranasa l route as directed for 30 days, for allergies . active Not Available Not Available No t Available clotrimazol e 1 % topical cream APPLY TOPICALLY TO THE AFFECTED AREA TWICE DAILY 02/06 completed Not Available Not Available Not Available dicyclomine 10 mg capsule TAKE 1 CAPSULE BY MOUTH FOUR TIMES DAILY NEEDED FOR ABDOMINAL PAIN 03/21 completed Not Available Not Available Not Available atenolol 50 mg tablet TAKE 1 TABLET BY MOUTH TWICE DAILY 04/19 completed Not Available Not Available Not Available naproxen 500 mg tablet TAKE 1 TABLET BY MOUTH TWICE DAILY 02/10 completed Not Available Not Available Not Available spironolact one 50 mg tablet Take 1 tablet every morning for 90 days active Not Available Not Available No t Available thiamine HCl (vitamin B1) 50 mg tablet TAKE 2 TABLETS BY MOUTH ONCE DAILY 03/21 completed Not Available Not Available Not Available amoxicillin 875 mg-potassiu m clavulanate 125 mg tablet TAKE 1 TABLET BY MOUTH TWICE DAILY 02/06 completed Not Available Not Available Not Available Allergy Relief (loratadine ) 10 mg tablet TAKE ONE TABLET BY MOUTH IN THE MORNING FOR ALLERGIES active Not Available Not Available No t Available duloxetine 20 mg capsule,del ayed release 02/06 completed Not Available Not Available Not Available [facility] 100,000 unit/gram topical powder APPLY EXTERNALL Y TO THE AFFECTED AREA TWICE DAILY 08/21 completed Not Available Not Available Not Available BiDil 20 mg-37.5 mg tablet Take 1 tablet twice a day by oral route. 01/11 completed Not Available Not Available Not Available chlorhexidi ne gluconate 0.12 % mouthwash RINSE AND SPIT WITH 15ML BY MOUTH TWICE DAILY AFTER BREAKFAST AND DINNER 12/03 completed Not Available Not Available Not Available magnesium Oxide 400mg po daily 04/19 completed Not Available Not Available Not Available metoprolol tartrate 50mg po daily 06/21 completed Not Available Not Available Not Available famotidine 50mg once daily 02/06 completed Not Available Not Available Not Available naproxen 06/24 completed Not Available Not Available Not Available calcium 600 mg (as carbonate)- vitamin D3 10 mcg (400 unit) tablet TAKE 1 TABLET BY MOUTH DAILY 2024 active Not Available Not Available Not Avai lable Symbicort 160 mcg-4.5 mcg/actuati on HFA aerosol inhaler 12/11 completed Not Available Not Available Not Available FeroSul 325 mg (65 mg iron) tablet TAKE 1 TABLET BY MOUTH THREE TIMES A DAY BEFORE MEALS 2024 active Not Available Not Available Not Avai lable CertaVite Senior 0.4 mg-300 mcg-250 mcg tablet TAKE 1 TABLET BY MOUTH DAILY 2024 active Not Available Not Available Not Avai lable Aerospan 80 mcg/actuati on HFA aerosol inhaler 12/11 completed Not Available Not Available Not Available potassium chloride ER 20 mEq tablet,exte nded release Take 1 tablet every day by oral route with meals for 30 days. 11/29 completed Not Available Not Available Not Available Trulicity 0.75 mg/0.5 mL subcutaneou s pen injector Inject 0.75 mg every week by subcutane ous route as directed for 30 days. 07/22 completed Not Available Not Available Not Available Centrum Silver Women 8 mg iron-400 mcg-50 mcg tablet Take 1 tablet every day by oral route as directed for 30 days. 07/22 completed Not Available Not Available Not Available Wegovy 0.25 mg/0.5 mL subcutaneou s pen injector Inject 0.25 mg every week by subcutane ous route as directed for 30 days. 07/22 completed Not Available Not Available Not Available Mounjaro 2.5 mg/0.5 mL subcutaneou s pen injector active Not Available Not Available Not Available Vitals Date Recorded Respiratory rate Provider Name a nd Address Organization Details Last Updated DateTime 07/06/2023 18 /min LUCY ZAMBRANO Attn: Accounting,[address] [facility], [place], [address], [facility] 07/06/2023 09:37:54 Date Recorded Body height Body mass index (BMI) Body weight Oxygen saturation Oxygen saturation in Arterial blood by Pulse oximetry Heart rate Systolic blood pressure Diastolic blood pressure Provider Name and Address Organization Details Last Updated DateTime 4 157.48 cm 33.7 kg/m2 11850.1 g 99 % 99 % 69 /min 141 mm[Hg] 85 mm[Hg] Jeimy Champagne MA [facility] 4 09:34:20 Date Recorded Body height Body mass index (BMI) Body weight Oxygen saturation Oxygen saturation in Arterial blood by Pulse oximetry Heart rate Respiratory rate Systolic blood pressure Diastolic blood pressure Provider Name and Address Organization Details Last Updated DateTime 5 157.48 cm 45.4 kg/m2 247689. 91 g 98 % 98 % 72 /min 18 /min 135 mm[Hg] 80 mm[Hg] Ally Barrios MA [facility] 5 12:20:13 Date Recorded Body height Body mass index (BMI) Body weight Oxygen saturation Oxygen saturation in Arterial blood by Pulse oximetry Heart rate Respiratory rate Systolic blood pressure Diastolic blood pressure Provider Name and Address Organization Details Last Updated DateTime 4 157.48 cm 38.9 kg/m2 69295.3 8 g 100 % 100 % 85 /min 16 /min 143 mm[Hg] 90 mm[Hg] Madeleine Prince MA [facility] 4 12:14:47 Date Recorded Systolic blood pressure Diastolic blood pressure Provider Name and Address Organization Details Last Updated DateTime 01/02/2024 159 mm[Hg] 90 mm[Hg] LUCY ZAMBRANO Attn: Accounting,[address] [facility], [place], [address], [facility] 01/02/2024 17:33:17 Date Recorded Body height Body mass index (BMI) Body weight Oxygen saturation Oxygen saturation in Arterial blood by Pulse oximetry Heart rate Respiratory rate Systolic blood pressure Diastolic blood pressure Provider Name and Address Organization Details Last Updated DateTime 4 157.48 cm 41.6 kg/m2 319013. 27 g 98 % 98 % 74 /min 16 /min 161 mm[Hg] 92 mm[Hg] Madeleine Prince MA [facility] 4 17:09:33 Date Recorded Body height Body mass index (BMI) Body weight Oxygen saturation Oxygen saturation in Arterial blood by Pulse oximetry Heart rate Respiratory rate Systolic blood pressure Diastolic blood pressure Provider Name and Address Organization Details Last Updated DateTime 3 157.48 cm 28.3 kg/m2 47306.8 2 g 97 % 97 % 96 /min 16 /min 126 mm[Hg] 84 mm[Hg] Ally Barrios MA [facility] 3 13:46:50 Social History Question Answer Notes LastModified by Organizat ion Details LastModified Time Tobacco Smoking Status Never Smoker July SATHISH Sharpe, [facility] 10/28/2014 11:18:58 Do You Have An Advance Directive? No Information n ot available 10/28/2014 Are You Blind Or Do You Have Difficulty Seeing? No Information n ot available 08/25/2020 What Is Your Level Of Caffeine Consumption? None [email or web address] Information not available 09/13/2020 How Much Tobacco Do You Chew? None Information not available 10/28/2014 In The 14 Days Before Symptom Onset, Have You Had Close Contact With A Laboratory-confirm ed COVID-19 While That Case Was Ill? No Information n ot available 08/25/2020 In The 14 Days Before Symptom Onset, Have You Had Close Contact With A Person Who Is Under Investigation For COVID-19 While That Person Was Ill? No Information not available 08/25/2020 Have You Been To An Area Known To Be High Risk For COVID-19? No Information not available 12/12/2019 Are You Deaf Or Do You Have Serious Difficulty Hearing? No Information not available 08/25/2020 What Type Of Diet Are You Following? REGULAR Information n ot available 08/25/2020 Which Illicit Or Recreational Drugs Have You Used? None Information not available 12/12/2019 Education 11 Information no t available 10/28/2014 Are There Any Guns Present In Your Home? No Information not available 10/28/2014 Hard Of Hearing Or Deaf In One Or Both Ears? No Information not available 10/28/2014 Legally Blind In One Or Both Eyes? No Information no t available 10/28/2014 Marital Status Single Informatio n not available 10/28/2014 What Was The Date Of Your Most Recent Tobacco Screening? 07/22/2024 Information not available 07/22/2024 Performs Monthly Self-breast Exam? No Information no t available 10/28/2014 What Is Your Relationship Status? Single Information not available 08/25/2020 Do You Use Your Seat Belt Or Car Seat Routinely? Yes Information not available 08/25/2020 Seat Belts Used Routinely Yes Information not available 10/28/2014 Smoke Alarm In Home Yes Information not available 10/28/2014 Do You Have Smoke And Carbon Monoxide Detectors In Your Home? Yes Information not available 08/25/2020 Are You Passively Exposed To Smoke? No Information no t available 08/25/2020 How Much Tobacco Do You Smoke? No Information not available 10/28/2014 Do You Use Sunscreen Routinely? No Information not available 10/28/2014 On What Date Was Tobacco Cessation Counseling Provided? 07/22/2024 [email or web address] Information not available 07/22/2024 How Many Years Have You Smoked Tobacco? 0 [email or web address] Information not available 07/26/2016 Sex: Female Functional Status Question Answer Note LastModified by Organizat ion Details LastModified Time What is your level of alcohol consumption? None Information not available 10/28/2014 Do you or have you ever used smokeless tobacco? Never used smokeless tobacco Information not available 12/12/2019 Are you currently employed? No Information not available 08/25/2020 Are you able to care for yourself? Yes Information not available 08/25/2020 Do you or have you ever used e-cigarettes or vape? Never used electronic cigarettes Information not available 12/12/2019 Mental Status Question Answer Note LastModified by Organization D etails LastModified Time Do you feel stressed (tense, restless, nervous, or anxious, or unable to sleep at night)? [id number] Information not available 08/25/2020 Family History Relationship Description Onset Age of this Age Resolved Age Notes LastModified by Organization Details LastModified Time Mother Disorder of thyroid gland asavala Not available 2014 11:18:58 Mother Hypertensive disorder asavala Not available 2014 11:18:58 Father Asthma asavala Not available 11:18:58 Father Hypertensive disorder asavala Not available 2014 11:18:58 Father Migraine asavala Not available 10/28/2014 11:18:58 Medical History Condition Response Coronary Artery Disease N Other N Atrial Fibrillation N High Blood Pressure Y Migraines Y Thyroid Problems N Kidney or Bladder Problems N Depression N COPD N Blood Clots N GI Problems N Skin Problems N Eating Disorder N Anemia N Heart Attack (NV) N Diabetes N Anxiety Disorder N Muscle, Joint, or Bone Problems N Obesity Y Seizures/Epilepsy N Acid Reflux (GERD) N Cancer N Stroke N Allergies N Asthma Y ADHD N Substance Abuse N High Cholesterol N Hepatitis N Liver Disease N Schizophrenia N Headaches Y Hypertension Y Osteoporosis N Heart Failure N Gynecological History Statement/Question Response Date of Last Mammogram 06/28/2023 Flow Moderate Date of LMP 12/28/2023 Duration of Flow (days) 5 Age at Menarche 10 Current Control Method Tubal Ligat ion Age at First Child 14 If Post Menopausal, Age at Menopause Frequency of Cycle (Q days) 28 Menses Monthly Y Date of Last Pap Smear 01/11/2019 LMP Definite Obstetrics History GPAL:G 3 P 2 0 1 2 Type Value Multiple Births 0 Full Term 2 Induced 0 Spontaneous 1 Premature 0 Living 2 Ectopics 0 Total 3 Immunizations Vaccine Type Date Status Note Provider Nam e and Address Organization Details Recorded Time Influenza, split virus, quadrivalent, preservative 6 completed Not Available [facility] 04/26/2019 02:32:32 Influenza, split virus, quadrivalent, preservative 5 completed Jeimy Champagne [place] null, [place] - [facility] 07/06/2023 09:54:18 COVID-19, mRNA, LNP-S, PF, 100 mcg/0.5mL dose or 50 mcg/0.25mL dose 2 completed Jeimy Champagne [place], [place] [facility] 07/06/2023 09:54:18 COVID-19, mRNA, LNP-S, PF, 100 mcg/0.5mL dose or 50 mcg/0.25mL dose 2 completed Jeimy Champagne [place], [place] [facility] 07/06/2023 09:54:19 Influenza, split virus, quadrivalent, preservative 0 completed Vidhya Mcclure [place], [place] [facility] 01/12/2020 17:13:43 Tdap 5 completed Not Available [facility] 04/26/2019 02:30:20 Influenza, split virus, quadrivalent, PF 2 completed LUCY ZAMBRANO Attn: Accounting,[address] [place], [address], [place] [facility] 02/06/2022 21:31:22 Influenza, split virus, quadrivalent, PF 3 completed LUCY ZAMBRANO Attn: Accounting[address] [place], [address], [place] [facility] 02/01/2023 11:03:12 Pneumococcal conjugate PCV20, polysaccharide [id number] conjugate, adjuvant, PF 4 completed LUCY ZAMBRANO Attn: Accounting[address] [place], [address], [place] [facility] 07/09/2023 10:56:00 Past Encounters Encounter ID Performer Location Encounter Start Date Encounter Closed Date Diagnosis/Indication Diagnosis SNOMED-CT Code Diagnosis ICD10 Code Diagnosis Note [id number] MD Jamel Bustillos (Adult Med) [address] [place] [phone] 10/28/2014 10:48:27 10/28/2014 13:39:30 General examination of patient [id number] 39 y/o BF who was last seen by LUCY Helton in 2010 Benign hypertension [id number] Start Lisinopril /HCTZ 20/12.5 Side effects were discussed in great detail Low salt diet and weight loss were also discussed She states that she lost her insurance and she was not aware that she could come in here without insurance, she previously on Benicar/HC TZ & Clonidine. I have explained to her that she is not an ideal candidate for Clonidine Overweight [id number] Migraine [id number] Previo usly on Imitrex Injury of ankle 662428075 She follows up with Dr. Suazo ? 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 Hernandez? who would like to see her in a year She needs the FMLA form for that single admission Labs and the dictated discharge summary are pending. Overweight [id number] [facility] [address] [place] [phone] 12/30/2014 10:26:47 12/30/2014 16:19:42 Influenza vaccine needed [id number] Impaired f asting glycemia 171763598 Discussed an appropriat e diet and weight loss Pain in lower limb 28801945 Bilateral knee pain, most likely OA. She had previous surgery of the right patella in 2002 Supraventr icular tachycardia 0430254 Follow up with Dr. Hernandez [id number] MD Jamel Bustillos (Adult Med) [address] [place] [phone] 05/14/2015 16:45:15 05/14/2015 17:28:17 Benign hypertension [id number] I10 On Lisinopril /HCTZ 20/12.5, Atenolol 50mg po bid, Diltiazem 240mg po daily She should follow up with Dr. Hernandez Start Lisinopril 40mg and HCTZ 25mg, discontinu e LISINOPRIL /HCTZ 20/25 Written instructio ns were provided, continue a low salt diet and make an effort to lose some weight.Lab s and a close follow up in 4 weeks Osteoarthr itis of knee [id number] M17.9 X-ray report from [id number] MD Jamel Bustillos (Adult Med) [address] [place] [address] 06/25/2015 15:32:54 06/25/2015 16:37:57 Benign hypertension [id number] I10 Improvemen t noted with Lisinopril 40mg po daily, HCTZ 25mg po daily, Atenolol 50mg po bid, Diltiazem 240mg po daily, her BP is however not optimal Discontinu e HCTZ and start Chlorthali done Labs in 1 week She will ask her family members if she snores, she may need sleep studies. She will be seeing her cardiologi st, Dr. hernandez this afternoon, I have asked her to let him know about the changes that I have made. Headache 98709773 R51 Possibly from her uncontroll ed HTN or her Migraine [id number] MD Jamel Bustillos (Adult Med) [address] [place] [address] 11/24/2015 11:32:59 11/24/2015 12:32:46 Benign hypertension 35715228 I10 Uncontroll ed despite compliance with Bidil 20/37.5 po bid, Lisinopril 40mg po daily, Atenolol 50mg po bid, Diltiazem 240mg po daily, and Chlorthali done 25mg po daily. She snores, but her mother had previously reported apneic episodes. She reports ambulatory readings of 214/114 Sometimes when I be sleep, I wake up and I can't catch my breath She should stop the Lisinopril and start losartan, she will be following up with Dr. Hernandez. Apnea 4400148 R06.81 R06.83 Sometimes when I be sleep, I wake up and I can't catch my breath Edema of l ower extremity 460107637 R60.0 Low salt diet [id number] MD Jamel Bustillos (Adult Med) [address] [place] [address] 01/12/2016 11:54:53 01/12/2016 13:05:35 Follow-up visit [id number] Z09 She was admitted to [facility] and she has been off work since the 01/02/2016, she feels ready to go back to work this Sunday. I have explained to Ms. Kruse that I do not have the details of her hospital stay and until that is reviewed, I cannot complete her forms. Influenza vaccine needed [id number] 106 Z23 Chest pain 29356209 R07. 9 She is scheduled for a follow up visit with her cardiologi st. Impaired f asting glycemia 186311107 R73.01 Discussed an appropriat e diet and weight loss [id number] MD Jamel Bustillos (Adult Med) [address] [place] [address] 04/19/2016 14:37:48 04/19/2016 15:35:00 Screening for malignant neoplasm of breast 500001219 Z12.31 Headache 22564498 R51 [id number] MD Jamel Bustillos (Adult Med) [address] [place] [address] 06/21/2016 11:41:51 06/21/2016 12:57:45 Benign hypertension 89635825 I10 Still less than optimal control, she is reluctant to go to the ER. I will increase her Metoprolol to 100mg, side effects were discussed. A low salt diet was discussed and she will be seeing her cardiologi i the next week. Asthma 664146832 J45.90 9 On albuterol Foot pain 24477941 M79.6 72 [id number] MD Jamel Bustillos (Adult Med) [address] [place] [address] 07/26/2016 10:27:07 07/26/2016 11:45:29 Benign hypertension 41465704 I10 She states that he said that he likes it like that.I have reviewed the note from her 07/14/2016 visit [address] her cardiologi st, Dr. Hernandez who she will be seeing today, he would like her SBP at ~ 160 in view of her AI. Permissive Hypertensi on.Continu e Metoprolol 50 mg po BID Aortic alden ve regurgitation 01440283 I35.1 [id number] Trinh Machado MD [facility] [address] [place] [address] 12/12/2019 14:31:52 12/16/2019 08:23:06 Dyspnea on exertion 19898195 R06.09 need to evaluate blood pressure, lung status in office. weight loss may help but I am concerned about history of heart problems and hypertensi on. Morbid obesity 799769250 E66.01 Mild inter mittent asthma 304209701 J45.20 [id number] Trinh Machado MD [facility] [address] [place] [address] 01/12/2020 15:52:51 01/19/2020 10:00:13 Screening mammography 21998113 Z12.31 Essential hypertension 25079093 I10 Patient advised to limit salt and caffeine intake to maintain good blood pressure. Carpal attila aline syndrome 57032315 G56.03 if positive will refer to a hand surgeon. Administra tion of influenza vaccine 74534077 Z23 risks and benefits of immunizati ons reviewed, and patient agreed to receive shot Morbid obesity 123477548 E66.01 discussed risks and benefits of bariatric surgery. Mild inter mittent asthma 342087011 J45.20 reviewed timing of how to use the inhaler [id number] Trinh Machado MD [facility] [address] [facility] [place] [address] 08/25/2020 08:07:41 08/30/2020 10:03:00 Generalized headache 822117005 R51.9 Morbid obesity 993027922 E66.01 discussed risks and benefits of bariatric surgery. BMI 50 [id number] Trinh Machado MD [facility] [address] [place] [address] 09/13/2020 08:02:57 09/21/2020 08:13:21 Morbid obesity 212687096 E66.01 discussed risks and benefits of bariatric surgery. BMI 50 [id number] Henri Ashraf MD [facility] [address] [place] [address] 11/11/2020 11:42:39 11/14/2020 11:04:14 [id number] LUCY ZAMBRANO [facility] [address] [place] [address] 02/10/2021 08:02:48 02/11/2021 11:20:45 Benign hypertension 78994204 I10 take BP at home, on 5 BP meds Hand pain 74195861 M79.6 43 refill Viral uppe r respiratory tract infection 361528322 J06.9 dry cough, nasal congestion , chest congestion , sore throatno fevers, chest pain, or SOBtaking coricidin and throat lozengesed ucated pt on viral URI sx and txc/w current meds, trial OTC decongesta ntincrease fluid intake and restf/u with any new or worsening sx [id number] Mario wolf MD [facility] [address] [place] [address] 11/18/2021 16:03:14 11/22/2021 10:14:15 History of bariatric surgical procedure 492189153 Z98.84 Nicol-En-Y Gastric bypass on 06/27/21has lost 99 lbs since procedurep t does not believe current sx are due to gastric bypasspt showed urine culture results on mychart that weight loss management ordered on 11/17/21- showed UTI Acute urin luciano tract infection 345281097 N39.0 urinary retention x1 mounable to swallow keflex or pyridium that was given from St[facility] '[facility] ED visit 1 [facility]oad[facility] d [facility] and told she had UTIpt showed urine culture results on mychart that weight loss management ordered on 11/17/21 that showed UTIurine dip shows protein, ketone, bilirubinu nable to culture urine due to small outputstar t bactrim Abdominal pain 39353537 R10.9 Per [facility] Admission note 11/09/21:Pt BIBEMS for diffuse abdominal pain x2 weeks. Pt was seen at OSH on 10/31 for same pain, the CT scan showed a possible ovarian cyst, and followed up w/her OBGYN last 11/03 who did an US and no cyst was present. Pt reports she feels like she has to pee, but can't. Even the OBGYN attempted to cath pt and no urine came out, so MD suspected pt was dehydrated and sent her to ED for fluids and d/c. Pt endorses vomiting w/eating & drinking and feels dehydrated . [facility] Discharge note 11/11/21:Re peat CT scan here revealed no concerning pathology as well. She was treated with PPI, laxatives and antiemetic s with improvemen t of symptoms. H pylori serology and stool Ag sent and is pending at time of discharge. Duloxetine started to empiricall y treat psychosoma tic abdominal pain that could be related to stress or recent gastric bypass. She was referred to GI for outpatient evaluation in case symptoms do not continue to improve. Pt presents today with no improvemen t of sxtachycar dic and hypotensiv ePEx- CVAT bilaterall y, moderately TTP RLQurine dip shows UTI, start bactrim, pt unable to swallow pillsadvis ed pt to go to ED [id number] Mario wolf MD [facility] [address] [place] [address] 02/06/2022 12:23:21 02/07/2022 12:02:55 Osteoarthritis of joint of left shoulder region 1211333607 06220 M19.012 C/o chronic L shoulder pain, was previously controlled with gabapentin Unable to take gabapentin due to gastric bypass surgerysho ulder pain flared 1 wk agoNo trauma or injurysor e and stiff, waxing and waningtaki ng tylenol w/o reliefR handedPEx- unable to perform full flexion L shoulder joint due to pain, SITS testing negativeXR L shoulder 2018 showed moderate L AC joint OApt does not want to be referred at this time, hold off on imagingtri al flexerilre jessica to PT Essential hypertension 03655772 I10 BP 146/94, will attribute to L shoulder painreport s BP has been normal at home 130s/60-70 son metoprolol 100 mg BID and lisinopril 40 mg Gastric ulcer 278428773 K25.7 [facility]- year old female with a PMHx of nicol-en-y gastric bypass sx in 06/28, UTI, CHF in 2014, non-ischem ic cardiomyop athy dx in 2014, SVT s/p ablation, AUGUST and asthma who presents to the ED c/o intermitte nt abdominal pain, nausea, and vomiting. Iron studies showing low ferritin indicating Iron deficiency anemia. Due to vague complaints of melena, GI did upper GI bleed workup inpatient including endoscopy which only showed Marginal ulcer close to the anastamoti c Z line. CT abdomen showed R sided diverticul itis. Follow-up was made with her for GI to do EGD and Colonoscop y 8-10 weeks from now. Discharged on PPI, HTN medication s, sucralfate , and 3 days of Cirpo and Flagyl to finish 7 day course of Abx treatment. on sucralfate and PPIhas f/u 1 mo with GI in [place] Administra tion of influenza vaccine 43091019 Z23 Depression screening 171 712303 Z13.31 PHQ 0 History of bariatric surgical procedure 465173149 Z98.84 02/06/22:C MP showed low potassium- GI told her to eat bananasthi amine low- started supplement CBC nlcheck TSH and a1c for yearly labs- ordered at [place] 11/18/21:Ro ux-En-Y Gastric bypass on 06/27/21has lost 99 lbs since procedurep t does not believe current sx are due to gastric bypasspt showed urine culture results on mychart that weight loss management ordered on 11/17/21- showed UTI Nonischemi c congestive cardiomyopathy 1474168137 04 I42.0 Per cardio note 11/2021: nonischem ic cardiomyop athy with CHF in the past. Currently she appears compensate d and has been able to stop several antihypert ensive medication s after gastric bypass surgery 5 months ago. I advised her to continue metoprolol tartrate 100 mg b.i.d. and lisinopril to 40 mg daily. [id number] Mario wolf MD [facility] [address] [place] [address] 11/29/2022 12:38:12 11/29/2022 13:17:34 Gastric ulcer 127535383 K25.7 see gastric ulcer with hemorrhage Gastric ul cer with hemorrhage 11824734 K25.4 11/29/22:ad mitted to [facility] 11/20/22- for recurrent [id number] episode of bleeding after bypass and she was most recently admitted to [facility] on 11/14 for syncope and melena. EGD at that time showed GJ anastomosi s with non bleeding ulceration and unremarkab le CTA. She was d/c on protonix 40 mg BID and carafate. On admission, she was tachycardi c to the 120's, with notable labs: Hgb of 4.4, WBC of 16.3, Plt 235, BUN 23, Cr .51. She received 3 units PRBC with Hgb > 7 since. She underwent EGD with GI and was found to have 2 ulcers (8mm and 4 mm) of GJ anastamosi s junction s/p clipping of larger ulcer on 11/21. Hgb has been stable since transfusio n. Patient to take high dose PPI 40 mg BID for 8 weeks then follow up with GI to reduce dose.pt is on iron 325 mg and sucralfate requesting referral to GIre-check hgb and iron studies 02/06/22:a dmitted to [facility] 11/18/21- year old female with a PMHx of nicol-en-y gastric bypass sx in 06/28, UTI, CHF in 2014, non-ischem ic cardiomyop athy dx in 2014, SVT s/p ablation, AUGUST and asthma who presents to the ED c/o intermitte nt abdominal pain, nausea, and vomiting. Iron studies showing low ferritin indicating Iron deficiency anemia. Due to vague complaints of melena, GI did upper GI bleed workup inpatient including endoscopy which only showed Marginal ulcer close to the anastamoti c Z line. CT abdomen showed R sided diverticul itis. Follow-up was made with her for GI to do EGD and Colonoscop y 8-10 weeks from now. Discharged on PPI, HTN medication s, sucralfate , and 3 days of Cirpo and Flagyl to finish 7 day course of Abx treatment. on sucralfate and PPIhas f/u 1 mo with GI in [place] Depression screening 171 719988 Z13.31 PHQ 0 [id number] Mario wolf MD [facility] [address] [place] [address] 02/01/2023 09:27:01 02/01/2023 11:20:44 Administration of influenza vaccine 95415787 Z23 Nausea 152287219 R11.0 use PRN Headache 85299517 R51.9 x1 wkintermit tent, a/w nausea, spots, and needs to be in the darkmost likely due to abdominal pain from ulcer and HTNtook meds this morning, BP 156/91, 138/88poor appetite due to ulcerPEx- nltrial tylenolsta rt checking BP at homeadvise d to check BP at home, goal BP <130/80, f/u with BP log in 1 wk, can add amlodipine if BP elevatedse nt zofran PRN Depression screening 171 578750 Z13.31 PHQ 0 [id number] Mario wolf MD [facility] [address] [place] [address] 03/21/2023 13:43:00 03/21/2023 14:31:06 Obstructive sleep apnea syndrome 62831365 G47.33 reports she was diagnosed with mild AUGUST in 2020never received CPAPwill send new referral for sleep study History of bariatric surgical procedure 908307638 Z98.84 03/21/23:G astric bypass reversal- Date of surgery 03/08/2023 . @ [facility], by Dr. Sullivan liquid diet, can try solid foods tomorrowre -check hgb levels today 07/11/22:PTH elevated, Ca normal 9.0most likely elevated due to poor calcium absorption due to gastric bypassadd daily calcium and re-check PTH in 3 months 02/06/22:C MP showed low potassium- GI told her to eat bananasthi amine low- started supplement CBC nlcheck TSH and a1c for yearly labs- ordered at [place] 11/18/21:Ro ux-En-Y Gastric bypass on 06/27/21has lost 99 lbs since procedurep t does not believe current sx are due to gastric bypasspt showed urine culture results on mychart that weight loss management ordered on 11/17/21- showed UTI Screening for malignant neoplasm of breast 418866222 Z12.39 due for mammo Depression screening 171 667163 Z13.31 PHQ 0 Screening for malignant neoplasm of cervix 873397874 Z12.4 follows with [facility] [place], due for pap next year Essential hypertension 40249652 I10 BP 126/84 in officehas cardio appt tomorrowad vised to start checking BP at home [id number] Mario wolf MD [facility] [address] [place] [address] 07/06/2023 09:23:14 07/06/2023 10:09:27 Paresthesia of upper limb 98525374 R20.2 c/o chronic hand pain and numbnesswo rse in the morning, feels tight and stiffEMG 2020 was normalPEx- negative tinel's sign and phalen'sin crease gabapentin from 100 to 300ordered EMG Generalize d anxiety disorder 87485605 F41.1 ELIZA 5relates to recent echo that showed heart failure had worsenedha s dreams that she stops breathingt rial hydroxyzin e PRN, advised of ADR Essential hypertension 31770426 I10 07/06/23: BP 141/85did not take BP meds yet todaycardi o added add spironolac tone Obstructiv e sleep apnea syndrome 63890407 G47.33 reports she was diagnosed with mild AUGUST in 2020never received CPAPwill send new referral for sleep study Obesity 882665739 E66.9 discussed increasing exercise and healthier food options, high protein, low fat diet Nonischemi c congestive cardiomyopathy 6425708212 04 I42.0 07/06/23: requesting prevnar 20 vaccine due to chronic heart disease Per cardio note 11/2021: nonischem ic cardiomyop athy with CHF in the past. Currently she appears compensate d and has been able to stop several antihypert ensive medication s after gastric bypass surgery 5 months ago. I advised her to continue metoprolol tartrate 100 mg b.i.d. and lisinopril to 40 mg daily. Allergic rhinitis 560100 04 J30.9 L ear pain, itchy throat and sore throat x1 wktrial flonase and claritin [id number] Mario wolf MD [facility] [address] [place] [address] 10/23/2023 12:07:15 10/23/2023 12:29:48 Essential hypertension 55978308 I10 BP 140s/90s at homeBP in office 143/90on lisinopril 40, metoprolol 100, nifedipine 30, spironolac tone 50will increase nifedipine to 60 mgadvised to check BP at home, goal BP <130/80, f/u with BP log in 1 wk Low back pain 475681889 M54.50 started 5 days agotaking tylenol w/ some reliefno trauma or injuryno saddle anesthesia or loss of bowel/blad derPEx- nlrefer to PT Generalize d anxiety disorder 50251130 F41.1 ELIZA 16started on hydroxyzin e 06/2023, takes it at nightwould like to try medication to take during the day to help with anxietytri al buspirone 5 mg BID, advised pt of ADRf/u in 1 mo [id number] J Luis Ford MD [facility] [address] [place] [address] 01/02/2024 17:00:57 01/02/2024 17:32:14 Screening for malignant neoplasm of breast 920795869 Z12.39 06/2023, Screening for malignant neoplasm of cervix 868200790 Z12.4 last pap 2020PEx- difficulty locating cervix, [facility] Depression screening 171 256132 Z13.31 PHQ 0 Essential hypertension 12127913 I10 01/02/24: BP 160/90, 150/90, similar at homecardio appt next monthincre ase nifedipine to 120 max dosef/u with BP log on portal 10/23/23: BP 140s/90s at homeBP in office 143/90on lisinopril 40, metoprolol 100, nifedipine 30, spironolac tone 50will increase nifedipine to 60 mgadvised to check BP at home, goal BP <130/80, f/u with BP log in 1 wk Morbid obesity 047494852 E66.01 gained 72 lbs since bypass reversal 02/2023ref er back to bariatric medicine to discuss options for weight loss, discussed GLP 1 injection, will need clearance from cardio and bariatric medicine Screening for malignant neoplasm of colon 619771225 Z12.[address] Moore 03/2022, does not say when to repeat [id number] J Luis Ford MD [facility] [address] [place] [address] 07/22/2024 12:15:16 07/22/2024 12:40:33 Essential hypertension 47356200 I10 BP at home 120-140s/7 0-90sonly on nifedipine 60 mg, increase to 90 mghas not been taking metoprolol 100advised to check BP at home, goal BP <120/70, f/u with BP log in 1 wk Morbid obesity 450519034 E66.01 07/22/24: BMI 45.4, routine labs 02/11/24: wegovy not covered by insurance, will send trulicity gained 72 lbs since bypass reversal 02/2023ref er back to bariatric medicine to discuss options for weight loss, discussed GLP 1 injection, will need clearance from cardio and bariatric medicine Feeling of lump in throat 299606901 R09.89 x2 moany foodsre-st art PPI, refer to GI Generalize d anxiety disorder 48890821 F41.1 07/22/24: would like to increase buspirone to 10 mg 10/2023: ELIZA 16started on hydroxyzin e 06/2023, takes it at nightwould like to try medication to take during the day to help with anxietytri al buspirone 5 mg BID, advised pt of ADRf/u in 1 mo Depression screening 171 984327 Z13.31 PHQ 0 Health Concerns Section Related Observation LastModified by Organization Detai ls LastModified Time None Recorded Concern Status LastModified by Organization Details LastModified Time None Recorded Advance Directives Directive N: Payers Insurance Date Sequence Insurance Name Policy Number Policy Benedict Covered Member ID Benedict Member ID Guarantor Name 07/19/2024 1 [facility] - DOS ON OR AFTER 20 (MEDICAID REPLACEMENT - HMO) Angelica Kruse [id number] Angelica Kruse 07/04/2022 1 [facility] - [facility] PRIOR TO 10/07/2020 (MEDICAID REPLACEMENT - HMO) Angelica Kruse [id number] Angelica Kruse Notes Date Note Type Note Provider Name and Address Organization Details Recorded Time 03/21/2023 text/html Pt presents for surgery f/u. Reports that she had reversal of her Nicol En Y gastric bypass surgery on 03/08/23. She is still on a liquid diet and can start solid foods tomorrow. States that while she was in hospital her BP and blood sugars were elevated. LUCY ZAMBRANO Attn: [address] [place], [address], [facility] 03/22/2023 14:18:24 07/06/2023 text/html Pt presents with L ear pain, sore throat, bilateral hand pain, and anxiety. C/o chronic hand pain and numbness. Worse in the morning, stiff and difficulty opening her hands. Taking gabapentin 100 mg w/o relief.C/o anxiety related to heart failure. States that she had recent echo which showed her heart failure is worsening. She has dreams at night that she's not breathing. Requesting medication to take PRN.C/o itchy/sore throat and L ear pain x1 wk. Has not tried any meds for symptoms. LUCY ZAMBRANO Attn: [address]ing[address] [place], [address], [facility] 07/09/2023 11:05:18 10/23/2023 text/html Pt presents to discuss high BP, low back pain, and anxiety. Reports that BP has been 140s/90s at home with taking all of her medications. C/o low back pain onset 5 days ago, taking tylenol w/ mild relief. No trauma or injury. C/o uncontrolled anxiety, taking hydroxyzine at night to help her sleep. LUCY ZAMBRANO Attn: Accounting[address] [place], [address], [facility] 10/24/2023 12:33:36 01/02/2024 text/html Pt presents for WWE. , vaginal births. Last pap 1 yr ago, h/o abnormal years ago. LMP 12/28/23. Denies hematuria, dysuria, odor, urinary frequency/urgency, or discharge. C/o vaginal irritation with wiping. No h/o STDs. Pt is not sexually active. Last mammogram 06/2023, no h/o abnormals. No FH of cervical/ovarian cancer. Grandmother's sister and maternal aunt with breast cancer, diagnosed in their 30s. LUCY ZAMBRANO Attn: Accounting[address] [facility], [place], [address], [facility] 01/03/2024 09:46:51 07/22/2024 text/html Patient presents for follow-up. States that after she eats she feels like food is getting stuck in her throat. Ongoing for the past 2 months. Does not matter what food she eats. She has discussed with the bariatric surgery who recommended EGD, but would like referral closer to home. LUCY ZAMBRANO Attn: Accounting,[address] [facility], [place], [address], [facility] 09/23/2024 16:42:49 OBGyn Episode No OBEpisode recorded.
--- OUTSIDE RECORDS SUMMARY | 2024-09-25 10:50 | XMS_ITS | CONTINUITY OF CARE DOCUMENT ---
Author Name ilene dayannaguanako Address Unknown Organization [facility] Address [id number] [place] [address] [address] [place] [address] Phone [phone] Care Team Providers Care Build Automation Engineer Name Role Phone Joshua FERNANDEZ, Byron Unavailable FAB PINA MD Unavailable FAB PINA MD [...] active Byron Lewis MD Aortic regurgitation active Byorn flores MD CHF active Byron Lewis MD ENCOUNTERS Date Type Provider Location Encounter Diag nosis - In-person encounter Office Visit Byron Lewis MD [facility] Sleep apnea, obstructive, mildAortic regurgitationCHF - In-person encounter Office Visit Byron Lewis MD [facility] Obesity - In-person encounter Office Visit Byron Lewis MD [facility] AsthmaPVC'sChest pain-type to be determinedShortness of breathPalpitations - In-person encounter Office Visit Byron Lewis MD [facility] Other symptoms involving cardiovascular systemPulmonary hypertensionSVT - In-person encounter Office Visit Byron Lewis MD [facility] HTN essentialAsthma VITAL SIGNS Date Observation [...] [place] blood pressure, diastolic 103 mm[Hg] Nc yarelis [facility] blood pressure, systolic 176 mm[Hg] Iliana farley Doyle pulse rate 84 /min Hayley [facility] oxygen saturation, oximetry 97 % Hayley Doyle respiratory rate E&M 15 /min Hayley [facility] Body Mass Index (Ratio) 47.92 kg/m2 Daniela seymour [facility] weight E&M 262 [lb_av] Hayley [facility] blood pressure, diastolic 118 mm[Hg] Nc yarelis [facility] blood pressure, systolic 191 mm[Hg] Iliana farley [facility] pulse rate 82 /min Hayley [facility] oxygen saturation, oximetry 97 % Hayley Doyle respiratory rate E&M 15 /min Hayley [facility] Body Mass Index (Ratio) 47.00 kg/m2 Danielarica seymour [facility] weight E&M 257 [lb_av] Hayley Doyle respiratory rate E&M 16 /min Hayley Love pulse rate 71 /min Hayley Love oxygen saturation, oximetry 97 % Hayley Love height E&M 62 [in_i] Hayley Love weight E&M 267.8 [lb_av] Hayley Love ALLERGIES No Known Drug Allergies RESULTS Date Observation Value Provider Reference Range Interpretation Location coagulation managed by Ritchie Fajardo RN international normalized ratio (INR) 1.9 [facility] Normal prothrombin time (patient) 22.9 s Abigail [place] urea nitrogen/creatini ne ratio, serum 18.0 [facility] - Estimated Glomerular Filtration Rate (calc) 143.8 (?) [facility] 59.0 - chloride, serum 99.5 mmol/L [facility] 98.0 - 107.0 potassium, serum 3.5 mmol/L [facility] 3.5 - 5.1 sodium, serum 139.0 mmol/L [facility] 136.0 - 145.0 creatinine, serum 0.5 mg/dL [facility] 0[facility] - 1.0 carbon dioxide, venous blood 27.0 mmol/L [facility] 22.0 - 29.0 calcium, serum 9.2 mg/dL [facility] 8.6 - 10.2 urea nitrogen, blood 9.0 mg/dL [facility] 6.0 - 20.0 blood glucose, random 105.0 mg/dL [facility] 74.0 - 99.0 High red blood cell distribution width, size density 47.4 fL [facility] - immature granulocytes, percentage of total cells, blood 0.1 % [facility] nucleated red blood cells as percent of blood leukocytes 0.0 % [facility] - red blood cell (erythrocyte) count, per high power field 0.0 10*3/UL [facility] - eosinophils as percent of blood leukocytes 1.4 % [facility] - neutrophils as percent of blood leukocytes 55.2 % [facility] - Absolute Neutrophils 4.0 CELLS/UL [facility] 1.5 - 7.8 basophils as percent of blood leukocytes 0.6 % [facility] - Absolute Basophils 0.0 CELLS/UL [facility] 0.0 - 0.2 monocytes as percent of blood leukocytes 9.4 % [facility] - Absolute Monocytes 0.7 CELLS/UL [facility] 0.2 - 1.0 lymphocytes as percent of blood leukocytes 33.3 % [facility] - Absolute Lymphocytes 2.4 CELLS/UL [facility] 0.9 - 3.9 mean platelet volume 11.9 (?) [facility] - platelet count 286.0 THOUSAND/U L [facility] 100.0 - 400.0 mean corpuscular hemoglobin concentration, [...] TABLET completed one tab daily EXCEPT on Lnwg-Qtvas-Sdo take 2 tabs - Noah Chapa MAGNESIUM [...] Payer name Policy type / Coverage type [place] red republican ID [employer]ACHEL MEDICAID (2) Medicaid [id number] ADVANCE DIRECTIVES Name Date DISCUSSED - NO DECISION MADE TREATMENT PLAN Date Name Performer Cardiology Follow up faxed 07/18/16 0914:Weight loss and exercise advised. Noah Eduard Cardiology Follow up faxed 07/18/16 0914:Her updated medication list for this problem includes: Metoprolol Succinate 50 Mg Tb24 (Metoprolol succinate) ..... One tab. daily Cartia Xt 240 Mg Oral [id number] (Diltiazem hcl coated beads) ..... One capsule at night Orders: E KG (CPT-18118) H olter Monitor 24 Hr (CPT-48061) Noah Eduard Cardiology Follow up faxed 07/18/16 0914:Her updated medication list for this problem includes: Metoprolol Succinate 50 Mg Tb24 (Metoprolol succinate) ..... One tab. daily Cartia Xt 240 Mg Oral Se91o-jjc (Diltiazem hcl coated beads) ..... One capsule at night Orders: E KG (CPT-79921) H olter Monitor 24 Hr (CPT-80553) Noah Eduard Cardiology Follow up faxed 07/18/16 0914:Her updated medication list for this problem includes: Metoprolol Succinate 50 Mg Tb24 (Metoprolol succinate) ..... One tab. daily Losartan Potassium 100 Mg Oral Tabs (Losartan potassium) ..... Once daily Chlorthalidone 25 Mg Oral Tabs (Chlorthalidone) ..... Once daily Cartia Xt 240 Mg Oral Sh03c-bai (Diltiazem hcl coated beads) ..... One capsule at night Noah Chapa Cardiology Follow up faxed 07/18/16 0914:Followed at [facility]. Not on CPAP currently. Noah Chapa Cardiology [...] Once daily Cartia Xt 240 Mg Oral So38a-whj (Diltiazem hcl coated beads) ..... One capsule at night Noah Chapa Cardiology Follow up faxed 07/18/16 0914:Mild to moderate by echo last year. Orders: S NOMED-CT: [id number] Current Medications Documented ([facility]-[id number]) C omplete Echo (CPT-77454) Noah Chapa Cardiology Follow up faxed 04/26/16:BP today: 155/99 P rior BP: 176/103 (01/28/2016) Her updated medication list for this problem includes: Metoprolol Succinate 50 Mg Tb24 (Metoprolol succinate) ..... One tab. daily Losartan Potassium 100 Mg Oral Tabs (Losartan potassium) ..... Once daily Chlorthalidone 25 Mg Oral Tabs (Chlorthalidone) ..... Once daily Cartia Xt 240 Mg Oral Wc99d-isa (Diltiazem hcl coated beads) ..... One capsule at night Noah Chapa Cardiology Follow up faxed Noah [facility] Cardiology Follow up faxed 04/26/16:Her updated medication list for this problem includes: Metoprolol Succinate 50 Mg Tb24 (Metoprolol succinate) ..... One tab. daily Cartia Xt 240 Mg Oral Az34l-hhv (Diltiazem hcl coated beads) ..... One capsule at night Noah Chapa Cardiology Follow up faxed 04/26/16:S/P ablation 03/28. Will check an event monitor in 3 months. Noah Chapa Cardiology Noah zuñiga Cardiology:Orders: S NOMED-CT: [id number] Current Medications Documented ([facility]-[id number]) E KG (CPT-62592) H olter Monitor 48 Hr (CPT-96543) S TR - Echo (CPT-92515) Noah Chapa Cardiology:No CAD by cath in 2014. Noah Chapa EP faxed 07/16/15 0904 :In summary, I [...] Once daily Cartia Xt 240 Mg Oral Un85f-jlf (Diltiazem hcl coated beads) ..... Once daily Atenolol 50 Mg Oral Tabs (Atenolol) ..... Twice daily Byron Lewis MD Cardiology Byron slaughter MD Cardiology: O rders: 9 9214 MOD Complex (CPT-65699) Byron Lewis MD Cardiology:continue BB, CC, diuretic and LALI-I H er updated medication list for this problem includes: Lisinopril-hydrochlorothiazide 20-25 Mg Oral Tabs (Lisinopril-hydrochlorothiazide) ..... Once daily Cartia Xt 240 Mg Oral Zo80x-hix (Diltiazem hcl coated beads) ..... Once daily Atenolol 50 Mg Oral Tabs (Atenolol) ..... Twice daily Byron Lewis MD Date Name Renal Artery Duplex Holter Monitor 24 Hr Complete Echo Mobile Cardiac Tele BASIC METABOLIC PANE L W/EGFR CBC (INCLUDES DIFF/P LT) PARTIAL THROMBOPLAST IN TIME, ACTIVATED Holter Monitor 24 Hr STR - Echo DLCO - 68279 FRC - 05080 FVC - 80878 Holter Monitor 24 Hr Complete Echo DLCO Order - 32516 FRC Order - 59937 FVC Order - 48417 Full PFT Complete Echo HISTORY OF PROCEDURES Procedure Date Procedure Name Provider Procedure Notes S tatus EKG Byron slaughter MD completed SNOMED-CT: 940798809516706 Current Medications Documented Byron Lewis MD completed Event Monitor Vitaly Conner [facility] EKG Byron slaughter MD completed SNOMED-CT: 974298279162613 Current Medications Documented Byron Lewis MD completed Donya slaughter MD completed Donya slaughter MD completed Protime Byron slaughter MD completed BLOOD COUNT HEMOGLOBIN Byron astorga MD completed FVC - 43496 Byron slaughter MD completed FRC - 36850 Byron slaughter MD completed DLCO - 42643 Byron slaughter MD completed Holter, 24 or 48 Byron flores MD completed EKG Byron slaughter MD completed SNOMED-CT: 625471716286293 Current Medications Documented Byron Lewis MD completed Schedule Followup Byron shah MD 1 month completed EKG Byron slaughter MD completed SNOMED-CT: 372556657425554 Current Medications Documented Byron Lewis MD completed BLOOD COUNT HEMOGLOBIN Byron astorga MD completed Schedule Followup Byron shah MD in 1 year with SK completed EKG Byron slaughter MD completed
[2024-09-25 11:00] LABS: Basophils Absolute Auto 0.1 K/mm3 (0.0-0.1); Basophils Percent Auto 0.5 % (0.2-1.2); Eosinophils Absolute Auto 0.2 K/mm3 (0-0.3); Eosinophils Percent Auto 2.1 % (0-4.4); Hematocrit 43.5 % (37.0-47.0); Hemoglobin 13.2 g/dL (12.0-15.0); Immature Granulocyte Absolute 0.01 K/mm3 (0.00-0.031); Immature Granulocyte Percent A 0.1 % (0-0.5); Lymphocytes Absolute Auto 3.62 K/mm3 (0.9-3.2); Lymphocytes Percent Auto 36.5 % (18.3-44.2); Mean Corpuscular HGB Conc 30.3 g/dl (32-36); Mean Corpuscular Hemoglobin 25.3 pg (26-34); Mean Corpuscular Volume 83.5 fl (80-100); Mean Platelet Volume 11.4 fl (7.4-10.4); Monocytes Absolute Auto 0.6 K/mm3 (0.1-0.6); Monocytes Percent Auto 5.9 % (2.6-8.5); Neutrophils Absolute Auto 5.4 K/mm3 (1.3-6.7); Neutrophils Percent Auto 54.9 % (45.5-73.1); Platelet Count Result 297 k/mm3 (150-375); Red Blood Count 5.21 M/mm3 (4.2-5.4); Red Cell Distribution Width 15.9 % (11.5-14.5); White Blood Count 9.9 K/mm3 (4.5-10.0)
[2024-09-25 11:13] LABS: Alanine Aminotransferase 24 U/L (6-35); Albumin Level 4.1 g/dL (3.5-5.1); Alkaline Phosphatase 97 U/L (38-126); Anion Gap 10 mmol/L (4-12); Aspartate Amino Transferase 31 U/L (14-36); Bilirubin,Total 0.4 mg/dL (0.2-1.3); Blood Urea Nitrogen 12 mg/dL (7-17); Calcium 9.1 mg/dL (8.4-10.2); Carbon Dioxide 25 mmol/L (22-30); Chloride 105 mmol/L (98-107); Estimated CRCL calculation 107 ml/min; Estimated Glomerular Filt Rate > 60; Glucose 109 mg/dL (65-110); Lipase 93 U/L (23-300); Potassium 3.7 mmol/L (3.4-5.0); Sodium 140 mmol/L (137-145); Total Protein 8.1 g/dL (6.3-8.2)
[2024-09-25 11:20] LABS: Prothrombin Time 13.5 Seconds (11.1-14.7)
[2024-09-25] MEDS: ACETAMINOPHEN 500 MG TABLET 1000 MG PO (11:20)
[2024-09-25] MEDS: ASPIRIN 81 MG CHEWABLE TABLET 324 MG PO (11:20)
[2024-09-25] MEDS: NITROGLYCERIN SL 0.4 MG TABLET SUBLINGUAL ×2 (11:20→20:15)
[2024-09-25 11:26] LABS: NT Pro B Type Natriuretic Pept 1050 pg/mL (19.9-100); Troponin I < 0.012 ng/mL (0.000-0.034)
[2024-09-25 11:27] LABS: BEDSIDEPREGUCG Negative (Negative)
--- NOTE | 2024-09-25 11:40 | PC.NURSE ---
second nitro given at 1139 for chest pain. LUCY castellon.
[2024-09-25] MEDS: MORPHINE SULFATE (*CRX) 4 MG/ML INJ IV PUSH (12:11)
--- NOTE | 2024-09-25 13:01 | P.HP_ITS ---
H&P: HPI History of Present Illness Date/Time: 09/25/24 13:01 Chief Complaint: Stroke-like symptoms [facility] Past Medical History Medical History Colon cancer screening Abdominal pain Internal hemorrhoid Hx of diverticulitis of colon HAYLEY (iron deficiency anemia) PUD (peptic ulcer disease) Nonischemic cardiomyopathy Arthritis UTI (urinary tract infection) Sleep apnea Asthma HTN (hypertension) History of angina Seasonal allergies CHF (congestive heart failure) Surgical History Surgical History Hx of gastric bypass History of knee surgery Right History of tubal ligation History of cholecystectomy History of cardiac catheterization Family History Family History Father Diabetes mellitus Hypertension Asthma Patient's father is in good health Family history of cardiovascular disease Mother Hypertension Patient's mother is in good health Sibling Patient's sister is in good health Social History Social History Smoking status: Never smoker Alcohol intake: never Substance use: never Substance use type: does not use Do You Feel Safe in your Home?: Yes Lack of Transportation: No Lack of Food: Never True Current Housing: I Have Housing Concerned About Future Housing: No Difficulty Paying Gas/Electric Bills: No Difficulty Paying for Meds: No Currently Unemployed: No Education: High School Diploma/GED Difficulty w/ Childcare or Family Care: No Living arrangements: with family Gender identity (if verbalized by the patient): Female Spiritual care concerns: No Meds Home Medications and Allergies Home Medications ?Medication ?Instructions ?Recorded ?Confirmed ?Type metoprolol succinate 200 mg 200 mg PO DAILY 06/28/19 09/25/24 History tablet,extended release 24 hr albuterol sulfate 90 mcg/actuation 1 puff inhalation DAILY PRN 06/10/20 09/25/24 History aerosol inhaler allergies cyclobenzaprine 10 mg tablet 10 mg PO TID PRN muscle spasm #16 06/10/20 09/25/24 Rx tabs gabapentin 100 mg capsule 300 mg PO TID 06/10/20 09/25/24 History lisinopril 40 mg tablet 40 mg PO DAILY 06/10/20 09/25/24 History ascorbic acid (vitamin C) 500 mg 500 mg PO DAILY 01/17/23 09/25/24 History tablet thiamine HCl (vitamin B1) 50 mg 500 mg PO DAILY 01/17/23 09/25/24 History tablet buspirone 10 mg tablet 20 mg PO DAILY 09/25/24 09/25/24 History calcium 600 mg (as 1 tablet PO DAILY 09/25/24 09/25/24 History carbonate)-vitamin D3 10 mcg (400 unit) tablet hydroxyzine HCl 25 mg tablet 25 mg PO BID 09/25/24 09/25/24 History nifedipine 30 mg tablet,extended 30 mg PO DAILY 09/25/24 09/25/24 History release 24 hr nifedipine 60 mg tablet,extended 60 mg PO DAILY 09/25/24 09/25/24 History release 24 hr Allergies Allergy/AdvReac Type Severity Reaction Status Date / Time No Known Allergies Allergy Verified 09/25/24 13:52 Vital Signs Vital Signs - 24 hr 09/25/24 10:04 09/25/24 10:14 09/25/24 10:32 Temperature 97.6 F Pulse Rate 99 91 Respiratory Rate 20 15 Blood Pressure 179/94 H Pulse Oximetry 95 99 Oxygen Delivery Room Air 09/25/24 10:36 09/25/24 10:45 09/25/24 11:04 Temperature Pulse Rate 91 85 95 Respiratory Rate 25 H 15 15 Blood Pressure 173/87 H Pulse Oximetry 96 Oxygen Delivery 09/25/24 11:15 09/25/24 11:24 09/25/24 11:32 Temperature Pulse Rate 104 H 107 H 88 Respiratory Rate 12 20 22 H Blood Pressure 161/98 H 114/55 L Pulse Oximetry 96 100 96 Oxygen Delivery 09/25/24 11:38 09/25/24 11:46 Temperature Pulse Rate 89 102 H Respiratory Rate 16 11 L Blood Pressure 133/73 133/90 Pulse Oximetry 99 95 Oxygen Delivery H&P: Results Labs Labs: Short CBC 09/25/24 Range/Units 10:35 WBC 9.9 (4.5-10.0) K/mm3 Hgb 13.2 (12.0-15.0) g/dL Hct 43.5 (37.0-47.0) % Plt Count 297 (150-375) k/mm3 BMP 09/25/24 10:35 Sodium 140 Potassium 3.7 Chloride 105 Carbon Dioxide 25 BUN 12 Creatinine 0.63 L Glucose 109 Calcium 9.1 Cardiac Enzymes 09/25/24 Range/Units 10:35 Troponin I < 0.012 (0.000-0.034) ng/mL Liver Function 09/25/24 Range/Units 10:35 Total Bilirubin 0.4 (0.2-1.3) mg/dL AST 31 (14-36) U/L ALT 24 (6-35) U/L Alkaline Phosphatase 97 (38-126) U/L Albumin 4.1 (3.5-5.1) g/dL
--- NOTE | 2024-09-25 13:43 | ADMGEN ---
This patient, Angelica Kruse, was admitted to IMU Room 205-01. Patient/family oriented to hospital policies and general routines including ID bracelet, bed and alarms, visiting hours, pain management, procedures, bathroom and other care routines, personal items, smoking policy, room service/diet, and visiting hours. Information on how to activate the Rapid Response Team has been discussed. Patient/Family are encouraged to report perceived risks to care and to ask questions if they do not understand what they are told or what they should do.
[2024-09-25 13:50] LABS: Troponin I 0.014 ng/mL (0.000-0.034)
--- NOTE | 2024-09-25 14:55 | P.CONCA_ITS ---
Assessment and Plan Assessment and plan (1) Chest pain: Qualifiers: Chest pain type: unspecified Qualified Code(s): R07.9 - Chest pain, unspecified Code(s): R07.9 - Chest pain, unspecified Status: Acute (2) Acute on chronic systolic heart failure: Code(s): I50.23 - Acute on chronic systolic (congestive) heart failure Status: Acute Plan Problem list: -Chest pain-negative troponin, EKG sinus rhythm, PVCs, LVH, nonspecific ST T wave changes in lateral leads, negative cardiac catheterization in 2015 -Acute on chronic systolic heart failure, nonischemic cardiomyopathy (EF 36% in 2015 and 45-50% in 2019)-she has symptoms and signs of heart failure, elevated BNP of 1050 -Hypertension -Obstructive sleep apnea -Morbid obesity status post gastric bypass surgery Plan: -Patient continues to have chest pain which started at rest. Troponin negative. Cardiac catheterization in 2014 showed no obstructive CAD. Per patient she had a recent stress test that was positive. Plan for cardiac catheterization in a.m. tomorrow. Keep NPO at midnight -Give aspirin 81 mg daily -Check FLP and add statin -Continue guideline directed medical therapy for heart failure with metoprolol, lisinopril. Add dapagliflozin 10 mg daily -IV Lasix 40 mg b.i.d. -Check daily weights, ins and outs, renal function -Check and replace electrolytes to keep K greater than 4 and Mg greater than 2 -Neurology consult for left upper and lower extremity paresthesia/numbness, weakness Thank you for allowing us to participate in the care of this patient. Cardiology will continue to follow. History of Present Illness History of Present Illness Consult date/time: 09/25/24 14:55 Reason For Visit: CP/L Sided Weakness Narrative: 49-year-old female with history of nonischemic cardiomyopathy (LVEF of 35% in 2015, 45-50% by echo in 2019), normal coronaries (catheterization in 2014 showed normal coronaries), hypertension, SVT status post ablation, morbid obesity status post gastric bypass surgery, peptic ulcer disease, arthritis, obstructive sleep apnea, asthma presents with chief complaints of left-sided chest pain, left arm numbness. She states that she has chronic shortness of breath and leg swelling off and on which has been worse over the past couple of days. She started having midsternal pressure-like chest pain last night without any radiation but associated with a headache. She went to sleep around midnight and she woke up around 3:00 a.m. to use the restroom at which time she felt paresthesias of her left arm. She woke around 7:00 a.m. this morning with persistent chest pain, persistent paresthesias in her left arm and also felt heaviness in both left arm and leg which prompted her to present to [facility]. She reports some dizziness off and on. She takes her medications regularly. She has no change in diet recently. She has not consumed any spicy foods. No palpitations, presyncope, syncope. Workup: CBC, BMP within normal limits Troponin: Negative BNP: 105 0 EKG: Sinus rhythm with PVCs, LVH, delayed precordial R/S transition, nonspecific ST and T-wave changes in lateral leads Review of Systems 2 Review of Systems: A complete review of systems was performed and negative other than those measures HPI [facility] Past Medical History Medical History (Updated 09/25/24 @ 15:03 by Chiquita Olson MD) SVT (supraventricular tachycardia) Colon cancer screening Abdominal pain Internal hemorrhoid Hx of diverticulitis of colon HAYLEY (iron deficiency anemia) PUD (peptic ulcer disease) Nonischemic cardiomyopathy Arthritis UTI (urinary tract infection) Sleep apnea Asthma HTN (hypertension) History of angina Seasonal allergies CHF (congestive heart failure) Surgical History Surgical History Hx of gastric bypass History of knee surgery Right History of tubal ligation History of cholecystectomy History of cardiac catheterization Family History Family History Father Diabetes mellitus Hypertension Asthma Patient's father is in good health Family history of cardiovascular disease Mother Hypertension Patient's mother is in good health Sibling Patient's sister is in good health Social History Social History Smoking status: Never smoker Alcohol intake: never Substance use: never Substance use type: does not use Do You Feel Safe in your Home?: Yes Lack of Transportation: No Lack of Food: Never True Current Housing: I Have Housing Concerned About Future Housing: No Difficulty Paying Gas/Electric Bills: No Difficulty Paying for Meds: No Currently Unemployed: No Education: High School Diploma/GED Difficulty w/ Childcare or Family Care: No Living arrangements: with family Gender identity (if verbalized by the patient): Female Spiritual care concerns: No Meds Home Medications and Allergies Home Medications ?Medication ?Instructions ?Recorded ?Confirmed ?Type metoprolol succinate 200 mg 200 mg PO DAILY 06/28/19 09/25/24 History tablet,extended release 24 hr albuterol sulfate 90 mcg/actuation 1 puff inhalation DAILY PRN 06/10/20 09/25/24 History aerosol inhaler allergies cyclobenzaprine 10 mg tablet 10 mg PO TID PRN muscle spasm #16 06/10/20 09/25/24 Rx tabs gabapentin 100 mg capsule 300 mg PO TID 06/10/20 09/25/24 History lisinopril 40 mg tablet 40 mg PO DAILY 06/10/20 09/25/24 History ascorbic acid (vitamin C) 500 mg 500 mg PO DAILY 01/17/23 09/25/24 History tablet thiamine HCl (vitamin B1) 50 mg 500 mg PO DAILY 01/17/23 09/25/24 History tablet buspirone 10 mg tablet 20 mg PO DAILY 09/25/24 09/25/24 History calcium 600 mg (as 1 tablet PO DAILY 09/25/24 09/25/24 History carbonate)-vitamin D3 10 mcg (400 unit) tablet hydroxyzine HCl 25 mg tablet 25 mg PO BID 09/25/24 09/25/24 History nifedipine 30 mg tablet,extended 30 mg PO DAILY 09/25/24 09/25/24 History release 24 hr nifedipine 60 mg tablet,extended 60 mg PO DAILY 09/25/24 09/25/24 History release 24 hr Allergies Allergy/AdvReac Type Severity Reaction Status Date / Time No Known Allergies Allergy Verified 09/25/24 13:52 Vital Signs Vital Signs - 24 hr 09/25/24 10:04 09/25/24 10:14 09/25/24 10:32 Temperature 36.4 C Pulse Rate 99 91 Respiratory Rate 20 15 Blood Pressure 179/94 H Pulse Oximetry 95 99 Oxygen Delivery Room Air 09/25/24 10:36 09/25/24 10:45 09/25/24 11:04 Temperature Pulse Rate 91 85 95 Respiratory Rate 25 H 15 15 Blood Pressure 173/87 H Pulse Oximetry 96 Oxygen Delivery 09/25/24 11:15 09/25/24 11:24 09/25/24 11:32 Temperature Pulse Rate 104 H 107 H 88 Respiratory Rate 12 20 22 H Blood Pressure 161/98 H 114/55 L Pulse Oximetry 96 100 96 Oxygen Delivery 09/25/24 11:38 09/25/24 11:46 09/25/24 13:08 Temperature 36.8 C Pulse Rate 89 102 H 86 Respiratory Rate 16 11 L 18 Blood Pressure 133/73 133/90 157/82 H Pulse Oximetry 99 95 98 Oxygen Delivery Exam 2 Narrative: General: Alert oriented x3, no acute distress Neck: Supple, JVD + Chest: Bilaterally clear to auscultation, no rales or rhonchi Cardiac: S1, S2 +, regular rate, regular rhythm, no murmurs or rubs Extremities: Bilateral lower extremity edema 1+, no skin rash Neurologic: Alert and oriented x3, no focal neurological deficits Results Labs and Meds 09/25/24 10:35 09/25/24 10:35 Lab results: Cardiac Enzymes 09/25/24 09/25/24 Range/Units 10:35 13:20 AST 31 (14-36) U/L Troponin I < 0.012 0.014 (0.000-0.034) ng/mL Coagulation 09/25/24 Range/Units 10:35 PT 13.5 (11.1-14.7) Seconds APTT 29.0 (22.3-36.8) Seconds CBC 09/25/24 Range/Units 10:35 WBC 9.9 (4.5-10.0) K/mm3 RBC 5.21 (4.2-5.4) M/mm3 Hgb 13.2 (12.0-15.0) g/dL Hct 43.5 (37.0-47.0) % Plt Count 297 (150-375) k/mm3 Lymph # (Auto) 3.62 H (0.9-3.2) K/mm3 Ness # (Auto) 0.6 (0.1-0.6) K/mm3 Eos # (Auto) 0.2 (0-0.3) K/mm3 Baso # (Auto) 0.1 (0.0-0.1) K/mm3 Comprehensive Metabolic Panel 09/25/24 Range/Units 10:35 Sodium 140 (137-145) mmol/L Potassium 3.7 (3.4-5.0) mmol/L Chloride 105 (98-107) mmol/L Carbon Dioxide 25 (22-30) mmol/L BUN 12 (7-17) mg/dL Creatinine 0.63 L (0.7-1.0) mg/dL Glucose 109 (65-110) mg/dL Calcium 9.1 (8.4-10.2) mg/dL AST 31 (14-36) U/L ALT 24 (6-35) U/L Alkaline Phosphatase 97 (38-126) U/L Total Protein 8.1 (6.3-8.2) g/dL Albumin 4.1 (3.5-5.1) g/dL Patient Weight 09/25/24 23:59 Weight 109.2 kg
--- NOTE | 2024-09-25 16:08 | PM.IMHP ---
H&P: HPI History of Present Illness Date/Time: 09/25/24 16:08 Chief Complaint: chest pain and left sided weakness Narrative: 50-year-old female past medical history of CHF, no shortness her, hypertension and asthma presented to the ER on account of chest pain left-sided weakness and numbness. Patient reported she has been having intermittent chest which she described as heaviness left-sided associated shortness of breath worse with exertion and relieved with rest. Noted at the episode was worse yesterday. Also reported that she has followed up with a press pipe inspector and a stress test done which was positive she is scheduled for cardiac catheterization on of next month. However she went to bed at about 12:00 a.m. last night will call my 3:00 a.m. noticed left-sided weakness numbness which began at presented to ER for proper evaluation and care. Denies any vomiting abdominal pain no diarrhea no dysuria no loss of consciousness. ER evaluation notable for blood pressure 179/94, saturation 95% on air. Labs notable for NT proBNP 1050, troponin ordered unremarkable Chest x-ray showed atelectasis CT head CTA unremarkable. Neurology and Cardiology were consulted prior to admission. Patient noted that left-sided weakness and numbness resolved at about 2:30 p.m. today Review of Systems Review of Systems: All other systems reviewed and negative except as noted in the history above. [facility], [facility] Past Medical History Medical History (Updated 09/25/24 @ 15:03 by Chiquita Olson MD) SVT (supraventricular tachycardia) Colon cancer screening Abdominal pain Internal hemorrhoid Hx of diverticulitis of colon HAYLEY (iron deficiency anemia) PUD (peptic ulcer disease) Nonischemic cardiomyopathy Arthritis UTI (urinary tract infection) Sleep apnea Asthma HTN (hypertension) History of angina Seasonal allergies CHF (congestive heart failure) Surgical History Surgical History Hx of gastric bypass History of knee surgery Right History of tubal ligation History of cholecystectomy History of cardiac catheterization Family History Family History Father Diabetes mellitus Hypertension Asthma Patient's father is in good health Family history of cardiovascular disease Mother Hypertension Patient's mother is in good health Sibling Patient's sister is in good health Social History Social History Smoking status: Never smoker Alcohol intake: never Substance use: never Substance use type: does not use Do You Feel Safe in your Home?: Yes Lack of Transportation: No Lack of Food: Never True Current Housing: I Have Housing Concerned About Future Housing: No Difficulty Paying Gas/Electric Bills: No Difficulty Paying for Meds: No Currently Unemployed: No Education: High School Diploma/GED Difficulty w/ Childcare or Family Care: No Living arrangements: with family Gender identity (if verbalized by the patient): Female Spiritual care concerns: No Meds Home Medications and Allergies Home Medications ?Medication ?Instructions ?Recorded ?Confirmed ?Type metoprolol succinate 200 mg 200 mg PO DAILY 06/28/19 09/25/24 History tablet,extended release 24 hr albuterol sulfate 90 mcg/actuation 1 puff inhalation DAILY PRN 06/10/20 09/25/24 History aerosol inhaler allergies cyclobenzaprine 10 mg tablet 10 mg PO TID PRN muscle spasm #16 06/10/20 09/25/24 Rx tabs gabapentin 100 mg capsule 300 mg PO TID 06/10/20 09/25/24 History lisinopril 40 mg tablet 40 mg PO DAILY 06/10/20 09/25/24 History ascorbic acid (vitamin C) 500 mg 500 mg PO DAILY 01/17/23 09/25/24 History tablet thiamine HCl (vitamin B1) 50 mg 500 mg PO DAILY 01/17/23 09/25/24 History tablet buspirone 10 mg tablet 20 mg PO DAILY 09/25/24 09/25/24 History calcium 600 mg (as 1 tablet PO DAILY 09/25/24 09/25/24 History carbonate)-vitamin D3 10 mcg (400 unit) tablet hydroxyzine HCl 25 mg tablet 25 mg PO BID 09/25/24 09/25/24 History nifedipine 30 mg tablet,extended 30 mg PO DAILY 09/25/24 09/25/24 History release 24 hr nifedipine 60 mg tablet,extended 60 mg PO DAILY 09/25/24 09/25/24 History release 24 hr Allergies Allergy/AdvReac Type Severity Reaction Status Date / Time No Known Allergies Allergy Verified 09/25/24 13:52 Vital Signs Vital Signs - 24 hr 09/25/24 10:04 09/25/24 10:14 09/25/24 10:32 Temperature 97.6 F Pulse Rate 99 91 Respiratory Rate 20 15 Blood Pressure 179/94 H Pulse Oximetry 95 99 Oxygen Delivery Room Air 09/25/24 10:36 09/25/24 10:45 09/25/24 11:04 Temperature Pulse Rate 91 85 95 Respiratory Rate 25 H 15 15 Blood Pressure 173/87 H Pulse Oximetry 96 Oxygen Delivery 09/25/24 11:15 09/25/24 11:24 09/25/24 11:32 Temperature Pulse Rate 104 H 107 H 88 Respiratory Rate 12 20 22 H Blood Pressure 161/98 H 114/55 L Pulse Oximetry 96 100 96 Oxygen Delivery 09/25/24 11:38 09/25/24 11:46 09/25/24 13:08 Temperature 98.3 F Pulse Rate 89 102 H 86 Respiratory Rate 16 11 L 18 Blood Pressure 133/73 133/90 157/82 H Pulse Oximetry 99 95 98 Oxygen Delivery Exam Narrative: General: alert and comfortable Eyes: EOMI, PERRLA ENNT External ears normal, Neck is supple, no masses, Respiratory systems: Clear to auscultation Cardiovascular S1, S2, normal rhythm, no murmur, rub, or gallop; no thrill or palpable murmurs on palpation. Gastrointestinal: soft, non-tender, and non-distended abdomen with no masses; BS present Skin: no rash, lesions, ulcerations, subcutaneous nodules or induration Musculoskeletal: no abnormality and no tenderness, normal ROM Neurologic: Alert and oriented x3, non focal Mental Status Exam: normal affect H&P: Results Labs Labs: Short CBC 09/25/24 Range/Units 10:35 WBC 9.9 (4.5-10.0) K/mm3 Hgb 13.2 (12.0-15.0) g/dL Hct 43.5 (37.0-47.0) % Plt Count 297 (150-375) k/mm3 BMP 09/25/24 10:35 Sodium 140 Potassium 3.7 Chloride 105 Carbon Dioxide 25 BUN 12 Creatinine 0.63 L Glucose 109 Calcium 9.1 Cardiac Enzymes 09/25/24 09/25/24 Range/Units 10:35 13:20 Troponin I < 0.012 0.014 (0.000-0.034) ng/mL Liver Function 09/25/24 Range/Units 10:35 Total Bilirubin 0.4 (0.2-1.3) mg/dL AST 31 (14-36) U/L ALT 24 (6-35) U/L Alkaline Phosphatase 97 (38-126) U/L Albumin 4.1 (3.5-5.1) g/dL Assessment and Plan Assessment and plan (1) Chest pain: Qualifiers: Chest pain type: unspecified Qualified Code(s): R07.9 - Chest pain, unspecified Code(s): R07.9 - Chest pain, unspecified Status: Acute (2) Obstructive sleep apnea: Code(s): G47.33 - Obstructive sleep apnea (adult) (pediatric) Status: Acute (3) Left leg paresthesias: Code(s): R20.2 - Paresthesia of skin Status: Acute Plan Left-sided weakness and numbness Resolved Last normal was 12:00 a.m., patient woke up at 3:00 a.m. with symptoms Symptoms have resolved about 2:[address] head CTA head and neck unremarkable. MRI brain, echo, panel and A1c ordered next start aspirin and Lipitor neurology consulted. PT OT/ST consulted Chest pain Patient noted she had positive stress test outpatient with her press pipe inspector and was scheduled for cardiac cath on October 17 However noted that her chest pain has been getting worse Symptoms described typical chest pain pattern per HPI above A1c, Lipid panel, ECHO ASpirin, Lipitor and MEtorpolol Cardiology following CHF continue home meds f/u ECHO HTN Continue home medications and adjust with clinical course ASthma PRN Duoneb continue home meds DBT prophylaxis on Sq Lovenox Full code SDM Daughter Rosalina Benites Hospitalist MIPS Advance Care Plan I have confirmed that the patient's Advanced Care Plan is present, code status is documented, or surrogate decision maker is listed in patient medical record.: Yes Medication Reconciliation I have utilized all available resources to obtain, update and review the patients current medications (includes all prescriptions, OTC, herbals, cannabis, and nutritional supplements).: Yes
[2024-09-25 16:40] LABS: Magnesium 1.9 mg/dL (1.6-2.3)
[2024-09-25 17:03] LABS: Troponin I < 0.012 ng/mL (0.000-0.034)
[2024-09-25] MEDS: ACETAMINOPHEN 325 MG TABLET 650 MG PO (18:37)
--- NOTE | 2024-09-25 19:44 | PC.NURSE ---
Pippa Engle NP was notified regarding the patient's med list, which apparently was not correct per the day RN. Day RN notified Whitney FERNANDEZ and Daphne FERNANDEZ on day shift per report. Pippa verbalized that she would take a look.
--- NOTE | 2024-09-25 20:44 | ECG_ITS ---
Test Date: 2024-09-25 21:03:40 Measurements Intervals [place] Rate: 75 P: -24 SD: 173 QRS: -26 QRSD: 110 T: 151 QT: 388 QTc: 434 Interpretive Statements SINUS RHYTHM LEFT VENTRICULAR HYPERTROPHY AND ST-T CHANGE BORDERLINE T WAVE ABNORMALITY- ANTERIOR LEADS BASELINE ARTIFACT- I, III, AVL BORDERLINE ECG Compared to ECG 09/25/2024 10:08:55 NO SIGNIFICANT CHANGE Electronically Signed On 09-26-2024 07:12:30 CDT by Chano Camarena D.O.
[2024-09-25] MEDS: GABAPENTIN 300 MG CAPSULE PO (21:10)
[2024-09-25] MEDS: hydrOXYzine HCL 25 MG TABLET PO (21:10)
[2024-09-25] MEDS: busPIRone HCL 10 MG TABLET PO (21:10)
[2024-09-25] MEDS: ENOXAPARIN 120 MG/0.8 ML SYRINGE 109 MG SUB-Q (21:10)
[2024-09-26] VITALS (29 sets, daily range): BP systolic 104–166; BP diastolic 62–96; PULSE 63–87; RESP 12–20; TEMP 36.2–36.8; O2SAT 92–100
[2024-09-26 04:17] LABS: Basophils Absolute Auto 0.1 K/mm3 (0.0-0.1); Basophils Percent Auto 0.7 % (0.2-1.2); Eosinophils Absolute Auto 0.2 K/mm3 (0-0.3); Hematocrit 37.3 % (37.0-47.0); Hemoglobin 11.6 g/dL (12.0-15.0); Immature Granulocyte Absolute 0.01 K/mm3 (0.00-0.031); Immature Granulocyte Percent A 0.1 % (0-0.5); Lymphocytes Absolute Auto 2.75 K/mm3 (0.9-3.2); Lymphocytes Percent Auto 37.7 % (18.3-44.2); Mean Corpuscular HGB Conc 31.1 g/dl (32-36); Mean Corpuscular Hemoglobin 26.2 pg (26-34); Mean Corpuscular Volume 84.2 fl (80-100); Mean Platelet Volume 11.2 fl (7.4-10.4); Monocytes Absolute Auto 0.5 K/mm3 (0.1-0.6); Monocytes Percent Auto 6.4 % (2.6-8.5); Neutrophils Absolute Auto 3.8 K/mm3 (1.3-6.7); Neutrophils Percent Auto 52.1 % (45.5-73.1); Platelet Count Result 227 k/mm3 (150-375); Red Blood Count 4.43 M/mm3 (4.2-5.4); White Blood Count 7.3 K/mm3 (4.5-10.0)
[2024-09-26 04:37] LABS: Alanine Aminotransferase 20 U/L (6-35); Albumin Level 3.4 g/dL (3.5-5.1); Alkaline Phosphatase 80 U/L (38-126); Anion Gap 4 mmol/L (4-12); Aspartate Amino Transferase 25 U/L (14-36); Bilirubin,Total 0.2 mg/dL (0.2-1.3); Blood Urea Nitrogen 14 mg/dL (7-17); Carbon Dioxide 28 mmol/L (22-30); Chloride 107 mmol/L (98-107); Cholesterol 199 mg/dL (0-200); Estimated CRCL calculation 114 ml/min; Estimated Glomerular Filt Rate > 60; Glucose 97 mg/dL (65-110); HDL Direct 60 mg/dL; Hemoglobin A1C 5.8 % (<5.7); Magnesium 2.1 mg/dL (1.6-2.3); Potassium 3.7 mmol/L (3.4-5.0); Sodium 139 mmol/L (137-145); Total Protein 6.6 g/dL (6.3-8.2); Triglycerides 108 mg/dL (<150)
[2024-09-26 04:46] LABS: LDL Cholesterol Direct 95 mg/dL; Troponin I < 0.012 ng/mL (0.000-0.034)
--- NOTE | 2024-09-26 06:00 | ECHO_ITS ---
Patient Info Name: Angelica Kruse Age: 49 years : 1975 Gender: Female Ht: 63 in Wt: 240 lbs BSA: 2.26 m2 HR: 65 bpm BP: 130 / 65 mmHg Heart Rhythm: Sinus Rhythm Technical Quality: Fair Exam Date: 09/26/2024 3:19 PM Patient Status: O Admit Date: 09/25/2024 Exam Type: CA echo dop bubble study w con Complete two-dimentional, color flow and Doppler transthoracic echocardiogram is performed with agitated saline and with contrast to opacify the left ventricle and to improve the delineation of the left ventricle endocardial borders. Staff Referring Physician: Brenton Serna Printed Circuit Designer: Katrina Hensley Attending Provider: Brenton Serna Contrast/Agitated Saline Contrast/Ag. Saline: Definity Amount: 2.00 ml Administered By: Katrina Hensley Existing IV Access: Yes IV Access Condition: patent with no signs of infiltration Contrast/Ag. Saline: Agitated Saline Amount: 10.00 ml Summary 1. Left ventricular dilation with moderate to severe global systolic dysfunction ejection fraction visually estimated at 30-35%. 2. Mildly enlarged left atrium. 3. Moderate to severe aortic valve regurgitation. 4. Saline contrast injection negative for shunt. Left Ventricle Left ventricular chamber dimension is moderately enlarged. Left ventricular systolic function is severely reduced, estimated at 30-35. The left ventricular diastolic function is normal. Right Ventricle Right ventricular chamber dimension is normal. Left Atria Left atrial chamber dimension is mildly enlarged. Right Atria Right atrial chamber dimension is normal. Aortic Valve The aortic valve is trileaflet. There is moderate to severe aortic valve regurgitation. Pulmonic Valve The pulmonic valve is normal. Mitral Valve The mitral valve has normal leaflets. There is trace mitral valve regurgitation. Tricuspid Valve The tricuspid valve leaflets are normal. Pericardium/Pleural The pericardium appears normal. Aorta The aortic root size at the sinus of Valsalva is normal. Left Ventricular Outflow Tract Name Value Normal LVOT 2D LVOT Diameter 2.0 cm LVOT Doppler LVOT Peak Velocity 98 cm/s LVOT Peak Gradient 4 mmHg LVOT Mean Gradient 3 mmHg LVOT VTI 19 cm LVOT VTI/AV VTI Ratio 0.5 LVOT Stroke Volume 62 ml LVOT CO 4.0 l/min LVOT CI 1.8 l/min/m2 Pulmonic Valve Name Value Normal RVOT Doppler RVOT Peak Velocity 67 cm/s RVOT Peak Gradient 2 mmHg PV Doppler PV Peak Velocity 76 cm/s PV Peak Gradient 2 mmHg Mitral Valve Name Value Normal MV Diastolic Function MV E Peak Velocity 57 cm/s MV A Peak Velocity 73 cm/s MV E/A 0.8 MV Decel Time (PW) 250 ms MV Annular TDI MV E/e' (Septal) 12.6 MV E/e' (Lateral) 18.5 MV E/e' (Average) 15.6 Tricuspid Valve Name Value Normal TV Regurgitation Doppler TR Peak Velocity 302 cm/s TR Peak Gradient 29 mmHg Aortic Valve Name Value Normal AV Doppler AV Peak Velocity 194 cm/s AV Peak Gradient 15 mmHg AV Mean Gradient 8 mmHg AV VTI 38 cm AV Area (Cont Eq VTI) 1.6 cm2 >=3.0 AV Area (Cont Eq Zeferino) 1.6 cm2 AV DI (Zeferino) 0.51 AV Regurgitation 2D LVOT Area 3.2 cm2 Ventricles Name Value Normal LV Dimensions 2D/MM IVS Diastolic Thickness (2D) 1.0 cm 0.6-1.0 LVID Diastole (2D) 6.0 cm 3.8-5.2 LVIW Diastolic Thickness (2D) 1.4 cm 0.6-0.9 LVID Systole (2D) 4.8 cm 2.2-3.5 LVOT Diameter 2.0 cm LV Mass (2D Cubed) 317.88 g 67.00-162.00 LV Mass Index (2D Cubed) 141 g/m2 43-95 Relative Wall Thickness (2D) 0.48 <=0.42 LV Fractional Shortening/Ejection Fraction 2D/MM LV Fractional Shortening (2D) 19 % 27-45 LV EF (2D Teichholz) 39 % LV Diastolic Volume (4C MOD) 191 ml LV EF (4C MOD) 10 % LV Diastolic Volume (2C MOD) 141 ml LV EF (2C MOD) 43 % LV Diastolic Volume (BP MOD) 172 ml 46-106 LV Diastolic Volume Index (BP MOD) 76 ml/m2 29-61 LV Systolic Volume (BP MOD) 120 ml 14-42 LV Systolic Volume Index (BP MOD) 53 ml/m2 8-24 LV EF (BP MOD) 30 % 54-74 LV Diastolic Length (4C) 9.1 cm LV Systolic Length (4C) 8.5 cm LV Stroke Volume (4C MOD) 20 ml Atria Name Value Normal LA Dimensions LA Volume (4C A-L) 68 ml LA Volume (BP A-L) 69 ml RA Dimensions RA Systolic Major [place] Length (4C) 4.7 cm 2.2-2.8 RA Area (4C) 12.8 cm2 <=18.0 Report Signatures
[2024-09-26] MEDS: GABAPENTIN 300 MG CAPSULE PO ×3 (08:23→20:59)
[2024-09-26] MEDS: lisinopriL 20 MG TABLET 40 MG PO (08:23)
[2024-09-26] MEDS: ASPIRIN 81 MG ENTERIC TABLET PO (08:23)
[2024-09-26] MEDS: busPIRone HCL 10 MG TABLET PO ×2 (08:31→21:00)
[2024-09-26] MEDS: ATORVASTATIN 40 MG TABLET PO (08:43)
--- NOTE | 2024-09-26 09:14 | P.PNIM_ITS ---
Progress Note: A&P Assessment and Plan (1) Chest pain: Qualifiers: Chest pain type: unspecified Qualified Code(s): R07.9 - Chest pain, unspecified Code(s): R07.9 - Chest pain, unspecified Status: Acute Assessment and Plan: Continue current treatment and anticoagulation. Cardiology consult. Possible catheterization today (2) Obstructive sleep apnea: Code(s): G47.33 - Obstructive sleep apnea (adult) (pediatric) Status: Acute Assessment and Plan: Stable on current medication will continue current treatment. (3) Left leg paresthesias: Code(s): R20.2 - Paresthesia of skin Status: Acute Assessment and Plan: Stable, continue current treatment. Plan Left-sided weakness and numbness Resolved Last normal was 12:00 a.m., patient woke up at 3:00 a.m. with symptoms Symptoms have resolved about 2:[address] head CTA head and neck unremarkable. MRI brain, echo, panel and A1c ordered next start aspirin and Lipitor neurology consulted. 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 No chest pain at present. No sob. No abdominal pain. Review of Systems Review of Systems: All other systems reviewed and negative except as noted in the history above. Exam Narrative: General: alert and comfortable Eyes: EOMI, PERRLA ENNT External ears normal, Neck is supple, no masses, Respiratory systems: Clear to auscultation Cardiovascular S1, S2, normal rhythm, no murmur, rub, or gallop; no thrill or palpable murmurs on palpation. Gastrointestinal: soft, non-tender, and non-distended abdomen with no masses; BS present Skin: no rash, lesions, ulcerations, subcutaneous nodules or induration Musculoskeletal: no abnormality and no tenderness, normal ROM Neurologic: Alert and oriented x3, non focal Mental Status Exam: normal affect Objective Data Vital Signs Vital Signs: Vital Signs - 24 hr 09/25/24 10:04 09/25/24 10:14 09/25/24 10:32 Temperature 36.4 C Pulse Rate 99 91 Respiratory Rate 20 15 Blood Pressure 179/94 H Pulse Oximetry 95 99 Oxygen Delivery Room Air Oxygen Flow Rate Fraction of Inspired Oxygen 09/25/24 10:36 09/25/24 10:45 09/25/24 11:04 Temperature Pulse Rate 91 85 95 Respiratory Rate 25 H 15 15 Blood Pressure 173/87 H Pulse Oximetry 96 Oxygen Delivery Oxygen Flow Rate Fraction of Inspired Oxygen 09/25/24 11:15 09/25/24 11:24 09/25/24 11:32 Temperature Pulse Rate 104 H 107 H 88 Respiratory Rate 12 20 22 H Blood Pressure 161/98 H 114/55 L Pulse Oximetry 96 100 96 Oxygen Delivery Oxygen Flow Rate Fraction of Inspired Oxygen 09/25/24 11:38 09/25/24 11:46 09/25/24 13:08 Temperature 36.8 C Pulse Rate 89 102 H 86 Respiratory Rate 16 11 L 18 Blood Pressure 133/73 133/90 157/82 H Pulse Oximetry 99 95 98 Oxygen Delivery Oxygen Flow Rate Fraction of Inspired Oxygen 09/25/24 14:00 09/25/24 16:00 09/25/24 16:00 Temperature Pulse Rate 70 77 Respiratory Rate Blood Pressure Pulse Oximetry Oxygen Delivery Room Air Oxygen Flow Rate Fraction of Inspired Oxygen 09/25/24 18:00 09/25/24 20:00 09/25/24 20:00 Temperature 36.8 C Pulse Rate 71 80 Respiratory Rate 18 Blood Pressure 135/71 Pulse Oximetry 98 Oxygen Delivery Room Air Oxygen Flow Rate Fraction of Inspired Oxygen 09/25/24 20:00 09/25/24 20:01 09/25/24 22:00 Temperature Pulse Rate 77 72 67 Respiratory Rate 20 Blood Pressure Pulse Oximetry 93 Oxygen Delivery Room Air Oxygen Flow Rate Fraction of Inspired Oxygen 21 09/25/24 23:38 09/26/24 00:00 09/26/24 00:00 Temperature 36.8 C Pulse Rate 69 68 Respiratory Rate 18 Blood Pressure 129/62 Pulse Oximetry 98 100 Oxygen Delivery Nasal Cannula Oxygen Flow Rate 2 Fraction of Inspired Oxygen 09/26/24 01:10 09/26/24 02:00 09/26/24 04:00 Temperature 36.7 C Pulse Rate 64 87 65 Respiratory Rate 20 18 Blood Pressure 130/65 Pulse Oximetry 92 100 Oxygen Delivery Nasal Cannula Oxygen Flow Rate 1 Fraction of Inspired Oxygen 24 09/26/24 04:00 09/26/24 04:00 09/26/24 06:00 Temperature Pulse Rate 75 75 Respiratory Rate Blood Pressure Pulse Oximetry 100 Oxygen Delivery Nasal Cannula Oxygen Flow Rate 2 Fraction of Inspired Oxygen 09/26/24 07:49 Temperature 36.6 C Pulse Rate 72 Respiratory Rate 20 Blood Pressure 139/63 Pulse Oximetry 98 Oxygen Delivery Oxygen Flow Rate Fraction of Inspired Oxygen Intake/Output Intake/Output: Intake & Output 09/23/24 09/24/24 09/25/24 09/26/24 23:59 23:59 23:59 23:59 Intake Total 240 Balance 240 Meds/Results Medications: Active Medications Generic Name Dose Route Start Last Admin Trade Name Freq PRN Reason Stop Dose Admin Acetaminophen 650 mg 09/25/24 18:21 09/25/24 18:37 Acetaminophen 325 Mg Tablet PO 650 mg ONCE PRN Administration Mild Pain (1-3) Albuterol 1 puff 09/25/24 16:06 Albuterol Sulfate (*Sp) Aerosol 1 Puff INHALATION DAILY PRN allergies Aspirin 81 mg 09/26/24 09:00 09/26/24 08:23 Aspirin 81 Mg Enteric Tablet PO 81 mg QAM MARY Administration Atorvastatin Calcium 40 mg 09/26/24 09:00 09/26/24 08:43 Atorvastatin 40 Mg Tablet PO 40 mg DAILY MARY Administration Buspirone HCl 10 mg 09/25/24 21:00 09/26/24 08:31 Buspirone Hcl 10 Mg Tablet PO 10 mg Q12HR MARY Administration Dextrose 12.5 gm 09/25/24 11:42 Dextrose 50% 25 Gm/50 Ml Syringe IV PUSH PRN PRN Hypoglycemia Protocol Enoxaparin Sodium 40 mg 09/26/24 09:00 Enoxaparin 40 Mg/0.4 Ml Syringe SUB-Q DAILY MARY Enoxaparin Sodium 109 mg 09/25/24 21:00 09/26/24 08:07 Enoxaparin 120 Mg/0.8 Ml Syringe SUB-Q Not Given Q12HR MARY Gabapentin 300 mg 09/25/24 20:55 09/26/24 08:23 Gabapentin 300 Mg Capsule PO 300 mg TID MARY Administration Glucagon 1 mg 09/25/24 11:42 Glucagon For Inj 1 Mg Vial IM PRN PRN Hypoglycemia Protocol Glucose 15 gm 09/25/24 11:42 Glucose Oral Gel 15 Gm Of Glucse In 37.5 Gm Tube PO PRN PRN Hypoglycemia Protocol Hydroxyzine HCl 25 mg 09/25/24 20:55 09/25/24 21:10 Hydroxyzine Hcl 25 Mg Tablet PO 25 mg TID MARY Administration Dextrose 1,000 mls @ 100 mls/hr 09/25/24 11:42 Dextrose 5% 1,000 Ml IVPB PRN PRN Hypoglycemia Protocol Lisinopril 40 mg 09/26/24 09:00 09/26/24 08:23 Lisinopril 20 Mg Tablet PO 40 mg DAILY COUNT INCLUDES THE [facility] Administration Metoprolol Succinate 200 mg 09/26/24 09:00 Metoprolol Succinate Ext Rel 100 Mg Tabcr PO DAILY COUNT INCLUDES THE [facility] Morphine Sulfate 2 mg 09/25/24 20:44 Morphine Sulfate (*Crx) 2 Mg/Ml Inj IV PUSH Q5M PRN Pain Rated 4-6 Nitroglycerin 0.4 mg 09/25/24 11:42 09/25/24 20:15 Nitroglycerin Sl 0.4 Mg Tablet SUBLINGUAL 0.4 mg Q5MIN PRN Administration Chest Pain Ondansetron HCl 4 mg 09/25/24 11:42 Ondansetron Inj 4 Mg/2 Ml Vial IV PUSH Q4H PRN Nausea Perflutren Lipid Microsphere 0 ml 09/25/24 11:52 Perflutren Lipid Microspheres 1.5 Ml Vial Diluted To 10 Ml Total Volume IV PUSH 09/28/24 11:53 ONCE PRN adequate visualization Protocol Perflutren Lipid Microsphere 0 ml 09/25/24 16:05 Perflutren Lipid Microspheres 1.5 Ml Vial Diluted To 10 Ml Total Volume IV PUSH 09/28/24 16:05 ONCE PRN adequate visualization Protocol Thiamine HCl 500 mg 09/26/24 09:00 Thiamine Hcl 100 Mg Tablet PO DAILY COUNT INCLUDES THE [facility] Radiology Results: ITS Impressions Head CT 09/25/24 10:32 Impression: No significant abnormality seen. Case discussed with Dr. Gaming at 10:32 AM on 09/25/2024. Head/Neck CTA 09/25/24 10:33 Impression: No significant abnormality seen. Chest X-Ray 09/25/24 11:27 IMPRESSION: Prominent markings in the lower lobes which may indicate atelectasis versus pneumonia. Labs Labs: Laboratory Results - last 24 hr 09/25/24 09/25/24 09/25/24 10:13 10:35 11:26 WBC 9.9 RBC 5.21 Hgb 13.2 Hct 43.5 MCV 83.5 MCH 25.3 L MCHC 30.3 L RDW 15.9 H Plt Count 297 MPV 11.4 H Immature Gran % (Auto) 0.1 Neut % (Auto) 54.9 Lymph % (Auto) 36.5 [place] % (Auto) 5.9 Eos % (Auto) 2.1 Baso % (Auto) 0.5 Lymph # (Auto) 3.62 H [place] # (Auto) 0.6 Eos # (Auto) 0.2 Baso # (Auto) 0.1 Abs Immat Gran (auto) 0.01 Absolute Neuts (auto) 5.4 Absolute Nucleated RBC 0.000 Nucleated RBC % 0.0 PT 13.5 INR 1.0 APTT 29.0 Sodium 140 Potassium 3.7 Chloride 105 Carbon Dioxide 25 Anion Gap 10 BUN 12 Creatinine 0.63 L Estim Creat Clear Calc 107 Estimated GFR > 60 Glucose 109 POC Capillary Glucose 107 H Hemoglobin A1c Calcium 9.1 Magnesium Total Bilirubin 0.4 AST 31 ALT 24 Alkaline Phosphatase 97 Troponin I < 0.012 NT-Pro-B Natriuret Pep 1050 H Total Protein 8.1 Albumin 4.1 Triglycerides Cholesterol LDL Cholesterol Direct HDL Direct Lipase 93 POC Urine HCG, Qual Negative 09/25/24 09/25/24 09/26/24 13:20 16:17 04:04 WBC 7.3 RBC 4.43 Hgb 11.6 L Hct 37.3 MCV 84.2 MCH 26.2 MCHC 31.1 L RDW 16.0 H Plt Count 227 MPV 11.2 H Immature Gran % (Auto) 0.1 Neut % (Auto) 52.1 Lymph % (Auto) 37.7 [place] % (Auto) 6.4 Eos % (Auto) 3.0 Baso % (Auto) 0.7 Lymph # (Auto) 2.75 [place] # (Auto) 0.5 Eos # (Auto) 0.2 Baso # (Auto) 0.1 Abs Immat Gran (auto) 0.01 Absolute Neuts (auto) 3.8 Absolute Nucleated RBC 0.000 Nucleated RBC % 0.0 PT INR APTT Sodium 139 Potassium 3.7 Chloride 107 Carbon Dioxide 28 Anion Gap 4 BUN 14 Creatinine 0.59 L Estim Creat Clear Calc 114 Estimated GFR > 60 Glucose 97 POC Capillary Glucose Hemoglobin A1c 5.8 H Calcium 9.0 Magnesium 1.9 2.1 Total Bilirubin 0.2 AST 25 ALT 20 Alkaline Phosphatase 80 Troponin I 0.014 < 0.012 < 0.012 NT-Pro-B Natriuret Pep Total Protein 6.6 Albumin 3.4 L Triglycerides 108 Cholesterol 199 LDL Cholesterol Direct 95 HDL Direct 60 Lipase POC Urine HCG, Qual
--- NOTE | 2024-09-26 09:26 | P.PNCA_ITS ---
Progress Note: A&P Assessment and Plan (1) Acute on chronic systolic heart failure: Code(s): I50.23 - Acute on chronic systolic (congestive) heart failure Status: Acute (2) Chest pain: Qualifiers: Chest pain type: unspecified Qualified Code(s): R07.9 - Chest pain, unspecified Code(s): R07.9 - Chest pain, unspecified Status: Acute Plan Problem list: -Chest pain: --------negative troponin-ACS ruled --------EKG sinus rhythm, PVCs, LVH, nonspecific ST T wave changes in lateral leads --------cardiac catheterization in 2014 was negative for any obstructive CAD --------outpatient stress MPS in 07/2024: -Acute on chronic systolic heart failure, nonischemic cardiomyopathy (EF 36% in 2014 and 45-50% in 2019)-she has symptoms and signs of heart failure, elevated BNP of 1050 -Hypertension -Obstructive sleep apnea -Morbid obesity status post gastric bypass surgery Plan: -patient had an episode of chest pain this morning of intensity for over 10 -Plan for cardiac catheterization this morning. Risks and benefits of procedure discussed with patient in detail. She is willing to proceed. She has been NPO since midnight -Continue aspirin 81 mg daily -Continue statin -Continue guideline directed medical therapy for heart failure with metoprolol. Hold lisinopril prior to cardiac cath and resume after catheterization. Add empagliflozin 10 mg daily -Diuresis with IV Lasix 40 mg b.i.d. Hold Lasix prior to cardiac cat heterization. Will resume after catheterization -Check daily weights, ins and outs, renal function -Check and replace electrolytes to keep K greater than 4 and Mg greater than 2 Thank you for allowing us to participate in the care of this patient. Cardiology will continue to follow. Subjective Date/time seen: 09/26/24 09:26 Interval history: Reason for the encounter: CCS class 4 angina, Acute on chronic systolic heart failure Relevant history: 49-year-old female with history of nonischemic cardiomyopathy (LVEF of 35% in 2015, 45-50% by echo in 2019), normal coronaries (catheterization in 2015 showed normal coronaries), hypertension, SVT status post ablation, morbid obesity status post gastric bypass surgery, peptic ulcer disease, arthritis, obstructive sleep apnea, asthma presents with chief complaints of left-sided chest pain, left arm numbness. She states that she has chronic shortness of breath and leg swelling off and on which has been worse over the past couple of days. She started having midsternal pressure-like chest pain the night prior to admission without any radiation but associated with a headache. She went to sleep around midnight and she woke up around 3:00 a.m. to use the restroom at which time she felt paresthesias of her left arm. She woke around 7:00 a.m. this morning with persistent chest pain, persistent paresthesias in her left arm and also felt heaviness in both left arm and leg which prompted her to present to [facility]. She reports some dizziness off and on. She takes her medications regularly. She has no change in diet recently. She has not consumed any spicy foods. No palpitations, presyncope, syncope. She had a positive stress test in July of 2023 and was scheduled to undergo a cardiac catheterization in October of 2024. Workup: CBC, BMP within normal limits Troponin: Negative BNP: 105 0 EKG: Sinus rhythm with PVCs, LVH, delayed precordial R/S transition, nonspecific ST and T-wave changes in lateral leads Prior cardiac workup: Stress MPS in 07/[address] changes consistent with ischemia, PVCs in recovery. Myocardial perfusion imaging is abnormal for lateral ischemia with infarction. Fixed inferior defect likely infarction. Anterior and anteroseptal defect are likely related to breast attenuation although ischemia is not excluded (defect 1: Size is large. Severe disease moderate. Location of the defect is in basal inferolateral segment, basal anterolateral segment, mid inferolateral segment and mid anterolateral segment. Reversibility is partial. Type of defect is ischemia with infarction. Defect 2: Size is medium, severe disease moderate, location of the defect is in the basal inferior segment and mid inferior segment. Reversibility is full. Type of defect infarction). LVEF is 37%. There is moderate LV dysfunction. Interval history: Patient had chest pain last night as well as this morning of intensity 4 x 10. No palpitations, dizziness, lightheadedness, shortness of breath. Review of Systems Cardiovascular: Comments: As reported in the HPI Respiratory: Comments: As reported in the HPI Exam Narrative: General: Alert oriented x3, no acute distress Neck: Supple, no JVD Chest: Bilaterally clear to auscultation, no rales or rhonchi Cardiac: S1, S2 +, regular rate, regular rhythm, no murmurs or rubs Extremities: No pedal edema, no skin rash Neurologic: Alert and oriented x3, no focal neurological deficits Objective Data Vital Signs Vital Signs: Vital Signs - 24 hr 09/25/24 10:04 09/25/24 10:14 09/25/24 10:32 Temperature 36.4 C Pulse Rate 99 91 Respiratory Rate 20 15 Blood Pressure 179/94 H Pulse Oximetry 95 99 Oxygen Delivery Room Air Oxygen Flow Rate Fraction of Inspired Oxygen 09/25/24 10:36 09/25/24 10:45 09/25/24 11:04 Temperature Pulse Rate 91 85 95 Respiratory Rate 25 H 15 15 Blood Pressure 173/87 H Pulse Oximetry 96 Oxygen Delivery Oxygen Flow Rate Fraction of Inspired Oxygen 09/25/24 11:15 09/25/24 11:24 09/25/24 11:32 Temperature Pulse Rate 104 H 107 H 88 Respiratory Rate 12 20 22 H Blood Pressure 161/98 H 114/55 L Pulse Oximetry 96 100 96 Oxygen Delivery Oxygen Flow Rate Fraction of Inspired Oxygen 09/25/24 11:38 09/25/24 11:46 09/25/24 13:08 Temperature 36.8 C Pulse Rate 89 102 H 86 Respiratory Rate 16 11 L 18 Blood Pressure 133/73 133/90 157/82 H Pulse Oximetry 99 95 98 Oxygen Delivery Oxygen Flow Rate Fraction of Inspired Oxygen 09/25/24 14:00 09/25/24 16:00 09/25/24 16:00 Temperature Pulse Rate 70 77 Respiratory Rate Blood Pressure Pulse Oximetry Oxygen Delivery Room Air Oxygen Flow Rate Fraction of Inspired Oxygen 09/25/24 18:00 09/25/24 20:00 09/25/24 20:00 Temperature 36.8 C Pulse Rate 71 80 Respiratory Rate 18 Blood Pressure 135/71 Pulse Oximetry 98 Oxygen Delivery Room Air Oxygen Flow Rate Fraction of Inspired Oxygen 09/25/24 20:00 09/25/24 20:01 09/25/24 22:00 Temperature Pulse Rate 77 72 67 Respiratory Rate 20 Blood Pressure Pulse Oximetry 93 Oxygen Delivery Room Air Oxygen Flow Rate Fraction of Inspired Oxygen 21 09/25/24 23:38 09/26/24 00:00 09/26/24 00:00 Temperature 36.8 C Pulse Rate 69 68 Respiratory Rate 18 Blood Pressure 129/62 Pulse Oximetry 98 100 Oxygen Delivery Nasal Cannula Oxygen Flow Rate 2 Fraction of Inspired Oxygen 09/26/24 01:10 09/26/24 02:00 09/26/24 04:00 Temperature 36.7 C Pulse Rate 64 87 65 Respiratory Rate 20 18 Blood Pressure 130/65 Pulse Oximetry 92 100 Oxygen Delivery Nasal Cannula Oxygen Flow Rate 1 Fraction of Inspired Oxygen 24 09/26/24 04:00 09/26/24 04:00 09/26/24 06:00 Temperature Pulse Rate 75 75 Respiratory Rate Blood Pressure Pulse Oximetry 100 Oxygen Delivery Nasal Cannula Oxygen Flow Rate 2 Fraction of Inspired Oxygen 09/26/24 07:49 Temperature 36.6 C Pulse Rate 72 Respiratory Rate 20 Blood Pressure 139/63 Pulse Oximetry 98 Oxygen Delivery Oxygen Flow Rate Fraction of Inspired Oxygen Intake/Output Intake/Output: Intake & Output 09/23/24 09/24/24 09/25/24 09/26/24 23:59 23:59 23:59 23:59 Intake Total 240 Balance 240 Meds/Results Medications: Active Medications Generic Name Dose Route Start Last Admin Trade Name Freq PRN Reason Stop Dose Admin Acetaminophen 650 mg 09/25/24 18:21 09/25/24 18:37 Acetaminophen 325 Mg Tablet PO 650 mg ONCE PRN Administration Mild Pain (1-3) Albuterol 1 puff 09/25/24 16:06 Albuterol Sulfate (*Sp) Aerosol 1 Puff INHALATION DAILY PRN allergies Aspirin 81 mg 09/26/24 09:00 09/26/24 08:23 Aspirin 81 Mg Enteric Tablet PO 81 mg QAM MARY Administration Atorvastatin Calcium 40 mg 09/26/24 09:00 09/26/24 08:43 Atorvastatin 40 Mg Tablet PO 40 mg DAILY MARY Administration Buspirone HCl 10 mg 09/25/24 21:00 09/26/24 08:31 Buspirone Hcl 10 Mg Tablet PO 10 mg Q12HR MARY Administration Dextrose 12.5 gm 09/25/24 11:42 Dextrose 50% 25 Gm/50 Ml Syringe IV PUSH PRN PRN Hypoglycemia Protocol Enoxaparin Sodium 40 mg 09/26/24 09:00 Enoxaparin 40 Mg/0.4 Ml Syringe SUB-Q DAILY MARY Enoxaparin Sodium 109 mg 09/25/24 21:00 09/26/24 08:07 Enoxaparin 120 Mg/0.8 Ml Syringe SUB-Q Not Given Q12HR [facility] Gabapentin 300 mg 09/25/24 20:55 09/26/24 08:23 Gabapentin 300 Mg Capsule PO 300 mg TID MARY Administration Glucagon 1 mg 09/25/24 11:42 Glucagon For Inj 1 Mg Vial IM PRN PRN Hypoglycemia Protocol Glucose 15 gm 09/25/24 11:42 Glucose Oral Gel 15 Gm Of Glucse In 37.5 Gm Tube PO PRN PRN Hypoglycemia Protocol Hydroxyzine HCl 25 mg 09/25/24 20:55 09/25/24 21:10 Hydroxyzine Hcl 25 Mg Tablet PO 25 mg TID [facility] Administration Dextrose 1,000 mls @ 100 mls/hr 09/25/24 11:42 Dextrose 5% 1,000 Ml IVPB PRN PRN Hypoglycemia Protocol Lisinopril 40 mg 09/26/24 09:00 09/26/24 08:23 Lisinopril 20 Mg Tablet PO 40 mg DAILY [facility] Administration Metoprolol Succinate 200 mg 09/26/24 09:00 Metoprolol Succinate Ext Rel 100 Mg Tabcr PO DAILY [facility] Morphine Sulfate 2 mg 09/25/24 20:44 Morphine Sulfate (*Crx) 2 Mg/Ml Inj IV PUSH Q5M PRN Pain Rated 4-6 Nitroglycerin 0.4 mg 09/25/24 11:42 09/25/24 20:15 Nitroglycerin Sl 0.4 Mg Tablet SUBLINGUAL 0.4 mg Q5MIN PRN Administration Chest Pain Ondansetron HCl 4 mg 09/25/24 11:42 Ondansetron Inj 4 Mg/2 Ml Vial IV PUSH Q4H PRN Nausea Perflutren Lipid Microsphere 0 ml 09/25/24 11:52 Perflutren Lipid Microspheres 1.5 Ml Vial Diluted To 10 Ml Total Volume IV PUSH 09/28/24 11:53 ONCE PRN adequate visualization Protocol Perflutren Lipid Microsphere 0 ml 09/25/24 16:05 Perflutren Lipid Microspheres 1.5 Ml Vial Diluted To 10 Ml Total Volume IV PUSH 09/28/24 16:05 ONCE PRN adequate visualization Protocol Thiamine HCl 500 mg 09/26/24 09:00 Thiamine Hcl 100 Mg Tablet PO DAILY [facility] Radiology Results: ITS Impressions Head CT 09/25/24 10:32 Impression: No significant abnormality seen. Case discussed with Dr. Gaming at 10:32 AM on 09/25/2024. Head/Neck CTA 09/25/24 10:33 Impression: No significant abnormality seen. Chest X-Ray 09/25/24 11:27 IMPRESSION: Prominent markings in the lower lobes which may indicate atelectasis versus pneu monia. Labs Labs: Laboratory Results - last 24 hr 09/25/24 09/25/24 09/25/24 10:13 10:35 11:26 WBC 9.9 RBC 5.21 Hgb 13.2 Hct 43.5 MCV 83.5 MCH 25.3 L MCHC 30.3 L RDW 15.9 H Plt Count 297 MPV 11.4 H Immature Gran % (Auto) 0.1 Neut % (Auto) 54.9 Lymph % (Auto) 36.5 [place] % (Auto) 5.9 Eos % (Auto) 2.1 Baso % (Auto) 0.5 Lymph # (Auto) 3.62 H [place] # (Auto) 0.6 Eos # (Auto) 0.2 Baso # (Auto) 0.1 Abs Immat Gran (auto) 0.01 Absolute Neuts (auto) 5.4 Absolute Nucleated RBC 0.000 Nucleated RBC % 0.0 PT 13.5 INR 1.0 APTT 29.0 Sodium 140 Potassium 3.7 Chloride 105 Carbon Dioxide 25 Anion Gap 10 BUN 12 Creatinine 0.63 L Estim Creat Clear Calc 107 Estimated GFR > 60 Glucose 109 POC Capillary Glucose 107 H Hemoglobin A1c Calcium 9.1 Magnesium Total Bilirubin 0.4 AST 31 ALT 24 Alkaline Phosphatase 97 Troponin I < 0.012 NT-Pro-B Natriuret Pep 1050 H Total Protein 8.1 Albumin 4.1 Triglycerides Cholesterol LDL Cholesterol Direct HDL Direct Lipase 93 POC Urine HCG, Qual Negative 09/25/24 09/25/24 09/26/24 13:20 16:17 04:04 WBC 7.3 RBC 4.43 Hgb 11.6 L Hct 37.3 MCV 84.2 MCH 26.2 MCHC 31.1 L RDW 16.0 H Plt Count 227 MPV 11.2 H Immature Gran % (Auto) 0.1 Neut % (Auto) 52.1 Lymph % (Auto) 37.7 [place] % (Auto) 6.4 Eos % (Auto) 3.0 Baso % (Auto) 0.7 Lymph # (Auto) 2.75 [place] # (Auto) 0.5 Eos # (Auto) 0.2 Baso # (Auto) 0.1 Abs Immat Gran (auto) 0.01 Absolute Neuts (auto) 3.8 Absolute Nucleated RBC 0.000 Nucleated RBC % 0.0 PT INR APTT Sodium 139 Potassium 3.7 Chloride 107 Carbon Dioxide 28 Anion Gap 4 BUN 14 Creatinine 0.59 L Estim Creat Clear Calc 114 Estimated GFR > 60 Glucose 97 POC Capillary Glucose Hemoglobin A1c 5.8 H Calcium 9.0 Magnesium 1.9 2.1 Total Bilirubin 0.2 AST 25 ALT 20 Alkaline Phosphatase 80 Troponin I 0.014 < 0.012 < 0.012 NT-Pro-B Natriuret Pep Total Protein 6.6 Albumin 3.4 L Triglycerides 108 Cholesterol 199 LDL Cholesterol Direct 95 HDL Direct 60 Lipase POC Urine HCG, Qual
[2024-09-26] MEDS: METOPROLOL TARTRATE 50 MG TAB 100 MG PO ×2 (09:53→20:59)
[2024-09-26] MEDS: hydrOXYzine HCL 25 MG TABLET PO ×3 (09:54→21:00)
--- NOTE | 2024-09-26 10:28 | PCPTNOTE ---
Pt is off the floor for a cardiac cath. Will continue to follow for PT evaluation.
--- NOTE | 2024-09-26 11:00 | WPDMODSED ---
Moderate Sedation Note-Pt Data Patient Data Diagnosis: Chest pain Abnormal stress test Moderate sedation assessment performed this morning at 7:30 a.m. Present Complaint: Chest Procedure to be performed/Plan: Left heart catheterization, coronary angiogram and possible percutaneous coronary intervention Allergies Allergy/AdvReac Type Severity Reaction Status Date / Time No Known Allergies Allergy Verified 09/25/24 13:52 Home Medications ?Medication ?Instructions ?Recorded ?Confirmed ?Type metoprolol succinate 200 mg 200 mg PO DAILY 06/28/19 09/25/24 History tablet,extended release 24 hr albuterol sulfate 90 mcg/actuation 1 puff inhalation DAILY PRN 06/10/20 09/25/24 History aerosol inhaler allergies cyclobenzaprine 10 mg tablet 10 mg PO TID PRN muscle spasm #16 06/10/20 09/25/24 Rx tabs gabapentin 100 mg capsule 300 mg PO TID 06/10/20 09/25/24 History lisinopril 40 mg tablet 40 mg PO DAILY 06/10/20 09/25/24 History ascorbic acid (vitamin C) 500 mg 500 mg PO DAILY 01/17/23 09/25/24 History tablet thiamine HCl (vitamin B1) 50 mg 500 mg PO DAILY 01/17/23 09/25/24 History tablet biotin 5 mg capsule 5 mg PO DAILY 09/25/24 09/25/24 History buspirone 10 mg tablet 10 mg PO BID 09/25/24 09/25/24 History calcium 600 mg (as 1 tablet PO DAILY 09/25/24 09/25/24 History carbonate)-vitamin D3 10 mcg (400 unit) tablet hydroxyzine HCl 25 mg tablet 25 mg PO TID 09/25/24 09/25/24 History loratadine 10 mg tablet (Allergy 10 mg PO DAILY 09/25/24 09/25/24 History Relief (loratadine)) mecobalamin (vitamin B12) 500 mcg 500 mcg PO DAILY 09/25/24 09/25/24 History chewable tablet metoprolol tartrate 100 mg tablet 100 mg PO Q12H 09/25/24 09/26/24 History nifedipine 30 mg tablet,extended 30 mg PO DAILY 09/25/24 09/25/24 History release 24 hr nifedipine 60 mg tablet,extended 60 mg PO DAILY 09/25/24 09/25/24 History release 24 hr nifedipine 90 mg tablet,extended 90 mg PO DAILY 09/25/24 09/25/24 History release 24 hr spironolactone 50 mg tablet 50 mg PO DAILY 09/25/24 09/25/24 History Current Medications: Active Medications Acetaminophen (Acetaminophen 325 Mg Tablet) 650 mg PO ONCE PRN PRN Reason: Mild Pain (1-3) Last Admin: 09/25/24 18:37 Dose: 650 mg Albuterol (Albuterol Sulfate (*Sp) Aerosol 1 Puff) 1 puff INHALATION DAILY PRN PRN Reason: allergies Aspirin (Aspirin 81 Mg Enteric Tablet) 81 mg PO QAM [facility] Last Admin: 09/26/24 08:23 Dose: 81 mg Atorvastatin Calcium (Atorvastatin 40 Mg Tablet) 40 mg PO DAILY [facility] Last Admin: 09/26/24 08:43 Dose: 40 mg Buspirone HCl (Buspirone Hcl 10 Mg Tablet) 10 mg PO Q12HR [facility] Last Admin: 09/26/24 08:31 Dose: 10 mg Dextrose (Dextrose 50% 25 Gm/50 Ml Syringe) 12.5 gm IV PUSH PRN PRN; Protocol PRN Reason: Hypoglycemia Empagliflozin (Empagliflozin 10 Mg Tablet) 10 mg PO DAILY [facility] Enoxaparin Sodium (Enoxaparin 40 Mg/0.4 Ml Syringe) 40 mg SUB-Q DAILY [facility] Enoxaparin Sodium (Enoxaparin 120 Mg/0.8 Ml Syringe) 109 mg SUB-Q Q12HR [facility] Last Admin: 09/26/24 08:07 Dose: Not Given Gabapentin (Gabapentin 300 Mg Capsule) 300 mg PO TID [facility] Last Admin: 09/26/24 08:23 Dose: 300 mg Glucagon (Glucagon For Inj 1 Mg Vial) 1 mg IM PRN PRN; Protocol PRN Reason: Hypoglycemia Glucose (Glucose Oral Gel 15 Gm Of Glucse In 37.5 Gm Tube) 15 gm PO PRN PRN; Protocol PRN Reason: Hypoglycemia Hydroxyzine HCl (Hydroxyzine Hcl 25 Mg Tablet) 25 mg PO TID [facility] Last Admin: 09/26/24 09:54 Dose: 25 mg Dextrose (Dextrose 5% 1,000 Ml) 1,000 mls @ 100 mls/hr IVPB PRN PRN; Protocol PRN Reason: Hypoglycemia Lisinopril (Lisinopril 20 Mg Tablet) 40 mg PO DAILY [facility] Last Admin: 09/26/24 08:23 Dose: 40 mg Metoprolol Tartrate (Metoprolol Tartrate 50 Mg Tab) 100 mg PO Q12HR [facility] Last Admin: 09/26/24 09:53 Dose: 100 mg Morphine Sulfate (Morphine Sulfate (*Crx) 2 Mg/Ml Inj) 2 mg IV PUSH Q5M PRN PRN Reason: Pain Rated 4-6 Nitroglycerin (Nitroglycerin Sl 0.4 Mg Tablet) 0.4 mg SUBLINGUAL Q5MIN PRN PRN Reason: Chest Pain Last Admin: 09/25/24 20:15 Dose: 0.4 mg Ondansetron HCl (Ondansetron Inj 4 Mg/2 Ml Vial) 4 mg IV PUSH Q4H PRN PRN Reason: Nausea Perflutren Lipid Microsphere (Perflutren Lipid Microspheres 1.5 Ml Vial Diluted To 10 Ml Total Volume) 0 ml IV PUSH ONCE PRN; Protocol PRN Reason: adequate visualization Stop: 09/28/24 11:53 Perflutren Lipid Microsphere (Perflutren Lipid Microspheres 1.5 Ml Vial Diluted To 10 Ml Total Volume) 0 ml IV PUSH ONCE PRN; Protocol PRN Reason: adequate visualization Stop: 09/28/24 16:05 Thiamine HCl (Thiamine Hcl 100 Mg Tablet) 500 mg PO DAILY [facility] Sedation/Anesthesia: No previous sedation/anesthesia problems (including family history). [facility] Past Medical History Medical History (Updated 09/25/24 @ 15:03 by Chiquita Olson MD) SVT (supraventricular tachycardia) Colon cancer screening Abdominal pain Internal hemorrhoid Hx of diverticulitis of colon HAYLEY (iron deficiency anemia) PUD (peptic ulcer disease) Nonischemic cardiomyopathy Arthritis UTI (urinary tract infection) Sleep apnea Asthma HTN (hypertension) History of angina Seasonal allergies CHF (congestive heart failure) Surgical History Surgical History Hx of gastric bypass History of knee surgery Right History of tubal ligation History of cholecystectomy History of cardiac catheterization Family History Family History Father Diabetes mellitus Hypertension Asthma Patient's father is in good health Family history of cardiovascular disease Mother Hypertension Patient's mother is in good health Sibling Patient's sister is in good health Social History Social History Smoking status: Never smoker Alcohol intake: never Substance use: never Substance use type: does not use Do You Feel Safe in your Home?: Yes Lack of Transportation: No Lack of Food: Never True Current Housing: I Have Housing Concerned About Future Housing: No Difficulty Paying Gas/Electric Bills: No Difficulty Paying for Meds: No Currently Unemployed: No Education: High School Diploma/GED Difficulty w/ Childcare or Family Care: No Living arrangements: with family Gender identity (if verbalized by the patient): Female Spiritual care concerns: No Mod Sed Physical Exam Physical Exam Pre Procedural Exam: Normal: Lungs, Heart Rate and Heart Rhythm Hours since solid foods: 12 Hours since liquid intake: 12 Mallampati Classification: class III Internal Medicine - PN: Obj Da Vital Signs Vital Signs: Vital Signs - 24 hr 09/25/24 11:04 09/25/24 11:15 09/25/24 11:24 Temperature Pulse Rate 95 104 H 107 H Respiratory Rate 15 12 20 Blood Pressure 161/98 H Pulse Oximetry 96 100 Oxygen Delivery Oxygen Flow Rate Fraction of Inspired Oxygen 09/25/24 11:32 09/25/24 11:38 09/25/24 11:46 Temperature Pulse Rate 88 89 102 H Respiratory Rate 22 H 16 11 L Blood Pressure 114/55 L 133/73 133/90 Pulse Oximetry 96 99 95 Oxygen Delivery Oxygen Flow Rate Fraction of Inspired Oxygen 09/25/24 13:08 09/25/24 14:00 09/25/24 16:00 Temperature 36.8 C Pulse Rate 86 70 Respiratory Rate 18 Blood Pressure 157/82 H Pulse Oximetry 98 Oxygen Delivery Room Air Oxygen Flow Rate Fraction of Inspired Oxygen 09/25/24 16:00 09/25/24 18:00 09/25/24 20:00 Temperature Pulse Rate 77 71 Respiratory Rate Blood Pressure Pulse Oximetry Oxygen Delivery Room Air Oxygen Flow Rate Fraction of Inspired Oxygen 09/25/24 20:00 09/25/24 20:00 09/25/24 20:01 Temperature 36.8 C Pulse Rate 80 77 72 Respiratory Rate 18 20 Blood Pressure 135/71 Pulse Oximetry 98 93 Oxygen Delivery Room Air Oxygen Flow Rate Fraction of Inspired Oxygen 21 09/25/24 22:00 09/25/24 23:38 09/26/24 00:00 Temperature 36.8 C Pulse Rate 67 69 Respiratory Rate 18 Blood Pressure 129/62 Pulse Oximetry 98 100 Oxygen Delivery Nasal Cannula Oxygen Flow Rate 2 Fraction of Inspired Oxygen 09/26/24 00:00 09/26/24 01:10 09/26/24 02:00 Temperature Pulse Rate 68 64 87 Respiratory Rate 20 Blood Pressure Pulse Oximetry 92 Oxygen Delivery Nasal Cannula Oxygen Flow Rate 1 Fraction of Inspired Oxygen 24 09/26/24 04:00 09/26/24 04:00 09/26/24 04:00 Temperature 36.7 C Pulse Rate 65 75 Respiratory Rate 18 Blood Pressure 130/65 Pulse Oximetry 100 100 Oxygen Delivery Nasal Cannula Oxygen Flow Rate 2 Fraction of Inspired Oxygen 09/26/24 06:00 09/26/24 07:49 09/26/24 09:53 Temperature 36.6 C Pulse Rate 75 72 82 Respiratory Rate 20 Blood Pressure 139/63 Pulse Oximetry 98 Oxygen Delivery Oxygen Flow Rate Fraction of Inspired Oxygen Intake/Output Intake/Output: Intake & Output 09/23/24 09/24/24 09/25/24 09/26/24 23:59 23:59 23:59 23:59 Intake Total 240 Balance 240 Meds/Results Medications: Active Medications Generic Name Dose Route Start Last Admin Trade Name Freq PRN Reason Stop Dose Admin Acetaminophen 650 mg 09/25/24 18:21 09/25/24 18:37 Acetaminophen 325 Mg Tablet PO 650 mg ONCE PRN Administration Mild Pain (1-3) Albuterol 1 puff 09/25/24 16:06 Albuterol Sulfate (*Sp) Aerosol 1 Puff INHALATION DAILY PRN allergies Aspirin 81 mg 09/26/24 09:00 09/26/24 08:23 Aspirin 81 Mg Enteric Tablet PO 81 mg QAM MARY Administration Atorvastatin Calcium 40 mg 09/26/24 09:00 09/26/24 08:43 Atorvastatin 40 Mg Tablet PO 40 mg DAILY [facility]ARY Administration Buspirone HCl 10 mg 09/25/24 21:00 09/26/24 08:31 Buspirone Hcl 10 Mg Tablet PO 10 mg Q12HR MARY Administration Dextrose 12.5 gm 09/25/24 11:42 Dextrose 50% 25 Gm/50 Ml Syringe IV PUSH PRN PRN Hypoglycemia Protocol Empagliflozin 10 mg 09/27/24 09:00 Empagliflozin 10 Mg Tablet PO DAILY [facility] Enoxaparin Sodium 40 mg 09/26/24 09:00 Enoxaparin 40 Mg/0.4 Ml Syringe SUB-Q DAILY [facility] Enoxaparin Sodium 109 mg 09/25/24 21:00 09/26/24 08:07 Enoxaparin 120 Mg/0.8 Ml Syringe SUB-Q Not Given Q12HR [facility] Gabapentin 300 mg 09/25/24 20:55 09/26/24 08:23 Gabapentin 300 Mg Capsule PO 300 mg TID [facility]ARY Administration Glucagon 1 mg 09/25/24 11:42 Glucagon For Inj 1 Mg Vial IM PRN PRN Hypoglycemia Protocol Glucose 15 gm 09/25/24 11:42 Glucose Oral Gel 15 Gm Of Glucse In 37.5 Gm Tube PO PRN PRN Hypoglycemia Protocol Hydroxyzine HCl 25 mg 09/25/24 20:55 09/26/24 09:54 Hydroxyzine Hcl 25 Mg Tablet PO 25 mg TID [facility] Administration Dextrose 1,000 mls @ 100 mls/hr 09/25/24 11:42 Dextrose 5% 1,000 Ml IVPB PRN PRN Hypoglycemia Protocol Lisinopril 40 mg 09/26/24 09:00 09/26/24 08:23 Lisinopril 20 Mg Tablet PO 40 mg DAILY [facility] Administration Metoprolol Tartrate 100 mg 09/26/24 09:40 09/26/24 09:53 Metoprolol Tartrate 50 Mg Tab PO 100 mg Q12HR [facility] Administration Morphine Sulfate 2 mg 09/25/24 20:44 Morphine Sulfate (*Crx) 2 Mg/Ml Inj IV PUSH Q5M PRN Pain Rated 4-6 Nitroglycerin 0.4 mg 09/25/24 11:42 09/25/24 20:15 Nitroglycerin Sl 0.4 Mg Tablet SUBLINGUAL 0.4 mg Q5MIN PRN Administration Chest Pain Ondansetron HCl 4 mg 09/25/24 11:42 Ondansetron Inj 4 Mg/2 Ml Vial IV PUSH Q4H PRN Nausea Perflutren Lipid Microsphere 0 ml 09/25/24 11:52 Perflutren Lipid Microspheres 1.5 Ml Vial Diluted To 10 Ml Total Volume IV PUSH 09/28/24 11:53 ONCE PRN adequate visualization Protocol Perflutren Lipid Microsphere 0 ml 09/25/24 16:05 Perflutren Lipid Microspheres 1.5 Ml Vial Diluted To 10 Ml Total Volume IV PUSH 09/28/24 16:05 ONCE PRN adequate visualization Protocol Thiamine HCl 500 mg 09/26/24 09:00 Thiamine Hcl 100 Mg Tablet PO DAILY [facility] Radiology Results: ITS Impressions Head CT 09/25/24 10:32 Impression: No significant abnormality seen. Case discussed with Dr. Gaming at 10:32 AM on 09/25/2024. Head/Neck CTA 09/25/24 10:33 Impression: No significant abnormality seen. Chest X-Ray 09/25/24 11:27 IMPRESSION: Prominent markings in the lower lobes which may indicate atelectasis versus pneumonia. Labs 09/26/24 04:04 09/26/24 04:04 Labs: Laboratory Results - last 24 hr 09/25/24 09/25/24 09/25/24 10:35 11:26 13:20 WBC 9.9 RBC 5.21 Hgb 13.2 Hct 43.5 MCV 83.5 MCH 25.3 L MCHC 30.3 L RDW 15.9 H Plt Count 297 MPV 11.4 H Immature Gran % (Auto) 0.1 Neut % (Auto) 54.9 Lymph % (Auto) 36.5 [place] % (Auto) 5.9 Eos % (Auto) 2.1 Baso % (Auto) 0.5 Lymph # (Auto) 3.62 H [place] # (Auto) 0.6 Eos # (Auto) 0.2 Baso # (Auto) 0.1 Abs Immat Gran (auto) 0.01 Absolute Neuts (auto) 5.4 Absolute Nucleated RBC 0.000 Nucleated RBC % 0.0 PT 13.5 INR 1.0 APTT 29.0 Sodium 140 Potassium 3.7 Chloride 105 Carbon Dioxide 25 Anion Gap 10 BUN 12 Creatinine 0.63 L Estim Creat Clear Calc 107 Estimated GFR > 60 Glucose 109 Hemoglobin A1c Calcium 9.1 Magnesium Total Bilirubin 0.4 AST 31 ALT 24 Alkaline Phosphatase 97 Troponin I < 0.012 0.014 NT-Pro-B Natriuret Pep 1050 H Total Protein 8.1 Albumin 4.1 Triglycerides Cholesterol LDL Cholesterol Direct HDL Direct Lipase 93 POC Urine HCG, Qual Negative 09/25/24 09/26/24 16:17 04:04 WBC 7.3 RBC 4.43 Hgb 11.6 L Hct 37.3 MCV 84.2 MCH 26.2 MCHC 31.1 L RDW 16.0 H Plt Count 227 MPV 11.2 H Immature Gran % (Auto) 0.1 Neut % (Auto) 52.1 Lymph % (Auto) 37.7 [place] % (Auto) 6.4 Eos % (Auto) 3.0 Baso % (Auto) 0.7 Lymph # (Auto) 2.75 [place] # (Auto) 0.5 Eos # (Auto) 0.2 Baso # (Auto) 0.1 Abs Immat Gran (auto) 0.01 Absolute Neuts (auto) 3.8 Absolute Nucleated RBC 0.000 Nucleated RBC % 0.0 PT INR APTT Sodium 139 Potassium 3.7 Chloride 107 Carbon Dioxide 28 Anion Gap 4 BUN 14 Creatinine 0.59 L Estim Creat Clear Calc 114 Estimated GFR > 60 Glucose 97 Hemoglobin A1c 5.8 H Calcium 9.0 Magnesium 1.9 2.1 Total Bilirubin 0.2 AST 25 ALT 20 Alkaline Phosphatase 80 Troponin I < 0.012 < 0.012 NT-Pro-B Natriuret Pep Total Protein 6.6 Albumin 3.4 L Triglycerides 108 Cholesterol 199 LDL Cholesterol Direct 95 HDL Direct 60 Lipase POC Urine HCG, Qual ASA Classification/Sedation ASA Classification/Sedation ASA Class: III Emergent: No Risks: Risks, benefits and alternatives explained and patient/family accepted plan for sedation. Patient re-evaluated immediately prior to sedation.
--- NOTE | 2024-09-26 11:02 | WPDHPUPDATE1 ---
History and Physical Update Update Date/Time: 09/26/24 7:30 am History and Physical has been reviewed, including an updated exam of the patient. There are NO changes in the patient's condition. Risks, benefits, and alternatives have been discussed and questions answered. Patient agrees to proceed with procedure.
--- NOTE | 2024-09-26 11:03 | P.PCNCC_ITS ---
Cardiac Cath Procedure Note Date of procedure:: 09/26/24 Performing physician:: Chiquita Olson MD Indication:: CATHETERIZATION LABORATORY REPORT Procedure Date: 09/26/2024 Anesthesia: Versed and Fentanyl were ordered and given in my presence at 10:40 a.m., procedure ended at 10:57 a.m.. Supervision of nurse monitored moderate sedation with Versed and Fentanyl was provided for 17 minutes. Dose of Versed: 2 mg Dose of fentanyl: 100 mcg Pre-op Diagnosis: Chest pain-CCS class 4 Abnormal stress test in July 2024 Post-op Diagnosis: Noncardiac chest pain No CAD Procedure(s): Left heart catheterization with coronary angiography IV is guided Right radial artery access Hemostasis with TR band Access Site: Right radial artery Brief History and Clinical Indications: All risks, benefits and alternatives to left heart catheterization with or without percutaneous coronary intervention was discussed at length with the patient. Risk of complications including but not limited to bleeding, infection, arrhythmia, stroke, worsening kidney function, blood loss, groin hematoma, limb loss, emergency coronary artery bypass grafting, and even were discussed with the patient and all questions were answered. The patient understood and wished to proceed. Time out called, patient name, date of , medical record number, allergies, procedure performed, identify Warehouse Sorter, patient and staff member concurred with accurate data, procedure carried on. Findings: LEFT HEART CATHETERIZATION FINDINGS: 1. Left main: The left main coronary artery is widely patent without any significant obstructive disease. 2. Left anterior descending: The LAD and the diagonal branches are without any significant obstructive angiographic disease. 3. Left circumflex: The left circumflex artery and the main marginal branches are without any significant obstructive angiographic disease. 4. Right coronary artery: The RCA is without any significant obstructive angiographic disease. The RCA is the dominant vessel. RPDA and RPL are without any significant obstructive angiographic disease. 5. Left ventricle: A. End-diastolic pressure 16 mmHg. B. LV gram deferred. C. No significant gradient across aortic valve on catheter pullback. 6. Opening AO pressure 129/93/111 and closing AO pressure 132/88/108 Description of Procedure: Informed consent signed and placed in the chart. Patient transferred to dental laboratory manager room. Prepped and draped in usual sterile fashion. 2% lidocaine injected subcutaneously in right wrist area. 22-gauge venipuncture catheter used to access the right radial artery with the Seldinger technique. 6-FR slender sheath placed in right radial artery. Nitroglycerin 200mcg, Verapamil 2.5mg, and Heparin 5000U was given intraarterial through the sheath. J wire advanced under fluoroscopy Five [place] JL 3.5 diagnostic catheter engaged Left Main Coronary Artery. 5 [place] JR4 diagnostic catheter engaged Right Coronary Artery Multiple orthogonal angiogram obtained and reviewed 5 [place] JR4 diagnostic catheter crossed aortic valve to obtain LVEDP, LV angiogram deferred. Hemostasis was achieved by application of TR band. Assessment: Noncardiac chest pain No CAD Nonischemic cardiomyopathy Post Operative Condition: Stable No significant blood loss Disposition: Flow Plan: The patient will be monitored in the recovery area. Continue guideline directed medical therapy for nonischemic cardiomyopathy with metoprolol, LALI inhibitor, SGLT 2 inhibitor, MRA. Continue aggressive medical therapy and risk factor modification. Referral for evaluation for microvascular disease. Removal of TR band per protocol. Transfer back to floor.
--- NOTE | 2024-09-26 11:12 | PCOTNOTE ---
Pt is off the floor for a cardiac cath. Will continue to follow for OT evaluation.
--- NOTE | 2024-09-26 11:21 | PC.NURSE ---
1005- to cardiac laborer heading for procedure
[2024-09-26] MEDS: THIAMINE HCL 100 MG TABLET 500 MG PO (14:59)
[2024-09-26] MEDS: PERFLUTREN LIPID MICROSPHERES 1.5 ML VIAL DILUTED TO 10 ML TOTAL VOLUME IV PUSH (15:40)
--- NOTE | 2024-09-26 16:07 | IVDEFINITY ---
Prior to administration of IV Definity the patient was educated on the risks and benefits of the imaging enhancing agent including potential adverse side effects. The patient verbalized understanding. Allergies were verified. No exclusion criteria were identified and at least one of the following inclusion criteria were met: 1) physician request, 2) patient technically difficult to image (per the [place] [employer] guidelines of two or more segments not discernable within the apical view), or 3) questionable left ventricular function. ?
[2024-09-26] MEDS: ACETAMINOPHEN 325 MG TABLET 650 MG PO (17:07)
[2024-09-27] VITALS (17 sets, daily range): BP systolic 100–140; BP diastolic 46–85; PULSE 62–86; RESP 16–18; TEMP 36.3–36.8; O2SAT 95–98
[2024-09-27] MEDS: hydrOXYzine HCL 25 MG TABLET PO ×3 (08:45→16:42)
[2024-09-27] MEDS: EMPAGLIFLOZIN 10 MG TABLET PO (08:45)
[2024-09-27] MEDS: ASPIRIN 81 MG ENTERIC TABLET PO (08:45)
[2024-09-27] MEDS: lisinopriL 20 MG TABLET 40 MG PO (08:46)
[2024-09-27] MEDS: ATORVASTATIN 40 MG TABLET PO (08:46)
[2024-09-27] MEDS: METOPROLOL TARTRATE 50 MG TAB 100 MG PO (08:46)
[2024-09-27] MEDS: THIAMINE HCL 100 MG TABLET 500 MG PO (08:46)
[2024-09-27] MEDS: busPIRone HCL 10 MG TABLET PO ×2 (08:46→20:38)
[2024-09-27] MEDS: GABAPENTIN 300 MG CAPSULE PO ×3 (08:46→16:42)
[2024-09-27] MEDS: ENOXAPARIN 40 MG/0.4 ML SYRINGE SUB-Q (08:47)
--- NOTE | 2024-09-27 09:38 | PM.IMPN ---
Progress Note: A&P Assessment and Plan (1) Chest pain: Qualifiers: Chest pain type: unspecified Qualified Code(s): R07.9 - Chest pain, unspecified Code(s): R07.9 - Chest pain, unspecified Status: Acute Assessment and Plan: Continue current treatment and anticoagulation. Cardiology consult. Possible catheterization today (2) Obstructive sleep apnea: Code(s): G47.33 - Obstructive sleep apnea (adult) (pediatric) Status: Acute Assessment and Plan: Stable on current medication will continue current treatment. (3) Left leg paresthesias: Code(s): R20.2 - Paresthesia of skin Status: Acute Assessment and Plan: Stable, continue current treatment. Plan Left-sided weakness and numbness Resolved Last normal was 12:00 a.m., patient woke up at 3:00 a.m. with symptoms Symptoms have resolved about 2:[address] head CTA head and neck unremarkable. MRI brain, echo, panel and A1c ordered next start aspirin and Lipitor neurology consulted. 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 Patient will undergo MRI for possible left-sided weakness. No evidence of neurological deficits Review of Systems Review of Systems: All other systems reviewed and negative except as noted in the history above. Exam Narrative: General: alert and comfortable Eyes: EOMI, PERRLA ENNT External ears normal, Neck is supple, no masses, Respiratory systems: Clear to auscultation Cardiovascular S1, S2, normal rhythm, no murmur, rub, or gallop; no thrill or palpable murmurs on palpation. Gastrointestinal: soft, non-tender, and non-distended abdomen with no masses; BS present Skin: no rash, lesions, ulcerations, subcutaneous nodules or induration Musculoskeletal: no abnormality and no tenderness, normal ROM Neurologic: Alert and oriented x3, non focal Mental Status Exam: normal affect Objective Data Vital Signs Vital Signs: Vital Signs - 24 hr 09/26/24 09:53 09/26/24 11:15 09/26/24 11:15 Temperature Pulse Rate 82 63 Pulse Rate [Monitor] 63 Respiratory Rate 14 Blood Pressure 164/85 H Pulse Oximetry 99 Oxygen Delivery Room Air 09/26/24 11:30 09/26/24 11:30 09/26/24 11:45 Temperature Pulse Rate 66 Pulse Rate [Monitor] 66 63 Respiratory Rate 16 Blood Pressure 118/96 H Pulse Oximetry 99 Oxygen Delivery Room Air 09/26/24 11:45 09/26/24 12:00 09/26/24 12:00 Temperature Pulse Rate 63 69 Pulse Rate [Monitor] 69 Respiratory Rate 15 16 Blood Pressure 166/93 H 161/86 H Pulse Oximetry 95 94 Oxygen Delivery Room Air Room Air 09/26/24 12:15 09/26/24 12:15 09/26/24 12:30 Temperature Pulse Rate 71 Pulse Rate [Monitor] 71 66 Respiratory Rate 16 Blood Pressure 104/88 Pulse Oximetry 97 Oxygen Delivery Room Air 09/26/24 12:30 09/26/24 12:45 09/26/24 12:45 Temperature Pulse Rate 66 67 Pulse Rate [Monitor] 67 Respiratory Rate 14 12 Blood Pressure 139/92 H 117/74 Pulse Oximetry 94 93 Oxygen Delivery Room Air Room Air 09/26/24 13:00 09/26/24 13:00 09/26/24 13:15 Temperature Pulse Rate 67 Pulse Rate [Monitor] 67 66 Respiratory Rate 14 Blood Pressure 108/63 Pulse Oximetry 94 Oxygen Delivery Room Air 09/26/24 13:15 09/26/24 13:30 09/26/24 13:30 Temperature Pulse Rate 66 66 Pulse Rate [Monitor] 66 Respiratory Rate 15 14 Blood Pressure 104/62 113/66 Pulse Oximetry 93 93 Oxygen Delivery Room Air Room Air 09/26/24 13:45 09/26/24 13:45 09/26/24 14:00 Temperature Pulse Rate 65 Pulse Rate [Monitor] 65 68 Respiratory Rate 12 Blood Pressure 119/74 Pulse Oximetry 93 Oxygen Delivery Room Air 09/26/24 14:00 09/26/24 14:15 09/26/24 14:15 Temperature Pulse Rate 67 66 Pulse Rate [Monitor] 66 Respiratory Rate 13 12 Blood Pressure 124/77 127/76 Pulse Oximetry 94 93 Oxygen Delivery Room Air Room Air 09/26/24 15:00 09/26/24 16:00 09/26/24 16:45 Temperature 97.6 F 98.2 F Pulse Rate 71 75 Pulse Rate [Monitor] Respiratory Rate 18 18 Blood Pressure 135/68 147/82 H Pulse Oximetry 99 100 Oxygen Delivery 09/26/24 17:00 09/26/24 18:00 09/26/24 18:00 Temperature 98.2 F Pulse Rate 76 73 73 Pulse Rate [Monitor] Respiratory Rate 18 20 Blood Pressure 143/79 H 128/68 Pulse Oximetry 99 100 Oxygen Delivery 09/26/24 18:00 09/26/24 20:00 09/26/24 20:00 Temperature 98.3 F Pulse Rate 77 Pulse Rate [Monitor] 73 Respiratory Rate 20 Blood Pressure 136/68 Pulse Oximetry 98 Oxygen Delivery Room Air 09/26/24 20:00 09/26/24 22:00 09/26/24 23:54 Temperature 97.2 F L Pulse Rate 79 65 71 Pulse Rate [Monitor] Respiratory Rate 20 Blood Pressure 121/65 Pulse Oximetry 100 Oxygen Delivery 09/27/24 00:00 09/27/24 00:00 09/27/24 02:00 Temperature Pulse Rate 63 64 Pulse Rate [Monitor] Respiratory Rate Blood Pressure Pulse Oximetry Oxygen Delivery Room Air 09/27/24 04:00 09/27/24 04:00 09/27/24 04:00 Temperature 97.3 F L Pulse Rate 62 63 Pulse Rate [Monitor] Respiratory Rate 16 Blood Pressure 100/46 L Pulse Oximetry 98 Oxygen Delivery Room Air 09/27/24 06:00 09/27/24 07:33 09/27/24 08:46 Temperature 98.2 F Pulse Rate 86 82 72 Pulse Rate [Monitor] Respiratory Rate 18 Blood Pressure 130/77 Pulse Oximetry 98 Oxygen Delivery Intake/Output Intake/Output: Intake & Output 09/24/24 09/25/24 09/26/24 09/27/24 23:59 23:59 23:59 23:59 Intake Total 240 790 640 Balance 240 790 640 Meds/Results Medications: Active Medications Generic Name Dose Route Start Last Admin Trade Name Freq PRN Reason Stop Dose Admin Acetaminophen 650 mg 09/26/24 16:37 09/26/24 17:07 Acetaminophen 325 Mg Tablet PO 650 mg Q6H PRN Administration Mild Pain (1-3) or Fever Albuterol 1 puff 09/25/24 16:06 Albuterol Sulfate (*Sp) Aerosol 1 Puff INHALATION DAILY PRN allergies Aspirin 81 mg 09/26/24 09:00 09/27/24 08:45 Aspirin 81 Mg Enteric Tablet PO 81 mg QAM MARY Administration Atorvastatin Calcium 40 mg 09/26/24 09:00 09/27/24 08:46 Atorvastatin 40 Mg Tablet PO 40 mg DAILY MARY Administration Buspirone HCl 10 mg 09/25/24 21:00 09/27/24 08:46 Buspirone Hcl 10 Mg Tablet PO 10 mg Q12HR MARY Administration Dextrose 12.5 gm 09/25/24 11:42 Dextrose 50% 25 Gm/50 Ml Syringe IV PUSH PRN PRN Hypoglycemia Protocol Empagliflozin 10 mg 09/27/24 09:00 09/27/24 08:45 Empagliflozin 10 Mg Tablet PO 10 mg DAILY MARY Administration Enoxaparin Sodium 40 mg 09/27/24 09:00 09/27/24 08:47 Enoxaparin 40 Mg/0.4 Ml Syringe SUB-Q 40 mg DAILY MARY Administration Gabapentin 300 mg 09/25/24 20:55 09/27/24 08:46 Gabapentin 300 Mg Capsule PO 300 mg TID MARY Administration Glucagon 1 mg 09/25/24 11:42 Glucagon For Inj 1 Mg Vial IM PRN PRN Hypoglycemia Protocol Glucose 15 gm 09/25/24 11:42 Glucose Oral Gel 15 Gm Of Glucse In 37.5 Gm Tube PO PRN PRN Hypoglycemia Protocol Hydroxyzine HCl 25 mg 09/25/24 20:55 09/27/24 08:45 Hydroxyzine Hcl 25 Mg Tablet PO 25 mg TID MARY Administration Dextrose 1,000 mls @ 100 mls/hr 09/25/24 11:42 Dextrose 5% 1,000 Ml IVPB PRN PRN Hypoglycemia Protocol Lisinopril 40 mg 09/26/24 09:00 09/27/24 08:46 Lisinopril 20 Mg Tablet PO 40 mg DAILY MARY Administration Metoprolol Tartrate 100 mg 09/26/24 09:40 09/27/24 08:46 Metoprolol Tartrate 50 Mg Tab PO 100 mg Q12HR MARY Administration Morphine Sulfate 2 mg 09/25/24 20:44 Morphine Sulfate (*Crx) 2 Mg/Ml Inj IV PUSH Q5M PRN Pain Rated 4-6 Nitroglycerin 0.4 mg 09/25/24 11:42 09/25/24 20:15 Nitroglycerin Sl 0.4 Mg Tablet SUBLINGUAL 0.4 mg Q5MIN PRN Administration Chest Pain Ondansetron HCl 4 mg 09/25/24 11:42 Ondansetron Inj 4 Mg/2 Ml Vial IV PUSH Q4H PRN Nausea Perflutren Lipid Microsphere 0 ml 09/25/24 11:52 Perflutren Lipid Microspheres 1.5 Ml Vial Diluted To 10 Ml Total Volume IV PUSH 09/28/24 11:53 ONCE PRN adequate visualization Protocol Thiamine HCl 500 mg 09/26/24 09:00 09/27/24 08:46 Thiamine Hcl 100 Mg Tablet PO 500 mg DAILY MARY Administration Radiology Results: ITS Impressions Head CT 09/25/24 10:32 Impression: No significant abnormality seen. Case discussed with Dr. Gaming at 10:32 AM on 09/25/2024. Head/Neck CTA 09/25/24 10:33 Impression: No significant abnormality seen. Chest X-Ray 09/25/24 11:27 IMPRESSION: Prominent markings in the lower lobes which may indicate atelectasis versus pneumonia. Hospitalist MIPS Advance Care Plan I have confirmed that the patient's Advanced Care Plan is present, code status is documented, or surrogate decision maker is listed in patient medical record.: Yes Medication Reconciliation I have utilized all available resources to obtain, update and review the patients current medications (includes all prescriptions, OTC, herbals, cannabis, and nutritional supplements).: Yes
--- NOTE | 2024-09-27 09:51 | PM.PNCARD ---
Progress Note: A&P Assessment and Plan (1) Chest pain: Qualifiers: Chest pain type: unspecified Qualified Code(s): R07.9 - Chest pain, unspecified Code(s): R07.9 - Chest pain, unspecified Status: Acute (2) Acute on chronic systolic heart failure: Code(s): I50.23 - Acute on chronic systolic (congestive) heart failure Status: Acute Plan 49-year-old lady with: Chronic left ventricular systolic dysfunction on appropriate guideline directed medical therapy. I noted that her metoprolol for some reason was transition to metoprolol tartrate. I will transition her back to metoprolol succinate which is the preferred beta km for systolic dysfunction. Patient's chest pain is not cardiac she does not have any coronary disease. He does have chronic stable LV dysfunction and aortic regurgitation. Based on the echocardiographic findings I will discuss with my partner who follows her doctor KO to follow-up in the office and discuss the option of aortic valve replacement at some point. Her aortic regurgitation is chronic but appears to be worse on the current echocardiogram. There is no further cardiac reason that she needs to remain hospitalized. Jhonny Chambers MD [facility] Subjective Date/time seen: Date of service: 09/27/24 09:51 Interval history: Follow-up visit in this 49-year-old lady with: Noncardiac chest pain she was admitted for chest pain evaluation underwent coronary angiography yesterday demonstrating no evidence of coronary disease. She has had 2 catheterizations showing no CAD. She does have chronic stable left ventricular systolic dysfunction and echocardiographic evidence yesterday of moderate to severe aortic regurgitation. Conversation with the patient today about her LV dysfunction and aortic valve disease. She feels well and is expecting to be discharged today. Exam Const: General: comfortable and no acute distress Other: Pleasant obese lady no apparent distress HENMT: Mouth: Yes moist mucous membranes Eyes: Sclera: sclerae normal Neck: Neck: supple Resp: Effort & Inspection: normal respiratory effort Auscultation: clear to auscultation bilaterally Cardio: Rate: regular rate Rhythm: regular rhythm Other: Grade 1-2 diastolic decrescendo murmur is audible at the apex GI: GI Palp: Yes Soft to palpation Auscultation: normal bowel sounds Skin: General skin exam: normal color Neuro: Other: Alert and oriented x3 Extrem: General: normal to inspection Objective Data Vital Signs Vital Signs: Vital Signs - 24 hr 09/26/24 09:53 09/26/24 11:15 09/26/24 11:15 Temperature Pulse Rate 82 63 Pulse Rate [Monitor] 63 Respiratory Rate 14 Blood Pressure 164/85 H Pulse Oximetry 99 Oxygen Delivery Room Air 09/26/24 11:30 09/26/24 11:30 09/26/24 11:45 Temperature Pulse Rate 66 Pulse Rate [Monitor] 66 63 Respiratory Rate 16 Blood Pressure 118/96 H Pulse Oximetry 99 Oxygen Delivery Room Air 09/26/24 11:45 09/26/24 12:00 09/26/24 12:00 Temperature Pulse Rate 63 69 Pulse Rate [Monitor] 69 Respiratory Rate 15 16 Blood Pressure 166/93 H 161/86 H Pulse Oximetry 95 94 Oxygen Delivery Room Air Room Air 09/26/24 12:15 09/26/24 12:15 09/26/24 12:30 Temperature Pulse Rate 71 Pulse Rate [Monitor] 71 66 Respiratory Rate 16 Blood Pressure 104/88 Pulse Oximetry 97 Oxygen Delivery Room Air 09/26/24 12:30 09/26/24 12:45 09/26/24 12:45 Temperature Pulse Rate 66 67 Pulse Rate [Monitor] 67 Respiratory Rate 14 12 Blood Pressure 139/92 H 117/74 Pulse Oximetry 94 93 Oxygen Delivery Room Air Room Air 09/26/24 13:00 09/26/24 13:00 09/26/24 13:15 Temperature Pulse Rate 67 Pulse Rate [Monitor] 67 66 Respiratory Rate 14 Blood Pressure 108/63 Pulse Oximetry 94 Oxygen Delivery Room Air 09/26/24 13:15 09/26/24 13:30 09/26/24 13:30 Temperature Pulse Rate 66 66 Pulse Rate [Monitor] 66 Respiratory Rate 15 14 Blood Pressure 104/62 113/66 Pulse Oximetry 93 93 Oxygen Delivery Room Air Room Air 09/26/24 13:45 09/26/24 13:45 09/26/24 14:00 Temperature Pulse Rate 65 Pulse Rate [Monitor] 65 68 Respiratory Rate 12 Blood Pressure 119/74 Pulse Oximetry 93 Oxygen Delivery Room Air 09/26/24 14:00 09/26/24 14:15 09/26/24 14:15 Temperature Pulse Rate 67 66 Pulse Rate [Monitor] 66 Respiratory Rate 13 12 Blood Pressure 124/77 127/76 Pulse Oximetry 94 93 Oxygen Delivery Room Air Room Air 09/26/24 15:00 09/26/24 16:00 09/26/24 16:45 Temperature 36.4 C 36.8 C Pulse Rate 71 75 Pulse Rate [Monitor] Respiratory Rate 18 18 Blood Pressure 135/68 147/82 H Pulse Oximetry 99 100 Oxygen Delivery 09/26/24 17:00 09/26/24 18:00 09/26/24 18:00 Temperature 36.8 C Pulse Rate 76 73 73 Pulse Rate [Monitor] Respiratory Rate 18 20 Blood Pressure 143/79 H 128/68 Pulse Oximetry 99 100 Oxygen Delivery 09/26/24 18:00 09/26/24 20:00 09/26/24 20:00 Temperature 36.8 C Pulse Rate 77 Pulse Rate [Monitor] 73 Respiratory Rate 20 Blood Pressure 136/68 Pulse Oximetry 98 Oxygen Delivery Room Air 09/26/24 20:00 09/26/24 22:00 09/26/24 23:54 Temperature 36.2 C L Pulse Rate 79 65 71 Pulse Rate [Monitor] Respiratory Rate 20 Blood Pressure 121/65 Pulse Oximetry 100 Oxygen Delivery 09/27/24 00:00 09/27/24 00:00 09/27/24 02:00 Temperature Pulse Rate 63 64 Pulse Rate [Monitor] Respiratory Rate Blood Pressure Pulse Oximetry Oxygen Delivery Room Air 09/27/24 04:00 09/27/24 04:00 09/27/24 04:00 Temperature 36.3 C L Pulse Rate 62 63 Pulse Rate [Monitor] Respiratory Rate 16 Blood Pressure 100/46 L Pulse Oximetry 98 Oxygen Delivery Room Air 09/27/24 06:00 09/27/24 07:33 09/27/24 08:46 Temperature 36.8 C Pulse Rate 86 82 72 Pulse Rate [Monitor] Respiratory Rate 18 Blood Pressure 130/77 Pulse Oximetry 98 Oxygen Delivery Intake/Output Intake/Output: Intake & Output 09/24/24 09/25/24 09/26/24 09/27/24 23:59 23:59 23:59 23:59 Intake Total 240 790 640 Balance 240 790 640 Meds/Results Medications: Active Medications Generic Name Dose Route Start Last Admin Trade Name Freq PRN Reason Stop Dose Admin Acetaminophen 650 mg 09/26/24 16:37 09/26/24 17:07 Acetaminophen 325 Mg Tablet PO 650 mg Q6H PRN Administration Mild Pain (1-3) or Fever Albuterol 1 puff 09/25/24 16:06 Albuterol Sulfate (*Sp) Aerosol 1 Puff INHALATION DAILY PRN allergies Aspirin 81 mg 09/26/24 09:00 09/27/24 08:45 Aspirin 81 Mg Enteric Tablet PO 81 mg QAM MARY Administration Atorvastatin Calcium 40 mg 09/26/24 09:00 09/27/24 08:46 Atorvastatin 40 Mg Tablet PO 40 mg DAILY MARY Administration Buspirone HCl 10 mg 09/25/24 21:00 09/27/24 08:46 Buspirone Hcl 10 Mg Tablet PO 10 mg Q12HR MARY Administration Dextrose 12.5 gm 09/25/24 11:42 Dextrose 50% 25 Gm/50 Ml Syringe IV PUSH PRN PRN Hypoglycemia Protocol Empagliflozin 10 mg 09/27/24 09:00 09/27/24 08:45 Empagliflozin 10 Mg Tablet PO 10 mg DAILY MARY Administration Enoxaparin Sodium 40 mg 09/27/24 09:00 09/27/24 08:47 Enoxaparin 40 Mg/0.4 Ml Syringe SUB-Q 40 mg DAILY MARY Administration Gabapentin 300 mg 09/25/24 20:55 09/27/24 08:46 Gabapentin 300 Mg Capsule PO 300 mg TID MARY Administration Glucagon 1 mg 09/25/24 11:42 Glucagon For Inj 1 Mg Vial IM PRN PRN Hypoglycemia Protocol Glucose 15 gm 09/25/24 11:42 Glucose Oral Gel 15 Gm Of Glucse In 37.5 Gm Tube PO PRN PRN Hypoglycemia Protocol Hydroxyzine HCl 25 mg 09/25/24 20:55 09/27/24 08:45 Hydroxyzine Hcl 25 Mg Tablet PO 25 mg TID MARY Administration Dextrose 1,000 mls @ 100 mls/hr 09/25/24 11:42 Dextrose 5% 1,000 Ml IVPB PRN PRN Hypoglycemia Protocol Lisinopril 40 mg 09/26/24 09:00 09/27/24 08:46 Lisinopril 20 Mg Tablet PO 40 mg DAILY MARY Administration Metoprolol Succinate 200 mg 09/28/24 09:00 Metoprolol Succinate Ext Rel 100 Mg Tabcr PO QAM MARY Morphine Sulfate 2 mg 09/25/24 20:44 Morphine Sulfate (*Crx) 2 Mg/Ml Inj IV PUSH Q5M PRN Pain Rated 4-6 Nitroglycerin 0.4 mg 09/25/24 11:42 09/25/24 20:15 Nitroglycerin Sl 0.4 Mg Tablet SUBLINGUAL 0.4 mg Q5MIN PRN Administration Chest Pain Ondansetron HCl 4 mg 09/25/24 11:42 Ondansetron Inj 4 Mg/2 Ml Vial IV PUSH Q4H PRN Nausea Perflutren Lipid Microsphere 0 ml 09/25/24 11:52 Perflutren Lipid Microspheres 1.5 Ml Vial Diluted To 10 Ml Total Volume IV PUSH 09/28/24 11:53 ONCE PRN adequate visualization Protocol Thiamine HCl 500 mg 09/26/24 09:00 09/27/24 08:46 Thiamine Hcl 100 Mg Tablet PO 500 mg DAILY MARY Administration Radiology Results: ITS Impressions Head CT 09/25/24 10:32 Impression: No significant abnormality seen. Case discussed with Dr. Gaming at 10:32 AM on 09/25/2024. Head/Neck CTA 09/25/24 10:33 Impression: No significant abnormality seen. Chest X-Ray 09/25/24 11:27 IMPRESSION: Prominent markings in the lower lobes which may indicate atelectasis versus pneumonia.
[2024-09-27] MEDS: ALPRAZolam (*CRX) 0.5 MG TABLET PO (13:12)
[2024-09-27] MEDS: HYDROCORTISONE ACETATE 25 MG SUPPOSITORY RECTAL (16:42)
[2024-09-27] MEDS: ACETAMINOPHEN 325 MG TABLET 650 MG PO (20:38)
[2024-09-28] VITALS (19 sets, daily range): BP systolic 138–150; BP diastolic 56–81; PULSE 60–89; RESP 14–18; TEMP 36.4–37; O2SAT 95–100
[2024-09-28] MEDS: EMPAGLIFLOZIN 10 MG TABLET PO (08:31)
[2024-09-28] MEDS: ATORVASTATIN 40 MG TABLET PO (08:31)
[2024-09-28] MEDS: GABAPENTIN 300 MG CAPSULE PO ×3 (08:31→17:00)
[2024-09-28] MEDS: ASPIRIN 81 MG ENTERIC TABLET PO (08:31)
[2024-09-28] MEDS: THIAMINE HCL 100 MG TABLET 500 MG PO (08:31)
[2024-09-28] MEDS: ENOXAPARIN 40 MG/0.4 ML SYRINGE SUB-Q (08:32)
[2024-09-28] MEDS: busPIRone HCL 10 MG TABLET PO ×2 (08:32→20:31)
[2024-09-28] MEDS: METOPROLOL SUCCINATE EXT REL 100 MG TABCR 200 MG PO (08:32)
[2024-09-28] MEDS: hydrOXYzine HCL 25 MG TABLET PO ×3 (08:32→17:00)
[2024-09-28] MEDS: lisinopriL 20 MG TABLET 40 MG PO (08:32)
--- NOTE | 2024-09-28 09:44 | PM.PNCARD ---
Progress Note: A&P Assessment and Plan (1) Chest pain: Qualifiers: Chest pain type: unspecified Qualified Code(s): R07.9 - Chest pain, unspecified Code(s): R07.9 - Chest pain, unspecified Status: Acute Plan 49-year-old lady with: Mild LV systolic dysfunction on appropriate medical therapy with at least moderate, moderate to severe aortic regurgitation. Concern now is for possible cardioembolic source. Transthoracic echo did not show any evidence of shunt. It is reasonable to proceed with transesophageal echo given the patient's relatively young age to rule out PFO as a potential source. Will try to arrange for this to be done tomorrow and keep patient NPO this evening Jhonny Chambers MD LOCATED WITHIN [facility] Subjective Date/time seen: Date of service: 09/28/24 09:44 Interval history: Follow-up visit in this 49-year-old lady with: Noncardiac chest pain she was admitted for chest pain evaluation underwent coronary angiography yesterday demonstrating no evidence of coronary disease. She has had 2 catheterizations showing no CAD. She does have chronic stable left ventricular systolic dysfunction and echocardiographic evidence yesterday of moderate to severe aortic regurgitation. Conversation with the patient today about her LV dysfunction and aortic valve disease. She feels well and is expecting to be discharged today. 09/28/2024: Patient is still hospitalized with concerns regarding findings of brain MRI. She appears to have small strokes in multi vascular distribution raising concern regarding embolization. CT of her thoracic aorta today was completely unremarkable excluding this as a potential source. Discussed with hospital, primary team this morning about possibility of COLE. This was discussed with the patient in detail. Exam Narrative: General: Alert oriented x3, no acute distress Neck: Supple, no JVD Chest: Bilaterally clear to auscultation, no rales or rhonchi Cardiac: S1, S2 +, regular rate, regular rhythm, no murmurs or rubs Extremities: No pedal edema, no skin rash Neurologic: Alert and oriented x3, no focal neurological deficits Const: General: comfortable and no acute distress Other: Pleasant obese lady no apparent distress HENMT: Mouth: Yes moist mucous membranes Eyes: Sclera: sclerae normal Neck: Neck: supple Resp: Effort & Inspection: normal respiratory effort Auscultation: clear to auscultation bilaterally Cardio: Rate: regular rate Rhythm: regular rhythm Other: Grade 1-2 diastolic decrescendo murmur is audible at the apex GI: Auscultation: normal bowel sounds Skin: General skin exam: normal color Neuro: Other: Alert and oriented x3 Extrem: General: normal to inspection Objective Data Vital Signs Vital Signs: Vital Signs - 24 hr 09/27/24 10:00 09/27/24 11:18 09/27/24 12:00 Temperature 36.7 C Pulse Rate 73 73 68 Respiratory Rate 18 Blood Pressure 124/71 Pulse Oximetry 98 Oxygen Delivery 09/27/24 12:00 09/27/24 12:00 09/27/24 14:00 Temperature Pulse Rate 73 72 Respiratory Rate Blood Pressure Pulse Oximetry 98 Oxygen Delivery Room Air 09/27/24 16:00 09/27/24 16:00 09/27/24 16:00 Temperature 36.6 C Pulse Rate 70 68 Respiratory Rate 18 Blood Pressure 118/56 L Pulse Oximetry 98 98 Oxygen Delivery Room Air 09/27/24 18:00 09/27/24 20:00 09/27/24 20:00 Temperature 36.4 C Pulse Rate 75 72 Respiratory Rate 18 Blood Pressure 140/68 Pulse Oximetry 98 Oxygen Delivery Room Air 09/27/24 20:00 09/27/24 22:00 09/27/24 23:33 Temperature 36.7 C Pulse Rate 66 64 71 Respiratory Rate 18 Blood Pressure 137/85 Pulse Oximetry 95 Oxygen Delivery 09/27/24 23:59 09/28/24 00:00 09/28/24 00:33 Temperature Pulse Rate 71 67 67 Respiratory Rate 18 14 Blood Pressure Pulse Oximetry 95 Oxygen Delivery Room Air Autopap 09/28/24 02:00 09/28/24 03:40 09/28/24 03:59 Temperature Pulse Rate 60 60 67 Respiratory Rate 14 Blood Pressure Pulse Oximetry 95 Oxygen Delivery Room Air Autopap 09/28/24 04:00 09/28/24 04:00 09/28/24 06:00 Temperature 36.6 C Pulse Rate 63 61 62 Respiratory Rate 16 Blood Pressure 145/76 H Pulse Oximetry 98 Oxygen Delivery 09/28/24 08:00 09/28/24 08:32 Temperature 36.4 C L Pulse Rate 72 74 Respiratory Rate 18 Blood Pressure 143/81 H Pulse Oximetry 99 Oxygen Delivery Intake/Output Intake/Output: Intake & Output 0609/26/24 09/27/24 09/28/24 23:59 23:59 23:59 23:59 Intake Total 159 587 7099 715 Balance 707 080 1774 715 Meds/Results Medications: Active Medications Generic Name Dose Route Start Last Admin Trade Name Freq PRN Reason Stop Dose Admin Acetaminophen 650 mg 09/26/24 16:37 09/27/24 20:38 Acetaminophen 325 Mg Tablet PO 650 mg Q6H PRN Administration Mild Pain (1-3) or Fever Albuterol 1 puff 09/25/24 16:06 Albuterol Sulfate (*Sp) Aerosol 1 Puff INHALATION DAILY PRN allergies Alprazolam 0.5 mg 09/27/24 11:49 09/27/24 13:12 Alprazolam (*Crx) 0.5 Mg Tablet PO 0.5 mg ONCE PRN Administration Anxiety Aspirin 81 mg 09/26/24 09:00 09/28/24 08:31 Aspirin 81 Mg Enteric Tablet PO 81 mg QAM MARY Administration Atorvastatin Calcium 40 mg 09/26/24 09:00 09/28/24 08:31 Atorvastatin 40 Mg Tablet PO 40 mg DAILY MARY Administration Buspirone HCl 10 mg 09/25/24 21:00 09/28/24 08:32 Buspirone Hcl 10 Mg Tablet PO 10 mg Q12HR MARY Administration Dextrose 12.5 gm 09/25/24 11:42 Dextrose 50% 25 Gm/50 Ml Syringe IV PUSH PRN PRN Hypoglycemia Protocol Empagliflozin 10 mg 09/27/24 09:00 09/28/24 08:31 Empagliflozin 10 Mg Tablet PO 10 mg DAILY MARY Administration Enoxaparin Sodium 40 mg 09/27/24 09:00 09/28/24 08:32 Enoxaparin 40 Mg/0.4 Ml Syringe SUB-Q 40 mg DAILY MARY Administration Gabapentin 300 mg 09/25/24 20:55 09/28/24 08:31 Gabapentin 300 Mg Capsule PO 300 mg TID MARY Administration Glucagon 1 mg 09/25/24 11:42 Glucagon For Inj 1 Mg Vial IM PRN PRN Hypoglycemia Protocol Glucose 15 gm 09/25/24 11:42 Glucose Oral Gel 15 Gm Of Glucse In 37.5 Gm Tube PO PRN PRN Hypoglycemia Protocol Hydrocortisone Acetate 25 mg 09/27/24 11:55 09/27/24 16:42 Hydrocortisone Acetate 25 Mg Suppository RECTAL 25 mg Q12HR PRN Administration Hemorrhoids Hydroxyzine HCl 25 mg 09/25/24 20:55 09/28/24 08:32 Hydroxyzine Hcl 25 Mg Tablet PO 25 mg TID MARY Administration Dextrose 1,000 mls @ 100 mls/hr 09/25/24 11:42 Dextrose 5% 1,000 Ml IVPB PRN PRN Hypoglycemia Protocol Lisinopril 40 mg 09/26/24 09:00 09/28/24 08:32 Lisinopril 20 Mg Tablet PO 40 mg DAILY MARY Administration Metoprolol Succinate 200 mg 09/28/24 09:00 09/28/24 08:32 Metoprolol Succinate Ext Rel 100 Mg Tabcr PO 200 mg QAM MARY Administration Morphine Sulfate 2 mg 09/25/24 20:44 Morphine Sulfate (*Crx) 2 Mg/Ml Inj IV PUSH Q5M PRN Pain Rated 4-6 Nitroglycerin 0.4 mg 09/25/24 11:42 09/25/24 20:15 Nitroglycerin Sl 0.4 Mg Tablet SUBLINGUAL 0.4 mg Q5MIN PRN Administration Chest Pain Ondansetron HCl 4 mg 09/25/24 11:42 Ondansetron Inj 4 Mg/2 Ml Vial IV PUSH Q4H PRN Nausea Perflutren Lipid Microsphere 0 ml 09/25/24 11:52 Perflutren Lipid Microspheres 1.5 Ml Vial Diluted To 10 Ml Total Volume IV PUSH 09/28/24 11:53 ONCE PRN adequate visualization Protocol Thiamine HCl 500 mg 09/26/24 09:00 09/28/24 08:31 Thiamine Hcl 100 Mg Tablet PO 500 mg DAILY MARY Administration Radiology Results: ITS Impressions Head CT 09/25/24 10:32 Impression: No significant abnormality seen. Case discussed with Dr. Gaming at 10:32 AM on 09/25/2024. Head/Neck CTA 09/25/24 10:33 Impression: No significant abnormality seen. Chest X-Ray 09/25/24 11:27 IMPRESSION: Prominent markings in the lower lobes which may indicate atelectasis versus pneumonia. Brain MRI 09/27/24 13:54 IMPRESSION: 1. Multiple small acute infarcts on both the left and right involving predominantly posterior but also some of the anterior circulation which suggests a shower of emboli from a central source proximal to the aorta. 2. Several small foci of susceptibility artifact bilateral thalami and basal ganglia consistent with sequela of chronic microhemorrhage such as in the setting of hypertension with differential also including amyloid angiopathy. Chest CTA 09/28/24 09:21 Impression: No significant abnormality seen.
--- NOTE | 2024-09-28 11:56 | WPDNEURCNPN ---
Assessment and Plan Assessment and plan (1) Acute on chronic systolic heart failure: Code(s): I50.23 - Acute on chronic systolic (congestive) heart failure Status: Acute (2) TIA (transient ischemic attack): Code(s): G45.9 - Transient cerebral ischemic attack, unspecified Status: Acute (3) History of multiple strokes: Code(s): Z86.73 - Personal history of transient ischemic attack (TIA), and cerebral infarction without residual deficits Status: Acute Plan 1. Multiple small acute infarct in both left and right up the dominantly posterior suggesting a shower of emboli from a central source and raising the possibility of need for a transesophageal echocardiogram which is being planned, in the meantime she is receiving aspirin and atorvastatin along with the antihypertensive medication and will definitely need a change in the treatment depending on the results of the transesophageal echocardiogram time ,will follow the results. Consult date: 09/28/24 HPI: Angelica Kruse is a 49 year old female Admitted to the hospital through the emergency room for the complaints of chest pain, With history of gastric bypass surgery in the past, congestive heart failure, hypertension. Reportedly developed midsternal chest pain at night with headache with subsequent sensation of paresthesia of her left upper extremity when she woke up to go to the bathroom and persistent of the chest pain in the morning along with the paresthesias and weakness of the left upper and left lower extremity ,has been taking multiple medications as outlined. Not known to be allergic to any medications. Has history of supraventricular tachycardia, iron deficiency anemia, nonischemic cardiomyopathy, arthritis hypertension, and congestive heart failure as well. She has undergone gastric bypass surgery, right knee surgery, cholecystectomy. She has never been smoker, never alcohol intaker and on initial exam in the emergency room she was documented to have the BMI of 42.6 ,positive pronator drift in left upper extremity and weakness of the left lower extremity compared to the right side, vital signs were normal, CBC was normal, BMP was normal, and so as the master scan. Has been seen by the business services associate for chest pain with diagnosis of acute on chronic systolic heart failure and nonischemic cardiomyopathy and presently BNP of 105 0, has been receiving aspirin, statin and neurology consultation has been obtained for left upper and left lower extremity paresthesias. Her echocardiogram has been documented with only mildly enlarged left atrium with moderate to severe aortic valve regurgitation with moderate to severe global systolic dysfunction and ejection fraction of 30 to 35%. , due to the persistent of the symptomatology cardiac catheterization has been done which has documented patent main left coronary artery patent left anterior descending, patent left circumflex, with assessment of no coronary artery disease in continuation of the medical therapy also suggestion for referral for the evaluation of microvascular disease. Trans esophageal echo is being considered to rule out the possibility of PFO, as she have had small stroke in multiple vascular distribution raising the possibility of embolization, CT for thoracic aorta was unremarkable, as per Dr. Friend, in his notes. considering the possibility of aortic valve replacement at some point because her aortic regurgitation is chronic and has recently worsened on the current echocardiogram. Her MRI on 09/27 documented multiple small acute infarcts both the left and right involving predominantly posterior but also some of the anterior circulation suggesting the shower of emboli from central source proximal to the aorta and this has been discussed by business services associate and the treatment has been continued. considering the possible shower of emboli from the heart transesophageal echocardiogram is being considered. Review of Systems Review of Systems: All systems reviewed & are unremarkable except as noted in HPI and below PMFSH Past Medical History Medical History SVT (supraventricular tachycardia) Colon cancer screening Abdominal pain Internal hemorrhoid Hx of diverticulitis of colon HAYLEY (iron deficiency anemia) PUD (peptic ulcer disease) Nonischemic cardiomyopathy Arthritis UTI (urinary tract infection) Sleep apnea Asthma HTN (hypertension) History of angina Seasonal allergies CHF (congestive heart failure) Surgical History Surgical History Hx of gastric bypass History of knee surgery Right History of tubal ligation History of cholecystectomy History of cardiac catheterization Family History Family History Father Diabetes mellitus Hypertension Asthma Patient's father is in good health Family history of cardiovascular disease Mother Hypertension Patient's mother is in good health Sibling Patient's sister is in good health Social History Social History Smoking status: Never smoker Alcohol intake: never Substance use: never Substance use type: does not use Do You Feel Safe in your Home?: Yes Lack of Transportation: No Lack of Food: Never True Current Housing: I Have Housing Concerned About Future Housing: No Difficulty Paying Gas/Electric Bills: No Difficulty Paying for Meds: No Currently Unemployed: No Education: High School Diploma/GED Difficulty w/ Childcare or Family Care: No Living arrangements: with family Gender identity (if verbalized by the patient): Female Spiritual care concerns: No Meds Home Medications and Allergies Home Medications ?Medication ?Instructions ?Recorded ?Confirmed ?Type metoprolol succinate 200 mg 200 mg PO DAILY 06/28/19 09/25/24 History tablet,extended release 24 hr albuterol sulfate 90 mcg/actuation 1 puff inhalation DAILY PRN 06/10/20 09/25/24 History aerosol inhaler allergies cyclobenzaprine 10 mg tablet 10 mg PO TID PRN muscle spasm #16 06/10/20 09/25/24 Rx tabs gabapentin 100 mg capsule 300 mg PO TID 06/10/20 09/25/24 History lisinopril 40 mg tablet 40 mg PO DAILY 06/10/20 09/25/24 History ascorbic acid (vitamin C) 500 mg 500 mg PO DAILY 01/17/23 09/25/24 History tablet thiamine HCl (vitamin B1) 50 mg 500 mg PO DAILY 01/17/23 09/25/24 History tablet biotin 5 mg capsule 5 mg PO DAILY 09/25/24 09/25/24 History buspirone 10 mg tablet 10 mg PO BID 09/25/24 09/25/24 History calcium 600 mg (as 1 tablet PO DAILY 09/25/24 09/25/24 History carbonate)-vitamin D3 10 mcg (400 unit) tablet hydroxyzine HCl 25 mg tablet 25 mg PO TID 09/25/24 09/25/24 History loratadine 10 mg tablet (Allergy 10 mg PO DAILY 09/25/24 09/25/24 History Relief (loratadine)) mecobalamin (vitamin B12) 500 mcg 500 mcg PO DAILY 09/25/24 09/25/24 History chewable tablet metoprolol tartrate 100 mg tablet 100 mg PO Q12H 09/25/24 09/26/24 History nifedipine 30 mg tablet,extended 30 mg PO DAILY 09/25/24 09/25/24 History release 24 hr nifedipine 60 mg tablet,extended 60 mg PO DAILY 09/25/24 09/25/24 History release 24 hr nifedipine 90 mg tablet,extended 90 mg PO DAILY 09/25/24 09/25/24 History release 24 hr spironolactone 50 mg tablet 50 mg PO DAILY 09/25/24 09/25/24 History Allergies Allergy/AdvReac Type Severity Reaction Status Date / Time No Known Allergies Allergy Verified 09/25/24 13:52 Vital Signs Vital Signs - 24 hr 09/27/24 12:00 09/27/24 12:00 09/27/24 12:00 Temperature 36.7 C Pulse Rate 68 73 Respiratory Rate 18 Blood Pressure 124/71 Pulse Oximetry 98 98 Oxygen Delivery Room Air 09/27/24 14:00 09/27/24 16:00 09/27/24 16:00 Temperature 36.6 C Pulse Rate 72 70 68 Respiratory Rate 18 Blood Pressure 118/56 L Pulse Oximetry 98 Oxygen Delivery 09/27/24 16:00 09/27/24 18:00 09/27/24 20:00 Temperature 36.4 C Pulse Rate 75 72 Respiratory Rate 18 Blood Pressure 140/68 Pulse Oximetry 98 98 Oxygen Delivery Room Air 09/27/24 20:00 09/27/24 20:00 09/27/24 22:00 Temperature Pulse Rate 66 64 Respiratory Rate Blood Pressure Pulse Oximetry Oxygen Delivery Room Air 09/27/24 23:33 09/27/24 23:59 09/28/24 00:00 Temperature 36.7 C Pulse Rate 71 71 67 Respiratory Rate 18 18 Blood Pressure 137/85 Pulse Oximetry 95 95 Oxygen Delivery Room Air 09/28/24 00:33 09/28/24 02:00 09/28/24 03:40 Temperature Pulse Rate 67 60 60 Respiratory Rate 14 Blood Pressure Pulse Oximetry 95 Oxygen Delivery Autopap Room Air 09/28/24 03:59 09/28/24 04:00 09/28/24 04:00 Temperature 36.6 C Pulse Rate 67 63 61 Respiratory Rate 14 16 Blood Pressure 145/76 H Pulse Oximetry 98 Oxygen Delivery Autopap 09/28/24 06:00 09/28/24 08:00 09/28/24 08:00 Temperature 36.4 C L Pulse Rate 62 72 Respiratory Rate 18 Blood Pressure 143/81 H Pulse Oximetry 99 98 Oxygen Delivery Room Air 09/28/24 08:00 09/28/24 08:32 09/28/24 10:00 Temperature Pulse Rate 75 74 89 Respiratory Rate Blood Pressure Pulse Oximetry Oxygen Delivery 09/28/24 10:04 09/28/24 11:30 09/28/24 11:46 Temperature 36.9 C Pulse Rate 68 Respiratory Rate 18 Blood Pressure 147/81 H Pulse Oximetry 98 99 Oxygen Delivery Room Air Room Air Exam Narrative: Exam reveals her to be awake alert cooperative in no obvious acute distress, his speech not dysphasic not dysarthric not dysphonic, she was alert and oriented x3, head normocephalic with no cranial bruits, ear nose throat examination normal, neck supple with no cervical bruit no thyromegaly no lymphadenopathy, heart regular with no murmurs, neurologically she is awake alert oriented x3, his speech not dysphasic not dysarthric, pupils round regular kat of vision full extraocular movements full facial sensation intact face symmetrical tongue midline uvula midline motor exam reveals her to be with normal strength subtle drift against gravity with eyes closure reflexes symmetric and plantars are only questionable there is no evidence of cerebellar deficit. Results Labs 09/26/24 04:04 09/26/24 04:04
[2024-09-28 13:51] LABS: Amphetamine Screen Urine Negative (Negative); Barbiturate Screen Urine Negative (Negative); Benzodiazepines Screen Urine Negative (Negative); Cannabinoid Screen Urine Negative (Negative); Cocaine Screen Urine Negative (Negative); Methadone Screen Urine Negative (Negative); Opiate Screen Urine Negative (Negative); Phencyclidine Screen Urine Negative (Negative)
--- NOTE | 2024-09-28 15:55 | P.PNIM_ITS ---
Progress Note: A&P Assessment and Plan (1) Chest pain: Qualifiers: Chest pain type: unspecified Qualified Code(s): R07.9 - Chest pain, unspecified Code(s): R07.9 - Chest pain, unspecified Status: Acute Assessment and Plan: Continue current treatment and anticoagulation. Cardiology consult. Possible catheterization today (2) Obstructive sleep apnea: Code(s): G47.33 - Obstructive sleep apnea (adult) (pediatric) Status: Acute Assessment and Plan: Stable on current medication will continue current treatment. (3) Left leg paresthesias: Code(s): R20.2 - Paresthesia of skin Status: Acute Assessment and Plan: Stable, continue current treatment. 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 Discussed with Cardiology to discuss about COLE. Initially decided for CTA aorta which should also any finding. Patient will undergo transesophageal echocardiogram tomorrow. Discussed with Neurology and after transesophageal echocardiograph will start anticoagulation. Resolved Last normal was 12:00 a.m., patient woke up at 3:00 a.m. with symptoms Symptoms have resolved about 2:[address] head CTA head and neck unremarkable. MRI brain, echo, panel and A1c ordered next start aspirin and Lipitor neurology consulted. 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 and was scheduled for cardiac cath on October 17 However noted that her chest pain has been getting worse Symptoms described typical chest pain pattern per HPI above A1c, Lipid panel, ECHO ASpirin, Lipitor and MEtorpolol Cardiology following CHF continue home meds f/u ECHO HTN Continue home medications and adjust with clinical course Asthma PRN Duoneb continue home meds DBT prophylaxis on Sq Lovenox Full code SDM Daughter Rosalina Benites Subjective Date/time seen: 09/28/24 15:55 Interval history: Patient MRI shows multiple small acute infarcts in both left and right involving predominantly posterior but also some of the anterior circulation which suggests shower of emboli from a central source proximal to a aorta. Discussed with Cardiology to discuss about COLE. Initially decided for CTA aorta which did not show any significant finding. Patient will undergo transesophageal echocardiogram tomorrow. Discussed with Neurology and after transesophageal echocardiograph will start anticoagulation. Ordered blood culture and UDS. Patient agrees with the plan Review of Systems Review of Systems: All other systems reviewed and negative except as noted in the history above. Exam Narrative: General: alert and comfortable Eyes: EOMI, PERRLA ENNT External ears normal, Neck is supple, no masses, Respiratory systems: Clear to auscultation Cardiovascular S1, S2, normal rhythm, no murmur, rub, or gallop; no thrill or palpable murmurs on palpation. Gastrointestinal: soft, non-tender, and non-distended abdomen with no masses; BS present Skin: no rash, lesions, ulcerations, subcutaneous nodules or induration Musculoskeletal: no abnormality and no tenderness, normal ROM Neurologic: Alert and oriented x3, non focal Mental Status Exam: normal affect Objective Data Vital Signs Vital Signs: Vital Signs - 24 hr 09/27/24 16:00 09/27/24 16:00 09/27/24 16:00 Temperature 97.9 F Pulse Rate 70 68 Respiratory Rate 18 Blood Pressure 118/56 L Pulse Oximetry 98 98 Oxygen Delivery Room Air 09/27/24 18:00 09/27/24 20:00 09/27/24 20:00 Temperature 97.6 F Pulse Rate 75 72 Respiratory Rate 18 Blood Pressure 140/68 Pulse Oximetry 98 Oxygen Delivery Room Air 09/27/24 20:00 09/27/24 22:00 09/27/24 23:33 Temperature 98.1 F Pulse Rate 66 64 71 Respiratory Rate 18 Blood Pressure 137/85 Pulse Oximetry 95 Oxygen Delivery 09/27/24 23:59 09/28/24 00:00 09/28/24 00:33 Temperature Pulse Rate 71 67 67 Respiratory Rate 18 14 Blood Pressure Pulse Oximetry 95 Oxygen Delivery Room Air [employer] 09/28/24 02:00 09/28/24 03:40 09/28/24 03:59 Temperature Pulse Rate 60 60 67 Respiratory Rate 14 Blood Pressure Pulse Oximetry 95 Oxygen Delivery Room Air [employer] 09/28/24 04:00 09/28/24 04:00 09/28/24 06:00 Temperature 97.9 F Pulse Rate 63 61 62 Respiratory Rate 16 Blood Pressure 145/76 H Pulse Oximetry 98 Oxygen Delivery 09/28/24 08:00 09/28/24 08:00 09/28/24 08:00 Temperature 97.5 F L Pulse Rate 72 75 Respiratory Rate 18 Blood Pressure 143/81 H Pulse Oximetry 99 98 Oxygen Delivery Room Air 09/28/24 08:32 09/28/24 10:00 09/28/24 10:04 Temperature Pulse Rate 74 89 Respiratory Rate Blood Pressure Pulse Oximetry 98 Oxygen Delivery Room Air 09/28/24 11:30 09/28/24 11:46 09/28/24 12:00 Temperature 98.4 F Pulse Rate 68 Respiratory Rate 18 Blood Pressure 147/81 H Pulse Oximetry 99 99 Oxygen Delivery Room Air Room Air 09/28/24 12:00 09/28/24 12:24 09/28/24 15:41 Temperature 98.4 F Pulse Rate 74 67 Respiratory Rate 16 Blood Pressure 138/56 L Pulse Oximetry 99 Oxygen Delivery Room Air Intake/Output Intake/Output: Intake & Output 09/25/24 09/26/24 09/27/24 09/28/24 23:59 23:59 23:59 23:59 Intake Total 299 527 7986 955 Balance 028 149 6431 955 Meds/Results Medications: Active Medications Generic Name Dose Route Start Last Admin Trade Name Freq PRN Reason Stop Dose Admin Acetaminophen 650 mg 09/26/24 16:37 09/27/24 20:38 Acetaminophen 325 Mg Tablet PO 650 mg Q6H PRN Administration Mild Pain (1-3) or Fever Albuterol 1 puff 09/25/24 16:06 Albuterol Sulfate (*Sp) Aerosol 1 Puff INHALATION DAILY PRN allergies Alprazolam 0.5 mg 09/27/24 11:49 09/27/24 13:12 Alprazolam (*Crx) 0.5 Mg Tablet PO 0.5 mg ONCE PRN Administration Anxiety Aspirin 81 mg 09/26/24 09:00 09/28/24 08:31 Aspirin 81 Mg Enteric Tablet PO 81 mg QAM MARY Administration Atorvastatin Calcium 40 mg 09/26/24 09:00 09/28/24 08:31 Atorvastatin 40 Mg Tablet PO 40 mg DAILY MARY Administration Buspirone HCl 10 mg 09/25/24 21:00 09/28/24 08:32 Buspirone Hcl 10 Mg Tablet PO 10 mg Q12HR MARY Administration Dextrose 12.5 gm 09/25/24 11:42 Dextrose 50% 25 Gm/50 Ml Syringe IV PUSH PRN PRN Hypoglycemia Protocol Empagliflozin 10 mg 09/27/24 09:00 09/28/24 08:31 Empagliflozin 10 Mg Tablet PO 10 mg DAILY MARY Administration Enoxaparin Sodium 40 mg 09/27/24 09:00 09/28/24 08:32 Enoxaparin 40 Mg/0.4 Ml Syringe SUB-Q 40 mg DAILY MARY Administration Gabapentin 300 mg 09/25/24 20:55 09/28/24 12:01 Gabapentin 300 Mg Capsule PO 300 mg TID MARY Administration Glucagon 1 mg 09/25/24 11:42 Glucagon For Inj 1 Mg Vial IM PRN PRN Hypoglycemia Protocol Glucose 15 gm 09/25/24 11:42 Glucose Oral Gel 15 Gm Of Glucse In 37.5 Gm Tube PO PRN PRN Hypoglycemia Protocol Hydrocortisone Acetate 25 mg 09/27/24 11:55 09/27/24 16:42 Hydrocortisone Acetate 25 Mg Suppository RECTAL 25 mg Q12HR PRN Administration Hemorrhoids Hydroxyzine HCl 25 mg 09/25/24 20:55 09/28/24 12:01 Hydroxyzine Hcl 25 Mg Tablet PO 25 mg TID MARY Administration Dextrose 1,000 mls @ 100 mls/hr 09/25/24 11:42 Dextrose 5% 1,000 Ml IVPB PRN PRN Hypoglycemia Protocol Lisinopril 40 mg 09/26/24 09:00 09/28/24 08:32 Lisinopril 20 Mg Tablet PO 40 mg DAILY MARY Administration Metoprolol Succinate 200 mg 09/28/24 09:00 09/28/24 08:32 Metoprolol Succinate Ext Rel 100 Mg Tabcr PO 200 mg QAM MARY Administration Morphine Sulfate 2 mg 09/25/24 20:44 Morphine Sulfate (*Crx) 2 Mg/Ml Inj IV PUSH Q5M PRN Pain Rated 4-6 Nitroglycerin 0.4 mg 09/25/24 11:42 09/25/24 20:15 Nitroglycerin Sl 0.4 Mg Tablet SUBLINGUAL 0.4 mg Q5MIN PRN Administration Chest Pain Ondansetron HCl 4 mg 09/25/24 11:42 Ondansetron Inj 4 Mg/2 Ml Vial IV PUSH Q4H PRN Nausea Thiamine HCl 500 mg 09/26/24 09:00 09/28/24 08:31 Thiamine Hcl 100 Mg Tablet PO 500 mg DAILY MARY Administration Radiology Results: ITS Impressions Head CT 09/25/24 10:32 Impression: No significant abnormality seen. Case discussed with Dr. Gaming at 10:32 AM on 09/25/2024. Head/Neck CTA 09/25/24 10:33 Impression: No significant abnormality seen. Chest X-Ray 09/25/24 11:27 IMPRESSION: Prominent markings in the lower lobes which may indicate atelectasis versus pneumonia. Brain MRI 09/27/24 13:54 IMPRESSION: 1. Multiple small acute infarcts on both the left and right involving predominantly posterior but also some of the anterior circulation which suggests a shower of emboli from a central source proximal to the aorta. 2. Several small foci of susceptibility artifact bilateral thalami and basal ganglia consistent with sequela of chronic microhemorrhage such as in the setting of hypertension with differential also including amyloid angiopathy. Chest CTA 09/28/24 09:21 Impression: No significant abnormality seen. Labs Labs: Laboratory Results - last 24 hr 09/28/24 13:25 Urine Opiates Screen Negative Urine Methadone Screen Negative Ur Barbiturates Screen Negative Ur Phencyclidine Scrn Negative Ur Amphetamine Screen Negative U Benzodiazepines Scrn Negative Urine Cocaine Screen Negative U Cannabinoids Screen Negative Hospitalist MIPS Advance Care Plan I have confirmed that the patient's Advanced Care Plan is present, code status is documented, or surrogate decision maker is listed in patient medical record.: Yes Medication Reconciliation I have utilized all available resources to obtain, update and review the patients current medications (includes all prescriptions, OTC, herbals, cannabis, and nutritional supplements).: Yes
[2024-09-28] MEDS: ACETAMINOPHEN 325 MG TABLET 650 MG PO (20:31)
[2024-09-28] MEDS: MORPHINE SULFATE (*CRX) 2 MG/ML INJ IV PUSH (22:54)
[2024-09-29] VITALS (16 sets, daily range): BP systolic 116–157; BP diastolic 55–88; PULSE 55–82; RESP 16–20; TEMP 36.6–36.8; O2SAT 95–100
[2024-09-29 04:28] LABS: Hematocrit 37.9 % (37.0-47.0); Hemoglobin 11.7 g/dL (12.0-15.0); Mean Corpuscular HGB Conc 30.9 g/dl (32-36); Mean Corpuscular Hemoglobin 26.3 pg (26-34); Mean Corpuscular Volume 85.2 fl (80-100); Platelet Count Result 242 k/mm3 (150-375); Red Blood Count 4.45 M/mm3 (4.2-5.4)
[2024-09-29 04:58] LABS: Alanine Aminotransferase 24 U/L (6-35); Albumin Level 3.6 g/dL (3.5-5.1); Alkaline Phosphatase 71 U/L (38-126); Anion Gap 7 mmol/L (4-12); Aspartate Amino Transferase 36 U/L (14-36); Bilirubin,Total 0.2 mg/dL (0.2-1.3); Blood Urea Nitrogen 15 mg/dL (7-17); Calcium 8.9 mg/dL (8.4-10.2); Carbon Dioxide 28 mmol/L (22-30); Chloride 104 mmol/L (98-107); Estimated CRCL calculation 97 ml/min; Estimated Glomerular Filt Rate > 60; Glucose 95 mg/dL (65-110); Potassium 3.8 mmol/L (3.4-5.0); Sodium 139 mmol/L (137-145); Total Protein 6.8 g/dL (6.3-8.2)
[2024-09-29] MEDS: ENOXAPARIN 40 MG/0.4 ML SYRINGE SUB-Q (09:05)
[2024-09-29] MEDS: ATORVASTATIN 40 MG TABLET PO (09:09)
[2024-09-29] MEDS: hydrOXYzine HCL 25 MG TABLET PO ×3 (09:09→17:52)
[2024-09-29] MEDS: EMPAGLIFLOZIN 10 MG TABLET PO (09:09)
[2024-09-29] MEDS: GABAPENTIN 300 MG CAPSULE PO ×3 (09:09→17:52)
[2024-09-29] MEDS: ASPIRIN 81 MG ENTERIC TABLET PO (09:09)
[2024-09-29] MEDS: METOPROLOL SUCCINATE EXT REL 100 MG TABCR 200 MG PO (09:09)
[2024-09-29] MEDS: lisinopriL 20 MG TABLET 40 MG PO (09:09)
[2024-09-29] MEDS: THIAMINE HCL 100 MG TABLET 500 MG PO (09:09)
[2024-09-29] MEDS: busPIRone HCL 10 MG TABLET PO ×2 (09:10→20:17)
--- NOTE | 2024-09-29 13:59 | PM.IMPN ---
Progress Note: A&P Assessment and Plan (1) Chest pain: Qualifiers: Chest pain type: unspecified Qualified Code(s): R07.9 - Chest pain, unspecified Code(s): R07.9 - Chest pain, unspecified Status: Acute Assessment and Plan: Continue current treatment and anticoagulation. Cardiology consult. Possible catheterization today (2) Obstructive sleep apnea: Code(s): G47.33 - Obstructive sleep apnea (adult) (pediatric) Status: Acute Assessment and Plan: Stable on current medication will continue current treatment. (3) Left leg paresthesias: Code(s): R20.2 - Paresthesia of skin Status: Acute Assessment and Plan: Stable, continue current treatment. 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 Discussed with Cardiology to discuss about COLE. Initially decided for CTA aorta which should also any finding. Patient will undergo transesophageal echocardiogram tomorrow. Discussed with Neurology and after transesophageal echocardiograph will start anticoagulation. Resolved Last normal was 12:00 a.m., patient woke up at 3:00 a.m. with symptoms Symptoms have resolved about 2:[address] head CTA head and neck unremarkable. MRI brain, echo, panel and A1c ordered next start aspirin and Lipitor neurology consulted. 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 After the patient will be started on anticoagulation and patient agrees to the plan. Patient will be monitored at least for a day for high risk of cerebral bleeding on blood thinner Review of Systems Review of Systems: All other systems reviewed and negative except as noted in the history above. Exam Narrative: General: alert and comfortable Eyes: EOMI, PERRLA ENNT External ears normal, Neck is supple, no masses, Respiratory systems: Clear to auscultation Cardiovascular S1, S2, normal rhythm, no murmur, rub, or gallop; no thrill or palpable murmurs on palpation. Gastrointestinal: soft, non-tender, and non-distended abdomen with no masses; BS present Skin: no rash, lesions, ulcerations, subcutaneous nodules or induration Musculoskeletal: no abnormality and no tenderness, normal ROM Neurologic: Alert and oriented x3, non focal Mental Status Exam: normal affect Objective Data Vital Signs Vital Signs: Vital Signs - 24 hr 09/28/24 14:00 09/28/24 15:41 09/28/24 16:00 Temperature 98.4 F Pulse Rate 70 67 Respiratory Rate 16 Blood Pressure 138/56 L Pulse Oximetry 99 99 Oxygen Delivery Room Air 09/28/24 16:00 09/28/24 20:00 09/28/24 20:00 Temperature 98.6 F Pulse Rate 70 68 Respiratory Rate 18 Blood Pressure 150/77 H Pulse Oximetry 100 Oxygen Delivery Room Air 09/28/24 20:00 09/28/24 22:00 09/28/24 23:05 Temperature Pulse Rate 69 72 72 Respiratory Rate 18 Blood Pressure Pulse Oximetry 100 Oxygen Delivery CPAP 09/29/24 00:00 09/29/24 02:00 09/29/24 03:22 Temperature Pulse Rate 55 L 56 L 56 L Respiratory Rate 18 Blood Pressure Pulse Oximetry 100 Oxygen Delivery CPAP 09/29/24 04:00 09/29/24 04:23 09/29/24 06:00 Temperature 98.1 F Pulse Rate 82 65 68 Respiratory Rate 16 Blood Pressure 134/58 L Pulse Oximetry 98 Oxygen Delivery 09/29/24 08:00 09/29/24 08:00 09/29/24 08:00 Temperature 97.9 F Pulse Rate 65 71 60 Respiratory Rate 20 20 Blood Pressure 145/72 H Pulse Oximetry 99 99 Oxygen Delivery Room Air 09/29/24 09:09 09/29/24 10:00 09/29/24 11:54 Temperature 98.1 F Pulse Rate 71 75 64 Respiratory Rate 16 Blood Pressure 152/78 H Pulse Oximetry 97 Oxygen Delivery 09/29/24 12:00 Temperature Pulse Rate 64 Respiratory Rate Blood Pressure Pulse Oximetry Oxygen Delivery Intake/Output Intake/Output: Intake & Output 0609/27/24 09/28/24 09/29/24 23:59 23:59 23:59 23:59 Intake Total 790 1670 1195 790 Balance 790 1670 1195 790 Meds/Results Medications: Active Medications Generic Name Dose Route Start Last Admin Trade Name Freq PRN Reason Stop Dose Admin Acetaminophen 650 mg 09/26/24 16:37 09/28/24 20:31 Acetaminophen 325 Mg Tablet PO 650 mg Q6H PRN Administration Mild Pain (1-3) or Fever Albuterol 1 puff 09/25/24 16:06 Albuterol Sulfate (*Sp) Aerosol 1 Puff INHALATION DAILY PRN allergies Alprazolam 0.5 mg 09/27/24 11:49 09/27/24 13:12 Alprazolam (*Crx) 0.5 Mg Tablet PO 0.5 mg ONCE PRN Administration Anxiety Aspirin 81 mg 09/26/24 09:00 09/29/24 09:09 Aspirin 81 Mg Enteric Tablet PO 81 mg QAM MARY Administration Atorvastatin Calcium 40 mg 09/26/24 09:00 09/29/24 09:09 Atorvastatin 40 Mg Tablet PO 40 mg DAILY MARY Administration Buspirone HCl 10 mg 09/25/24 21:00 09/29/24 09:10 Buspirone Hcl 10 Mg Tablet PO 10 mg Q12HR MARY Administration Dextrose 12.5 gm 09/25/24 11:42 Dextrose 50% 25 Gm/50 Ml Syringe IV PUSH PRN PRN Hypoglycemia Protocol Empagliflozin 10 mg 09/27/24 09:00 09/29/24 09:09 Empagliflozin 10 Mg Tablet PO 10 mg DAILY MARY Administration Enoxaparin Sodium 40 mg 09/27/24 09:00 09/29/24 09:05 Enoxaparin 40 Mg/0.4 Ml Syringe SUB-Q 40 mg DAILY AMRY Administration Gabapentin 300 mg 09/25/24 20:55 09/29/24 12:05 Gabapentin 300 Mg Capsule PO 300 mg TID MARY Administration Glucagon 1 mg 09/25/24 11:42 Glucagon For Inj 1 Mg Vial IM PRN PRN Hypoglycemia Protocol Glucose 15 gm 09/25/24 11:42 Glucose Oral Gel 15 Gm Of Glucse In 37.5 Gm Tube PO PRN PRN Hypoglycemia Protocol Hydrocortisone Acetate 25 mg 09/27/24 11:55 09/27/24 16:42 Hydrocortisone Acetate 25 Mg Suppository RECTAL 25 mg Q12HR PRN Administration Hemorrhoids Hydroxyzine HCl 25 mg 09/25/24 20:55 09/29/24 12:05 Hydroxyzine Hcl 25 Mg Tablet PO 25 mg TID MARY Administration Dextrose 1,000 mls @ 100 mls/hr 09/25/24 11:42 Dextrose 5% 1,000 Ml IVPB PRN PRN Hypoglycemia Protocol Lisinopril 40 mg 09/26/24 09:00 09/29/24 09:09 Lisinopril 20 Mg Tablet PO 40 mg DAILY MARY Administration Metoprolol Succinate 200 mg 09/28/24 09:00 09/29/24 09:09 Metoprolol Succinate Ext Rel 100 Mg Tabcr PO 200 mg QAM MARY Administration Morphine Sulfate 2 mg 09/25/24 20:44 09/28/24 22:54 Morphine Sulfate (*Crx) 2 Mg/Ml Inj IV PUSH 2 mg Q5M PRN Administration Pain Rated 4-6 Nitroglycerin 0.4 mg 09/25/24 11:42 09/25/24 20:15 Nitroglycerin Sl 0.4 Mg Tablet SUBLINGUAL 0.4 mg Q5MIN PRN Administration Chest Pain Ondansetron HCl 4 mg 09/25/24 11:42 Ondansetron Inj 4 Mg/2 Ml Vial IV PUSH Q4H PRN Nausea Thiamine HCl 500 mg 09/26/24 09:00 09/29/24 09:09 Thiamine Hcl 100 Mg Tablet PO 500 mg DAILY MARY Administration Radiology Results: ITS Impressions Head CT 09/25/24 10:32 Impression: No significant abnormality seen. Case discussed with Dr. Gaming at 10:32 AM on 09/25/2024. Head/Neck CTA 09/25/24 10:33 Impression: No significant abnormality seen. Chest X-Ray 09/25/24 11:27 IMPRESSION: Prominent markings in the lower lobes which may indicate atelectasis versus pneumonia. Brain MRI 09/27/24 13:54 IMPRESSION: 1. Multiple small acute infarcts on both the left and right involving predominantly posterior but also some of the anterior circulation which suggests a shower of emboli from a central source proximal to the aorta. 2. Several small foci of susceptibility artifact bilateral thalami and basal ganglia consistent with sequela of chronic microhemorrhage such as in the setting of hypertension with differential also including amyloid angiopathy. Chest CTA 09/28/24 09:21 Impression: No significant abnormality seen. Labs Labs: Laboratory Results - last 24 hr 09/29/24 03:57 WBC 8.0 RBC 4.45 Hgb 11.7 L Hct 37.9 MCV 85.2 MCH 26.3 MCHC 30.9 L RDW 16.0 H Plt Count 242 MPV 11.0 H Sodium 139 Potassium 3.8 Chloride 104 Carbon Dioxide 28 Anion Gap 7 BUN 15 Creatinine 0.68 L Estim Creat Clear Calc 97 Estimated GFR > 60 Glucose 95 Calcium 8.9 Total Bilirubin 0.2 AST 36 ALT 24 Alkaline Phosphatase 71 Total Protein 6.8 Albumin 3.6 Hospitalist MIPS Advance Care Plan I have confirmed that the patient's Advanced Care Plan is present, code status is documented, or surrogate decision maker is listed in patient medical record.: Yes Medication Reconciliation I have utilized all available resources to obtain, update and review the patients current medications (includes all prescriptions, OTC, herbals, cannabis, and nutritional supplements).: Yes
[2024-09-29] MEDS: ACETAMINOPHEN 325 MG TABLET 650 MG PO (17:53)
--- NOTE | 2024-09-29 20:27 | PC.NURSE ---
pt arrived from [facility]
--- NOTE | 2024-09-29 20:47 | PC.NURSE ---
[facility] Personal belongings sent with patient. Report given to Shilpa STARR. Appropriate documentation sent with patient.
[2024-09-30] VITALS (11 sets, daily range): BP systolic 132–155; BP diastolic 72–87; PULSE 59–72; RESP 18–20; TEMP 36.4–37; O2SAT 95–100
[2024-09-30 05:51] LABS: Hematocrit 37.8 % (37.0-47.0); Hemoglobin 11.4 g/dL (12.0-15.0); Mean Corpuscular HGB Conc 30.2 g/dl (32-36); Mean Corpuscular Hemoglobin 25.3 pg (26-34); Mean Platelet Volume 10.6 fl (7.4-10.4); Platelet Count Result 237 k/mm3 (150-375); Red Cell Distribution Width 15.9 % (11.5-14.5); White Blood Count 7.1 K/mm3 (4.5-10.0)
[2024-09-30 06:19] LABS: Blood Urea Nitrogen 17 mg/dL (7-17)
[2024-09-30 06:24] LABS: Alanine Aminotransferase 33 U/L (6-35); Albumin Level 3.4 g/dL (3.5-5.1); Alkaline Phosphatase 65 U/L (38-126); Anion Gap 6 mmol/L (4-12); Aspartate Amino Transferase 46 U/L (14-36); Bilirubin,Total 0.1 mg/dL (0.2-1.3); Calcium 9.1 mg/dL (8.4-10.2); Carbon Dioxide 29 mmol/L (22-30); Chloride 105 mmol/L (98-107); Estimated CRCL calculation 99 ml/min; Estimated Glomerular Filt Rate > 60; Glucose 120 mg/dL (65-110); Potassium 3.7 mmol/L (3.4-5.0); Sodium 140 mmol/L (137-145); Total Protein 6.6 g/dL (6.3-8.2)
[2024-09-30] MEDS: lisinopriL 20 MG TABLET 40 MG PO (09:43)
[2024-09-30] MEDS: METOPROLOL SUCCINATE EXT REL 100 MG TABCR 200 MG PO (09:43)
[2024-09-30] MEDS: ENOXAPARIN 40 MG/0.4 ML SYRINGE SUB-Q (09:43)
[2024-09-30] MEDS: ASPIRIN 81 MG ENTERIC TABLET PO (09:43)
[2024-09-30] MEDS: GABAPENTIN 300 MG CAPSULE PO ×2 (09:43→16:53)
[2024-09-30] MEDS: EMPAGLIFLOZIN 10 MG TABLET PO (09:44)
[2024-09-30] MEDS: busPIRone HCL 10 MG TABLET PO ×2 (09:44→20:50)
[2024-09-30] MEDS: THIAMINE HCL 100 MG TABLET 500 MG PO (09:44)
[2024-09-30] MEDS: hydrOXYzine HCL 25 MG TABLET PO ×2 (09:44→16:53)
[2024-09-30] MEDS: ATORVASTATIN 40 MG TABLET PO (09:44)
--- NOTE | 2024-09-30 11:48 | P.PNIM_ITS ---
Progress Note: A&P Assessment and Plan (1) Chest pain: Qualifiers: Chest pain type: unspecified Qualified Code(s): R07.9 - Chest pain, unspecified Code(s): R07.9 - Chest pain, unspecified Status: Acute Assessment and Plan: * Continue current treatment and anticoagulation. * Cardiology consult. Possible catheterization today (2) Obstructive sleep apnea: Code(s): G47.33 - Obstructive sleep apnea (adult) (pediatric) Status: Acute Assessment and Plan: * Stable on current medication will continue current treatment. (3) Left leg paresthesias: Code(s): R20.2 - Paresthesia of skin Status: Acute Assessment and Plan: * Stable, continue current treatment. 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 Discussed with Cardiology to discuss about COLE. Initially decided for CTA aorta which should also any finding. Patient will undergo transesophageal echocardiogram tomorrow. Discussed with Neurology and after transesophageal echocardiograph will start anticoagulation. COLE did not show PFO or interarterial shunt. Cardiology to sign off. Monitor patient for one more day, discuss with Neuro regarding further managment of stroke. Likely d/c tomorrow. Resolved Last normal was 12:00 a.m., patient woke up at 3:00 a.m. with symptoms Symptoms have resolved about 2:[address] head CTA head and neck unremarkable. MRI brain, echo, panel and A1c ordered next start aspirin and Lipitor neurology consulted. PT OT/ST consulted Chest pain Patient noted she had positive stress test outpatient with her flare man and was scheduled for cardiac cath on October 17 However noted that her chest pain has been getting worse Symptoms described typical chest pain pattern per HPI above A1c, Lipid panel, ECHO Aspirin, Lipitor and Metoprolol Cardiology following CHF continue home meds f/u ECHO HTN Continue home medications and adjust with clinical course Asthma PRN Duoneb continue home meds DBT prophylaxis on Sq Lovenox Full code SDM Daughter Rosalina Benites Subjective Date/time seen: 09/30/24 11:48 Interval history: 50-year-old female past medical history of CHF, no shortness her, hypertension and asthma presented to the ER on account of chest pain left-sided weakness and numbness. 09/30/2024 Patient sitting comfortably in bed at time of examination. Denies any chest pain, shortness a breath, N/V, abdominal pain. Left-sided deficits/numbness resulted this time. Pt just returned from COLE for PFO rule out or intra-arterial shunt. Will discuss with neurology tomorrow regarding further stroke management. Cardiology has signed off given normal COLE. Otherwise patient has no complaints or concerns at this time. Continue Plavix and aspirin therapy. Likely discharge tomorrow. Review of Systems Review of Systems: All other systems reviewed and negative except as noted in the history above. Exam Narrative: General: alert and comfortable Eyes: EOMI, PERRLA ENNT External ears normal, Neck is supple, no masses, Respiratory systems: Clear to auscultation Cardiovascular S1, S2, normal rhythm, no murmur, rub, or gallop; no thrill or palpable murmurs on palpation. Gastrointestinal: soft, non-tender, and non-distended abdomen with no masses; BS present Skin: no rash, lesions, ulcerations, subcutaneous nodules or induration Musculoskeletal: no abnormality and no tenderness, normal ROM Neurologic: Alert and oriented x3, non focal Mental Status Exam: normal affect Objective Data Vital Signs Vital Signs: Vital Signs - 24 hr 09/29/24 11:54 09/29/24 12:00 09/29/24 15:53 Temperature 98.1 F 98.3 F Pulse Rate 64 64 68 Respiratory Rate 16 16 Blood Pressure 152/78 H 116/55 L Pulse Oximetry 97 95 Oxygen Delivery Fraction of Inspired Oxygen 09/29/24 16:00 09/29/24 20:00 09/29/24 20:00 Temperature Pulse Rate 75 70 Respiratory Rate Blood Pressure Pulse Oximetry Oxygen Delivery Room Air Fraction of Inspired Oxygen 09/29/24 21:34 09/29/24 21:56 09/30/24 00:00 Temperature 97.8 F Pulse Rate 55 L 65 60 Respiratory Rate 20 20 Blood Pressure 157/88 H Pulse Oximetry 95 98 Oxygen Delivery Room Air Fraction of Inspired Oxygen 09/30/24 04:00 09/30/24 06:00 Temperature 97.6 F Pulse Rate 59 L 64 Respiratory Rate 18 Blood Pressure 132/72 Pulse Oximetry 97 Oxygen Delivery Fraction of Inspired Oxygen Intake/Output Intake/Output: Intake & Output 09/27/24 09/28/24 09/29/24 09/30/24 23:59 23:59 23:59 23:59 Intake Total 1670 1195 1820 Balance 1670 1195 1820 Meds/Results Medications: Active Medications Generic Name Dose Route Start Last Admin Trade Name Freq PRN Reason Stop Dose Admin Acetaminophen 650 mg 09/26/24 16:37 09/29/24 17:53 Acetaminophen 325 Mg Tablet PO 650 mg Q6H PRN Administration Mild Pain (1-3) or Fever Albuterol 1 puff 09/25/24 16:06 Albuterol Sulfate (*Sp) Aerosol 1 Puff INHALATION DAILY PRN allergies Alprazolam 0.5 mg 09/27/24 11:49 09/27/24 13:12 Alprazolam (*Crx) 0.5 Mg Tablet PO 0.5 mg ONCE PRN Administration Anxiety Aspirin 81 mg 09/26/24 09:00 09/30/24 09:43 Aspirin 81 Mg Enteric Tablet PO 81 mg QAM MARY Administration Atorvastatin Calcium 40 mg 09/26/24 09:00 09/30/24 09:44 Atorvastatin 40 Mg Tablet PO 40 mg DAILY MARY Administration Buspirone HCl 10 mg 09/25/24 21:00 09/30/24 09:44 Buspirone Hcl 10 Mg Tablet PO 10 mg Q12HR MARY Administration Dextrose 12.5 gm 09/25/24 11:42 Dextrose 50% 25 Gm/50 Ml Syringe IV PUSH PRN PRN Hypoglycemia Protocol Empagliflozin 10 mg 09/27/24 09:00 09/30/24 09:44 Empagliflozin 10 Mg Tablet PO 10 mg DAILY MARY Administration Enoxaparin Sodium 40 mg 09/27/24 09:00 09/30/24 09:43 Enoxaparin 40 Mg/0.4 Ml Syringe SUB-Q 40 mg DAILY MARY Administration Gabapentin 300 mg 09/25/24 20:55 09/30/24 09:43 Gabapentin 300 Mg Capsule PO 300 mg TID MARY Administration Glucagon 1 mg 09/25/24 11:42 Glucagon For Inj 1 Mg Vial IM PRN PRN Hypoglycemia Protocol Glucose 15 gm 09/25/24 11:42 Glucose Oral Gel 15 Gm Of Glucse In 37.5 Gm Tube PO PRN PRN Hypoglycemia Protocol Hydrocortisone Acetate 25 mg 09/27/24 11:55 09/27/24 16:42 Hydrocortisone Acetate 25 Mg Suppository RECTAL 25 mg Q12HR PRN Administration Hemorrhoids Hydroxyzine HCl 25 mg 09/25/24 20:55 09/30/24 09:44 Hydroxyzine Hcl 25 Mg Tablet PO 25 mg TID MARY Administration Dextrose 1,000 mls @ 100 mls/hr 09/25/24 11:42 Dextrose 5% 1,000 Ml IVPB PRN PRN Hypoglycemia Protocol Lisinopril 40 mg 09/26/24 09:00 09/30/24 09:43 Lisinopril 20 Mg Tablet PO 40 mg DAILY MARY Administration Metoprolol Succinate 200 mg 09/28/24 09:00 09/30/24 09:43 Metoprolol Succinate Ext Rel 100 Mg Tabcr PO 200 mg QAM MARY Administration Morphine Sulfate 2 mg 09/25/24 20:44 09/28/24 22:54 Morphine Sulfate (*Crx) 2 Mg/Ml Inj IV PUSH 2 mg Q5M PRN Administration Pain Rated 4-6 Nitroglycerin 0.4 mg 09/25/24 11:42 09/25/24 20:15 Nitroglycerin Sl 0.4 Mg Tablet SUBLINGUAL 0.4 mg Q5MIN PRN Administration Chest Pain Ondansetron HCl 4 mg 09/25/24 11:42 Ondansetron Inj 4 Mg/2 Ml Vial IV PUSH Q4H PRN Nausea Thiamine HCl 500 mg 09/26/24 09:00 09/30/24 09:44 Thiamine Hcl 100 Mg Tablet PO 500 mg DAILY MARY Administration Radiology Results: ITS Impressions Head CT 09/25/24 10:32 Impression: No significant abnormality seen. Case discussed with Dr. Gaming at 10:32 AM on 09/25/2024. Head/Neck CTA 09/25/24 10:33 Impression: No significant abnormality seen. Chest X-Ray 09/25/24 11:27 IMPRESSION: Prominent markings in the lower lobes which may indicate atelectasis versus pneumonia. Brain MRI 09/27/24 13:54 IMPRESSION: 1. Multiple small acute infarcts on both the left and right involving predomin antly posterior but also some of the anterior circulation which suggests a shower of emboli from a central source proximal to the aorta. 2. Several small foci of susceptibility artifact bilateral thalami and basal ganglia consistent with sequela of chronic microhemorrhage such as in the setting of hypertension with differential also including amyloid angiopathy. Chest CTA 09/28/24 09:21 Impression: No significant abnormality seen. Labs Labs: Laboratory Results - last 24 hr 09/30/24 05:43 WBC 7.1 RBC 4.50 Hgb 11.4 L Hct 37.8 MCV 84.0 MCH 25.3 L MCHC 30.2 L RDW 15.9 H Plt Count 237 MPV 10.6 H Sodium 140 Potassium 3.7 Chloride 105 Carbon Dioxide 29 Anion Gap 6 BUN 17 Creatinine 0.67 L Estim Creat Clear Calc 99 Estimated GFR > 60 Glucose 120 H Calcium 9.1 Total Bilirubin 0.1 L AST 46 H ALT 33 Alkaline Phosphatase 65 Total Protein 6.6 Albumin 3.4 L Quality VTE Prophylaxis VTE prophylaxis: pharmacologic ordered
--- NOTE | 2024-09-30 12:39 | P.PNAN_ITS ---
Anes - Eval Pre Procedure Procedure: Operation Date: 09/26/24 10:00 Proposed Procedures p Left Heart Cath - Chiquita Olson MD Operation Date: 09/30/24 13:00 Proposed Procedures p Trans Esophageal Echo - Mechelle Lugo MD Date/Time: 09/30/24 12:39 Pre Op Diagnosis: CP/L Sided Weakness Patient Data Age: 49 Gender: F Height: 1.6 m Weight: 104.6 kg Last Vital Signs Temp 97.6 F 09/30/24 06:00 Pulse 64 09/30/24 08:00 Resp 18 09/30/24 08:00 BP 132/72 09/30/24 06:00 Pulse Ox 97 09/30/24 08:00 O2 Del Method Room Air 09/30/24 08:00 O2 Flow Rate 2 09/26/24 04:00 FiO2 21 09/30/24 08:00 Allergies Allergy/AdvReac Type Severity Reaction Status Date / Time No Known Allergies Allergy Verified 09/25/24 13:52 Home Medications ?Medication ?Instructions ?Recorded ?Confirmed ?Type metoprolol succinate 200 mg 200 mg PO DAILY 06/28/19 09/25/24 History tablet,extended release 24 hr albuterol sulfate 90 mcg/actuation 1 puff inhalation DAILY PRN 06/10/20 09/25/24 History aerosol inhaler allergies cyclobenzaprine 10 mg tablet 10 mg PO TID PRN muscle spasm #16 06/10/20 09/25/24 Rx tabs gabapentin 100 mg capsule 300 mg PO TID 06/10/20 09/25/24 History lisinopril 40 mg tablet 40 mg PO DAILY 06/10/20 09/25/24 History ascorbic acid (vitamin C) 500 mg 500 mg PO DAILY 01/17/23 09/25/24 History tablet thiamine HCl (vitamin B1) 50 mg 50 mg PO DAILY 01/17/23 09/29/24 History tablet biotin 5 mg capsule 5 mg PO DAILY 09/25/24 09/25/24 History buspirone 10 mg tablet 10 mg PO BID 09/25/24 09/25/24 History calcium 600 mg (as 1 tablet PO DAILY 09/25/24 09/25/24 History carbonate)-vitamin D3 10 mcg (400 unit) tablet hydroxyzine HCl 25 mg tablet 25 mg PO TID 09/25/24 09/25/24 History loratadine 10 mg tablet (Allergy 10 mg PO DAILY 09/25/24 09/25/24 History Relief (loratadine)) mecobalamin (vitamin B12) 500 mcg 500 mcg PO DAILY 09/25/24 09/25/24 History chewable tablet metoprolol tartrate 100 mg tablet 100 mg PO Q12H 09/25/24 09/26/24 History nifedipine 30 mg tablet,extended 30 mg PO DAILY 09/25/24 09/25/24 History release 24 hr nifedipine 60 mg tablet,extended 60 mg PO DAILY 09/25/24 09/25/24 History release 24 hr nifedipine 90 mg tablet,extended 90 mg PO DAILY 09/25/24 09/25/24 History release 24 hr spironolactone 50 mg tablet 50 mg PO DAILY 09/25/24 09/25/24 History Laboratory Tests 09/30/24 05:43 WBC 7.1 K/mm3 (4.5-10.0) RBC 4.50 M/mm3 (4.2-5.4) Hgb 11.4 L g/dL (12.0-15.0) Hct 37.8 % (37.0-47.0) MCV 84.0 fl (80-100) MCH 25.3 L pg (26-34) MCHC 30.2 L g/dl (32-36) RDW 15.9 H % (11.5-14.5) Plt Count 237 k/mm3 (150-375) MPV 10.6 H fl (7.4-10.4) Sodium 140 mmol/L (137-145) Potassium 3.7 mmol/L (3.4-5.0) Chloride 105 mmol/L (98-107) Carbon Dioxide 29 mmol/L (22-30) Anion Gap 6 mmol/L (4-12) BUN 17 mg/dL (7-17) Creatinine 0.67 L mg/dL (0.7-1.0) Estim Creat Clear Calc 99 ml/min Estimated GFR > 60 (59 - ) Glucose 120 H mg/dL (65-110) Calcium 9.1 mg/dL (8.4-10.2) Total Bilirubin 0.1 L mg/dL (0.2-1.3) AST 46 H U/L (14-36) ALT 33 U/L (6-35) Alkaline Phosphatase 65 U/L (38-126) Total Protein 6.6 g/dL (6.3-8.2) Albumin 3.4 L g/dL (3.5-5.1) ECG: SR with LVH VR 75 Patient hx anesthesia problems: none Family hx anesthesia problems: none Results Review: All pre-operative results and documents have been reviewed as part of the pre- operative evaluation. [facility] Past Medical History Medical History SVT (supraventricular tachycardia) Colon cancer screening Abdominal pain Internal hemorrhoid Hx of diverticulitis of colon HAYLEY (iron deficiency anemia) PUD (peptic ulcer disease) Nonischemic cardiomyopathy Arthritis UTI (urinary tract infection) Sleep apnea Asthma HTN (hypertension) History of angina Seasonal allergies CHF (congestive heart failure) Surgical History Surgical History Hx of gastric bypass History of knee surgery Right History of tubal ligation History of cholecystectomy History of cardiac catheterization Family History Family History Father Diabetes mellitus Hypertension Asthma Patient's father is in good health Family history of cardiovascular disease Mother Hypertension Patient's mother is in good health Sibling Patient's sister is in good health Social History Social History Smoking status: Never smoker Alcohol intake: never Substance use: never Substance use type: does not use Do You Feel Safe in your Home?: Yes Lack of Transportation: No Lack of Food: Never True Current Housing: I Have Housing Concerned About Future Housing: No Difficulty Paying Gas/Electric Bills: No Difficulty Paying for Meds: No Currently Unemployed: No Education: High School Diploma/GED Difficulty w/ Childcare or Family Care: No Living arrangements: with family Gender identity (if verbalized by the patient): Female Spiritual care concerns: No Exam Day of Procedure 09/30/24 12:39 Patient weight: morbidly obese Heart: regular rate and rhythm
--- NOTE | 2024-09-30 13:01 | P.PNAN_ITS ---
Anes - Eval Final PreProcedure Day of Procedure 09/30/24 13:01 Patient weight: morbidly obese Heart: regular rate and rhythm Lungs: clear to auscultation Airway: Mallampati scale class II Neurological: alert and oriented Last oral intake: >/= 8 hours ASA classification: IV Emergent: no Anesthetic plan: proceed Anesthesia type and monitoring: general GIVS and standard monitoring Other findings: EF 30-35% Results Review: All pre-operative results and documents have been reviewed as part of the pre- operative evaluation. Informed Consent: The patient's anesthetic plan and its attendant risks and benefits were discussed with the patient/family/POA. Questions were solicited and answers provided to the satisfaction of the patient/family/POA.
--- NOTE | 2024-09-30 13:03 | WPDHPUPDATE1 ---
History and Physical Update Update Date/Time: 09/30/24 13:03 History and Physical has been reviewed, including an updated exam of the patient. There are NO changes in the patient's condition. Risks, benefits, and alternatives have been discussed and questions answered. Patient agrees to proceed with procedure.
--- NOTE | 2024-09-30 13:33 | P.PCNTEE_ITS ---
COLE TransEsophageal Echocardiogram Date of procedure: 09/30/24 Procedure Type: Date Of Procedure: 09/30/2024 Brief History Of Present Illness: Patient is a 49 year old female who is referred for COLE for embolic CVA. Indication: Embolic CVA. Procedure In Detail: After verbal and written informed consent was obtained, the patient risks, benefits, and alternatives explained in detail. The patient agreed to proceed with the plan of care as outlined above.?The patient was evaluated at bedside in the [facility].?The posterior oropharynx, neck, and jaw angle all within normal limits on examination. The patient was then placed in the appropriate 30 to 45 degree angle supine position at a slight left lateral decubitus position.?Patient was monitored throughout the study with telemetry, oxygen saturation, end-tidal CO2 monitoring, blood pressure, heart rate, and respirations.?The posterior hypopharynx was then locally anesthetized using repeated administration of Hurricaine spray. After local anesthetic of the posterior hypopharynx was achieved and the oral bite block placed, sedation was administered by the Anesthesia team.?After confirmation of adequate moderate sed ation, the transesophageal echocardiogram probe was advanced through the oral bite block into the posterior hypopharynx and into the esophagus easily and without complication.?Multiple, multiplanar echocardiographic images were obtained in multiple standard re-projections.?Color-flow Doppler were utilized in conjunction with this study.?At the conclusion of the study, the transesophageal echocardiogram probe was removed easily and without complication. The patient tolerated the procedure well without difficulty.?Patient was in sinus rhythm throughout the study. Moderate Sedation / Anesthesia Administration: Sedation administered by the Anesthesia team. FINDINGS: LEFT VENTRICLE: LV is dilated. LV systolic function appears to be moderately reduced. RIGHT VENTRICLE:?Size and systolic function within normal limits. LEFT ATRIUM: Appears to be mildly dilated. RIGHT ATRIUM: Normal size. INTERATRIAL SEPTUM: Interatrial septum is anatomically normal without evidence of shunt with color-flow Doppler nor with injection of agitated saline. MITRAL VALVE: Mitral valve is anatomically normal with preserved leaflet excursion and mild-moderate regurgitation. AORTIC VALVE: Trileaflet aortic valve. Mild calcification. Moderate-severe regurgitation. TRICUSPID VALVE: The tricuspid valve is anatomically normal with normal leaflet excursion with mild regurgitation. PULMONIC VALVE: Pulmonic valve was not well visualized LEFT ATRIAL APPENDAGE: Anatomically normal structure with prominent pectinate muscles without thrombus or vegetation identified. PERICARDIUM: The pericardium was anatomically normal without significant pericardial effusion. ? AORTA: Normal. CONCLUSION: No interatrial shunt. Complications: None
--- NOTE | 2024-09-30 13:39 | P.PNCA_ITS ---
Progress Note: A&P Assessment and Plan (1) Chest pain: Qualifiers: Chest pain type: unspecified Qualified Code(s): R07.9 - Chest pain, unspecified Code(s): R07.9 - Chest pain, unspecified Status: Acute Plan 49-year-old lady with: Moderate LV systolic dysfunction on appropriate medical therapy with moderate to severe aortic regurgitation. Concern now is for possible cardioembolic source causing her acute CVA. Transthoracic echo did not show any evidence of shunt. COLE done to rule out PFO. COLE negative for PFO or interatrial shunt. No LV or left atrial appendage thrombus. Recommend outpatient 30 day event monitor to rule out atrial fibrillation. Consider loop recorder if event monitor negative. Order for the event monitor placed. Regarding HFrEF, continue Lisinopril, Metoprolol, Jardiance. Further uptitration of heart failure GDMT can be done as outpatient. Outpatient follow up for her valvular disease. Cardiology will sign off at this time. Will arrange for outpatient follow up. Subjective Date/time seen: 09/30/24 13:39 Interval history: Follow-up visit in this 49-year-old lady with: Noncardiac chest pain she was admitted for chest pain evaluation underwent cor onary angiography yesterday demonstrating no evidence of coronary disease. She has had 2 catheterizations showing no CAD. She does have chronic stable left ventricular systolic dysfunction and echocardiographic evidence yesterday of moderate to severe aortic regurgitation. Conversation with the patient today about her LV dysfunction and aortic valve disease. She feels well and is expecting to be discharged today. 09/28/2024: Patient is still hospitalized with concerns regarding findings of brain MRI. She appears to have small strokes in multi vascular distribution raising concern regarding embolization. CT of her thoracic aorta today was completely unremarkable excluding this as a potential source. Discussed with hospital, primary team this morning about possibility of COLE. This was discussed with the patient in detail. 09/30: COLE today. Review of Systems Cardiovascular: Cardiovascular: Reports as per HPI Exam Const: General: comfortable and no acute distress HENMT: Mouth: Yes moist mucous membranes Eyes: General: appearance normal, both eyes and all related structures Sclera: sclerae normal Resp: Effort & Inspection: normal respiratory effort Cardio: Rate: regular rate Rhythm: regular rhythm Skin: General skin exam: normal color Neuro: Speech: normal speech Psych: Mental Status: mental status grossly normal Affect: normal affect Objective Data Vital Signs Vital Signs: Vital Signs - 24 hr 09/29/24 15:53 09/29/24 16:00 09/29/24 20:00 Temperature 36.8 C Pulse Rate 68 75 Respiratory Rate 16 Blood Pressure 116/55 L Pulse Oximetry 95 Oxygen Delivery Room Air Fraction of Inspired Oxygen 09/29/24 20:00 09/29/24 21:34 09/29/24 21:56 Temperature 36.6 C Pulse Rate 70 55 L 65 Respiratory Rate 20 20 Blood Pressure 157/88 H Pulse Oximetry 95 98 Oxygen Delivery Room Air Fraction of Inspired Oxygen 21 09/30/24 00:00 09/30/24 04:00 09/30/24 06:00 Temperature 36.4 C Pulse Rate 60 59 L 64 Respiratory Rate 18 Blood Pressure 132/72 Pulse Oximetry 97 Oxygen Delivery Fraction of Inspired Oxygen 09/30/24 08:00 09/30/24 08:00 09/30/24 13:29 Temperature Pulse Rate 64 64 70 Respiratory Rate 18 20 Blood Pressure 155/87 H Pulse Oximetry 97 100 Oxygen Delivery Room Air Room Air Fraction of Inspired Oxygen 21 Intake/Output Intake/Output: Intake & Output 09/27/24 09/28/24 09/29/24 09/30/24 23:59 23:59 23:59 23:59 Intake Total 1670 1195 1820 Balance 1670 1195 1820 Meds/Results Medications: Active Medications Generic Name Dose Route Start Last Admin Trade Name Freq PRN Reason Stop Dose Admin Acetaminophen 650 mg 09/26/24 16:37 09/29/24 17:53 Acetaminophen 325 Mg Tablet PO 650 mg Q6H PRN Administration Mild Pain (1-3) or Fever Albuterol 1 puff 09/25/24 16:06 Albuterol Sulfate (*Sp) Aerosol 1 Puff INHALATION DAILY PRN allergies Alprazolam 0.5 mg 09/27/24 11:49 09/27/24 13:12 Alprazolam (*Crx) 0.5 Mg Tablet PO 0.5 mg ONCE PRN Administration Anxiety Aspirin 81 mg 09/26/24 09:00 09/30/24 09:43 Aspirin 81 Mg Enteric Tablet PO 81 mg QAM MARY Administration Atorvastatin Calcium 40 mg 09/26/24 09:00 09/30/24 09:44 Atorvastatin 40 Mg Tablet PO 40 mg DAILY MARY Administration Buspirone HCl 10 mg 09/25/24 21:00 09/30/24 09:44 Buspirone Hcl 10 Mg Tablet PO 10 mg Q12HR MARY Administration Dextrose 12.5 gm 09/25/24 11:42 Dextrose 50% 25 Gm/50 Ml Syringe IV PUSH PRN PRN Hypoglycemia Protocol Empagliflozin 10 mg 09/27/24 09:00 09/30/24 09:44 Empagliflozin 10 Mg Tablet PO 10 mg DAILY MARY Administration Enoxaparin Sodium 40 mg 09/27/24 09:00 09/30/24 09:43 Enoxaparin 40 Mg/0.4 Ml Syringe SUB-Q 40 mg DAILY MARY Administration Gabapentin 300 mg 09/25/24 20:55 09/30/24 09:43 Gabapentin 300 Mg Capsule PO 300 mg TID MARY Administration Glucagon 1 mg 09/25/24 11:42 Glucagon For Inj 1 Mg Vial IM PRN PRN Hypoglycemia Protocol Glucose 15 gm 09/25/24 11:42 Glucose Oral Gel 15 Gm Of Glucse In 37.5 Gm Tube PO PRN PRN Hypoglycemia Protocol Hydrocortisone Acetate 25 mg 09/27/24 11:55 09/27/24 16:42 Hydrocortisone Acetate 25 Mg Suppository RECTAL 25 mg Q12HR PRN Administration Hemorrhoids Hydroxyzine HCl 25 mg 09/25/24 20:55 09/30/24 09:44 Hydroxyzine Hcl 25 Mg Tablet PO 25 mg TID MARY Administration Dextrose 1,000 mls @ 100 mls/hr 09/25/24 11:42 Dextrose 5% 1,000 Ml IVPB PRN PRN Hypoglycemia Protocol Lisinopril 40 mg 09/26/24 09:00 09/30/24 09:43 Lisinopril 20 Mg Tablet PO 40 mg DAILY MARY Administration Metoprolol Succinate 200 mg 09/28/24 09:00 09/30/24 09:43 Metoprolol Succinate Ext Rel 100 Mg Tabcr PO 200 mg QAM MARY Administration Morphine Sulfate 2 mg 09/25/24 20:44 09/28/24 22:54 Morphine Sulfate (*Crx) 2 Mg/Ml Inj IV PUSH 2 mg Q5M PRN Administration Pain Rated 4-6 Nitroglycerin 0.4 mg 09/25/24 11:42 09/25/24 20:15 Nitroglycerin Sl 0.4 Mg Tablet SUBLINGUAL 0.4 mg Q5MIN PRN Administration Chest Pain Ondansetron HCl 4 mg 09/25/24 11:42 Ondansetron Inj 4 Mg/2 Ml Vial IV PUSH Q4H PRN Nausea Thiamine HCl 500 mg 09/26/24 09:00 09/30/24 09:44 Thiamine Hcl 100 Mg Tablet PO 500 mg DAILY MARY Administration Radiology Results: ITS Impressions Head CT 09/25/24 10:32 Impression: No significant abnormality seen. Case discussed with Dr. Gaming at 10:32 AM on 09/25/2024. Head/Neck CTA 09/25/24 10:33 Impression: No significant abnormality seen. Chest X-Ray 09/25/24 11:27 IMPRESSION: Prominent markings in the lower lobes which may indicate atelectasis versus pneumonia. Brain MRI 09/27/24 13:54 IMPRESSION: 1. Multiple small acute infarcts on both the left and right involving predominantly posterior but also some of the anterior circulation which suggests a shower of emboli from a central source proximal to the aorta. 2. Several small foci of susceptibility artifact bilateral thalami and basal ganglia consistent with sequela of chronic microhemorrhage such as in the setting of hypertension with differential also including amyloid angiopathy. Chest CTA 09/28/24 09:21 Impression: No significant abnormality seen. Labs Labs: Laboratory Results - last 24 hr 09/30/24 05:43 WBC 7.1 RBC 4.50 Hgb 11.4 L Hct 37.8 MCV 84.0 MCH 25.3 L MCHC 30.2 L RDW 15.9 H Plt Count 237 MPV 10.6 H Sodium 140 Potassium 3.7 Chloride 105 Carbon Dioxide 29 Anion Gap 6 BUN 17 Creatinine 0.67 L Estim Creat Clear Calc 99 Estimated GFR > 60 Glucose 120 H Calcium 9.1 Total Bilirubin 0.1 L AST 46 H ALT 33 Alkaline Phosphatase 65 Total Protein 6.6 Albumin 3.4 L
[2024-10-01] VITALS: PULSE 57
[2024-10-01] MEDS: MORPHINE SULFATE (*CRX) 2 MG/ML INJ IV PUSH (03:43)
[2024-10-01 04:00] VITALS: PULSE 59
[2024-10-01 06:13] VITALS: BP 140/72; PULSE 61; RESP 18; TEMP 36.6; O2SAT 98
[2024-10-01 08:00] VITALS: PULSE 61
[2024-10-01] MEDS: busPIRone HCL 10 MG TABLET PO (08:53)
[2024-10-01] MEDS: ENOXAPARIN 40 MG/0.4 ML SYRINGE SUB-Q (08:53)
[2024-10-01 08:54] VITALS: PULSE 66
[2024-10-01] MEDS: EMPAGLIFLOZIN 10 MG TABLET PO (08:54)
[2024-10-01] MEDS: METOPROLOL SUCCINATE EXT REL 100 MG TABCR 200 MG PO (08:54)
[2024-10-01] MEDS: hydrOXYzine HCL 25 MG TABLET PO ×2 (08:54→13:12)
[2024-10-01] MEDS: ATORVASTATIN 40 MG TABLET PO (08:54)
[2024-10-01] MEDS: THIAMINE HCL 100 MG TABLET 500 MG PO (08:54)
[2024-10-01] MEDS: GABAPENTIN 300 MG CAPSULE PO ×2 (08:54→13:12)
[2024-10-01] MEDS: lisinopriL 20 MG TABLET 40 MG PO (08:55)
[2024-10-01] MEDS: ASPIRIN 81 MG ENTERIC TABLET PO (08:55)
--- NOTE | 2024-10-01 09:03 | ECG_ITS ---
Test Date: 2024-10-01 09:14:22 Measurements Intervals [place]di Rate: 66 P: 28 [place]: 194 QRS: -11 QRSD: 116 T: 164 QT: 421 QTc: 443 Interpretive Statements SINUS RHYTHM INTRAVENTRICULAR CONDUCTION DELAY DELAYED PRECORDIAL R/S TRANSITION LEFT VENTRICULAR HYPERTROPHY AND ST-T CHANGE BORDERLINE T WAVE ABNORMALITY- LATERAL LEADS BORDERLINE ECG Compared to ECG 09/25/2024 21:03:40 No significant changes Electronically Signed On 10-01-2024 10:31:40 CDT by Chano Camarena D.O.
[2024-10-01 12:00] VITALS: PULSE 63
--- NOTE | 2024-10-01 13:05 | PM.DS ---
DS: Admitting Diagnosis Discharge Date 10/01/2024 Admitting Diagnosis Chest pain, Left-sided weakness and numbness DS: Discharge Diagnosis Discharge Diagnosis (1) Chest pain: Qualifiers: Chest pain type: unspecified Qualified Code(s): R07.9 - Chest pain, unspecified Code(s): R07.9 - Chest pain, unspecified Status: Acute (2) Obstructive sleep apnea: Code(s): G47.33 - Obstructive sleep apnea (adult) (pediatric) Status: Acute (3) Left leg paresthesias: Code(s): R20.2 - Paresthesia of skin Status: Acute (4) TIA (transient ischemic attack): Code(s): G45.9 - Transient cerebral ischemic attack, unspecified Status: Acute DS: Summary Hospital Course Reason for hospitalization: chest pain and left sided weakness Hospital Course: 50-year-old female past medical history of CHF, no shortness her, hypertension and asthma presented to the ER on account of chest pain left-sided weakness and numbness. Patient reported she has been having intermittent chest which she described as heaviness left-sided associated shortness of breath worse with exertion and relieved with rest. Noted at the episode was worse yesterday. Also reported that she has followed up with a career guidance counselor and a stress test done which was positive she is scheduled for cardiac catheterization on of next month. However she went to bed at about 12:00 a.m. last night will call my 3:00 a.m. noticed left-sided weakness numbness which began at presented to ER for proper evaluation and care. Denies any vomiting abdominal pain no diarrhea no dysuria no loss of consciousness. ER evaluation notable for blood pressure 179/94, saturation 95% on air. Labs notable for NT proBNP 1050, troponin ordered unremarkable. Chest x-ray showed atelectasis CT head CTA unremarkable. Neurology and Cardiology were consulted prior to admission. Patient noted that left-sided weakness and numbness resolved at about 2:30 p.m. on 09/25. Brain MRI was obtained which showed multiple small acute infarcts on both the left and right involving predominantly posterior but also some of the anterior circulation which suggest a shower of emboli from a central source proximal to the aorta, along with several small foci of susceptibility artifact bilateral thalami and basal ganglia consistent with sequela of chronic microhemorrhages such as diminished setting of hypertension with differential also including amyloid angiopathy. CTA was obtained which showed no significant abnormality. Patient was seen by Cardiology starting on 09/26. Plan for cardiac catheterization on that morning given extended duration of chest pain. Cardiology continued to follow, ordered transthoracic echo and transesophageal ECHO to search for possible cardioembolic source of stroke. Transthoracic echocardiogram showed left ventricular dilation with moderate to severe global systolic dysfunction ejection fraction estimated at 30-35%. Transesophageal echo showed no evidence of intra-arterial shunt. Patient was subsequently then seen by Neurology who agree with maintaining aspirin and atorvastatin along with antihypertensive medication. Cardiology signed off from patient after normal T EEG. They recommended continuing lisinopril, metoprolol, and Jardiance for heart failure with a reduced ejection fraction. Agree with further uptitration of heart failure GDMT in the outpatient setting. Patient's symptoms otherwise have subsided at this time. Repeat EKG on 09/30 showed normal sinus rhythm. Patient otherwise stable for discharge on 10/01. Will be instructed to follow-up with cardiology and neurology in the outpatient setting. Will be given further prescription aspirin and Plavix to continue until she can see neurology. Will also be instructed to continue lisinopril, metoprolol and Jardiance. Plan for discharged home at this time Status at Discharge Functional status at discharge: independent ambulation Overall status at discharge: patient is back to baseline Time Spent with Patient Time attestation: Total time spent providing and/or coordinating discharge services:45 Exam Narrative: General: alert and comfortable Eyes: EOMI, PERRLA ENNT External ears normal, Neck is supple, no masses, Respiratory systems: Clear to auscultation Cardiovascular S1, S2, normal rhythm, no murmur, rub, or gallop; no thrill or palpable murmurs on palpation. Gastrointestinal: soft, non-tender, and non-distended abdomen with no masses; BS present Skin: no rash, lesions, ulcerations, subcutaneous nodules or induration Musculoskeletal: no abnormality and no tenderness, normal ROM Neurologic: Alert and oriented x3, non focal Mental Status Exam: normal affect DS: Data Data Completed and Pending Labs on day of discharge: Preliminary micro results at discharge 09/28/24 11:14 Blood Culture - Preliminary Blood Discharge Plan Discharge Attending physician on discharge: Mary Kay Peng Consulting providers: Brenton Serna; Girish Barber; Jovi Lamar; Chiquita Olson; Chris Paul Discharging Clinician: Girish Barber Anticipated Discharge Date/Time: 10/01/24 12:59 Patient Disposition: Home Activity: as tolerated Diet: as tolerated Discharge Instructions: Take all medications as prescribed even if feeling better. You will be given a prescription for Plavix and Aspirin, talk to your primary care physician regarding any possible medication changes. Eat well balanced meals and stay hydrated Strict bleeding precautions since you are being started on Plavix including shaving with an electric razor, holding pressure for greater than 20 minutes for injury, protection of had with any falls, etc. Follow-up with neurology in 6-8 weeks Change positions slowly taking a break in between each position change If you should experience any chest pain, shortness of breath, temps >100.4 or any other worrisome symptoms please follow up with your PCP come back to the hospital Follow up with your primary in 1 weeks Follow up with Neurology in 6 weeks Follow up with Cardiology in 1-2 weeks. It has been a pleasure taking care of you thank you for using our services Patient Instructions: Antibiotic Form, Heart Healthy Diet (DC), Acute Coronary Syndrome (DC), Cardiac Rehabilitation (DC) Patient Language: Setswana Stand Alone Forms: General Discharge Information Follow-up/Referrals: Sayra,LUCY Vegas [Primary Care Provider] - Chris Paul MD [Physician] - Chiquita Olson MD [Physician] - Discharge Medications: New aspirin 81 mg tablet 81 mg PO DAILY Qty: 42 0RF clopidogrel [Plavix] 75 mg tablet 75 mg PO DAILY Qty: 42 0RF Continued metoprolol succinate 200 mg tablet extended release 24 hr 200 mg PO DAILY gabapentin 100 mg capsule 300 mg PO TID albuterol sulfate 90 mcg/actuation HFA aerosol inhaler 1 puff INHALATION DAILY PRN (Reason: allergies) lisinopril 40 mg tablet 40 mg PO DAILY cyclobenzaprine 10 mg tablet 10 mg PO TID PRN (Reason: muscle spasm) Qty: 16 0RF ascorbic acid (vitamin C) 500 mg Tablet 500 mg PO DAILY thiamine HCl (vitamin B1) 50 mg tablet 50 mg PO DAILY buspirone 10 mg tablet 10 mg PO BID calcium carbonate-vitamin D3 600 mg-10 mcg (400 unit) tablet 1 tablet PO DAILY hydroxyzine HCl 25 mg tablet 25 mg PO TID nifedipine 30 mg tablet extended release 24hr 30 mg PO DAILY nifedipine 60 mg tablet extended release 24hr 60 mg PO DAILY nifedipine 90 mg tablet extended release 24hr 90 mg PO DAILY metoprolol tartrate 100 mg tablet 100 mg PO Q12H spironolactone 50 mg tablet 50 mg PO DAILY biotin 5 mg capsule 5 mg PO DAILY loratadine [Allergy Relief (loratadine)] 10 mg tablet 10 mg PO DAILY mecobalamin (vitamin B12) 500 mcg tablet,chewable 500 mcg PO DAILY Other Ambulatory Orders: [place] cardiac event monitor (Routine) Timeframe: 1 Month Location: Determined by Patient Ordered By: Mechelle Lugo Date of admission: 09/28/24 13:31 Primary Care Provider: AdonayShasta Admitting Provider: Brenton Serna Attending physician on admission: Brenton Serna Condition: Stable Quality VTE Prophylaxis VTE prophylaxis: pharmacologic ordered
== END 2024-10-01 14:20 | disposition home or self-care (01) | DRG 192 ==
LOC: ANHED 12:05 → ANHIMU 12:33 → ANH3MED 09-29 20:15
PROVIDERS: Emergency Medicine; General Practice; Internal Medicine; Internal Medicine Interventional Cardiology; Admitting Provider Internal Medicine; Emergency Provider Physician Assistant; PCP Physician Assistant; Visit Provider Physician Assistant
PROC: 4A023N7 Measurement of Cardiac Sampling and Pressure, Left Heart, Percutaneous Approach (ICD-10-PCS; CPT 93452; principal; 2024-09-26 10:00)
PROC: B24BZZ4 Ultrasonography of Heart with Aorta, Transesophageal (ICD-10-PCS; CPT 93312; principal; 2024-09-30 13:00)
DX: R07.89 Other chest pain (principal); I11.0 Hypertensive heart disease with heart failure; I50.23 Acute on chronic systolic (congestive) heart failure; G45.9 Transient cerebral ischemic attack, unspecified; D50.9 Iron deficiency anemia, unspecified; I42.8 Other cardiomyopathies; M19.90 Unspecified osteoarthritis, unspecified site; E66.01 Morbid (severe) obesity due to excess calories; G47.33 Obstructive sleep apnea (adult) (pediatric); J45.909 Unspecified asthma, uncomplicated; Z87.11 Personal history of peptic ulcer disease; Z90.49 Acquired absence of other specified parts of digestive tract; Z98.84 Bariatric surgery status; Z68.41 Body mass index [BMI] 40.0-44.9, adult; Z86.73 Personal history of transient ischemic attack (TIA), and cerebral infarction without residual deficits
CPT/HCPCS: 36415; 70450; 70496; 70498; 70551; 71046; 71275; 80053; 80061; 80307; 81025; 82948; 83036; 83690; 83735; 83880; 84484; 85025; 85027; 85610; 85730; 87040; 92523; 93005; 93312; 93320; 93325; 93458; 94660; 96374; 96375; 97161; 97165; 99285; A9270; C1769; C1887; C1894; C8929; G0378; G0379; J1644; J1650; J2003; J2250; J2270; J2305; J2704; J3010; J7040; Q9957; Q9967

== ENCOUNTER 2024-12-04 08:26 | Outpatient (CLI) | payer OTHER, SELFPAY ==
--- OUTSIDE RECORDS SUMMARY | 2024-12-04 08:30 | XMS_ITS | Clinical Summary ---
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 Gender Identity Not on file Sexual Orientation Not on file Plan of Treatment Health Maintenance Due Date Last Done Comments Hepatitis C Virus (HCV) Screening 1973 Hepatitis B Immunization (1 of 3 - 19+ 3-dose series) 1992 Pap Smear 1994 Cervical Cancer Screening (CCS) 2003 HPV/Cotest 2003 Cologuard 2018 Colonoscopy 2018 Colorectal Cancer Screening 2018 Immunochemical Fecal Occult Blood 2018 Pneumococcal Immunization (5 0+ years) (1 of 1 - PCV) 2023 Zoster Immunization (1 of 2) 2023 SARS-COV-2 Immunization ( season) 2023 Influenza Immunization (#1) 12/08/20240 08/2019, 01/12/2016, 12/30/2014 Respiratory Syncytial Virus (RSV) Immunization (Adult) (1 - 1-dose 75+ series) 2048 DTaP/Tdap/Td Immunization Discontinued 10/28/2014 TdaP Immunization Completed 10/28/2014 Human Papillomavirus (HPV) Immunization Aged Out No longer eligible based on patient's age to complete this topic Meningococcal Immunization (ACWY) Aged Out No longer eligible based on patient's age to complete this topic Rotavirus Immunization Aged Out No lo nger eligible based on patient's age to complete this topic
--- OUTSIDE RECORDS SUMMARY | 2024-12-04 08:30 | XMS_ITS | Encounter Summary ---
Author Organization [facility] Healthcare Address [address] [place] [address] Care Team Providers Care Tight Barrel Inspector Name Role Phone Marya Harding MD Primary Care Provider Kristin Sousa MD Primary Care Provider Trinh Machado MD Primary Care Provider [phone] Shasta Colbert Primary Care Provider [phone] Encounter Details Date Type Department Care Team (Late st Contact Info) Description 12/11/2017 Orders Only [facility] Health Information Management [address] [place] [id number] Scanning, Provider Social History Tobacco Use Types Packs/Day Years Used Date Smoking Tobacco: Never Smokeless Tobacco: Never Alcohol Use Standard Drinks/Week Comments No 0 (1 standard drink = 0.6 oz pur e alcohol) Comments Unknown Sex and Gender Information Value Date Recorded Sex Assigned at Not on file 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 Gender Identity Female 09/16/2020 7:21 AM CDT Sexual Orientation Straight 09/16/2020 7: 22 AM CDT documented as of this encounter Plan of Treatment Not on file documented as of this encounter Procedures Procedure Name Priority Date/Time Associated Diagnosis Comments CARDIOLOGY DOCUMENT SCAN 12/11/2017 documented in this encounter Results * Cardiology Document Scan (12/11/2017) Anatomical Region Laterality Modality Other us Provider Scanning CV CARDIAC SERVICES PROCEDURES Final Result documented in this encounter Visit Diagnoses Not on filedocumented in this encounter Care Teams Tight Barrel Inspector Relationship Specialty Start Date End Date Marya Harding MD [address] [address] PCP - General Internal Medicine 07/08/17 01/01/18 Kristin Sousa MD [address] [facility] [address] [place] [address] PCP - General Family Medicine 01/02/18 01/18/20 Trinh Machado MD [address] [facility] [address] [place] [address] PCP - General Family Medicine 01/19/20 11/27/21 Shasta Colbert PA [address] [place] [id number] PCP - General Physician Boat Hoist Operator 11/28/21 documented as of this encounter
--- OUTSIDE RECORDS SUMMARY | 2024-12-04 08:30 | XMS_ITS | Clinical Summary ---
Author Organization [facility] Address [facility] [place] [address] Care Team Providers Care Vice President Sales Name Role Phone Unavailable Primary Care Provider [...] Active Active Problems No known active problems Family History Medical History Relation Name Comments [...] 2018 ZOSTER VACCINE (1 of 2) 2023 COVID-19 Vaccine (2023-2 5 season) 2023 05/15/2021, 04/15/2021 DTAP/TDAP/TD VACCINES (2 - T d or Tdap) 10/28/2024 10/28/2014 INFLUENZA VACCINE (#1) 2024 3, 02/06/2022, 01/12/2020, Additional history exists Insurance [facility]
--- OUTSIDE RECORDS SUMMARY | 2024-12-04 08:30 | XMS_ITS | Encounter Summary ---
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 Gender Identity Female 09/26/2020 6:03 PM CDT [...] Description 12/18/2024 10:00 AM CDT Office Visit [facility] [address] [place] [phone] Ally Moore MD [address] [place] [phone] documented as of this encounter Visit Diagnoses Diagnosis Marginal ulcer Gastrojejunal ulcer, unspecified as acute or chronic, without mention of hemorrhage, perforation, or obstruction documented in this encounter Care Teams Wood Heel Flap Trimmer Relationship Specialty Start Date End Date Shasta Colbert PA-C [address] [place] [phone] PCP - General 12/28/21 documented as of this encounter
--- OUTSIDE RECORDS SUMMARY | 2024-12-04 08:30 | XMS_ITS | Clinical Summary ---
Author Organization [facility] [address] Address [address] [place] [address] Care Team Providers Care District Manager Name Role Phone Shasta Colbert Primary Care Provider [phone] Allergies No known active allergies Medications albuterol HFA (PROVENTIL HFA,VENTOLIN HFA,PROAIR HFA) 90 mcg/actuation inhaler albuterol sulfate HFA 90 mcg/actuation aerosol inhaler INHALE 2 PUFFS BY MOUTH EVERY 4 HOURS as needed for wheezing. Active FeroSuL 325 mg (65 mg iron) tablet Take 1 tablet (325 mg total) by mouth daily 021 Active ascorbic acid (VITAMIN C) 500 mg tablet,chewable Take 1 tablet/chew tab (500 mg total) by mouth daily Active cholecalciferol (VITAMIN D-3) 2000 unit tablet Take 1 tablet (2,000 Units total) by mouth daily Active cyanocobalamin (Vitamin B-12) 500 mcg tabletIndications: Prevention of Vitamin B12 Deficiency Take 1 tablet (500 mcg total) by mouth daily Active mv,Ca,min-iron ydpe-RW-ojyhou 1 mg iron-66.7 mcg-1,000 mcg tablet Take 1 tablet by mouth early childhood coordinator before breakfast Active gabapentin (NEURONTIN) 100 mg capsule Take 3 capsules (300 mg total) by mouth 3 (three) times a day 023 Active omeprazole (PriLOSEC) 40 mg capsule Take 1 capsule (40 mg total) by mouth 2 (two) times a day 60 capsule 1 023 Active acetaminophen (TYLENOL) 325 mg tablet Take 2 tablets (650 mg total) by mouth every 6 (six) hours as needed 023 Active cyclobenzaprine (FLEXERIL) 10 mg tablet Take 1 tablet (10 mg total) by mouth 2 (two) times a day as needed Active NIFEdipine (NIFEdipine XL) 30 mg 24 hr tablet Take 1 tablet (30 mg total) by mouth daily 90 tablet 3 024 Active lisinopriL (PRINIVIL,ZESTRIL) 40 mg tablet Take 1 tablet (40 mg total) by mouth daily 90 tablet 2 024 Active spironolactone (ALDACTONE) 50 mg tablet Take 1 tablet (50 mg total) by mouth daily 90 tablet 2 024 Active calcium carbonate-vitamin D3 (CALTRATE 600 + D) 1500 mg (600 mg elemental) -400 units per tablet Take 1 tablet every day by oral route for 30 days. 023 Active fluticasone propionate (FLONASE) 50 mcg/actuation nasal spray Administer 1 spray into affected nostril(s) 2 (two) times a day 024 Active hydrOXYzine (ATARAX) 25 mg tablet Take 1 tablet (25 mg total) by mouth 024 Active nystatin powder Apply topically 2 (two) times a day 023 Active biotin 10,000 mcg capsule Take 0.1 capsules (1,000 mcg total) by mouth daily Active aspirin 81 mg enteric coated tablet Take 1 tablet (81 mg total) by mouth daily 025 Active busPIRone (BUSPAR) 10 mg tablet Take 1 tablet (10 mg total) by mouth 2 (two) times a day 025 Active clopidogreL (PLAVIX) 75 mg tabletIndications: Recent cerebrovascular accident (CVA) Take 1 tablet (75 mg total) by mouth daily 90 tablet 025 Active empagliflozin (JARDIANCE) 10 mg tabletIndications: Nonischemic cardiomyopathy (HCC) Take 1 tablet (10 mg total) by mouth daily 90 tablet 3 025 Active metoprolol XL (TOPROL-XL) 200 mg extended release tabletIndications: Nonischemic cardiomyopathy (HCC) Take 1 tablet (200 mg total) by mouth daily 30 tablet 2 Active tirzepatide, weight loss, (Zepbound) 2.5 mg/0.5 mL pen injectorIndication s:Morbid obesity with BMI of 45.0-49.9, adult (HCC) Inject 0.5 mL (2.5 mg total) under the skin every 7 days 2 mL 025 2024 Active busPIRone (BUSPAR) 5 mg tablet Take 1 tablet (5 mg total) by mouth 2 (two) times a day 024 2024 Discontinued(A lternate therapy) metoprolol (LOPRESSOR) 100 mg tablet TAKE 1 TABLET BY MOUTH TWICE A DAY 180 tablet 2 025 2024 Discontinued(A lternate therapy) clopidogreL (PLAVIX) 75 mg tablet Take 1 tablet (75 mg total) by mouth daily 025 2024 Discontinued(R eorder) metoprolol XL (TOPROL-XL) 100 mg 24 hr tabletIndications: Nonischemic cardiomyopathy (HCC) Take 2 tablets (200 mg total) by mouth daily This replaces metoprolol tartrate 180 tablet 3 025 2024 Discontinued Active Problems Problem Noted Date Diagnosed Date [...] 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 Referred to ADA and [employer] websites for additional information on topics including [...] Encounters Date Type Department Care Team Description 11/14/2024 Results Follow-Up [facility] [address] [place] [address] Mechelle Lugo MD [facility] Mobile Cardiac Telemetry Event Monitor 11/11/2024 Telephone [facility] [address] [place] [address] [place] [phone] Dary Velazquez NP aortic valve regurgitation 11/10/2024 10:00 AM CDT Office Visit [facility] [address] [place] [address] [place] [phone] Dary Velazquez NP Recent cerebrovascular accident (CVA) (Primary Dx); Nonischemic cardiomyopathy (HCC); Nonrheumatic aortic valve insufficiency; Body mass index [BMI] 45.0-49.9, adult (Z68.42); Obesity, class 3 (E66.813); S/P ablation operation for arrhythmia 10/07/2024 9:00 AM CDT Ancillary Procedure [facility] [address] [place] [address] [place] [phone] 10/03/2024 Telephone [facility] [address] [place] [address] Diego Corral MD 10/03/2024 Orders Only [facility] Medical [facility] [address] [place] [address] Chiquita Olson MD 09/29/2024 Telephone [facility] [address] [place] [address] Diego Corral MD 09/29/2024 Telephone [facility] [address] [place] [address] Diego Corral MD 09/25/2024 Orders Only [facility] [place] Information Management [address] [place] [address] Scanning, Provider 09/22/2024 Telephone [facility] Medical [facility] [address] [place] [address] Diego Corral MD from Last 3 Months Surgical History Surgery [...] Not Answered Alcohol Use Standard Drinks/Week Comments No 0 [...] on file 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 Gender Identity Female 09/16/2020 7:21 AM CDT Sexual Orientation Straight 09/16/2020 7: 22 AM CDT Obstetrics History Last Filed Vital Signs Vital Sign Reading Time Taken Comments Blood Pressure 140/90 11/10/2024 10:06 AM CDT Pulse 85 11/10/2024 10:06 AM CDT Temperature 36.9 C (98.4 F) 11/16/2022 7:25 AM CDT Respiratory Rate 16 11/16/2022 7:25 AM CDT Oxygen Saturation 96% 11/10/2024 10:06 AM CDT Inhaled Oxygen Concentration - - Weight 109.8 kg (242 lb) 11/10/2024 10:06 AM CDT Height 154.9 cm (5' 1) 11/10/2024 10:06 AM CDT Body Mass Index 45.73 11/10/2024 10:06 AM CDT Plan of Treatment Health Maintenance [...] Td or Tdap) 10/28/2024 10/28/2014 Influenza Vaccine (#1) 2024 3, 02/06/2022, 01/12/2020, Additional history exists Procedures Procedure Name Priority Date/Time Associated Diagnosis Comments [facility] - MOBILE CARDIAC TELEMETRY EVENT MONITOR Routine 10/07/2024 10:08 AM CDT Personal history of transient ischemic attack CARDIOLOGY DOCUMENT SCAN Routine 10/03/2024 3:56 PM CDT CARDIOLOGY DOCUMENT SCAN Routine 09/30/2024 4:02 PM CDT CARDIOLOGY DOCUMENT SCAN Routine 09/30/2024 4:00 PM CDT SCAN - LABS 09/30/2024 CARDIOLOGY DOCUMENT SCAN Routine 09/28/2024 3:58 PM CDT CARDIOLOGY DOCUMENT SCAN Routine 09/27/2024 3:56 PM CDT CARDIOLOGY DOCUMENT SCAN Routine 09/26/2024 3:51 PM CDT CARDIOLOGY DOCUMENT SCAN Routine 09/26/2024 3:49 PM CDT CARDIOLOGY DOCUMENT SCAN Routine 09/25/2024 3:46 PM CDT SCAN - RADIOLOGY/IMAGING 09/25/2024 from Last 3 Months Results * [facility] Mobile Cardiac Telemetry Event Monitor (10/07/2024 10:08 AM CDT) Anatomical Region Laterality Modality Electrocardiogra phy Narrative 11/11/2024 5:27 PM CDT AMBULATORY SENIOR TECHNICAL TRAINER REPORT Patient Name: Angelica Kruse Date of : 1975 Requesting Physician: Dr. Lugo Date of interpretation: 11/11/24 Type of monitor : 30 day catering cook Date of the study/Enrollment period: 10/27/2024 through 11/05/2024 Indication: TIA/CVA Quality of the study: Good Interpretation: A total of 24 days 17 hours and 27 minutes of diagnostic time Sinus rhythm with heart rate variability between 55 and 177 beats per minute with an average heart rate of 86 beats per minute. Frequent ventricular ectopy totaling 45,283 beats which is 1% ectopic burden. There were 3 runs of ventricular tachycardia. Longest run for 8.2 seconds at a rate of 129 beats per minute. Low-frequency supraventricular ectopy totaling 3242 beats which is less than 1% ectopic burden. This consisted of 2 runs of supraventricular tachycardia with the longest run being for 2 minutes and 14 seconds in the fastest run being at a heart rate of 184 beats per minute. No atrial fibrillation, heart block or pauses Patient triggered events were also noted. Baseline event correlated sinus rhythm with PVCs. Another event without symptoms correlated sinus rhythm only. Chest pain correlated sinus rhythm. Lightheadedness correlated sinus tachycardia with PVCs. Shortness breath correlated to sinus tachycardia. 2 more other episodes of dizziness and lightheadedness correlated sinus rhythm only. Conclusions: Sinus rhythm with average heart rate of 83 beats per minute Frequent ventricular ectopy (1% ectopic burden) including an 8.2 second run of ventricular tachycardia at a rate of 129 beats per minute. Fastest run being on a rate of 156 beats per minute Low-frequency supraventricular ectopy including 2 runs of supraventricular tachycardia. One run of sustained SVT for 2 minutes and 14 seconds Patient triggered events correlated sinus rhythm or sinus tachycardia and occasional PVCs Voice recognition software was used to complete this document, therefore, first aid trainer variances may occur. Des Sharma MD, [facility] 11/11/24 Procedure Note Des Sharma MD - 11/11/2024 AMBULATORY SENIOR TECHNICAL TRAINER REPORT Patient Name: Angelica Kruse Date of : 1975 Requesting Physician: Dr. Lugo Date of interpretation: 11/11/24 Type of monitor : 30 day catering cook Date of the study/Enrollment period: 10/27/2024 through 11/05/2024 Indication: TIA/CVA Quality of the study: Good Interpretation: A total of 24 days 17 hours and 27 minutes of diagnostictime Sinus rhythm with heart rate variability between 55 and 177 beats perminute with an average heart rate of 86 beats per minute. Frequent ventricular ectopy totaling 45,283 beats which is 1% ectopicburden. There were 3 runs of ventricular tachycardia. Longest run for8.2 seconds at a rate of 129 beats per minute. Low-frequency supraventricular ectopy totaling 3242 beats which is lessthan 1% ectopic burden. This consisted of 2 runs of supraventriculartachycardia with the longest run being for 2 minutes and 14 seconds in thefastest run being at a heart rate of 184 beats per minute. No atrial fibrillation, heart block or pauses Patient triggered events were also noted. Baseline event correlated sinusrhythm with PVCs. Another event without symptoms correlated sinus rhythmonly. Chest pain correlated sinus rhythm. Lightheadedness correlatedsinus tachycardia with PVCs. Shortness breath correlated to sinustachycardia. 2 more other episodes of dizziness and lightheadednesscorrelated sinus rhythm only. Conclusions: Sinus rhythm with average heart rate of 83 beats per minute Frequent ventricular ectopy (1% ectopic burden) including an 8.2 secondrun of ventricular tachycardia at a rate of 129 beats per minute. Fastestrun being on a rate of 156 beats per minute Low-frequency supraventricular ectopy including 2 runs of supraventriculartachycardia. One run of sustained SVT for 2 minutes and 14 seconds Patient triggered events correlated sinus rhythm or sinus tachycardia andoccasional PVCs Voice recognition software was used to complete this document, therefore,first aid trainer variances may occur. Des Sharma MD, [facility] 11/11/24 Mechelle Lugo MD [facility] PRO CEDURES Final Result * Cardiology Document Scan (10/03/2024 3:56 PM CDT) Anatomical Region Laterality Modality Other Jhonny Chambers MD [facility] CARDIAC SERVICES PROC EDURES Final Result * Cardiology Document Scan (09/30/2024 4:02 PM CDT) Anatomical Region Laterality Modality Other Mechelle Lugo MD [facility] CARDIAC SERVICES PRO CEDURES Final Result * Cardiology Document Scan (09/30/2024 4:00 PM CDT) Anatomical Region Laterality Modality Other Mechelle Lugo MD [facility] CARDIAC SERVICES PRO CEDURES Final Result * SCAN - LABS (09/30/2024) us Provider Scanning Final Result * Cardiology Document Scan (09/28/2024 3:58 PM CDT) Anatomical Region Laterality Modality Other Jhonny Chambers MD [facility] CARDIAC SERVICES PROC EDURES Final Result * Cardiology Document Scan (09/27/2024 3:56 PM CDT) Anatomical Region Laterality Modality Other Jhonny Chambers MD [facility] CARDIAC SERVICES PROC EDURES Final Result * Cardiology Document Scan (09/26/2024 3:51 PM CDT) Anatomical Region Laterality Modality Other Chiquita Olson MD [facility] CARDIAC SERVICES PROCEDU RES Final Result * Cardiology Document Scan (09/26/2024 3:49 PM CDT) Anatomical Region Laterality Modality Other Chiquita Olson MD [facility] CARDIAC SERVICES PROCEDU RES Final Result * Cardiology Document Scan (09/25/2024 3:46 PM CDT) Anatomical Region Laterality Modality Other Chiquita Olson MD [facility] CARDIAC SERVICES PROCEDU RES Final Result * SCAN - RADIOLOGY/IMAGING (09/25/2024) Anatomical Region Laterality Modality Other Provider Scanning Edited Result - Final from Last 3 Months Insurance [facility] Advance Directives For more information, please contact: [phone] * Full Code (Latest Code Status on File) Date Activated Date Inactivated Comments 11/14/2022 5:41 PM 11/16/2022 5:51 PM Care Teams District Manager Relationship Specialty Start Date End Date Shasta Colbert PA [address] [place] [id number] PCP - General Physician Culture Media Laboratory Assistant 11/28/21
--- OUTSIDE RECORDS SUMMARY | 2024-12-04 08:30 | XMS_ITS | Clinical Summary ---
Author Organization [facility] Address Formerly [facility] [place] [address] Care Team Providers Care Alcohol Rubber Name Role Phone Trinh Machado MD Primary Care Provider [phone] Allergies No known active allergies Social History [...] age to complete [place] [address] [place] Care Teams Alcohol Rubber Relationship Specialty Start Date End Date Trinh Machado MD [facility] [address] [place] [id number] PCP - General FAMILY PRACTICE 11/03/21
--- OUTSIDE RECORDS SUMMARY | 2024-12-04 08:30 | XMS_ITS | Encounter Summary ---
Author Organization [facility] Health Address [address] [place] [address] Care Team Providers Care Acct Exec Name Role Phone Shasta Colbert PA-C Primary Care Provider Reason for Visit * Reason Onset Date Comments MEDICATION REFILL 10/06/2022 Encounter Details Date Type Department Care Team (Late st Contact Info) Description 10/06/2022 Refill [facility] Weight Management Services [address] [place] [address] Sunita Lopez APRN-BROOCH AND BRACELET MAKER [address] [place] [address] MEDICATION REFILL Social History Tobacco Use Types [...] PM CDT Legal Sex Female 5:32 AM SUPERVISOR METAL HANGING Gender Identity Female 09/26/2020 6:03 PM CDT Sexual Orientation Not on file documented as of this encounter Functional Status * Is person deaf or have serious hearing difficulty? Answer Date of Assessment Author No 05/17/2022 12:29 PM SUPERVISOR METAL HANGING Erika Martin RN * Is person blind or have serious difficulty seeing? Answer Date of Assessment Author No 05/17/2022 12:29 PM SUPERVISOR METAL HANGING Erika Martin RN * Does person have serious difficulty walking/climbing stairs? Answer Date of Assessment Author No 05/17/2022 12:29 PM SUPERVISOR METAL HANGING Erika Martin RN * Does person have difficulty dressing/bathing? Answer Date of Assessment Author No 05/17/2022 12:29 PM SUPERVISOR METAL HANGING Erika Martin RN * Does person have [...] Description 12/18/2024 10:00 AM CDT Office Visit [facility] Weight Management Services [address] [facility] [place] [phone] Ally Moore MD [address] [place] [address] documented as of this encounter Visit Diagnoses Diagnosis Epigastric pain Abdominal pain, epigastric documented in this encounter Care Teams Acct Exec Relationship Specialty Start Date End Date Shasta Colbert PA-C [address] [place] [address] PCP - General 12/28/21 documented as of this encounter
--- OUTSIDE RECORDS SUMMARY | 2024-12-04 08:30 | XMS_ITS | Encounter Summary ---
Author Organization [facility] Address [address] [place] [address] Care Team Providers Care Hospital Mortician Name Role Phone Shasta Colbert Primary Care Provider [phone] Encounter Details Date Type Department Care Team (Late st Contact Info) Description 11/14/2024 Results Follow-Up [facility] Card[facility] [address] [place] [phone] Mechelle Lugo MD [address] [place] [address] [address] [place] [address] [facility] Mobile Cardiac Telemetry Event Monitor Social History Tobacco Use Types Packs/Day Years [...] on file 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
--- OUTSIDE RECORDS SUMMARY | 2024-12-04 08:30 | XMS_ITS | Encounter Summary ---
Author Organization [facility] Healthcare Address [address] [place] [address] Care Team Providers Care Center Medical Director Name Role Phone Marya Harding MD Primary Care Provider Kristin Sousa MD Primary Care Provider Trinh Machado MD Primary Care Provider [phone] Shasta Colbert Primary Care Provider [phone] Encounter Details Date Type Department Care Team (Late st Contact Info) Description 07/24/2017 Orders Only [facility] Information Management [address] [place] [id number] Scanning, Provider Social History Tobacco Use Types Packs/Day Years Used Date Smoking Tobacco: Never Assessed Comments Unknown Sex and Gender Information Value Date Recorded Sex Assigned at Not on file Legal Sex Female 8:56 AM OUTSIDE INSTALLER APPRENTICE Gender Identity Female 09/16/2020 7:21 AM CDT [...] on filedocumented in this encounter Care Teams Center Medical Director Relationship Specialty Start Date End Date Marya Harding MD [address] [address] PCP - General Internal Medicine 07/08/17 01/01/18 Kristin Sousa MD [address] [place] [address] PCP - General Family Medicine 01/02/18 01/18/20 Trinh Machado MD [address] [place] [address] PCP - General Family Medicine 01/19/20 11/27/21 Shasta Colbert PA [address] [place] [address] PCP - General Physician Director Corporate Communications 11/28/21 documented as of this encounter
--- OUTSIDE RECORDS SUMMARY | 2024-12-04 08:30 | XMS_ITS | Encounter Summary ---
Author Organization [facility] Health Address [address] [place] [address] Care Team Providers Care Glass Melt Operator Name Role Phone Shasta Colbert PA-C Primary Care Provider Reason for Visit * Reason Onset Date Comments MEDICATION REFILL 08/29/2022 Encounter Details Date Type Department Care Team (Late st Contact Info) Description 08/29/2022 Refill [facility] Weight Management Services [address] [place] [address] Sunita Lopez APRN-TICKET TAKER FERRYBOAT [address] [place] [address] MEDICATION REFILL Social History Tobacco Use Types [...] PM CDT Legal Sex Female 5:32 AM BUSINESS PROPOSAL REP Gender Identity Female 09/26/2020 6:03 PM CDT Sexual Orientation Not on file documented as of this encounter Functional Status * Is person deaf or have serious hearing difficulty? Answer Date of Assessment Author No 05/17/2022 12:29 PM BUSINESS PROPOSAL REP Erika Martin RN * Is person blind or have serious difficulty seeing? Answer Date of Assessment Author No 05/17/2022 12:29 PM BUSINESS PROPOSAL REP Erika Martin RN * Does person have serious difficulty walking/climbing stairs? Answer Date of Assessment Author No 05/17/2022 12:29 PM BUSINESS PROPOSAL REP Erika Martin RN * Does person have difficulty dressing/bathing? Answer Date of Assessment Author No 05/17/2022 12:29 PM BUSINESS PROPOSAL REP Erika Martin RN * Does person have [...] Description 12/18/2024 10:00 AM CDT Office Visit [facility] Health Weight Management Services [address] [facility] [place] [phone] Ally Moore MD [address] [place] [address] documented as of this encounter Visit Diagnoses Not on filedocumented in this encounter Care Teams Glass Melt Operator Relationship Specialty Start Date End Date Shasta Colbert PA-C [address] [place] [address] PCP - General 12/28/21 documented as of this encounter
--- OUTSIDE RECORDS SUMMARY | 2024-12-04 08:30 | XMS_ITS | Encounter Summary ---
Author Organization [facility] Healthcare Address [address] [place] [address] Care Team Providers Care Washery Engineer Name Role Phone Shasta Colbert Primary Care Provider [phone] Encounter Details Date Type Department Care Team (Late st Contact Info) Description 09/25/2024 Orders Only [facility] Health Information Management [address] [place] [address] Scanning, Provider Social History Tobacco Use Types [...] on file Legal Sex Female 8:56 AM FAMILY SERVICES WORKER Gender Identity Female 09/16/2020 7:21 AM CDT Sexual Orientation Straight 09/16/2020 7: 22 AM CDT documented as of this encounter Plan of Treatment Not on file documented as of this encounter Procedures Procedure Name Priority Date/Time Associated Diagnosis Comments SCAN - RADIOLOGY/IMAGING 09/25/2024 documented in this encounter Results * SCAN - RADIOLOGY/IMAGING (09/25/2024) Anatomical Region Laterality Modality Other us Provider Scanning Edited Result - Final documented in this encounter Visit Diagnoses Not on filedocumented in this encounter Care Teams Washery Engineer Relationship Specialty Start Date End Date Shasta Colbert PA [address] [place] [id number] PCP - General Physician Fiber Optic Assembly Worker 11/28/21 documented as of this encounter
--- OUTSIDE RECORDS SUMMARY | 2024-12-04 08:30 | XMS_ITS | Clinical Summary ---
Author Organization [facility] Address [address] [facility] [place] [address] Care Team Providers Care Sap Ariba Consultant Name Role Phone Shasta Colbert PA-C Primary Care Provider Source Comments [facility],non-owned Affiliates and Associated Physician Practices is amultiple site organization consisting of ambulatory clinics and hospital sitesin [place], [place], [place] and [place]. This disclosure is being madepursuant to the Care Everywhere program and may not contain all information available regarding this patient. Last updated 17.[facility] Allergies No known active allergies Medications * [...] Wheezing 6.7 g 3 Active nystatin (Mycostatin) 409439 UNIT/GM powder Apply to affected area 2 [...] fluticasone propionate (Flonase) 50 MCG/ACT nasal spray [place] 1 (one) spray into each nostril 2 [...] Recorded Patient Health Questionnaire-2 Score 2 04/07/2024 [facility] - Occupational Stress [...] place to sleep or slept in a long term (including now)? No 03/11/2023 Comments No Sex and Gender Information Value Date Recorded Sex Assigned at Female 09/26/2020 6:03 PM CDT Legal Sex Female 5:32 AM ASSISTANT COACH Gender Identity Female 09/26/2020 6:03 PM CDT Sexual Orientation Not on file Last Filed Vital Signs Vital Sign Reading Time Taken Comments Blood Pressure 120/87 03/19/2023 1:00 PM ASSISTANT COACH Pulse 81 03/19/2023 1:00 PM ASSISTANT COACH Temperature 37.2 C (98.9 F) 03/19/2023 1:00 PM ASSISTANT COACH Respiratory Rate 16 03/19/2023 1:00 PM ASSISTANT COACH Oxygen Saturation 98% 03/19/2023 1:0 0 PM ASSISTANT COACH Inhaled Oxygen Concentration 98% 01/24/2021 10:00 AM CDT Weight 103.4 kg (228 lb) 04/07/2024 3:1 6 PM ASSISTANT COACH last visit with Reading Assistant 01/29/24 Height 158.8 cm (5' 2.5) 04/07/2024 3: 16 PM ASSISTANT COACH Body Mass Index 41.04 04/07/2024 3:16 PM ASSISTANT COACH Plan of Treatment Upcoming Encounters Date Type Department Care Team (Late st Contact Info) Description 12/18/2024 10:00 AM CDT Office Visit [facility] Health Weight Management Services [address] [place] [phone] Ally Moore MD [address] [facility] [phone] Health Maintenance Due Date Last Done Comments [...] Td or Tdap) 10/28/2024 10/28/2014 INFLUENZA VACCINE (#1) 2024 , 02/06/2022, 01/12/2020, Additional history exists SCREENING FOR DIABETES 03/13/2026 , 03/13/2023, 03/13/2023, Additional history exists LIPID TESTING 06/28/2027 06/27/2022, 06/04/2021, 09/29/2020 COLON MONITORING 03/22/2032 03/22/2022 COLONOSCOPY - [...] POINT OF CARE Routine 03/13/2023 12:52 PM ASSISTANT COACH LIPID PROFILE Routine 09/29/2020 11:24 AM CDT Morbid obesity Hypertension, unspecified type AUGUST (obstructive sleep apnea) from Last 3 Months or Most Recently Relevant to Health Maintenance Results * GLUCOSE - POINT OF CARE (03/13/2023 12:52 PM ASSISTANT COACH) Pathologist [facility] Glucose WB/POC 71 70 - 125 mg/dL 03/13/2023 12:59 PM ASSISTANT COACH [facility] Specimen Type Cap Fingerstick 2022 12:59 PM ASSISTANT COACH [facility] Blood BLOOD SPECIMEN / Unknown 03/13/2023 12:52 PM ASSISTANT COACH 03/13/2023 12:59 PM ASSISTANT COACH Radha Ruiz MD LAB - POINT OF CARE ORDERABLES Final Result [facility] [address] [place] [address], [facility] * LIPID PROFILE (09/29/2020 11:24 AM CDT) Pathologist [facility] Cholesterol 190 <200 mg/dL 09/29/2020 12:25 PM [...] LAB - CHEMISTRY ORDERABLES Fin al Result [facility] [address] [place] [address], [facility] from Last 3 Months or Most Recently Relevant to Health Maintenance Insurance [facility] Advance Directives * Full Code (Latest [...] 12:35 PM 11/11/2021 1:52 PM Care Teams Sap [place]a Consultant Relationship Specialty Start Date End Date Shasta Colbert PA-C [address] [place] [phone] PCP - General 12/28/21
--- NOTE | 2024-12-29 11:13 | WPDSLEEPSTUD ---
Sleep Study Date of Study: 12/04/24 Ordering Provider: Shasta Colbert, LUCY Interpreting Physician: Melissa Avila MD Sleep Study Type: Polysomnogram Height: 1.57 m Weight: 110.677 kg Body Mass Index: 44.6 Neck Circumference (inches): 14.5 [place]: 7 Reason for Sleep Study Witnessed apneas, waking during the night. She was previously diagnosed with obstructive sleep apnea * , split night study; BMI 52.2; AHI 6.8, optimal pressure CPAP 8 cm. Since then, she had bariatric surgery 06/27/2021, Mercedes-en-Y, reversal on 03/08/2023 due to ulcers at the anastomosis site causing anemia. She gained over 70 lb since the reversal has a lower BMI compared to sleep study 2020. Sleep History Angelica Kruse is a 49 year old female with a history of cardiac disease including nonischemic cardiomyopathy, hypertension, history of supraventricular tachycardia status post ablation, possible bicuspid aortic valve, known obstructive sleep apnea, and morbid obesity. Ejection fraction on 06/24/2017 was EF 30%. She has lost weight since then, body mass index is 44.6. She occasionally awakens from sleep feeling short of breath. She rarely awakens at night with heartburn, belching or coughing. She frequently snores but only rarely loudly enough that others complain about it. She constantly has difficulty sleeping when she has a cold. She always wakes up gasping for breath during the night. She frequently has breathing problems reported to her by others. She occasionally sweats excessively at night, occasionally notices her heart pounding or beating irregularly at night. She occasionally falls asleep during the day however never falls asleep involuntarily or while driving. She does not have loss of muscle tone was extreme emotion. She does not have daytime difficulties due to excessive sleepiness. She occasionally feels paralyzed on waking or falling asleep. She occasionally has vivid dreamlike scenes upon awakening or falling asleep. She occasionally feels afraid to go to sleep. She occasionally has nightmares. On occasion she remembers her dreams. She occasionally has racing thoughts and feelings of sadness or depression. She constantly has anxiety. She rarely notices parts of her body jerking. She occasionally kicks at night and occasionally has crawling and aching feelings in her legs. She occasionally has leg pain at night. She occasionally grinds her teeth at night but does not comment whether not she has morning jaw pain. She occasionally is bothered by pain during the day, occasionally awakened by pain at night. She constantly awakens feeling stiff in the morning, with sore achy muscles and pain in the neck and spine. She has dizziness, headaches, palpitations, fatigue, and memory problems. Normal bedtime is 11:00 p.m., waking 2-3 times during the night to go to the bathroom, get something to drink and also may find something to watch on television. Sometimes she stays awake for hours. Her normal wake time is between 5 and 6:00 a.m.. She maintains the same schedule on weekends. She estimates getting between 5 and 6 hours of sleep at night. She does not take naps in the afternoon or evening. A short nap lasting 10-15 minutes is not refreshing. She feels better in the afternoon compared to other times of day. Habits: Tobacco : never smoker Caffeine: none Alcohol: none Recreational substances: none PMFSH Past Medical History Medical History (Updated 12/31/24 @ 13:31 by Melissa Avila MD) Obstructive sleep apnea SVT (supraventricular tachycardia) Colon cancer screening Abdominal pain Internal hemorrhoid Hx of diverticulitis of colon HAYLEY (iron deficiency anemia) PUD (peptic ulcer disease) Nonischemic cardiomyopathy Arthritis UTI (urinary tract infection) Asthma HTN (hypertension) History of angina Seasonal allergies CHF (congestive heart failure) Surgical History Surgical History Hx of gastric bypass History of knee surgery Right History of tubal ligation History of cholecystectomy History of cardiac catheterization Family History Family History Father Diabetes mellitus Hypertension Asthma Patient's father is in good health Family history of cardiovascular disease Mother Hypertension Patient's mother is in good health Sibling Patient's sister is in good health Social History Social History Smoking status: Never smoker Alcohol intake: never Substance use: never Substance use type: does not use Do You Feel Safe in your Home?: Yes Lack of Transportation: No Lack of Food: Never True Current Housing: I Have Housing Concerned About Future Housing: No Difficulty Paying Gas/Electric Bills: No Difficulty Paying for Meds: No Currently Unemployed: No Education: High School Diploma/GED Difficulty w/ Childcare or Family Care: No Living arrangements: with family Gender identity (if verbalized by the patient): Female Spiritual care concerns: No Medications Home Medications ?Medication ?Instructions ?Recorded ?Confirmed ?Type metoprolol succinate 200 mg 200 mg PO DAILY 06/28/19 12/26/24 History tablet,extended release 24 hr albuterol sulfate 90 mcg/actuation 1 puff inhalation DAILY PRN 06/10/20 12/17/24 History aerosol inhaler allergies cyclobenzaprine 10 mg tablet 10 mg PO TID PRN muscle spasm #16 06/10/20 12/17/24 Rx tabs gabapentin 100 mg capsule 300 mg PO TID 06/10/20 12/26/24 History lisinopril 40 mg tablet 40 mg PO DAILY 06/10/20 12/26/24 History ascorbic acid (vitamin C) 500 mg 500 mg PO DAILY 01/17/23 12/26/24 History tablet thiamine HCl (vitamin B1) 50 mg 50 mg PO DAILY 01/17/23 12/26/24 History tablet biotin 5 mg capsule 5 mg PO DAILY 09/25/24 12/26/24 History buspirone 10 mg tablet 10 mg PO BID 09/25/24 12/26/24 History calcium 600 mg (as 1 tablet PO DAILY 09/25/24 12/26/24 History carbonate)-vitamin D3 10 mcg (400 unit) tablet hydroxyzine HCl 25 mg tablet 25 mg PO TID 09/25/24 12/26/24 History mecobalamin (vitamin B12) 500 mcg 500 mcg PO DAILY 09/25/24 12/26/24 History chewable tablet metoprolol tartrate 100 mg tablet 100 mg PO Q12H 09/25/24 12/26/24 History nifedipine 90 mg tablet,extended 90 mg PO DAILY 09/25/24 12/26/24 History release 24 hr spironolactone 50 mg tablet 50 mg PO DAILY 09/25/24 12/26/24 History aspirin 81 mg tablet 81 mg PO DAILY #90 tabs 12/16/24 12/26/24 Rx clopidogrel 75 mg tablet (Plavix) 75 mg PO DAILY #90 tabs 12/16/24 12/26/24 Rx loratadine 10 mg tablet (Allergy 10 mg PO .PRN 12/16/24 12/26/24 History Relief (loratadine)) rosuvastatin 20 mg tablet (Crestor) 20 mg PO DAILY #90 tabs 12/16/24 12/26/24 Rx Sleep Procedure A full night polysomnogram using the [employer] multi-channel system recorded the standard physiologic parameters including EEG, EOG, submentalis EMG, anterior tibialis EMG, EKG, body position, nasal and oral airflow using nasal pressure sensor and thermistor. Respiratory parameters of chest and abdominal movements were recorded with Respiratory Inductance Plethysmography belts. Oxygen saturation was recorded by pulse oximetry. Video monitoring was also performed. Sleep stages, periodic limb movements, and EEG arousals were scored in 30 second epochs according to the criteria of the AASM Scoring Manual. The Apnea-Hypopnea Index was calculated using CMS guidelines for definition of hypopnea while scoring respiratory events. The patient did not meet criteria during the night to start CPAP so this was conducted as a full night basic nocturnal polysomnogram. No sleep aid was taken at the beginning of the study. She told the health technician hearing that she had pain and heaviness in her legs which is typical for her. She did not sleep in the supine position due to difficulty breathing which she attributed to her CHF. She had muscle cramps or spasms in her legs. Sleep Architecture The total recording time was 421.6 minutes. The total sleep time was 398.0 minutes. Sleep latency was 2.1 minutes. REM latency was 169.5 minutes. Sleep efficiency was 94.4%. The patient had 17 awakenings for an awakening index of 2.6. Wake after sleep onset time was 21.5 minutes. The patient spent 9.5 minutes, 2.4% of total sleep time in Stage N1. The patient spent 194.0 minutes, 48.7% in Stage N2. The patient spent 125.0 minutes, 31.4% in Stage N3. The patient spent 69.5 minutes, 17.5% in Stage REM sleep. Respiratory Analysis The patient had 42 hypopneas, no obstructive apneas, no mixed apneas, and 2 central apneas for an overall Apnea Hypopnea Index of 6.6. The REM Apnea Hypopnea Index was 22.4. The NREM Apnea Hypopnea Index was 3.5. The patient had a Central Apnea Hypopnea Index of 0.3. There were no Respiratory Effort Related Arousals. The Respiratory Disturbance Index is 6.8 events per hour. There was no evidence of David-Tavares Respirations. Arousals There were 44 total arousals for an arousal index of 6.6. There were 31 spontaneous arousals for an index of 4.7. There were 6 arousals due to respiratory events for an index of 0.9. There were no arousals due to periodic limb movements. There were 7 arousals due to isolated limb movements for an index of 1.1. Periodic Limb Movements The patient had 15 isolated limb movements with an index of 2.3. The patient had no periodic limb movements. Patient had a total of 15 limb movements with a total limb movement index of 2.3. Oximetry Data The patient had an average oxygen saturation of 92% in sleep with a minimum oxygen saturation of 84% and a maximum oxygen saturation of 99%. The patient had 44 oxygen desaturations that were 4% or greater resulting in an Oxygen Desaturation Index of 6.6. The patient spent 6.4 minutes, 1.5% of total sleep time with an oxygen saturation below 88%. Snoring Profile Snoring was mild and intermittent. Cardiac Profile The EKG showed normal sinus rhythm, few PVCs, average pulse rate of 63 bpm with a minimum pulse of rate of 57 bpm and a maximum pulse rate of 79 bpm. No arrhythmias noted. EEG Profile Unremarkable, no evidence of seizures. Assessment and Plan Assessment and Plan (1) Obstructive sleep apnea: Code(s): G47.33 - Obstructive sleep apnea (adult) (pediatric) Status: Acute Assessment and Plan: This nocturnal polysomnogram on 12/04/2024 shows mild obstructive sleep apnea, the apnea-hypopnea index is 6.6 using a 4% criteria and a minimum saturation occurred 84% with mild intermittent snoring. She spent 6.4 minutes below 88%, 1.5% of sleep time. She did not sleep in the supine position due to difficulty breathing. She did not meet criteria early enough in the night to proceed with split night protocol so this was conducted as a full night nocturnal polysomnogram. If she had spent night in the supine position, the AHI would have been higher. She needs to return to the sleep lab for a full night CPAP titration. She had a short sleep latency on this study, however a sleep aid is recommended to have at the sleep lab if needed to initiate and maintain sleep during a titration study. She will be asked to sleep supine in order to identify optimal pressure. The goal in treating obstructive sleep apnea is to identify an optimal pressure which will maintain normal breathing in all stages of sleep, REM and NREM, in all body positions, supine and lateral. She has significant cardiac history. Although she did not have central apneas on this study, it is likely that she would develop central apneas using auto PAP. Auto PAP is contraindicated due to this patient's history of low ejection fraction with cardiomyopathy. BMI is 44.6. This is considerably lower than 2020 on her prior split night study when her body mass index was 52.2. Clinical data suggests that weight loss of 10% can reduce the severity of respiratory events and snoring and improve AHI by as much as 25%. Her sleep questionnaire indicates that she occasionally grinds her teeth at night. Bruxism was not noted on this study. She should be advised to ask her dentist if her exam shows evidence of loss of enamel. Treating obstructive sleep apnea can reduce bruxism. She has occasional uncomfortable feelings in her legs at night and occasional kicking. Periodic limb movements were not noted on this study. Data The data obtained during this sleep study is adequate for interpretation. Certification This sleep study has been reviewed by a board certified sleep medicine physician.
[2024-12-31 13:28] VITALS: BMI 44.6
== END 2024-12-05 06:57 | disposition home or self-care (01) ==
LOC: ANHCSM 08:27
PROVIDERS: PCP Physician Assistant; Visit Provider Physician Assistant
DX: G47.30 Sleep apnea, unspecified (principal); G47.33 Obstructive sleep apnea (adult) (pediatric)
CPT/HCPCS: 95810

== ENCOUNTER 2024-12-26 00:53 | Day surgery (SDC) | payer OTHER, SELFPAY ==
[2024-12-17 14:00] VITALS: BMI 43.9
--- NOTE | 2024-12-17 14:17 | PC.NURSE ---
Spoke with patient regarding medication Plavix. Patient verbalizes understanding that the last dose is to be taken on 12/21/24 and the Endoscopist will instruct them when to restart after the procedure.
--- OUTSIDE RECORDS SUMMARY | 2024-12-26 00:56 | XMS_ITS | Encounter Summary ---
Author Organization [facility] Health Address [address] [facility] [place] [address] Care Team Providers Care Reclaimer Name Role Phone Shasta Colbert PA-C Primary Care Provider [phone] Reason for Visit * Reason Onset Date Comments MEDICATION REFILL 10/06/2022 Encounter Details Date Type Department Care Team (Late st Contact Info) Description 10/06/2022 Refill [facility] Weight Management Services [address] [place] [address] Sunita Lopez APRN-REGIONAL AGRONOMIST [address] [place] [address] MEDICATION REFILL Social History Tobacco Use Types [...] PM CDT Legal Sex Female 5:32 AM CORPORATE COUNSELOR Gender Identity Female 09/26/2020 6:03 PM CDT Sexual Orientation Not on file documented as of this encounter Functional Status * Is person deaf or have serious hearing difficulty? Answer Date of Assessment Author No 05/17/2022 12:29 PM CORPORATE COUNSELOR Erika Martin RN * Is person blind or have serious difficulty seeing? Answer Date of Assessment Author No 05/17/2022 12:29 PM CORPORATE COUNSELOR Erika Martin RN * Does person have serious difficulty walking/climbing stairs? Answer Date of Assessment Author No 05/17/2022 12:29 PM CORPORATE COUNSELOR Erika Martin RN * Does person have difficulty dressing/bathing? Answer Date of Assessment Author No 05/17/2022 12:29 PM CORPORATE COUNSELOR Erika Martin RN * Does person have [...] Care Team (Late st Contact Info) Description 09/03/2025 10:00 AM CDT Office Visit [facility] Health Weight Management Services [address] [facility] [place] [phone] Ally Moore MD [address] [place] [address] documented as of this encounter Visit Diagnoses Diagnosis Epigastric pain Abdominal pain, epigastric documented in this encounter Care Teams Reclaimer Relationship Specialty Start Date End Date Shasta Colbert PA-C [address] [place] [address] PCP - General 12/28/21 documented as of this encounter
--- OUTSIDE RECORDS SUMMARY | 2024-12-26 00:56 | XMS_ITS | Clinical Summary ---
Author Organization [facility] Care Team Providers Care Clothing Trades Workers Name Role Phone Unavailable Primary Care Provider Unavailabl e Social History Tobacco Use Types Packs/Day Years Used Date Smoking Tobacco: Never Assessed Comments Unknown Sex and Gender Information Value Date Recorded Sex Assigned at Not on file Legal Sex Female 9:55 AM CHEMICAL MILLING PROCESSOR Gender Identity Not on file Sexual Orientation [...]
--- OUTSIDE RECORDS SUMMARY | 2024-12-26 00:56 | XMS_ITS | Clinical Summary ---
Author Organization [facility] Address [facility] [place] [address] Care Team Providers Care Supervisor Metal Fabricating Name Role Phone Trinh Machado MD Primary Care Provider [phone] Allergies No known active allergies Social History [...] 2023 Zoster Vaccines (1 of 2) 2023 DTaP, Tdap and Td Vaccines ( 2 - Td or Tdap) 10/28/2024 10/28/2014 COVID-19 Vaccine (3 - 2024-2 6 season) 2024 05/15/2021, 04/15/2021 Meningococcal B Vaccine Aged Out No l onger eligible based on patient's age to complete this topic Meningococcal Vaccine Aged Out No andres cisco eligible based on patient's age to complete this topic RSV Immunizations Under 20 Months Aged Out No longer eligible b ased on patient's age to complete this [place] [address] [place] Care Teams Supervisor Metal Fabricating Relationship Specialty Start Date End Date Trinh Machado MD [facility] [address] [place] [address] PCP - General FAMILY PRACTICE 11/03/21
--- OUTSIDE RECORDS SUMMARY | 2024-12-26 00:56 | XMS_ITS | Clinical Summary ---
Author Organization [facility] Eun Puckettgiselle Address [facility] [place] [address] Care Team Providers Care Field Assembly Supervisor Name Role Phone Unavailable Primary Care Provider [...] 2018 ZOSTER VACCINE (1 of 2) 2023 DTAP/TDAP/TD VACCINES (2 - T d or Tdap) 10/28/2024 10/28/2014 INFLUENZA VACCINE (#1) 2024 3, 02/06/2022, 01/12/2020, Additional history exists COVID-19 Vaccine (2024-2 6 season) 2024 05/15/2021, 04/15/2021 Insurance [facility]
--- OUTSIDE RECORDS SUMMARY | 2024-12-26 00:56 | XMS_ITS | Encounter Summary ---
Author Organization [facility] Healthcare Address [address] [place] [address] Care Team Providers Care Public Welfare Director Name Role Phone Marya Harding MD Primary Care Provider Kristin Sousa MD Primary Care Provider Trinh Machado MD Primary Care Provider [phone] Shasta Colbert Primary Care Provider [phone] Encounter Details Date Type Department Care Team (Late st Contact Info) Description 12/11/[address] [facility] Health Information Management [address] [place] [address] Scanning, Provider Social History Tobacco Use Types Packs/Day Years Used Date Smoking Tobacco: Never Smokeless Tobacco: Never Alcohol Use Standard Drinks/Week Comments No 0 (1 standard drink = 0.6 oz pur e alcohol) Comments Unknown Sex and Gender Information Value Date Recorded Sex Assigned at Not on file Legal Sex Female 8:56 AM CHIROPRACTIC DOCTOR Gender Identity Female 09/16/2020 7:21 AM CDT [...] on filedocumented in this encounter Care Teams Public Welfare Director Relationship Specialty Start Date End Date Marya Harding MD [address] [address] PCP - General Internal Medicine 07/08/17 01/01/18 Kristin Sousa MD [address] [facility] [address] [place] [address] PCP - General Family Medicine 01/02/18 01/18/20 Trinh Machado MD [address] [facility] [address] [place] [address] PCP - General Family Medicine 01/19/20 11/27/21 Shasta Colbert PA [address] [place] [address] PCP - General Physician Pv Design Engineer 11/28/21 documented as of this encounter
--- OUTSIDE RECORDS SUMMARY | 2024-12-26 00:56 | XMS_ITS | Encounter Summary ---
Author Organization [facility] Health Address [address] [place] [address] Care Team Providers Care Director Of Religious Life Name Role Phone Shasta Colbert PA-C Primary Care Provider [phone] Reason for Visit * Reason Onset Date Comments MEDICATION REFILL 08/29/2022 Encounter Details Date Type Department Care Team (Late st Contact Info) Description 08/29/[address] [facility] Weight Management Services [address] [place] [address] Sunita Lopez APRN-MASH FILTER PRESS OPERATOR [address] [place] [address] MEDICATION REFILL Social History Tobacco Use Types [...] PM CDT Legal Sex Female 5:32 AM PHOTO MASK PROCESSOR Gender Identity Female 09/26/2020 6:03 PM CDT Sexual Orientation Not on file documented as of this encounter Functional Status * Is person deaf or have serious hearing difficulty? Answer Date of Assessment Author No 05/17/2022 12:29 PM PHOTO MASK PROCESSOR Erika Martin RN * Is person blind or have serious difficulty seeing? Answer Date of Assessment Author No 05/17/2022 12:29 PM PHOTO MASK PROCESSOR Erika Martin RN * Does person have serious difficulty walking/climbing stairs? Answer Date of Assessment Author No 05/17/2022 12:29 PM PHOTO MASK PROCESSOR Erika Martin RN * Does person have difficulty dressing/bathing? Answer Date of Assessment Author No 05/17/2022 12:29 PM PHOTO MASK PROCESSOR Erika Martin RN * Does person have [...] Description 09/03/2025 10:00 AM CDT Office Visit [facility] Health Weight Management Services [address] [facility] [place] [phone] Ally Moore MD [address] [place] [address] documented as of this encounter Visit Diagnoses Not on filedocumented in this encounter Care Teams Director Of Religious Life Relationship Specialty Start Date End Date Shasta Colbert PA-C [address] [place] [address] PCP - General 12/28/21 documented as of this encounter
--- OUTSIDE RECORDS SUMMARY | 2024-12-26 00:56 | XMS_ITS | Encounter Summary ---
Author Organization [facility] Healthcare Address [address] [place] [address] Care Team Providers Care Body Coverer Name Role Phone Marya Harding MD Primary Care Provider Kristin Sousa MD Primary Care Provider Trinh Machado MD Primary Care Provider [phone] Shasta Colbert Primary Care Provider [phone] Encounter Details Date Type Department Care Team (Late st Contact Info) Description 07/24/2017 Orders Only [facility] Health Information Management [address] [place] [address] Scanning, Provider Social History Tobacco Use Types Packs/Day Years Used Date Smoking Tobacco: Never Assessed Comments Unknown Sex and Gender Information Value Date Recorded Sex Assigned at Not on file Legal Sex Female 8:56 AM SIX SIGMA BLACK TRAINER Gender Identity Female 09/16/2020 7:21 AM CDT [...] on filedocumented in this encounter Care Teams Body Coverer Relationship Specialty Start Date End Date Marya Harding MD [address] [address] PCP - General Internal Medicine 07/08/17 01/01/18 Kristin Sousa MD [address] [place] [address] PCP - General Family Medicine 01/02/18 01/18/20 Trinh Machado MD [address] [place] [address] PCP - General Family Medicine 01/19/20 11/27/21 Shasta Colbert PA [address] [place] [address] PCP - General Physician Principal Database Developer 11/28/21 documented as of this encounter
--- OUTSIDE RECORDS SUMMARY | 2024-12-26 00:56 | XMS_ITS | Clinical Summary ---
Author Organization [facility] [employer] Address [address] [facility] [place] [address] Care Team Providers Care Disability Case Manager Name Role Phone Shasta Colbert PA-C Primary Care Provider [phone] Source Comments [facility] [employer],non-owned Affiliates and Associated Physician Practices is amultiple site organization consisting of ambulatory clinics and hospital sitesin [place], [place], [place] and [place]. This disclosure is being madepursuant to the Care Everywhere program and may not contain all information available regarding this patient. Last updated 17.[facility] [employer] Allergies No known active allergies Medications * [...] Wheezing 6.7 g 3 Active nystatin (Mycostatin) 521775 UNIT/GM powder Apply to affected area 2 [...] fluticasone propionate (Flonase) 50 MCG/ACT nasal spray [place] 1 (one) spray into each nostril 2 [...] Recorded Patient Health Questionnaire-2 Score 2 04/07/2024 [facility] of Occupat ional Health - Occupational [...] PM CDT Legal Sex Female 5:32 AM EVENT TECHNICIAN Gender Identity Female 09/26/2020 6:03 PM CDT Sexual Orientation Not on file Last Filed Vital Signs Vital Sign Reading Time Taken Comments Blood Pressure 120/87 03/19/2023 1:00 PM EVENT TECHNICIAN Pulse 81 03/19/2023 1:00 PM EVENT TECHNICIAN Temperature 37.2 C (98.9 F) 03/19/2023 1:00 PM EVENT TECHNICIAN Respiratory Rate 16 03/19/2023 1:00 PM EVENT TECHNICIAN Oxygen Saturation 98% 03/19/2023 1:0 0 PM EVENT TECHNICIAN Inhaled Oxygen Concentration 98% 01/24/2021 10:00 AM CDT Weight 103.4 kg (228 lb) 04/07/2024 3:1 6 PM EVENT TECHNICIAN last visit with Assistant Boiler Operator 01/29/24 Height 158.8 cm (5' 2.5) 04/07/2024 3: 16 PM EVENT TECHNICIAN Body Mass Index 41.04 04/07/2024 3:16 PM EVENT TECHNICIAN Plan of Treatment Upcoming Encounters Date Type Department Care Team (Late st Contact Info) Description 09/03/2025 10:00 AM CDT Office Visit [facility] Health Weight Management Services [address] [place] [phone] Ally Moore MD [address] [facility] [place] [phone] Health Maintenance Due Date Last Done Comments [...] 1994 ZOSTER VACCINE (1 of 2) 2023 DEPRESSION SCREENING 04/09/2024 12/06/2023 DTAP/TDAP/TD VACCINES (2 - Td or Tdap) 10/28/2024 10/28/2014 COVID-19 VACCINE (3 - season) 2024 05/15/2021, 04/15/2021 INFLUENZA VACCINE (#1) 2024 , 02/06/2022, 01/12/2020, [...] POINT OF CARE Routine 03/13/2023 12:52 PM EVENT TECHNICIAN LIPID PROFILE Routine 09/29/2020 11:24 AM CDT Morbid obesity Hypertension, unspecified type AUGUST (obstructive sleep apnea) from Last 3 Months or Most Recently Relevant to Health Maintenance Results * GLUCOSE - POINT OF CARE (03/13/2023 12:52 PM EVENT TECHNICIAN) [facility] Glucose WB/POC 71 70 - 125 mg/dL 03/13/2023 12:59 PM EVENT TECHNICIAN [facility] Specimen Type Cap Fingerstick 2022 12:59 PM EVENT TECHNICIAN [facility] Blood BLOOD SPECIMEN / Unknown 03/13/2023 12:52 PM EVENT TECHNICIAN 03/13/2023 12:59 PM EVENT TECHNICIAN Radha Ruiz MD LAB - POINT OF CARE ORDERABLES Final Result [facility] [address] [place] [address], [facility] * LIPID PROFILE (09/29/2020 11:24 AM CDT) Pathologist [facility] Cholesterol 190 <200 mg/dL 09/29/2020 12:25 PM [...] LAB - CHEMISTRY ORDERABLES Fin al Result [facility] [address] [place] [address], [facility] from Last 3 Months or Most Recently Relevant to Health Maintenance Insurance [facility] Advance Directives * Full Code (Latest [...] 12:35 PM 11/11/2021 1:52 PM Care Teams Disability Case Manager Relationship Specialty Start Date End Date Shasta Colbert PA-C [address] [place] [address] PCP - General 12/28/21
--- OUTSIDE RECORDS SUMMARY | 2024-12-26 00:56 | XMS_ITS | Encounter Summary ---
Author Organization [facility] Healthcare Address [address] [place] [address] Care Team Providers Care Gun Perforator Loader Name Role Phone Shasta Colbert Primary Care Provider [phone] Encounter Details Date Type Department Care Team (Late st Contact Info) Description 11/14/2024 Results Follow-Up [facility] Medical Group Cardiology [address] [place] [phone] Mechelle Lugo MD [address] [place] [address] [address] [place] [address] [facility] Mobile Cardiac Telemetry Event Monitor [...] on file Legal Sex Female 8:56 AM PLATE COLORER Gender Identity Female 09/16/2020 7:21 AM CDT Sexual Orientation Straight 09/16/2020 7: 22 AM CDT documented as of this encounter Plan of Treatment Not on file documented as of this encounter Visit Diagnoses Not on filedocumented in this encounter Care Teams Gun Perforator Loader Relationship Specialty Start Date End Date Shasta Colbert PA [address] [place] [address] PCP - General Physician Rn Admissions 11/28/21 documented as of this encounter
--- OUTSIDE RECORDS SUMMARY | 2024-12-26 00:56 | XMS_ITS | Clinical Summary ---
Author Organization [facility] [address] Address [address] [place] [address] Care Team Providers Care Pillowcase Maker Name Role Phone Shasta Colbert Primary Care Provider [phone] Allergies No known active allergies Medications albuterol HFA (PROVENTIL HFA,VENTOLIN HFA,PROAIR HFA) 90 mcg/actuation inhaler albuterol sulfate HFA 90 mcg/actuation aerosol inhaler INHALE 2 PUFFS BY MOUTH EVERY 4 HOURS as needed for wheezing. 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 Active gabapentin (NEURONTIN) 100 mg capsule Take 3 capsules (300 mg total) by mouth 3 (three) times a day 06/15/19 23 Active omeprazole (PriLOSEC) 40 mg capsule Take 1 capsule (40 mg total) by mouth 2 (two) times a day 60 capsule 1 11/16/19 23 Active acetaminophen (TYLENOL) 325 mg tablet Take 2 tablets (650 mg total) by mouth every 6 (six) hours as needed 02/25/20 23 Active cyclobenzaprine (FLEXERIL) 10 mg tablet Take 1 tablet (10 mg total) by mouth 2 (two) times a day as needed Active NIFEdipine (NIFEdipine XL) 30 mg 24 hr tablet Take 1 tablet (30 mg total) by mouth daily 90 tablet 3 07/13/19 24 Active lisinopriL (PRINIVIL,ZESTRIL) 40 mg tablet Take 1 tablet (40 mg total) by mouth daily 90 tablet 2 09/20/19 24 Active spironolactone (ALDACTONE) 50 mg tablet Take 1 tablet (50 mg total) by mouth daily 90 tablet 2 09/20/19 24 Active calcium carbonate-vitamin D3 (CALTRATE 600 + D) 1500 mg (600 mg elemental) -400 units per tablet Take 1 tablet every day by oral route for 30 days. 07/12/19 23 Active fluticasone propionate (FLONASE) 50 mcg/actuation nasal spray Administer 1 spray into affected nostril(s) 2 (two) times a day 07/09/19 24 Active hydrOXYzine (ATARAX) 25 mg tablet Take 1 tablet (25 mg total) by mouth 07/06/19 24 Active nystatin powder Apply topically 2 (two) times a day 02/25/20 23 Active biotin 10,000 mcg capsule Take 0.1 capsules (1,000 mcg total) by mouth daily Active aspirin 81 mg enteric coated tablet Take 1 tablet (81 mg total) by mouth daily 10/02/19 25 Active busPIRone (BUSPAR) 10 mg tablet Take 1 tablet (10 mg total) by mouth 2 (two) times a day 11/04/19 25 Active clopidogreL (PLAVIX) 75 mg tabletIndications:R ecent cerebrovascular accident (CVA) Take 1 tablet (75 mg total) by mouth daily 90 tablet 11/11/19 25 Active empagliflozin (JARDIANCE) 10 mg tabletIndications:N onischemic cardiomyopathy (HCC) Take 1 tablet (10 mg total) by mouth daily 90 tablet 3 11/11/19 25 Active metoprolol XL (TOPROL-XL) 200 mg extended release tabletIndications:N onischemic cardiomyopathy (HCC) Take 1 tablet (200 mg total) by mouth daily 30 tablet 2 11/12/19 25 Active tirzepatide, weight loss, (Zepbound) 2.5 mg/0.5 mL pen injectorIndications :Morbid obesity with BMI of 45.0-49.9, adult (HCC) Inject 0.5 mL (2.5 mg total) under the skin every 7 days 2 mL 12/20/19 25 025 Active tirzepatide, weight loss, (Zepbound) 2.5 mg/0.5 mL pen injectorIndications :Morbid obesity with BMI of 45.0-49.9, adult (HCC) Inject 0.5 mL (2.5 mg total) under the skin every 7 days 2 mL 11/15/19 25 025 Discontin ued(Reord er) Active Problems Problem Noted Date Diagnosed Date [...] 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 Referred to ADA and [employer] websites for additional information on topics including [...] Department Care Team Description 11/14/2024 Results Follow-Up [facility] Cardiology [address] [place] [address] Mechelle Lugo MD [facility] Mobile Cardiac Telemetry Event Monitor 11/11/2024 Telephone [place] [address] [place] [phone] Dary Velazquez NP aortic valve regurgitation 11/10/2024 10:00 AM CDT Office Visit [place] [address] [place] [phone] Dary Velazquez NP Recent cerebrovascular accident (CVA) (Primary Dx); Nonischemic cardiomyopathy (HCC); Nonrheumatic aortic valve insufficiency; Body mass index [BMI] 45.0-49.9, adult (Z68.42); Obesity, class 3 (E66.813); S/P ablation operation for arrhythmia 10/07/2024 9:00 AM CDT Ancillary Procedure [place] [address] [place] [phone] 10/03/2024 Telephone [place] [address] [place] [phone] Diego Corral MD 10/03/2024 Orders Only [place] [address] [place] [phone] Chiquita Olson MD 09/29/2024 Telephone [facility] Cardiology [address] [place] [phone] Diego Corral MD 09/29/2024 Telephone [facility] Cardiology [address] [place] [phone] Diego Corral MD 09/25/2024 Orders Only [facility] Health Information Management [address] [place] [id number] Scanning, Provider from Last 3 Months Surgical History Surgery [...] on file 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 Lugo Date of interpretation: 11/11/24 Type of monitor : 30 day quality assurance monitor body Date of the study/Enrollment period: 10/27/2024 through [...] was used to complete this document, therefore, special education administrator variances may occur. Des Sharma MD, [facility] 11/11/24 Procedure Note Des Sharma MD - 11/11/2024 AMBULATORY FARMWORKER RICE REPORT Patient Name: Angelica Kruse Date of : 1975 Requesting Physician: Dr. Lugo Date of interpretation: 11/11/24 Type of monitor : 30 day quality assurance monitor body Date of the study/Enrollment period: 10/27/2024 through [...] software was used to complete this document, therefore,special education administrator variances may occur. Des Sharma MD, FACC 11/11/24 us [facility] Brando Lugo MD [facility] PRO CEDURES Final Result * Cardiology Document Scan (10/03/2024 3:56 PM CDT) Anatomical Region Laterality Modality Other us Jhonny Chambers MD [facility] PROC [...] - Final from Last 3 Months Insurance [facility] Advance Directives For more information, please contact: [phone] * Full Code (Latest Code Status on File) Date Activated Date Inactivated Comments 11/14/2022 5:41 PM 11/16/2022 5:51 PM Care Teams Pillowcase Maker Relationship Specialty Start Date End Date Shasta Colbert PA [address] [place] [address] PCP - General Physician Outreach Team Member 11/28/21
--- OUTSIDE RECORDS SUMMARY | 2024-12-26 00:56 | XMS_ITS | Encounter Summary ---
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 Gender Identity Female 09/26/2020 6:03 PM CDT [...] Description 09/03/2025 10:00 AM CDT Office Visit [facility] Weight Management Services [address] [place] [phone] Ally Moore MD [address] [place] [phone] documented as of this encounter Visit Diagnoses Diagnosis Marginal ulcer Gastrojejunal ulcer, unspecified as acute or chronic, without mention of hemorrhage, perforation, or obstruction documented in this encounter Care Teams Automotive Warranty Administrator Relationship Specialty Start Date End Date Shasta Colbert PA-C [address] [place] [phone] PCP - General 12/28/21 documented as of this encounter
--- OUTSIDE RECORDS SUMMARY | 2024-12-26 00:56 | XMS_ITS | Encounter Summary ---
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
[2024-12-26 11:41] VITALS: BP 146/74; PULSE 64; RESP 18; TEMP 36.6; O2SAT 100
[2024-12-26 11:43] LABS: BEDSIDEPREGUCG Negative (Negative)
[2024-12-26] MEDS: LACTATED RINGERS 1,000 ML 150 ML IV CONT (11:44)
--- NOTE | 2024-12-26 12:27 | WPDANESEPPF ---
Anes - Initial Pre Proc Eval Procedure: Operation Date: 12/26/24 13:00 Proposed Procedures p EGD & Screening Colonoscopy - Chencho Schultz MD Date/Time: 12/26/24 12:27 Surgeon: Chencho Schultz MD Pre Op Diagnosis: Gastro-esophageal reflux disease without esophagit Patient Data Age: 49 Gender: F Height: 1.57 m Weight: 108.9 kg Last Vital Signs Temp 97.8 F 12/26/24 11:41 Pulse 64 12/26/24 11:41 Resp 18 12/26/24 11:41 BP 146/74 H 12/26/24 11:41 Pulse Ox 100 12/26/24 11:41 O2 Del Method Room Air 12/26/24 11:41 Allergies Allergy/AdvReac Type Severity Reaction Status Date / Time No Known Allergies Allergy Verified 12/17/24 13:56 Home Medications ?Medication ?Instructions ?Recorded ?Confirmed ?Type metoprolol succinate 200 mg 200 mg PO DAILY 06/28/19 12/26/24 History tablet,extended release 24 hr albuterol sulfate 90 mcg/actuation 1 puff inhalation DAILY PRN 06/10/20 12/17/24 History aerosol inhaler allergies cyclobenzaprine 10 mg tablet 10 mg PO TID PRN muscle spasm #16 06/10/20 12/17/24 Rx tabs gabapentin 100 mg capsule 300 mg PO TID 06/10/20 12/26/24 History lisinopril 40 mg tablet 40 mg PO DAILY 06/10/20 12/26/24 History ascorbic acid (vitamin C) 500 mg 500 mg PO DAILY 01/17/23 12/26/24 History tablet thiamine HCl (vitamin B1) 50 mg 50 mg PO DAILY 01/17/23 12/26/24 History tablet biotin 5 mg capsule 5 mg PO DAILY 09/25/24 12/26/24 History buspirone 10 mg tablet 10 mg PO BID 09/25/24 12/26/24 History calcium 600 mg (as 1 tablet PO DAILY 09/25/24 12/26/24 History carbonate)-vitamin D3 10 mcg (400 unit) tablet hydroxyzine HCl 25 mg tablet 25 mg PO TID 09/25/24 12/26/24 History mecobalamin (vitamin B12) 500 mcg 500 mcg PO DAILY 09/25/24 12/26/24 History chewable tablet metoprolol tartrate 100 mg tablet 100 mg PO Q12H 09/25/24 12/26/24 History nifedipine 90 mg tablet,extended 90 mg PO DAILY 09/25/24 12/26/24 History release 24 hr spironolactone 50 mg tablet 50 mg PO DAILY 09/25/24 12/26/24 History aspirin 81 mg tablet 81 mg PO DAILY #90 tabs 12/16/24 12/26/24 Rx clopidogrel 75 mg tablet (Plavix) 75 mg PO DAILY #90 tabs 12/16/24 12/26/24 Rx loratadine 10 mg tablet (Allergy 10 mg PO .PRN 12/16/24 12/26/24 History Relief (loratadine)) rosuvastatin 20 mg tablet (Crestor) 20 mg PO DAILY #90 tabs 12/16/24 12/26/24 Rx Laboratory Tests 12/26/24 11:41 POC Urine HCG, Qual Negative (Negative) Patient hx anesthesia problems: none Family hx anesthesia problems: none Results Review: All pre-operative results and documents have been reviewed as part of the pre-operative evaluation. [facility] Past Medical History Medical History SVT (supraventricular tachycardia) Colon cancer screening Abdominal pain Internal hemorrhoid Hx of diverticulitis of colon HAYLEY (iron deficiency anemia) PUD (peptic ulcer disease) Nonischemic cardiomyopathy Arthritis UTI (urinary tract infection) Sleep apnea Asthma HTN (hypertension) History of angina Seasonal allergies CHF (congestive heart failure) Surgical History Surgical History Hx of gastric bypass History of knee surgery Right History of tubal ligation History of cholecystectomy History of cardiac catheterization Family History Family History Father Diabetes mellitus Hypertension Asthma Patient's father is in good health Family history of cardiovascular disease Mother Hypertension Patient's mother is in good health Sibling Patient's sister is in good health Social History Social History Smoking status: Never smoker Alcohol intake: never Substance use: never Substance use type: does not use Do You Feel Safe in your Home?: Yes Lack of Transportation: No Lack of Food: Never True Current Housing: I Have Housing Concerned About Future Housing: No Difficulty Paying Gas/Electric Bills: No Difficulty Paying for Meds: No Currently Unemployed: No Education: High School Diploma/GED Difficulty w/ Childcare or Family Care: No Living arrangements: with family Gender identity (if verbalized by the patient): Female Spiritual care concerns: No Anes - Eval Final PreProcedure Day of Procedure 12/26/24 12:27 Patient weight: morbidly obese Lungs: normal air movement Airway: Mallampati scale class II Neurological: alert and oriented Last oral intake: >/= 8 hours ASA classification: III Emergent: no Anesthetic plan: proceed Anesthesia type and monitoring: general GIVS and standard monitoring Results Review: All pre-operative results and documents have been reviewed as part of the pre-operative evaluation. Hx reviewed. ECHO w mod/severe AI, med mgt currently, low nml LVEF. AUGUST but not on CPAP. Hx of TIA/CVA without residual. Informed Consent: The patient's anesthetic plan and its attendant risks and benefits were discussed with the patient/family/POA. Questions were solicited and answers provided to the satisfaction of the patient/family/POA.
[2024-12-26] MEDS: BENZOCAINE (*SP) 60 ML SPRAY CAN (HURRICAINE) 1 SPRAY MUCOUS MEM (12:39)
--- NOTE | 2024-12-26 12:39 | PM.HPGS ---
History of Present Illness History of Present Illness Consent: Risks, benefits, and alternatives have been discussed and questions answered. Patient agrees to proceed with procedure. Chief complaint: Gastro-esophageal reflux disease without esophagit Narrative: Angelica Kruse is a 49 year old female with h/o gastric bypass but complicated with persistent ulcer at anastomosis- this was reversed, also h/o diverticulisis Review of Systems Review of Systems: All systems reviewed & are unremarkable except as noted in HPI and below PMFSH Past Medical History Medical History SVT (supraventricular tachycardia) Colon cancer screening Abdominal pain Internal hemorrhoid Hx of diverticulitis of colon HAYLEY (iron deficiency anemia) PUD (peptic ulcer disease) Nonischemic cardiomyopathy Arthritis UTI (urinary tract infection) Sleep apnea Asthma HTN (hypertension) History of angina Seasonal allergies CHF (congestive heart failure) Surgical History Surgical History Hx of gastric bypass History of knee surgery Right History of tubal ligation History of cholecystectomy History of cardiac catheterization Family History Family History Father Diabetes mellitus Hypertension Asthma Patient's father is in good health Family history of cardiovascular disease Mother Hypertension Patient's mother is in good health Sibling Patient's sister is in good health Social History Social History Smoking status: Never smoker Alcohol intake: never Substance use: never Substance use type: does not use Do You Feel Safe in your Home?: Yes Lack of Transportation: No Lack of Food: Never True Current Housing: I Have Housing Concerned About Future Housing: No Difficulty Paying Gas/Electric Bills: No Difficulty Paying for Meds: No Currently Unemployed: No Education: High School Diploma/GED Difficulty w/ Childcare or Family Care: No Living arrangements: with family Gender identity (if verbalized by the patient): Female Spiritual care concerns: No Meds Home Medications and Allergies Home Medications ?Medication ?Instructions ?Recorded ?Confirmed ?Type metoprolol succinate 200 mg 200 mg PO DAILY 06/28/19 12/26/24 History tablet,extended release 24 hr albuterol sulfate 90 mcg/actuation 1 puff inhalation DAILY PRN 06/10/20 12/17/24 History aerosol inhaler allergies cyclobenzaprine 10 mg tablet 10 mg PO TID PRN muscle spasm #16 06/10/20 12/17/24 Rx tabs gabapentin 100 mg capsule 300 mg PO TID 06/10/20 12/26/24 History lisinopril 40 mg tablet 40 mg PO DAILY 06/10/20 12/26/24 History ascorbic acid (vitamin C) 500 mg 500 mg PO DAILY 01/17/23 12/26/24 History tablet thiamine HCl (vitamin B1) 50 mg 50 mg PO DAILY 01/17/23 12/26/24 History tablet biotin 5 mg capsule 5 mg PO DAILY 09/25/24 12/26/24 History buspirone 10 mg tablet 10 mg PO BID 09/25/24 12/26/24 History calcium 600 mg (as 1 tablet PO DAILY 09/25/24 12/26/24 History carbonate)-vitamin D3 10 mcg (400 unit) tablet hydroxyzine HCl 25 mg tablet 25 mg PO TID 09/25/24 12/26/24 History mecobalamin (vitamin B12) 500 mcg 500 mcg PO DAILY 09/25/24 12/26/24 History chewable tablet metoprolol tartrate 100 mg tablet 100 mg PO Q12H 09/25/24 12/26/24 History nifedipine 90 mg tablet,extended 90 mg PO DAILY 09/25/24 12/26/24 History release 24 hr spironolactone 50 mg tablet 50 mg PO DAILY 09/25/24 12/26/24 History aspirin 81 mg tablet 81 mg PO DAILY #90 tabs 12/16/24 12/26/24 Rx clopidogrel 75 mg tablet (Plavix) 75 mg PO DAILY #90 tabs 12/16/24 12/26/24 Rx loratadine 10 mg tablet (Allergy 10 mg PO .PRN 12/16/24 12/26/24 History Relief (loratadine)) rosuvastatin 20 mg tablet (Crestor) 20 mg PO DAILY #90 tabs 12/16/24 12/26/24 Rx Allergies Allergy/AdvReac Type Severity Reaction Status Date / Time No Known Allergies Allergy Verified 12/17/24 13:56 Vital Signs Vital Signs - 24 hr 12/26/24 11:41 Temperature 97.8 F Pulse Rate 64 Respiratory Rate 18 Blood Pressure 146/74 H Pulse Oximetry 100 Oxygen Delivery Room Air Exam Const: General: comfortable and no acute distress HENMT: Face/Nose/Sinus: Normal nares present Eyes: General: appearance normal, both eyes and all related structures Neck: Neck: no JVD Resp: Auscultation: clear to auscultation bilaterally Cardio: Rate: regular rate Rhythm: regular rhythm GI: Inspection: non-distended GI Palp: Yes Soft to palpation Skin: General skin exam: normal color Neuro: Speech: normal speech Extrem: General: normal to inspection Psych: Mental Status: mental status grossly normal Assessment and Plan Assessment and plan (1) GERD (gastroesophageal reflux disease): Code(s): K21.9 - Gastro-esophageal reflux disease without esophagitis Status: Acute Assessment and Plan: egd (2) Hx of diverticulitis of colon: Code(s): Z87.19 - Personal history of other diseases of the digestive system Status: Acute Assessment and Plan: colonoscopy
--- NOTE | 2024-12-26 12:49 | S_PTH ---
PATIENT: Angelica Kruse LOC: [facility] King#:[id number] AGE/SX: 49/F ROOM: RE12/26/[address]: Chencho Schultz MD : 1975 BED: DIS: 12/26/2024 SPEC #: [id number] RECD: 12/26/24 13:22 STATUS: ABDULAZIZ REJeni #: [id number] [place]: 12/26/24 12:[address]: Chencho Schultz DEPT: [facility] Surgical RECD BY: Keely Christianson ENTERED: 12/26/24 13:22 SP TYPE: Surgical OTHR DR: Shasta Colbert, PA Tissues: A - Gastric Biopsy Procedures: Hematoxylin and Eosin Stain Gross and Microscopic Level 4
--- NOTE | 2024-12-26 12:52 | SUR.OPER ---
EGD: [id number] COLON: Start 1248
[2024-12-26 12:59] VITALS: BP 136/82; PULSE 66; RESP 23; O2SAT 100
[2024-12-26 13:09] VITALS: BP 117/67; PULSE 61; RESP 23; O2SAT 100
[2024-12-26 13:19] VITALS: BP 150/82; PULSE 57; RESP 16; O2SAT 100
--- NOTE | 2024-12-26 14:16 | SUR.PHASEII ---
notified that patient's blood thinner wasn't addressed in discharge papers on when patient can resume. A verbal read-back order given from that patient can resume blood thinner today.
== END 2024-12-26 14:05 | disposition home or self-care (01) ==
PROVIDERS: Anesthesiology; PCP Physician Assistant; Visit Provider Internal Medicine Gastroenterology
PROC: 0DJ08ZZ Inspection of Upper Intestinal Tract, Via Natural or Artificial Opening Endoscopic (ICD-10-PCS; CPT 45378; principal; 2024-12-26 13:00)
DX: K57.30 Diverticulosis of large intestine without perforation or abscess without bleeding (principal); K21.9 Gastro-esophageal reflux disease without esophagitis; Z87.11 Personal history of peptic ulcer disease; Z98.84 Bariatric surgery status; E66.01 Morbid (severe) obesity due to excess calories; Z68.41 Body mass index [BMI] 40.0-44.9, adult
CPT/HCPCS: 45378; 43239; 88305; J2003; J2704; J7120

== ENCOUNTER 2025-01-05 12:40 | Outpatient (CLI) | payer OTHER, SELFPAY ==
--- OUTSIDE RECORDS SUMMARY | 2025-01-05 11:15 | XMS_ITS | Encounter Summary ---
Author Organization [facility] Healthcare Address [address] [place] [address] Care Team Providers Care Hook And Eye Sewing Machine Operator Name Role Phone Shasta Colbert Primary Care Provider [phone] Reason for Visit * Cardiology (Routine) - Closed Specialty Diagnoses / Procedures Referred By Genesis panchal Referred To Contact Cardiology Diagnoses Nonrheumatic aortic valve insufficiency Nonischemic cardiomyopathy (HCC) Procedures Transthoracic Echo (TTE) Complete W Doppler/CF Dary Velazquez NP [address] [facility] [address] [place] [address] Phone: tel: fax: [facility] Referral ID Status Reason Start Date Expiration Date Visits Re quested Visits Authorized [id number] Closed 12/31/2024 12/31/2025 1 1 Encounter Details Date Type Department Care Team (Latest Contact Info) Description 01/05/2025 11:15 AM CDT Ancillary Procedure [facility] Cardiology [address] [place] [phone] Nonrheumatic aortic valve insufficiency; Nonischemic cardiomyopathy (HCC) Social History Tobacco Use Types Packs/Day Years [...] on file 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 Gender Identity Female 09/16/2020 7:21 AM CDT Sexual Orientation Straight 09/16/2020 7: 22 AM CDT documented as of this encounter Plan of Treatment Pending Results Name Type Priority Associated Diagnoses Date /Time Transthoracic Echo (TTE) Complete W Doppler/CF Echocardiography Routine Nonrheumatic aortic valve insufficiency Nonischemic cardiomyopathy (HCC) 01/05/2025 12:38 PM CDT documented as of this encounter Visit Diagnoses Diagnosis Nonrheumatic aortic valve insufficiency Nonischemic cardiomyopathy (HCC) Other primary cardiomyopathies documented in this encounter Care Teams Hook And Eye Sewing Machine Operator Relationship Specialty Start Date End Date Shasta Colbert PA [address] [place] [id number] PCP - General Physician Loft Worker Apprentice 11/28/21 documented as of this encounter
--- OUTSIDE RECORDS SUMMARY | 2025-01-05 12:42 | XMS_ITS | Data Portability ---
Author Organization [facility], Main Office Address [address] [place] [address] Assessment Encounter Date Assessment Date Assessment LastModified by Organization Details LastModified Time 08/27/2023 08/27/2023 Assessment: Rhinitis AUGUST PLMD Hypoventilation Plan: The following were reviewed and explained to the patient: primary care/referral note [facility] sleep study 10/29/20 sleep onset = 22.5 [...] no auth required 2023 024 [email or web address] [address] [facility], [address] [place], [address], 4 08:55:45 Medication Orders None recorded. Patient [...] Details Recorded Time Obstructive sleep apnea syndrome [id number] Active 024 Ad Valero MD [address] [facility], [address], [place], [address] , [facility] 4 12:18:21 Notes:Medical History: Anxie ty Migraine [...] active Not Available Not Available Not Available [facility] 100,000 unit/gram topical powder APPLY EXTERNALL Y [...] 15 /min Ad Valero MD [address], [facility] [address], [place], [address], [facility] 08/27/2023 12:30:02 Date Recorded Body weight Body mass index (BMI) Body height Heart rate Oxygen saturation Oxygen saturation in Arterial blood by Pulse oximetry Body temperature Systolic And Diastolic Provider Name and Address Organization Details Last Updated DateTime 32289.9 2 g 34.4 kg/m2 160.02 cm 84 /min 98 % 98 % 97.6 [degF] 128/70 mm[Hg] Ingrid Henson CMA [facility] 11:43:21 Social History Question Answer Notes LastModified by Organizat ion Details LastModified Time Tobacco Smoking Status Never Smoker Ingrid Henson CMA null, [facility] 08/27/2023 11:52:07 Is Blood Transfusion Acceptable In An Emergency? Yes Information not available 08/27/2023 In The 14 Days Before Symptom Onset, Have You Had Close Contact With A Laboratory-confir med COVID-19 While That Case Was Ill? No [email or web address] Information not available 08/27/2023 In The 14 Days Before Symptom Onset, Have You Had Close Contact With A Person Who Is Under Investigation For COVID-19 While That Person Was Ill? No [email or web address] Information not available 08/27/2023 What Type Of Diet Are You Following? REGULAR Information not available 08/27/2023 Where Do You Live? SingleLevelHouse [email or web address] Information not available 08/27/2023 How Many Children Do You Have? 2 [email or web address] Information not available 08/27/2023 What Is Your Relationship Status? [email or web address] Information not available 08/27/2023 Do You Use Your Seat Belt Or Car Seat Routinely? Yes [email or web address] Information not available 08/27/2023 Do You Have Smoke And Carbon Monoxide Detectors In Your Home? Yes Information not available 08/27/2023 Are You Passively Exposed To Smoke? Yes Mom [email or web address] Information no t available 08/27/2023 Do You Use Sunscreen Routinely? Yes [email or web address] Information not available 08/27/2023 Have You Recently Traveled Abroad? No [email or web address] Information not available 08/27/2023 Sex: Unknown Functional Status Question Answer Note LastModified by Organizat ion Details LastModified Time Do you use any illicit or recreational drugs? No [email or web address] Information not available 08/27/2023 What is your level of alcohol consumption? None Information not available 08/27/2023 Are you currently employed? No [email or web address] Information not available 08/27/2023 What is your exercise level? Moderate [email or web address] Information not available 08/27/2023 Mental Status Question Answer Note LastModified by Organizat ion Details LastModified Time Do you feel stressed (tense, restless, nervous, or anxious, or unable to sleep at night)? [id number] Depends on Medical Situation Information not available 08/27/2023 Family History Relationship [...] Diagnosis SNOMED-CT Code Diagnosis ICD10 Code Diagnosis IMO Codes Diagnosis Note [id number] Ad Valero MD [facility] Pulmonolo gy [address] [address] 08/27/2023 11:25:46 08/27/2023 12:49:02 Obstructive sleep apnea syndrome 26473264 G47.33 G47.36 G47.61 Health Concerns Section Related Observation LastModified by Organization Detai ls LastModified Time None Recorded Concern Status LastModified by Organization Details LastModified Time None Recorded Advance Directives Directive None Recorded Payers Insurance Date Sequence Insurance Name Policy Number Policy Benedict Covered Member ID Benedict Member ID Guarantor Name 11/09/2023 1 [facility] ON OR AFTER 10/07/20 (MEDICAID REPLACEMENT - HMO) Angelica Kruse [id number] Angelica Kruse 08/28/2023 1 [facility] PRIOR TO 10/07/2020 (MEDICAID REPLACEMENT - HMO) Angelica Kruse [id number] Angelica Kruse Notes Date Note Type Note Provider Name and Address Organization Details Recorded Time 08/27/2023 text/html Primary care/Referring provider: Shasta Colbert PA-C During the [facility] sleep study on 10/29/20 sleep onset = [...] chance of dozing. Ad Valero MD [address] [facility], [address] [address], [place], [address], [facility] [employer] [facility] 08/27/2023 12:30:44 OBGyn Episode No OBEpisode recorded.
--- OUTSIDE RECORDS SUMMARY | 2025-01-05 12:42 | XMS_ITS | Encounter Summary ---
Author Organization [facility] Healthcare Address [address] [place] [address] Care Team Providers Care Franchise Consultant Name Role Phone Marya Harding MD Primary Care Provider Kristin Sousa MD Primary Care Provider Trinh Machado MD Primary Care Provider [phone] Shasta Colbert Primary Care Provider [phone] Encounter Details Date Type Department Care Team (Late st Contact Info) Description 07/24/2017 Orders Only [facility] Health Information Management [address] [place] [id number] Scanning, Provider Social History Tobacco Use Types Packs/Day Years Used Date Smoking Tobacco: Never Assessed Comments Unknown Sex and Gender Information Value Date Recorded Sex Assigned at Not on file 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 Gender Identity Female 09/16/2020 7:21 AM CDT [...] on filedocumented in this encounter Care Teams Franchise Consultant Relationship Specialty Start Date End Date Marya Harding MD [address] [address] PCP - General Internal Medicine 07/08/17 01/01/18 Kristin Sousa MD [address] [place] [address] PCP - General Family Medicine 01/02/18 01/18/20 Trinh Machado MD [address] [place] [address] PCP - General Family Medicine 01/19/20 11/27/21 Shasta Colbert PA [address] [place] [address] PCP - General Physician Shipping Associate 11/28/21 documented as of this encounter
--- OUTSIDE RECORDS SUMMARY | 2025-01-05 12:43 | XMS_ITS | Encounter Summary ---
Author Organization [facility] Health Address [address] [facility] [place] [address] Care Team Providers Care Roving Technician Name Role Phone Shasta Colbert PA-C Primary Care Provider Reason for Visit * Reason Onset Date Comments MEDICATION REFILL 08/29/2022 Encounter Details Date Type Department Care Team (Late st Contact Info) Description 08/29/2022 Refill [facility] Weight Management Services [address] [place] [address] Sunita Lopez APRN-GALLERY ASSISTANT [address] [place] [address] MEDICATION REFILL Social History Tobacco Use Types [...] PM CDT Legal Sex Female 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 Answer Date of Assessment Author No 05/17/2022 12:29 PM HOSE FINISHER Erika Martin RN * Is person blind or have serious difficulty seeing? Answer Date of Assessment Author No 05/17/2022 12:29 PM HOSE FINISHER Erika Martin RN * Does person have serious difficulty walking/climbing stairs? Answer Date of Assessment Author No 05/17/2022 12:29 PM HOSE FINISHER Erika Martin RN * Does person have difficulty dressing/bathing? Answer Date of Assessment Author No 05/17/2022 12:29 PM HOSE FINISHER Erika Martin RN * Does person have [...] Description 09/03/2025 10:00 AM CDT Office Visit [facility] Weight Management Services [address] [facility] [place] [phone] Ally Moore MD [address] [place] [address] documented as of this encounter Visit Diagnoses Not on filedocumented in this encounter Care Teams Roving Technician Relationship Specialty Start Date End Date Shasta Colbert PA-C [address] [place] [address] PCP - General 12/28/21 documented as of this encounter
--- OUTSIDE RECORDS SUMMARY | 2025-01-05 12:43 | XMS_ITS | Clinical Summary ---
Author Organization [facility] Address [address] [place] [address] Care Team Providers Care Magistrate Assistant Name Role Phone Shasta Colbert PA-C Primary Care Provider Source Comments [facility],non-owned Affiliates and Associated Physician Practices is amultiple site organization consisting of ambulatory clinics and hospital sitesin [place] and [place]. This disclosure is being madepursuant to the Care Everywhere program and may not contain all information available regarding this patient. Last updated 17.[facility] Allergies No known active allergies Medications * [...] Wheezing 6.7 g 3 Active nystatin (Mycostatin) 810806 UNIT/GM powder Apply to affected area 2 [...] fluticasone propionate (Flonase) 50 MCG/ACT nasal spray [place] 1 (one) spray into each nostril 2 [...] Recorded Patient Health Questionnaire-2 Score 2 04/07/2024 [facility] - Occupational [...] place to sleep or slept in a longterm (including now)? No 03/11/2023 Comments No Sex and Gender Information Value Date Recorded Sex Assigned at Female 09/26/2020 6:03 PM CDT Legal Sex Female 5:32 AM EGG FACTORY WORKER Gender Identity Female 09/26/2020 6:03 PM CDT Sexual Orientation Not on file Last Filed Vital Signs Vital Sign Reading Time Taken Comments Blood Pressure 120/87 03/19/2023 1:00 PM EGG FACTORY WORKER Pulse 81 03/19/2023 1:00 PM EGG FACTORY WORKER Temperature 37.2 C (98.9 F) 03/19/2023 1:00 PM EGG FACTORY WORKER Respiratory Rate 16 03/19/2023 1:00 PM EGG FACTORY WORKER Oxygen Saturation 98% 03/19/2023 1:0 0 PM EGG FACTORY WORKER Inhaled Oxygen Concentration 98% 01/24/2021 10:00 AM CDT Weight 103.4 kg (228 lb) 04/07/2024 3:1 6 PM EGG FACTORY WORKER last visit with Automatic Grinding Machine Operator 01/29/24 Height 158.8 cm (5' 2.5) 04/07/2024 3: 16 PM EGG FACTORY WORKER Body Mass Index 41.04 04/07/2024 3:16 PM EGG FACTORY WORKER Plan of Treatment Upcoming Encounters Date Type Department Care Team (Late st Contact Info) Description 09/03/2025 10:00 AM CDT Office Visit [facility] Health Weight Management Services [address] [place] [phone] Ally Moore MD [address] [facility] [place] [phone] Health Maintenance Due Date Last Done Comments [...] POINT OF CARE Routine 03/13/2023 12:52 PM EGG FACTORY WORKER LIPID PROFILE Routine 09/29/2020 11:24 AM CDT Morbid obesity Hypertension, unspecified type AUGUST (obstructive sleep apnea) from Last 3 Months or Most Recently Relevant to Health Maintenance Results * GLUCOSE - POINT OF CARE (03/13/2023 12:52 PM EGG FACTORY WORKER) [facility] Glucose WB/POC 71 70 - 125 mg/dL 03/13/2023 12:59 PM EGG FACTORY WORKER [facility] Specimen Type Cap Fingerstick 2022 12:59 PM EGG FACTORY WORKER [facility] Blood BLOOD SPECIMEN / Unknown 03/13/2023 12:52 PM EGG FACTORY WORKER 03/13/2023 12:59 PM EGG FACTORY WORKER Radha Ruiz MD LAB - POINT OF CARE ORDERABLES Final Result [facility] [address] [place] [address], [facility] * LIPID PROFILE (09/29/2020 11:24 AM CDT) Pathologist [facility] Cholesterol 190 <200 mg/dL 09/29/2020 12:25 PM [...] - CHEMISTRY ORDERABLES Fin al Result [facility] [address] [place] [address], [facility] from Last 3 Months or Most Recently Relevant to Health Maintenance Insurance [facility] Member Subscriber Plan / Payer (Ef fective for All Dates) Name:Yumiko Bailey Relation to Subscriber:Self Name:Yumiko Bailey Payer ID:[id number] (NAIC) Group ID:Not on file Type:Medicaid Managed Care Address: [place] [id number] [facility] SELF PAY NO INSURANCE Member Subscriber Plan / Payer (Ef fective for All Dates) Name:Yumiko Bailey Member ID:Not on file Relation to Subscriber:Not on file Name:YUMIKO BAILEY Subscriber ID:Not on file (Home) Address: [address] [place] [address] Payer ID:Not on file Group ID:Not on file Type:Self Pay Address: [place], [place] [facility] Advance Directives * Full Code (Latest [...] 12:35 PM 11/11/2021 1:52 PM Care Teams Magistrate Assistant Relationship Specialty Start Date End Date Shasta Colbert PA-C [address] [place] [phone] PCP - General 12/28/21
--- OUTSIDE RECORDS SUMMARY | 2025-01-05 12:43 | XMS_ITS | Clinical Summary ---
Author Organization [facility] [address] Address [address] [place] [address] Care Team Providers Care Tawer Name Role Phone Shasta Colbert Primary Care Provider [phone] Allergies No known active allergies Medications albuterol [...] mcg total) by mouth daily Active mv,Ca,min-iron ppme-AZ-zrwfqa 1 mg iron-66.7 mcg-1,000 mcg tablet Take 1 tablet by mouth medical imaging specialist before breakfast Active gabapentin (NEURONTIN) 100 mg [...] (1,000 mcg total) by mouth daily Active busPIRone (BUSPAR) 10 mg tablet Take 1 tablet (10 mg total) by mouth 2 (two) times a day 11/04/19 25 Active clopidogreL (PLAVIX) 75 mg tabletIndications:R ecent cerebrovascular accident (CVA) Take 1 tablet (75 mg total) by mouth daily 90 tablet 11/11/19 25 Active metoprolol XL (TOPROL-XL) 200 mg extended release tabletIndications:N onischemic cardiomyopathy (HCC) Take 1 tablet (200 mg total) by mouth daily 30 tablet 2 11/12/19 25 Active Mounjaro 2.5 mg/0.5 mL pen injector injection Inject 0.5 mL (2.5 mg total) under the skin every 7 days 2 mL 12/27/19 25 Active aspirin 81 mg enteric coated tablet Take 1 tablet (81 mg total) by mouth daily 90 tablet 3 01/02/20 Active empagliflozin (JARDIANCE) 10 mg tabletIndications:N onischemic cardiomyopathy (HCC) Take 1 tablet (10 mg total) by mouth daily 90 tablet 3 01/02/20 Active aspirin 81 mg enteric coated tablet Take 1 tablet (81 mg total) by mouth daily 10/02/19 25 025 Discontin ued(Reord er) empagliflozin (JARDIANCE) 10 mg tabletIndications:N onischemic cardiomyopathy (HCC) Take 1 tablet (10 mg total) by mouth daily 90 tablet 3 11/11/19 25 025 Discontin ued(Reord er) tirzepatide, weight loss, (Zepbound) 2.5 mg/0.5 mL pen injectorIndications :Morbid obesity with BMI of 45.0-49.9, adult (HCC) Inject 0.5 mL (2.5 mg total) under the skin every 7 days 2 mL 11/15/19 25 025 Discontin ued(Reord er) tirzepatide, weight loss, (Zepbound) 2.5 mg/0.5 mL pen injectorIndications :Morbid obesity with BMI of 45.0-49.9, adult (HCC) Inject 0.5 mL (2.5 mg total) under the skin every 7 days 2 mL 12/20/19 25 025 Discontin ued(Alter ananya therapy) tirzepatide (Mounjaro) 2.5 mg/0.5 mL pen injector injection Inject 0.5 mL (2.5 mg total) under the skin every 7 days 2 mL 12/27/19 25 025 Discontin ued(Reord er) Active Problems [...] 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 Referred to ADA and [employer] websites for additional information on topics [...] Encounters Date Type Department Care Team Description 01/05/2025 11:15 AM CDT Ancillary Procedure [facility] Cardiology [address] [place] [phone] Nonrheumatic aortic valve insufficiency; Nonischemic cardiomyopathy (HCC) 01/01/2025 Telephone [facility] Card[facility] [address] [place] [address] Diego Corral MD Med Refill 11/14/2024 Results Follow-Up [facility] Cardiology [address] [place] [address] Mechelle Lugo MD [facility] Mobile Cardiac Telemetry Event Monitor 11/11/2024 Telephone [facility] Cardiology [address] [place] [address] Dary Velazquez NP aortic valve regurgitation 11/10/2024 10:00 AM CDT Office Visit [facility] Cardiology [address] [place] [address] Dary Velazquez NP Recent cerebrovascular accident (CVA) (Primary Dx); Nonischemic cardiomyopathy (HCC); Nonrheumatic aortic valve insufficiency; Body mass index [BMI] 45.0-49.9, adult (Z68.42); Obesity, class 3 (E66.813); S/P ablation operation for arrhythmia 10/07/2024 9:00 AM CDT Ancillary Procedure [facility] Cardiology [address] [place] [address] from Last 3 Months Surgical History Surgery [...] on file Legal Sex Female 8:56 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 Lugo Date of interpretation: 11/11/24 Type of monitor : 30 day monitoring manager Date of the study/Enrollment period: 10/27/2024 through [...] was used to complete this document, therefore, assembler corncob pipes variances may occur. Des Sharma MD, [facility] 11/11/24 Procedure Note Des Sharma MD - 11/11/2024 AMBULATORY MILIEU MANAGER REPORT Patient Name: Angelica Kruse Date of : 1975 Requesting Physician: Dr. Lugo Date of interpretation: 11/11/24 Type of monitor : 30 day monitoring manager Date of the study/Enrollment period: 10/27/2024 through [...] software was used to complete this document, therefore,assembler corncob pipes variances may occur. Des Sharma MD, [facility] 11/11/24 [facility] Brando Lugo MD CV CARDIAC SERVICES PRO CEDURES Final Result from Last 3 Months Insurance [facility] Advance Directives For more information, please contact: [phone] * Full Code (Latest Code Status on File) Date Activated Date Inactivated Comments 11/14/2022 5:41 PM 11/16/2022 5:51 PM Care Teams Tawer Relationship Specialty Start Date End Date Shasta Colbert PA [address] [place] [address] PCP - General Physician Seam Finisher 11/28/21
--- OUTSIDE RECORDS SUMMARY | 2025-01-05 12:43 | XMS_ITS | Encounter Summary ---
Author Organization [facility] Healthcare Address [address] [place] [address] Care Team Providers Care Manager Global Name Role Phone Marya Harding MD Primary Care Provider Kristin Sousa MD Primary Care Provider Trinh Machado MD Primary Care Provider [phone] Shasta Colbert Primary Care Provider [phone] Encounter Details Date Type Department Care Team (Late st Contact Info) Description 12/11/2017 Orders Only [facility] Health Information Management [address] [place] [address] Scanning, Provider Social History Tobacco Use Types Packs/Day Years Used Date Smoking Tobacco: Never Smokeless Tobacco: Never Alcohol Use Standard Drinks/Week Comments No 0 (1 standard drink = 0.6 oz pur e alcohol) Comments Unknown Sex and Gender Information Value Date Recorded Sex Assigned at Not on file Legal Sex Female 8:56 AM DOG BEAUTICIAN Gender Identity Female 09/16/2020 7:21 AM CDT [...] on filedocumented in this encounter Care Teams Manager Global Relationship Specialty Start Date End Date Marya Harding MD [address] [address] PCP - General Internal Medicine 07/08/17 01/01/18 Kristin Sousa MD [address] [facility] [address] [place] [address] PCP - General Family Medicine 01/02/18 01/18/20 Trinh Machado MD [address] [facility] [address] [place] [address] PCP - General Family Medicine 01/19/20 11/27/21 Shasta Colbert PA [address] [place] [address] PCP - General Physician Tetryl Nitrator Operator 11/28/21 documented as of this encounter
--- OUTSIDE RECORDS SUMMARY | 2025-01-05 12:43 | XMS_ITS | Clinical Summary ---
Author Organization [facility] Care Team Providers Care Computer Numerical Control Grinder Name Role Phone Unavailable Primary Care Provider Unavailabl e Social History Tobacco Use Types Packs/Day Years Used Date Smoking Tobacco: Never Assessed Comments Unknown Sex and Gender Information Value Date Recorded Sex Assigned at Not on file Legal Sex Female 9:55 AM EVENT DESIGNER Gender Identity Not on file Sexual Orientation [...]
--- OUTSIDE RECORDS SUMMARY | 2025-01-05 12:43 | XMS_ITS | Encounter Summary ---
Author Organization [facility] Health Address [address] [place] [address] Care Team Providers Care Launch Steward Name Role Phone Shasta Colbert PA-C Primary Care Provider Reason for Visit * Reason Onset Date Comments MEDICATION REFILL 03/15/2022 Encounter Details Date Type Department Care Team (Late st Contact Info) Description 03/15/2022 Refill [facility] Weight Management Services [address] [place] [address] Sunita Lopez APRN-SHANTEL [address] [place] [address] MEDICATION REFILL Social History Tobacco Use Types [...] PM CDT Legal Sex Female 5:32 AM CAMPUS RECRUITING INTERN Gender Identity Female 09/26/2020 6:03 PM CDT [...] Description 09/03/2025 10:00 AM CDT Office Visit [facility] Health Weight Management Services [address] [place] [phone] Ally Moore MD [address] [place] [phone] documented as of this encounter Visit Diagnoses Diagnosis Marginal ulcer Gastrojejunal ulcer, unspecified as acute or chronic, without mention of hemorrhage, perforation, or obstruction documented in this encounter Care Teams Launch Steward Relationship Specialty Start Date End Date Shasta Colbert PA-C [address] [place] [phone] PCP - General 12/28/21 documented as of this encounter
--- OUTSIDE RECORDS SUMMARY | 2025-01-05 12:43 | XMS_ITS | Encounter Summary ---
Author Organization [facility] Healthcare Address [address] [place] [address] Care Team Providers Care Periodontist Name Role Phone Shasta Colbert Primary Care Provider [phone] Encounter Details Date Type Department Care Team (Late st Contact Info) Description 09/25/2024 Orders Only [facility] Health Information Management [address] [place] [address] Scanning, Provider Social History Tobacco Use Types [...] on file Legal Sex Female 8:56 AM SENIOR COPYWRITER Gender Identity Female 09/16/2020 7:21 AM CDT [...] on filedocumented in this encounter Care Teams Periodontist Relationship Specialty Start Date End Date Shasta Colbert PA [address] [place] [address] PCP - General Physician Remedial Masseur 11/28/21 documented as of this encounter
--- OUTSIDE RECORDS SUMMARY | 2025-01-05 12:43 | XMS_ITS | Clinical Summary ---
Author Organization [facility] Address [facility]ly [facility] [place] [address] Care Team Providers Care Surface Lay Out Technician Name Role Phone Trinh Machado MD Primary Care Provider [phone] Allergies No known active allergies Social History [...] age to complete [place] [address] [place] Care Teams Surface Lay Out Technician Relationship Specialty Start Date End Date Trinh Machado MD [facility] [address] [place] [address] PCP - General FAMILY PRACTICE 11/03/21
--- OUTSIDE RECORDS SUMMARY | 2025-01-05 12:43 | XMS_ITS | Encounter Summary ---
Author Organization [facility] Health Address [address] [facility] [place] [address] Care Team Providers Care Process Manufacturing Engineer Name Role Phone Shasta Colbert PA-C Primary Care Provider [phone] Reason for Visit * Reason Onset Date Comments MEDICATION REFILL 10/06/2022 Encounter Details Date Type Department Care Team (Late st Contact Info) Description 10/06/2022 Refill [facility] Weight Management Services [address] [place] [address] Sunita Lopez APRN-HUMAN RESOURCES OFFICE ASSISTANT [address] [place] [address] MEDICATION REFILL Social History Tobacco Use Types [...] PM CDT Legal Sex Female 5:32 AM HANDYPERSON Gender Identity Female 09/26/2020 6:03 PM CDT Sexual Orientation Not on file documented as of this encounter Functional Status * Is person deaf or have serious hearing difficulty? Answer Date of Assessment Author No 05/17/2022 12:29 PM HANDYPERSON Erika Martin RN * Is person blind or have serious difficulty seeing? Answer Date of Assessment Author No 05/17/2022 12:29 PM HANDYPERSON Erika Martin RN * Does person have serious difficulty walking/climbing stairs? Answer Date of Assessment Author No 05/17/2022 12:29 PM HANDYPERSON Erika Martin RN * Does person have difficulty dressing/bathing? Answer Date of Assessment Author No 05/17/2022 12:29 PM HANDYPERSON Erika Martin RN * Does person have [...] 09/03/2025 10:00 AM CDT Office Visit [facility] Health Weight Management Services [address] [facility] [place] [phone] Alyl Moore MD [address] [place] [address] documented as of this encounter Visit Diagnoses Diagnosis Epigastric pain Abdominal pain, epigastric documented in this encounter Care Teams Process Manufacturing Engineer Relationship Specialty Start Date End Date Shasta Colbert PA-C [address] [place] [address] PCP - General 12/28/21 documented as of this encounter
--- OUTSIDE RECORDS SUMMARY | 2025-01-05 12:43 | XMS_ITS | Encounter Summary ---
Author Organization [facility] Healthcare Address [address] [place] [address] Care Team Providers Care Truck Service Manager Name Role Phone Shasta Colbert Primary Care Provider [phone] Encounter Details Date Type Department Care Team (Late st Contact Info) Description 11/14/2024 Results Follow-Up [facility] Medical Group Cardiology [address] [place] [phone] Mechelle Lugo MD [address] [place] [address] [address]EL[address] [place] [address] [facility] Mobile Cardiac Telemetry Event Monitor [...] on file Legal Sex Female 8:56 AM SUPERVISOR GROUNDS Gender Identity Female 09/16/2020 7:21 AM CDT Sexual Orientation Straight 09/16/2020 7: 22 AM CDT documented as of this encounter Plan of Treatment Not on file documented as of this encounter Visit Diagnoses Not on filedocumented in this encounter Care Teams Truck Service Manager Relationship Specialty Start Date End Date Shasta Colbert PA [address] [place] [address] PCP - General Physician Aquatics Director 11/28/21 documented as of this encounter
--- OUTSIDE RECORDS SUMMARY | 2025-01-05 12:43 | XMS_ITS | Data Portability ---
Author Organization ANDREZ LINSEY Po Garcia Address [address] [facility] [place] [address] Care Team Providers Care Financial Assistance Advisor Name Role Phone GILES MESA Proof Coins Inspector SHASTA MAURICIO Primary Care Provider Assessment No assessment recorded. Plan of Treatment Reminders Order Date Submit Date Provider Last Modified By Organization Details Last Modified Time Details Appointments ANY 15 2024 11:30A M LUCY ZAMBRANO Not available Not available Not available Lab ferritin, serum or plasma 2024 025 MINDI Lablorna, [address], [address], [place], [address], 11/29/2024 08:27:34 iron + total iron-bind ing capacity (TIBC), serum 2024 025 MINDI Kaye, [address], [address], [place], [address], 11/29/2024 08:27:33 CBC w/ auto diff 2024 025 MINDI Kaye, [address], [address], [place], [address], 11/29/2024 06:15:42 CMP, serum or plasma 2024 025 MINDI Kaye, [address], [address], [place], [address], 07/23/2024 00:11:50 lipid panel, serum or plasma 2024 025 [facility], [address], [place], [address], 07/23/2024 04:06:11 CBC w/ auto diff 2024 025 [facility], [address], [address], [place], [address], 07/23/2024 00:11:51 TSH + free T4, serum 2024 025 [facility], [address], [place], [address], 07/23/2024 09:02:10 HbA1c (hemoglob in A1c), blood 2024 025 [facility], [address], [address], [place], [address], 07/23/2024 09:02:11 cytology report, thin prep, smear or scraping, cervical or vaginal 2023 024 [facility], [address], [address], [place], [address], 01/09/2024 11:14:07 bacterial vaginosis score, MARIANELA+probe , vaginal fluid (OBS) 2023 024 [facility], [address], [address], [place], [address], 01/08/2024 11:16:54 Referral gastroent erologist referral 2024 025 Mariusz Rivera MD, [address] [facility] [address], [place], [address], 11/19/2024 08:16:54 bariatric medicine referral 2023 024 [facility], [address] [address], [address], [address], 01/16/2024 08:02:49 physical therapist referral [address] (Outpatient Physical Therapy), [address], [place], [address], 11/08/2023 07:56:50 sleep medicine referral [address] [facility] [place], [address] [place], [address], 09/06/2023 08:30:50 Procedures None recorded. Surgeries None recorded. Imaging electromy ogram + nerve conductio n study - BILAT UPPER EXTREMITY 2023 [facility] (Cardiology & Emg), [address], [place], [address], 08/06/2023 12:21:39 Medication Orders omeprazol e 40 mg capsule,d elayed release 2024 025 [employer], [address], [place], [address], 12/25/2024 14:31:24 buspirone 10 mg tablet 2024 025 [employer], [address], [place], [address], 12/25/2024 14:31:25 nifedipin e ER 30 mg tablet,ex tended release 24 hr 2024 025 [employer], [address], [place], [address], 12/25/2024 14:31:25 nifedipin e ER 60 mg tablet,ex tended release 24 hr 2023 025 RUETER [facility]48, [address] [place], [id number], 11/28/2024 08:52:40 buspirone 5 mg tablet 2023 024 [facility] #09941, [address] [place] [address], [id number], 11/28/2024 08:52:53 nifedipin e ER 60 mg tablet,ex tended release 24 hr 2023 024 [facility] #58987, [address] [place] [address], [id number], 11/28/2024 08:52:26 loratadin e 10 mg tablet 2023 024 [facility] #66001, [address] [place] [address], [id number], 07/09/2023 11:00:55 fluticaso ne propionat e 50 mcg/actua tion nasal spray,[place] pension 2023 024 [facility] #72892, [address] [place] [address], [id number], 07/09/2023 11:00:43 hydroxyzi ne HCl 25 mg tablet 2023 024 [facility]07751, [address] [place] [address], [id number], 07/09/2023 10:56:00 gabapenti n 300 mg capsule 2023 024 [facility] #01812, [address] [place] [address], [id number], 07/06/2023 09:43:14 Patient TargetsNo targets recorded. Patient Instructions Encounter Date Encounter Id Patient Instructions Last Modified By Organization Details Last Modified Time 07/06/2023 [id number] A healthy lifestyle: care [facility] 07/06/2023 09:49:16 01/02/2024 [id number] A healthy lifestyle: care instructions kbarbero Not available 01/02/2024 17:34:36 07/22/2024 [id number] A healthy lifestyle: care instructions kbarbero Not available 07/22/2024 12:25:22 Reason for Referral Sleep Medicine Referral for Obstructive sleep apnea syndrome Referring Physician: Shasta Mauricio [facility], Encounter Date: 07/06/2023 Physical Therapist Referral for Low back pain Referring Physician: Shasta Mauricio [facility], Encounter Date: 10/23/2023 Bariatric Medicine Referral for Morbid obesity Referring Physician: Shasta Mauricio [facility], Encounter Date: 01/02/2024 Building Service Worker Referral for Feeling of lump in throat Referring Physician: Shasta Mauricio [facility], Encounter Date: 07/22/2024 Results Created Date Observation Date Name Description Value Unit Range Abnormal Flag Note LastModifiedBy Organization Detail LastModifiedTime 01/02/20 24 01/06/2024 NUSWA B VG+, HSV atopobium vaginae HIGH - 2 score abnormal Not Available [facility] ([facility]) [address] [place], [address], 01/08/2024 11:16:54 01/02/20 24 01/06/2024 NUSWA B VG+, HSV bvab 2 LOW - 0 score Not Available [facility] ([facility]) [address] [place], [address], 01/08/2024 11:16:54 01/02/20 24 01/06/2024 NUSWA B VG+, HSV megasphaera 1 HIGH - 2 score abnormal Calcu late total score by kaitlin lam the 3 indiv idual bacte rial vagin osis (BV) marke r score s toget her. Total score is inter prete d as follo ws: Total score 0-1: Indic ates the absen ce of BV. Total score 2: Indet ermin ate for BV. Addit ional clini benita data shoul d be evalu ated to estab clayton perea. Total score 3-6: Indic ates the prese nce of BV. Not Available [facility] ([facility]) [address] [facility], [place], [address], 01/08/2024 11:16:54 01/02/20 24 01/06/2024 NUSWA B VG+, HSV dana albicans, MARIANELA NEGATI VE negati ve Not Available [facility] ([facility]) [address] [facility], [place], [address], 01/08/2024 11:16:54 01/02/20 24 01/06/2024 NUSWA B VG+, HSV dana glabrata, MARIANELA NEGATI VE negati ve Not Available [facility] ([facility]) [address] [facility], [place], [address], 01/08/2024 11:16:54 01/02/20 24 01/07/2024 NUSWA B VG+, HSV trich vag by MARIANELA NEGATI VE negati ve Not Available [facility] ([facility]) [address] [facility], [place], [address], 01/08/2024 11:16:54 01/02/20 24 01/07/2024 NUSWA B VG+, HSV chlamydia trachomatis, MARIANELA NEGATI VE negati ve Not Available [facility] ([facility]) [address] [facility], [place], [address], 01/08/2024 11:16:54 01/02/20 24 01/07/2024 NUSWA B VG+, HSV neisseria gonorrhoeae, MARIANELA NEGATI VE negati ve Not Available [facility] ([facility]) [address] [place], [address], 01/08/2024 11:16:54 01/02/20 24 01/08/2024 NUSWA B VG+, HSV hsv 1 MARIANELA NEGATI VE negati ve Not Available [facility] ([facility]) [address] [facility], [place], [address], 01/08/2024 11:16:54 01/02/20 24 01/08/2024 NUSWA B VG+, HSV hsv 2 MARIANELA NEGATI VE negati ve Not Available [facility] ([facility]) [address] [facility], [place], [address], 01/08/2024 11:16:54 01/02/20 24 01/04/2024 IGP, APTIM A HPV, RFX 16/18 ,45 HPV aptima NEGATI VE negati ve This nucle ic acid ampli ficat ion test detec ts fourt een high- risk HPV types (16,1 8,31, 33,35 ,39,4 5,51, 52,56 ,58,5 9,66, 68) witho ut diffe renti ation . Not Available [facility] ([facility]) [address] [facility], [place], [address], 01/09/2024 11:14:07 01/02/20 24 01/09/2024 IGP, APTIM A HPV, RFX 16/18 ,45 diagnosis: COMMEN T NEGAT SNEHAL FOR INTRA EPITH ELIAL LESIO N OR SOFI WRIGHT . Not Available [facility] ([facility]) [address] [facility], [place], [address], 01/09/2024 11:14:07 01/02/20 24 01/09/2024 IGP, APTIM A HPV, RFX 16/18 ,45 specimen adequacy: COMMEN T Satis facto ry for evalu ation . Endoc ervic al and/o r squam ous metap lasti c cells (endo cervi benita compo nent) are prese nt. Not Available [facility] ([facility]) [address] [facility], [place], [address], 01/09/2024 11:14:07 01/02/20 24 01/09/2024 IGP, APTIM A HPV, RFX 16/18 ,45 clinician provided ICD10: RUSSELL Panchal Z12.4 Not Available [facility] ([facility]) [address] [facility], [place], [address], 01/09/2024 11:14:07 01/02/20 24 01/09/2024 IGP, APTIM A HPV, RFX 16/18 ,45 performed by: RUSSELL huerta, Deven panchal (ASCP ) Not Available [facility] ([facility]) [address] [place], [address], 01/09/2024 11:14:07 01/02/20 24 01/09/2024 IGP, APTIM A HPV, RFX 16/18 ,45 . . Not Available [facility] ([facility]) [address] [facility], [place], [address], 01/09/2024 11:14:07 01/02/20 24 01/09/2024 IGP, APTIM A HPV, RFX 16/18 ,45 note: RUSSELL Panchal The Pap smear is a scree mandi [...] ts do occur . Not Available [facility] ([facility]) [address] [facility], [place], [address], 01/09/2024 11:14:07 01/02/20 24 01/09/2024 IGP, APTIM A HPV, RFX 16/18 ,45 HPV genotype reflex RUSSELL Panchal Crite kaela not met, HPV Genot ype not perfo rmed. Not Available [facility] ([facility]) [address] [place], [address], 01/09/2024 11:14:07 04/15/20 25 07/23/2024 LIPID PANEL WITH LDL/H DL RATIO cholesterol, total 200 mg/dL 100-19 9 above high normal Not Available [facility] [address] [place] [address], [address], 07/23/2024 00:11:49 07/23/1907/23/2024 LIPID PANEL WITH LDL/H DL RATIO triglyceride s 116 mg/dL 0-149 Not Available [facility] Department [address] [place] [address], [address], 07/23/2024 00:11:49 07/23/1907/23/2024 LIPID PANEL WITH LDL/H DL RATIO HDL cholesterol 67 mg/dL 40-999 Not Available [facility] Department [address] [place] [address], [address], 07/23/2024 00:11:49 07/23/1907/23/2024 LIPID PANEL WITH LDL/H DL RATIO VLDL cholesterol benita 23 mg/dL 5-40 Not Available [facility] Department [address] [place] [address], [address], 07/23/2024 00:11:49 07/23/1907/23/2024 LIPID PANEL WITH LDL/H DL RATIO LDL chol calc (nih) 125 mg/dL 0-99 above high normal Not Available [facility] [address] [place], [address], 07/23/2024 00:11:49 07/23/1907/23/2024 LIPID PANEL WITH LDL/H DL RATIO LDL/HDL ratio 1.9 0-3.2 Not Available [facility] Department [address] [place] [address], [address], 07/23/2024 00:11:49 07/23/19 25 07/23/2024 COMP. METAB OLIC PANEL (14) glucose 121 mg/dL 70-99 above high normal Not Available [facility] [address] [place] [address], [address], 07/23/2024 00:11:49 07/23/19 25 07/23/2024 COMP. METAB OLIC PANEL (14) BUN 11 mg/dL 6-24 Not Available [facility] [address] [place], [address], 07/23/2024 00:11:49 07/23/19 25 07/23/2024 COMP. METAB OLIC PANEL (14) creatinine 0.73 mg/dL 0.76-1 .27 below low normal Not Available [facility] [address] [place] [address], [address], 07/23/2024 00:11:49 07/23/19 25 07/23/2024 COMP. METAB OLIC PANEL (14) eGFR 100 >=60 Units for eGFR value s are mL/mi n/1.7 3 The eGFR Calcu latio n has not been valid ated for patie nts under the age of 18. If test resul ts are displ ayed for a patie nt under the age of 18, disre maricel that value . Not Available [facility] [address] [place] [address], [address], 07/23/2024 00:11:49 07/23/19 25 07/23/2024 COMP. METAB OLIC PANEL (14) BUN/creatini ne ratio 15 9-23 Not Available [facility] Department [address] [place], [address], 07/23/2024 00:11:49 07/23/19 25 07/23/2024 COMP. METAB OLIC PANEL (14) sodium 141 mmol/ L 134-14 4 Not Available [facility] Department [address] [place] [address], [address], 07/23/2024 00:11:49 07/23/19 25 07/23/2024 COMP. METAB OLIC PANEL (14) potassium 3.8 mmol/ L 3.5-5. 2 Not Available [facility] [address] [place], [address], 07/23/2024 00:11:49 07/23/1907/23/2024 COMP. METAB OLIC PANEL (14) chloride 105 mmol/ L 96-106 Not Available [facility] [address] [place], [address], 07/23/2024 00:11:49 07/23/1907/23/2024 COMP. METAB OLIC PANEL (14) carbon dioxide, total 25 mmol/ L 20-29 Not Available [facility] [address] [place], [address], 07/23/2024 00:11:49 07/23/1907/23/2024 COMP. METAB OLIC PANEL (14) calcium 9.5 mg/dL 8.7-10 .2 Not Available [facility] [address] [place], [address], 07/23/2024 00:11:49 07/23/1907/23/2024 COMP. METAB OLIC PANEL (14) protein, total 6.8 g/dL 6.0-8. 5 Not Available [facility] [address] [place], [address], 07/23/2024 00:11:49 07/23/1907/23/2024 COMP. METAB OLIC PANEL (14) albumin 3.8 g/dL 3.8-4. 9 Not Available [facility] [address] [place], [address], 07/23/2024 00:11:49 07/23/1907/23/2024 COMP. METAB OLIC PANEL (14) globulin, total 3.0 g/dL 1.5-4. 5 Not Available [facility] [address] [place], [address], 07/23/2024 00:11:49 04/15/07/23/2024 COMP. METAB OLIC PANEL (14) A/G ratio 1.3 1.2-2. 2 Not Available [facility] [address] [place], [address], 07/23/2024 00:11:49 07/23/1907/23/2024 COMP. METAB OLIC PANEL (14) bilirubin, total <=0.2 mg/dL 0.0-1. 2 Not Available [facility] [address] [place], [address], 07/23/2024 00:11:49 07/23/1907/23/2024 COMP. METAB OLIC PANEL (14) alkaline phosphatase 80 IU/L 44-121 Not Available [facility] Department [address] [place] [address], [address], 07/23/2024 00:11:49 07/23/1907/23/2024 COMP. METAB OLIC PANEL (14) AST (SGOT) 13 U/L 0-40 Not Available [facility] Department [address] [place], [address], 07/23/2024 00:11:49 07/23/1907/23/2024 COMP. METAB OLIC PANEL (14) ALT (SGPT) 11 IU/L 0-32 Not Available [facility] Department [address] [place] [address], [address], 07/23/2024 00:11:49 07/23/1907/23/2024 CBC WITH DIFFE RENTI AL/PL ATELE T WBC 7.8 x10e3 /uL 3.4-10 .8 Not Available [facility] [address] [place] [address], [address], 07/23/2024 00:11:51 07/23/19 25 07/23/2024 CBC WITH DIFFE RENTI AL/PL ATELE T RBC 4.51 x10e6 /uL 3.77-5 .28 Not Available [facility] [address] [place], [address], 07/23/2024 00:11:51 07/23/1907/23/2024 CBC WITH DIFFE RENTI AL/PL ATELE T hemoglobin 11.7 g/dL 11.1-1 5.9 Not Available [facility] [address] [place], [address], 07/23/2024 00:11:51 07/23/1907/23/2024 CBC WITH DIFFE RENTI AL/PL ATELE T hematocrit 37.7 % 34.0-4 6.6 Not Available [facility] [address] [place], [address], 07/23/2024 00:11:51 07/23/1907/23/2024 CBC WITH DIFFE RENTI AL/PL ATELE T MCV 84 fL 79-97 Not Available [facility] [address] [place], [address], 07/23/2024 00:11:51 07/23/1907/23/2024 CBC WITH DIFFE RENTI AL/PL ATELE T MCH 25.9 pg 26.6-3 3.0 below low normal Not Available [facility] [address] [place], [address], 07/23/2024 00:11:51 07/23/1907/23/2024 CBC WITH DIFFE RENTI AL/PL ATELE T MCHC 31.0 g/dL 31.5-3 5.7 below low normal Not Available [facility] [address] [place], [address], 07/23/2024 00:11:51 07/23/1907/23/2024 CBC WITH DIFFE RENTI AL/PL ATELE T RDW 14.9 % 11.5-1 4.5 above high normal Not Available [facility] [address] [place], [address], 07/23/2024 00:11:51 07/23/1907/23/2024 CBC WITH DIFFE RENTI AL/PL ATELE T platelets 287 x10e3 /uL 150-45 0 Not Available [facility] [address] [place], [address], 07/23/2024 00:11:51 07/23/1907/23/2024 CBC WITH DIFFE RENTI AL/PL ATELE T neutrophils 65 % notest b. Not Available [facility] [address] [place], [address], 07/23/2024 00:11:51 07/23/1907/23/2024 CBC WITH DIFFE RENTI AL/PL ATELE T lymphs 27 % notest b. Not Available [facility] [address] [place], [address], 07/23/2024 00:11:51 07/23/1907/23/2024 CBC WITH DIFFE RENTI AL/PL ATELE T monocytes 5 % notest b. Not Available [facility] [address] [place], [address], 07/23/2024 00:11:51 07/23/1907/23/2024 CBC WITH DIFFE RENTI AL/PL ATELE T eos 2 % notest b. Not Available [facility] [address] [place], [address], 07/23/2024 00:11:51 07/23/1907/23/2024 CBC WITH DIFFE RENTI AL/PL ATELE T basos 1 % notest b. Not Available [facility] [address] [place], [address], 07/23/2024 00:11:51 07/23/19 25 07/23/2024 CBC WITH DIFFE RENTI AL/PL ATELE T neutrophils (absolute) 5.1 x10e3 /uL 1.4-7. 0 Not Available [facility] [address] [place], [address], 07/23/2024 00:11:51 07/23/1907/23/2024 CBC WITH DIFFE RENTI AL/PL ATELE T lymphs (absolute) 2.1 x10e3 /uL 0.7-3. 1 Not Available [facility] [address] [place], [address], 07/23/2024 00:11:51 07/23/1907/23/2024 CBC WITH DIFFE RENTI AL/PL ATELE T monocytes(ab solute) 0.4 x10e3 /uL 0.1-0. 9 Not Available [facility] [address] [place], [address], 07/23/2024 00:11:51 07/23/1907/23/2024 CBC WITH DIFFE RENTI AL/PL ATELE T eos (absolute) 0.2 x10e3 /uL 0.0-0. 4 Not Available [facility] [address] [place], [address], 07/23/2024 00:11:51 07/23/1907/23/2024 CBC WITH DIFFE RENTI AL/PL ATELE T baso (absolute) 0.1 x10e3 /uL 0.0-0. 2 Not Available [facility] [address] [place], [address], 07/23/2024 00:11:51 07/23/1907/23/2024 CBC WITH DIFFE RENTI AL/PL ATELE T immature granulocytes 0.3 % notest b. Not Available [facility] [address] [place], [address], 07/23/2024 00:11:51 07/23/1907/23/2024 CBC WITH DIFFE RENTI AL/PL ATELE T immature grans (abs) 0.0 x10e3 /uL 0.0-0. 1 Not Available [facility] [address] [place], [address], 07/23/2024 00:11:51 07/23/1907/23/2024 CBC WITH DIFFE RENTI AL/PL ATELE T NRBC 0 % 0-0 Not Available [facility] [address] [place], [address], 07/23/2024 00:11:51 07/23/1907/23/2024 TSH+F REE T4 TSH 2.020 uIU/m L 0.450- 4.500 Not Available [facility] ([facility]) [address] [place], [address], 07/23/2024 09:02:10 07/23/1907/23/2024 TSH+F REE T4 T4,free(dire ct) 1.02 NG/dL 0.82-1 .77 Not Available [facility] ([facility]) [address] [place], [address], 07/23/2024 09:02:10 07/23/1907/23/2024 HEMOG LOBIN A1C hemoglobin A1C 5.8 % 4.8-5. 6 above high normal Predi abete s: 5.7 - 6.4 Diabe frances: >6.4 Glyce wesley contr ol for adult s with diabe frances: <7.0 Not Available [facility] ([facility]) [address] [place], [address], 07/23/2024 09:02:11 11/29/1911/29/2024 CBC WITH DIFFE RENTI AL/PL ATELE T WBC 8.9 x10e3 /uL 3.4-10 .8 Not Available [facility] ([facility]) [address] [place], [address], 11/29/2024 06:15:42 11/29/192025 CBC WITH DIFFE RENTI AL/PL ATELE T RBC 4.84 x10e6 /uL 3.77-5 .28 Not Available [facility] ([facility]) [address] [facility], [place], [address], 11/29/2024 06:15:42 11/29/19 25 11/29/2024 CBC WITH DIFFE RENTI AL/PL ATELE T hemoglobin 12.5 g/dL 11.1-1 5.9 Not Available [facility] ([facility]) [address] [facility], [place], [address], 11/29/2024 06:15:42 11/29/1911/29/2024 CBC WITH DIFFE RENTI AL/PL ATELE T hematocrit 40.2 % 34.0-4 6.6 Not Available [facility] ([facility]) [address] [place], [address], 11/29/2024 06:15:42 11/29/1911/29/2024 CBC WITH DIFFE RENTI AL/PL ATELE T MCV 83 fL 79-97 Not Available [facility] ([facility]) [address] [place], [address], 11/29/2024 06:15:42 11/29/1911/29/2024 CBC WITH DIFFE RENTI AL/PL ATELE T MCH 25.8 pg 26.6-3 3.0 below low normal Not Available [facility] ([facility]) [address] [place], [address], 11/29/2024 06:15:42 11/29/1911/29/2024 CBC WITH DIFFE RENTI AL/PL ATELE T MCHC 31.1 g/dL 31.5-3 5.7 below low normal Not Available [facility] ([facility]) [address] [place], [address], 11/29/2024 06:15:42 11/29/19 25 11/29/2024 CBC WITH DIFFE RENTI AL/PL ATELE T RDW 15.1 % 11.7-1 5.4 Not Available [facility] ([facility]) [address] [facility], [place], [address], 11/29/2024 06:15:42 11/29/19 25 11/29/2024 CBC WITH DIFFE RENTI AL/PL ATELE T platelets 310 x10e3 /uL 150-45 0 Not Available [facility] ([facility]) [address] [facility], [place], [address], 11/29/2024 06:15:42 11/29/19 25 11/29/2024 CBC WITH DIFFE RENTI AL/PL ATELE T neutrophils 57 % notest ab. Not Available [facility] ([facility]) [address] [facility], [place], [address], 11/29/2024 06:15:42 11/29/19 25 11/29/2024 CBC WITH DIFFE RENTI AL/PL ATELE T lymphs 33 % notest ab. Not Available [facility] ([facility]) [address] [facility], [place], [address], 11/29/2024 06:15:42 11/29/19 25 11/29/2024 CBC WITH DIFFE RENTI AL/PL ATELE T monocytes 6 % notest ab. Not Available [facility] ([facility]) [address] [facility], [place], [address], 11/29/2024 06:15:42 11/29/19 25 11/29/2024 CBC WITH DIFFE RENTI AL/PL ATELE T eos 3 % notest ab. Not Available [facility] ([facility]) [address] [facility], [place], [address], 11/29/2024 06:15:42 11/29/19 25 11/29/2024 CBC WITH DIFFE RENTI AL/PL ATELE T basos 1 % notest ab. Not Available [facility] ([facility]) [address] [facility], [place], [address], 11/29/2024 06:15:42 11/29/19 25 11/29/2024 CBC WITH DIFFE RENTI AL/PL ATELE T neutrophils (absolute) 5.1 x10e3 /uL 1.4-7. 0 Not Available [facility] ([facility]) [address] [facility], [place], [address], 11/29/2024 06:15:42 11/29/19 25 11/29/2024 CBC WITH DIFFE RENTI AL/PL ATELE T lymphs (absolute) 2.9 x10e3 /uL 0.7-3. 1 Not Available [facility] ([facility]) [address] [facility], [place], [address], 11/29/2024 06:15:42 11/29/19 25 11/29/2024 CBC WITH DIFFE RENTI AL/PL ATELE T monocytes(ab solute) 0.6 x10e3 /uL 0.1-0. 9 Not Available [facility] ([facility]) [address] [facility], [place], [address], 11/29/2024 06:15:42 11/29/19 25 11/29/2024 CBC WITH DIFFE RENTI AL/PL ATELE T eos (absolute) 0.3 x10e3 /uL 0.0-0. 4 Not Available [facility] ([facility]) [address] [facility], [place], [address], 11/29/2024 06:15:42 11/29/19 25 11/29/2024 CBC WITH DIFFE RENTI AL/PL ATELE T baso (absolute) 0.1 x10e3 /uL 0.0-0. 2 Not Available [facility] ([facility]) [address] [facility], [place], [address], 11/29/2024 06:15:42 11/29/19 25 11/29/2024 CBC WITH DIFFE RENTI AL/PL ATELE T immature granulocytes 0 % notest ab. Not Available [facility] ([facility]) [address] [place], [address], 11/29/2024 06:15:42 11/29/19 25 11/29/2024 CBC WITH DIFFE RENTI AL/PL ATELE T immature grans (abs) 0.0 x10e3 /uL 0.0-0. 1 Not Available [facility] ([facility]) [address] [place], [address], 11/29/2024 06:15:42 11/29/19 25 11/29/2024 IRON AND TIBC iron bind.cap.(TI BC) 376 ug/dL 250-45 0 Not Available [facility] ([facility]) [address] [place], [address], 11/29/2024 08:27:33 11/29/19 25 11/29/2024 IRON AND TIBC UIBC 318 ug/dL 131-42 5 Not Available [facility] ([facility]) [address] [place], [address], 11/29/2024 08:27:33 11/29/19 25 11/29/2024 IRON AND TIBC iron 58 ug/dL 27-159 Not Available [facility] ([facility]) [address] [place], [address], 11/29/2024 08:27:33 11/29/19 25 11/29/2024 IRON AND TIBC iron saturation 15 % 15-55 Not Available [facility] ([facility]) [address] [place], [address], 11/29/2024 08:27:33 11/29/19 25 11/29/2024 LUANN TIN ferritin 23 NG/mL 15-150 Not Available [facility] ([facility]) [address] [place], [address], 11/29/2024 08:27:34 06/28/19 24 06/28/2023 MAMMO , tuane mandi, bilat eral No observ ation record ed. [address], [place], [address], 07/02/2023 08:28:50 07/06/19 24 06/18/2023 US, echoc ardio gram, trans thora cic, compl ete No observ ation record ed. [facility] [address] [facility] [address], [place], [address], 07/11/2023 12:28:33 08/06/19 24 08/01/2023 elect romyo gram + nerve condu ction study No observ ation record ed. [facility] (Medical Records) [address] [place] [address] [address] [facility], [place], [address], 08/07/2023 11:14:54 09/26/19 25 09/25/2024 CT, brain , w/o contr ast No observ ation record ed. [address] [facility], [place], [address], 09/30/2024 11:14:14 09/26/19 25 09/25/2024 XR, chest , 2 view No observ ation record ed. [address], [place], [address], 09/30/2024 11:14:22 09/28/19 25 09/27/2024 MRI, brain + brain stem, w/o contr ast No observ ation record ed. [address], [place], [address], 09/30/2024 11:14:42 09/29/19 25 09/28/2024 CT, angio gram, chest , w/wo contr ast No observ ation record ed. [place] [address], [place], [address], 09/30/2024 11:15:08 10/07/19 25 09/26/2024 US, doppl er echoc ardio gram No observ ation record ed. [facility] Not Available 2024 18:30:24 10/08/19 25 09/28/2024 trans esoph ageal echoc ardio gram guide d cardi overs ion (PROC ) No observ ation record ed. [facility] Not Available 2024 18:06:11 Result Notes None recorded. Problems Name Problem SNOMED Code Status Onset Date Resolution Date Notes Provider Name and Address Organization Details Recorded Time Benign hypertens ion 64687631 Active Not Available [facility] 01:21:08 Overweigh t 783998885 Active Not Available [facility] 01:21:08 Migraine 92992394 Active Not Available [facility] 01:21:08 Injury of ankle 039981775 Active Not Available [facility] 01:21:08 Asthma 320964696 Active Not Available [facility] 01:21:08 Ulnar neuropath y 450566821 Active Not Available [facility] 01:21:08 Impaired fasting glycemia 272304905 Active Not Available [facility] 01:21:08 Pain in lower limb 10633242 Active Not Available [facility] 01:21:08 Supravent ricular tachycard ia 8948450 Active Not Available [facility] 01:21:08 Osteoarth ritis of knee 442464230 Active Not Available [facility] 01:21:08 Headache 78771053 Active Not Available [facility] 01:21:08 Apnea 0993018 Active Not Available [facility] 01:21:08 Edema of lower extremity 880775689 Active Not Available [facility] 01:21:08 Follow-up visit Active Not Available [facility] 01:21:08 Chest pain 64906005 Active Not Available [facility] 1 01:21:08 Aortic valve regurgita tion 34105697 Active 2016 Not Available [facility] 1 01:21:08 History of bariatric surgical procedure 228475100 Active 2021 Nicol-En-Y on 06/27/21, reversal on 03/08/23 due to ulcers at anastamos is causing anemia LUCY ZAMBRANO Attn: Accounting ,[address] [place], [place], [address] [place] [address] , [place] [facility] 3 14:13:31 Osteoarth ritis of joint of left shoulder region 27405853613 9108 Active 2021 LUCY ZAMBRANO Attn: Accounting ,[address] [place], [address] , [place] [facility] 2 14:23:51 Essential hypertens ion 88529271 Active 2021 LUCY ZAMBRANO Attn: Accounting ,[address] [place], [place], [address] [place] [address] , [place] [facility] 2 14:23:48 Nonischem ic congestiv e cardiomyo miguel 31421642817 4 Active 2021 LUCY ZAMBRANO Attn: Accounting ,[address] [place], [address] [place] [address] , [place] [facility] 2 21:44:47 Gastric ulcer 305618079 Active 2021 LUCY ZAMBRANO Attn: Accounting ,[address] [place], [address] , [place] [facility] 2 16:19:33 Hypokalem ia 93340812 Active 2021 LUCY ZAMBRANO Attn: Accounting ,[address] [place], [address] , [place] [facility] 2 16:21:17 Gastric ulcer with hemorrhag e 01533764 Active 2022 LUCY ZAMBRANO Attn: Accounting ,[address] [place], [place], [address] [place] [address] , [facility] - [facility] 3 14:37:43 Notes:Some problems listed i n Documents: #[id number], #[id number] could not be added to this patient's chart. Please review these documents and add these problems to the patient's chart manually as needed. Problem Notes None recorded. Procedures Surgical History Date Name Laterality Status Provider Name and Address Organization Details Recorded Time 4 Date of Last Mammogram completed Jeimy Champagne [place] [facility] 07/06/2023 09:28:04 9 Date of Last Pap Smear completed Vidhya Mcclure [place] [facility] 01/12/2020 16:05:35 Knee Surgery completed Vidhya Mcclure MA [facility] 12/12/2019 14:38:53 Heart Surgery completed Vidhya Mcclure MA [facility] 12/12/2019 14:38:58 Tubal Ligation completed July Adis hopkins [place] [facility] 10/28/2014 11:18:58 Imaging Results None recorded. Procedure [...] 1 TABLET BY MOUTH TWICE A DAY 11/28 completed Not Available Not Available Not Available acetaminoph en 325 mg tablet 08/21 completed Not Available Not Available Not Available Toprol XL 100 mg tablet,exte nded release Take 2 tablets every day by oral route in the morning for 30 days. 11/28 completed Not Available Not Available Not Available diltiazem ER (XR/XT) 240 mg capsule,ext ended release 24 hr, controlled TAKE 1 CAPSULE BY MOUTH DAILY 04/19 completed Not Available Not Available Not Available biotin 5 mg capsule TAKE 1 CAPSULE BY MOUTH DAILY active Not Available Not Available No t Available ibuprofen 800 mg tablet TAKE 1 TABLET [...] APPLICATO RFUL VAGINALLY AT BEDTIME FOR 5 NIGHTS active Not Available Not Available No t Available lisinopril 20 mg tablet 02/06 completed [...] Not Available metronidazo le 500 mg tablet Take 1 tablet every 12 hours by oral route with meal(s) for 7 days. 07/22 completed Not Available Not Available Not Available nifedipine ER 30 mg tablet,exte nded release Take 1 tablet every day by oral route for 90 days. 07/22 completed Not Available Not Available Not Available acetaminoph en 300 mg-codeine 30 mg tablet 12/11 completed Not Available Not Available Not Available clopidogrel 75 mg tablet TAKE 1 TABLET BY MOUTH DAILY active Not Available Not Available No t Available chlorthalid one 25 mg tablet Take [...] azole 800 mg-trimetho prim 160 mg tablet Take 1 tablet every 12 hours by oral route with meals for 7 days. 02/06 completed Not Available Not Available Not Available omeprazole 40 mg capsule,del ayed release TAKE 1 CAPSULE BY MOUTH DAILY IN THE MORNING FOR ACID REFLUX. 2024 active Not Available Not Available Not Avai lable aspirin 81 mg tablet,jack yed release TAKE 1 TABLET BY MOUTH DAILY active Not Available Not Available No t Available tramadol 50 mg tablet 12/30 completed Not Available Not Available Not Available acetaminoph en 500 mg tablet Take 2 tablets every 6 hours by oral route as needed for 30 days, for pain. 2024 active Not Available Not Available Not Avai lable Toprol XL 200 mg tablet,exte nded release Take 1 tablet every day by oral route in the morning for 30 days. active Not Available Not Available No t Available amoxicillin 500 mg tablet TAKE 1 TABLET [...] tablet TAKE 1 TABLET BY MOUTH DAILY active Not Available Not Available No t Available nifedipine ER 60 mg tablet,exte nded release 24 hr Take 2 tablets every day by oral route in the morning for 30 days, for high blood pressure. 11/28 completed Not Available Not Available Not Available betamethaso ne valerate 0.1 % topical cream [...] Available Not Available buspirone 10 mg tablet TAKE 1 TABLET BY MOUTH TWICE A DAY FOR ANXIETY. 2024 active Not Available Not Available Not Avai lable gabapentin 300 mg capsule Take 1 capsule 3 times a day by oral route as needed for 30 days, for nerve pain. 2024 active Not Available Not Available Not [...] propionate 50 mcg/actuati on nasal spray,suspe nsion Staples 1 spray every day by intranasa l [...] Not Available spironolact one 50 mg tablet TAKE 1 TABLET BY MOUTH EVERY MORNING 2024 active Not Available Not Available Not Avai lable thiamine HCl (vitamin B1) 50 mg tablet [...] completed Not Available Not Available Not Available [facility] 100,000 unit/gram topical [...] MOUTH TWICE DAILY AFTER BREAKFAST AND DINNER active Not Available Not Available No t Available magnesium Oxide 400mg po daily 04/19 [...] completed Not Available Not Available Not Available Jardiance 10 mg tablet Take 1 tablet every day by oral route in the morning for 30 days. active Not Available Not Available No t Available Trulicity 0.75 mg/0.5 mL subcutaneou s [...] 07/06/2023 18 /min LUCY ZAMBRANO Attn: Accounting,[address] [place], [address], [place] 07/06/2023 09:37:54 Date Recorded Body height Body mass index (BMI) Body weight Oxygen saturation Oxygen saturation in Arterial blood by Pulse oximetry Heart rate Systolic And Diastolic Provider Name and Address Organization Details Last Updated DateTime 157.48 cm 33.7 kg/m2 04185.1 g 99 % 99 % 69 /min 141/85 mm[Hg] Jeimy Champagne [place] [facility] 09:34:20 Date Recorded Body height Body mass index (BMI) Body weight Oxygen saturation Oxygen saturation in Arterial blood by Pulse oximetry Heart rate Respiratory rate Systolic And Diastolic Provider Name and Address Organization Details Last Updated DateTime 5 157.48 cm 45.4 kg/m2 104575. 91 g 98 % 98 % 72 /min 18 /min 135/80 mm[Hg] Ally Barrios MA [facility] 5 12:20:13 Date Recorded Body height Body mass index (BMI) Body weight Oxygen saturation Oxygen saturation in Arterial blood by Pulse oximetry Heart rate Respiratory rate Systolic And Diastolic Provider Name and Address Organization Details Last Updated DateTime 4 157.48 cm 38.9 kg/m2 10835.3 8 g 100 % 100 % 85 /min 16 /min 143/90 mm[Hg] Madeleine Prince MA [facility] 4 12:14:47 Date Recorded Systolic And Diastolic Provider Name and Address Organization Details Last Updated DateTime 11/28/2024 120/70 mm[Hg] LUCY ZAMBRANO Attn: Accounting,[address] [place], [address], [facility] 11/28/2024 09:21:59 Date Recorded Body height Body mass index (BMI) Body weight Oxygen saturation Oxygen saturation in Arterial blood by Pulse oximetry Heart rate Respiratory rate Systolic And Diastolic Provider Name and Address Organization Details Last Updated DateTime 5 157.48 cm 44.6 kg/m2 229920. 54 g 95 % 95 % 91 /min 18 /min 138/92 mm[Hg] Ally Barrios MA [facility] 5 08:46:14 Date Recorded Systolic And Diastolic Provider Name and Address Organization Details Last Updated DateTime 01/02/2024 159/90 mm[Hg] LUCY ZAMBRANO Attn: Accounting,[address] [place], [address], [facility] 01/02/2024 17:33:17 Date Recorded Body height Body mass index (BMI) Body weight Oxygen saturation Oxygen saturation in Arterial blood by Pulse oximetry Heart rate Respiratory rate Systolic And Diastolic Provider Name and Address Organization Details Last Updated DateTime 4 157.48 cm 41.6 kg/m2 033384. 27 g 98 % 98 % 74 /min 16 /min 161/92 mm[Hg] Madeleine Prince [place] [facility] 17:09:33 Social History Question Answer Notes LastModified by Organizat ion Details LastModified Time Tobacco Smoking Status Never Smoker July SATHISH Sharpe [place] 10/28/2014 11:18:58 Do You Have An Advance [...] Date Was Tobacco Cessation Counseling Provided? 07/22/2024 [email or web address] Information not available 07/22/2024 How Many Years [...] 08/25/2020 Are you able to care for yourself independently? Yes Information not available 08/25/2020 Do you or have you ever used e-cigarettes or vape? Never used electronic cigarettes Information not available 12/12/2019 Mental Status Question Answer Note LastModified by Organization D etails LastModified Time Do you feel stressed (tense, restless, nervous, or anxious, or unable to sleep at night)? [id number] Information not available 08/25/2020 Family History Relationship [...] Problems N Kidney or Bladder Problems N GI Problems N Depression N COPD N Blood Clots N Skin Problems N Eating Disorder N Anemia N Heart Attack ([place]) N Anxiety Disorder N Diabetes N Muscle, Joint, or Bone Problems N Obesity Y Seizures/Epilepsy N Acid Reflux (GERD) N Cancer N Stroke N Asthma Y Allergies N ADHD N Substance Abuse N High Cholesterol N Hepatitis N Liver Disease N Schizophrenia N Headaches Y Hypertension Y Heart Failure N Osteoporosis N Gynecological History Statement/Question Response Date of [...] virus, quadrivalent, preservative 6 completed Not Available [facility] 04/26/2019 02:32:32 Influenza, split virus, quadrivalent, preservative 5 completed SATHISH [place] [facility] 07/06/2023 09:54:18 COVID-19, mRNA, LNP-S, PF, 100 mcg/0.5mL dose or 50 mcg/0.25mL dose 2 completed SATH[place] [facility] 07/06/2023 09:54:18 COVID-19, mRNA, LNP-S, PF, 100 mcg/0.5mL dose or 50 mcg/0.25mL dose 2 completed [place]ATH[place] [facility] 07/06/2023 09:54:19 Influenza, split virus, quadrivalent, preservative 0 completed Vidhya Mcclure [place], [place] [facility] 01/12/2020 17:13:43 Tdap 5 completed Not Available [facility] 04/26/2019 02:30:20 Influenza, split virus, quadrivalent, PF 2 completed LUCY ZAMBRANO Attn: Accounting,[address] [facility], [place], [address], [place] [facility] 02/06/2022 21:31:22 Influenza, split virus, quadrivalent, PF 3 completed LUCY ZAMBRANO Attn: Accounting,[address] [facility], [place], [address], [place] [facility] 02/01/2023 11:03:12 Pneumococcal conjugate PCV20, polysaccharide [id number] conjugate, adjuvant, PF 4 completed LUCY ZAMBRANO Attn: Accounting,[address] [facility], [place], [address], [place] [facility] 07/09/2023 10:56:00 Past Encounters Encounter ID Performer Location Encounter Start Date Encounter Closed Date Diagnosis/Indication Diagnosis SNOMED-CT Code Diagnosis ICD10 Code Diagnosis IMO Codes Diagnosis Note [id number] MD Jamel Bustillos (Adult Med) [address] [place] [phone] 10/28/2014 10:48:27 10/28/2014 13:39:30 General examination of patient [id number] 39 y/o BF who was last seen by LUCY Helton in 2010 Benign hypertension 15189837 Start Lisinopril /HCTZ 28/03.5 Side effects were discussed in great detail Low salt diet and weight loss were also discussed She states that she lost her insurance and she was not aware that she could come in here without insurance, she previously on Benicar/HC TZ & Clonidine. I have explained to her that she is not an ideal candidate for Clonidine Overweight 835417386 Migraine 99716019 Previous ly on Imitrex Injury of ankle 663557858 She follows up with Dr. Suazo ? 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 Hernandez? who would like to see her in a year She needs the FMLA form for that single admission Labs and the dictated discharge summary are pending. Overweight 614886417 [id number] MD Jamel Bustillos (Adult Med) [address] [place] [phone] 0 12/30/2014 10:26:47 12/30/2014 16:19:42 Influenza vaccine needed 5739754675 106 Impaired f asting glycemia 457087342 Discussed an appropriat e diet and weight loss Pain in lower limb 15418488 Bilateral knee pain, most likely OA. She had previous surgery of the right patella in 2002 Supraventr icular tachycardia 9436655 Follow up with Dr. Hernandez [id number] MD Jamel Bustillos (Adult Med) [address] [place] [address]85[address]655 0 05/14/2015 16:45:15 05/14/2015 17:28:17 Benign hypertension 80459452 I10 On Lisinopril /HCTZ 20/12.5, Atenolol 50mg po bid, Diltiazem 240mg po daily She should follow up with Dr. Hernandez Start Lisinopril 40mg and HCTZ 25mg, discontinu e LISINOPRIL /HCTZ 20/25 Written instructio ns were provided, continue a low salt diet and make an effort to lose some weight.Lab s and a close follow up in 4 weeks Osteoarthr itis of knee 940255211 M17.9 X-ray report from [id number] MD Jamel Bustillos (Adult Med) [address] [place] [address] [phone] 0 06/25/2015 15:32:54 06/25/2015 16:37:57 Benign hypertension 88334493 I10 Improvemen t noted with Lisinopril 40mg [...] the changes that I have made. Headache 52609986 R51 Possibly from her uncontroll ed HTN or her Migraine [id number] MD Jamel Bustillos (Adult Med) [address] [place] [address] 49165-560 0 11/24/2015 11:32:59 11/24/2015 12:32:46 Benign hypertension 52246202 I10 Uncontroll ed despite compliance with Bidil [...] be following up with Dr. Hernandez. Apnea 0771214 R06.81 R06.83 Sometimes when I be sleep, I wake up and I can't catch my breath Edema of l ower extremity 361708509 R60.0 Low salt diet [id number] MD Jamel Bustillos (Adult Med) [address] [place] [address] [phone] 0 01/12/2016 11:54:53 01/12/2016 13:05:35 Follow-up visit 771543824 Z09 She was admitted to [facility] and she has been off work since the 01/02/2016, she feels ready to go back to work this Sunday. I have explained to Ms. Kruse that I do not have the details of her hospital stay and until that is reviewed, I cannot complete her forms. Influenza vaccine needed 8757833229 106 Z23 Chest pain 08824332 R07. 9 She is scheduled for a follow up visit with her cardiologi st. Impaired f asting glycemia 181424725 R73.01 Discussed an appropriat e diet and weight loss [id number] MD Jamel Bustillos (Adult Med) [address] [place] [address] [id number] 0 04/19/2016 14:37:48 04/19/2016 15:35:00 Screening for malignant neoplasm of breast 650155155 Z12.31 Headache 88896308 R51 [id number] Marya Harding MD [facility] (Adult Med) [address] [place] [address] [phone] 0 06/21/2016 11:41:51 06/21/2016 12:57:45 Benign hypertension 05994968 I10 Still less than optimal control, she is reluctant to go to the ER. I will increase her Metoprolol to 100mg, side effects were discussed. A low salt diet was discussed and she will be seeing her cardiologi i the next week. Asthma 155229524 J45.90 9 On albuterol Foot pain 92654041 M79.6 72 [id number] Marya Harding MD [facility] (Adult Med) [address] [place] [address] [phone] 0 07/26/2016 10:27:07 07/26/2016 11:45:29 Benign hypertension 63434951 I10 She states that he said that he likes it like that.I have reviewed the note from her 07/14/2016 visit with her cardiologi , Dr. Hernandez who she will be seeing today, he would like her SBP at ~ 160 in view of her AI. Permissive Hypertensi on.Continu e Metoprolol 50 mg po BID Aortic alden ve regurgitation 14764989 I35.1 [id number] Trinh Machado MD [facility] [address] [place] [address] 12/12/2019 14:31:52 12/16/2019 08:23:06 Dyspnea on exertion 98597974 R06.09 need to evaluate blood pressure, lung status in office. weight loss may help but I am concerned about history of heart problems and hypertensi on. Morbid obesity 295876751 E66.01 Mild inter mittent asthma 960098049 J45.20 [id number] Trinh Machado MD [facility] [address] [place] [address] 01/12/2020 15:52:51 01/19/2020 10:00:13 Screening mammography 97944651 Z12.31 Essential hypertension 51705806 I10 Patient advised to limit salt and caffeine intake to maintain good blood pressure. Carpal attila aline syndrome 22461095 G56.03 if positive will refer to a hand surgeon. Administra tion of influenza vaccine 83315526 Z23 risks and benefits of immunizati ons reviewed, and patient agreed to receive shot Morbid obesity 532355889 E66.01 discussed risks and benefits of bariatric surgery. Mild inter mittent asthma 464205640 J45.20 reviewed timing of how to use the inhaler [id number] Trinh Machado MD [facility] [address] [place] [address] 08/25/2020 08:07:41 08/30/2020 10:03:00 Generalized headache 742502807 R51.9 Morbid obesity 998868238 E66.01 discussed risks and benefits of bariatric surgery. BMI 50 [id number] Trinh Machado MD [facility] [address] [place] [address] 09/13/2020 08:02:57 09/21/2020 08:13:21 Morbid obesity 579649966 E66.01 discussed risks and benefits of bariatric surgery. BMI 50 [id number] Henri Ashraf MD [facility] [address] [place] [address] 11/11/2020 11:42:39 11/14/2020 11:04:14 [id number] LUCY ZAMBRANO [facility] [address] [facility] [place] [address] 02/10/2021 08:02:48 02/11/2021 11:20:45 Benign hypertension 05127573 I10 take BP at home, on 5 BP meds Hand pain 77700575 M79.6 43 refill Viral uppe r respiratory tract infection 225893619 J06.9 dry cough, nasal congestion , chest congestion , sore throatno fevers, chest pain, or SOBtaking coricidin and throat lozengesed ucated pt on viral URI sx and txc/w current meds, trial OTC decongesta ntincrease fluid intake and restf/u with any new or worsening sx [id number] Mario wolf MD [facility] [address] [place] [address] 11/18/2021 16:03:14 11/22/2021 10:14:15 History of bariatric surgical procedure 648807881 Z98.84 Nicol-En-Y Gastric bypass on 06/27/21has lost 99 lbs since procedurep t does not believe current sx are due to gastric bypasspt showed urine culture results on mychart that weight loss management ordered on 11/17/21- showed UTI Acute urin luciano tract infection 333290766 N39.0 urinary retention x1 mounable to swallow keflex or pyridium that [facility] ED [facility] 1 [facility]oadmit[facility] d to [facility] 11[facility]09-11[facility]11 and told she had UTIpt showed urine culture results on mychart that weight loss management ordered on 11/17/21 that showed UTIurine dip shows protein, ketone, bilirubinu nable to culture urine due to small outputstar t bactrim Abdominal pain 42307451 R10.9 Per [facility] Admission note 11/09/21:Pt BIBEMS [...] pt and no urine came out, so suspected pt was dehydrated and sent her [...] pillsadvis ed pt to go to ED [id number] Mario wolf MD [facility] [address] [place] [address] 02/06/2022 12:23:21 02/07/2022 12:02:55 Osteoarthritis of joint of left shoulder region [id number] 81705 M19.012 C/o chronic L shoulder pain, was [...] al flexerilre jessica to PT Essential hypertension 53421032 I10 BP 146/94, will attribute to L shoulder painreport s BP has been normal at home 130s/60-70 son metoprolol 100 mg BID and lisinopril 40 mg Gastric ulcer [id number] K25.7 admitted to [facility] 11/18/21- year old [...] PPIhas f/u 1 mo with GI in [place] Administra tion of influenza vaccine 32067798 Z23 Depression screening 171 620657 Z13.31 PHQ 0 History of bariatric surgical procedure 429679931 Z98.84 02/06/22:C MP showed low potassium- GI told her to eat bananasthi amine low- started supplement CBC nlcheck TSH and a1c for yearly labs- ordered at [place] 11/18/21:Ro ux-En-Y Gastric bypass on 06/27/21has lost 99 lbs since procedurep t does not believe current sx are due to gastric bypasspt showed urine culture results on mychart that weight loss management ordered on 11/17/21- showed UTI Nonischemi c congestive cardiomyopathy [id number] 04 I42.0 Per cardio note 11/2021: nonischem ic cardiomyop athy with CHF in the past. Currently she appears compensate d and has been able to stop several antihypert ensive medication s after gastric bypass surgery 5 months ago. I advised her to continue metoprolol tartrate 100 mg b.i.d. and lisinopril to 40 mg daily. [id number] Mario wolf MD [facility] [address] [place] [address] 11/29/2022 12:38:12 11/29/2022 13:17:34 Gastric ulcer 747238797 K25.7 see gastric ulcer with hemorrhage Gastric ul cer with hemorrhage 00941609 K25.4 11/29/22:ad mitted to [facility] 11/20/22- for recurrent chceaj5mu episode of bleeding after bypass and she was most recently admitted to [facility] on 11/14 for syncope and melena. [...] hgb and iron studies 02/06/22:a [facility]mitted to [facility] 11[facility]- year old female with a PMHx [...] PPIhas f/u 1 mo with GI in [place] Depression screening 171 968981 Z13.31 PHQ 0 [id number] Mario wolf MD [facility] [address] [place] [address] 02/01/2023 09:27:01 02/01/2023 11:20:44 Administration of influenza vaccine 96600201 Z23 Nausea 927223646 R11.0 use PRN Headache 28971085 R51.9 x1 wkintermit tent, a/w nausea, spots, [...] elevatedse nt zofran PRN Depression screening 171 650294 Z13.31 PHQ 0 [id number] Mario wolf MD [facility] [address] [place] [address] 03/21/2023 13:43:00 03/21/2023 14:31:06 Obstructive sleep apnea syndrome 71134917 G47.33 reports she was diagnosed with mild AUGUST in 2020never received CPAPwill send new referral for sleep study History of bariatric surgical procedure 740893950 Z98.84 03/21/23:G astric bypass reversal- Date of surgery 03/08/2023 . @ [facility], by Dr. Sullivan liquid diet, can [...] and a1c for yearly labs- ordered at [place] 11/18/21:Ro ux-En-Y Gastric bypass on 06/27/21has lost 99 lbs since procedurep t does not believe current sx are due to gastric bypasspt showed urine culture results on mychart that weight loss management ordered on 11/17/21- showed UTI Screening for malignant neoplasm of breast 370162970 Z12.39 due for mammo Depression screening 171 809483 Z13.31 PHQ 0 Screening for malignant neoplasm of cervix 470724464 Z12.4 follows with [facility] [place], due for pap next year Essential hypertension 66471220 I10 BP 126/84 in officehas cardio appt tomorrowad vised to start checking BP at home [id number] Mario wolf MD [facility] [address] [place] [address] 07/06/2023 09:23:14 07/06/2023 10:09:27 Paresthesia of upper limb 82574247 R20.2 c/o chronic hand pain and numbnesswo rse in the morning, feels tight and stiffEMG 2020 was normalPEx- negative tinel's sign and phalen'sin crease gabapentin from 100 to 300ordered EMG Generalize d anxiety disorder 50098746 F41.1 ELIZA 5relates to recent echo that showed heart failure had worsenedha s dreams that she stops breathingt rial hydroxyzin e PRN, advised of ADR Essential hypertension 58427460 I10 07/06/23: BP 141/85did not take BP meds yet todaycardi o added add spironolac tone Obstructiv e sleep apnea syndrome 23535098 G47.33 reports she was diagnosed with mild AUGUST in 2020never received CPAPwill send new referral for sleep study Obesity 366943186 E66.9 discussed increasing exercise and healthier food options, high protein, low fat diet Nonischemi c congestive cardiomyopathy 1103631705 04 I42.0 07/06/23: requesting prevnar 20 vaccine [...] lisinopril to 40 mg daily. Allergic rhinitis 758455 04 J30.9 L ear pain, itchy throat and sore throat x1 wktrial flonase and claritin [id number] Mario wolf MD [facility] [address] [place] [address] 10/23/2023 12:07:15 10/23/2023 12:29:48 Essential hypertension 19459844 I10 BP 140s/90s at homeBP in office 143/90on lisinopril 40, metoprolol 100, nifedipine 30, spironolac tone 50will increase nifedipine to 60 mgadvised to check BP at home, goal BP <130/80, f/u with BP log in 1 wk Low back pain 060117890 M54.50 started 5 days agotaking tylenol w/ some reliefno trauma or injuryno saddle anesthesia or loss of bowel/blad derPEx- nlrefer to PT Generalize d anxiety disorder 51009206 F41.1 ELIZA 16started on hydroxyzin e 06/2023, takes it at nightwould like to try medication to take during the day to help with anxietytri al buspirone 5 mg BID, advised pt of ADRf/u in 1 mo [id number] J Luis Ford MD [facility] [address] [place] [address] 01/02/2024 17:00:57 01/02/2024 17:32:14 Screening for malignant neoplasm of breast 258994964 Z12.39 06/2023, Screening for malignant neoplasm of cervix 068240252 Z12.4 last pap 2020PEx- difficulty locating cervix, attempted sample of cervixsent nuab Depression screening 171 784010 Z13.31 PHQ 0 Essential hypertension 19567109 I10 01/02/24: BP 160/90, 150/90, similar at homecardio appt next monthincre ase nifedipine to 120 max dosef/u with BP log on portal 10/23/23: BP 140s/90s at homeBP in office 143/90on lisinopril 40, metoprolol 100, nifedipine 30, spironolac tone 50will increase nifedipine to 60 mgadvised to check BP at home, goal BP <130/80, f/u with BP log in 1 wk Morbid obesity 494717893 E66.01 gained 72 lbs since bypass reversal 02/2023ref er back to bariatric medicine to discuss options for weight loss, discussed GLP 1 injection, will need clearance from cardio and bariatric medicine Screening for malignant neoplasm of colon 336597436 Z12.[address] Moore 03/2022, does not say when to repeat [id number] J Luis Ford MD [facility] [address] [place] [address] 07/22/2024 12:15:16 07/22/2024 12:40:33 Essential hypertension 49297158 I10 BP at home 120-140s/7 0-90sonly on nifedipine 60 mg, increase to 90 mghas not been taking metoprolol 100advised to check BP at home, goal BP <120/70, f/u with BP log in 1 wk Morbid obesity 027945936 E66.01 07/22/24: BMI 45.4, routine labs 02/11/24: wegovy not covered by insurance, will send trulicity gained 72 lbs since bypass reversal 02/2023ref er back to bariatric medicine to discuss options for weight loss, discussed GLP 1 injection, will need clearance from cardio and bariatric medicine Feeling of lump in throat 694780808 R09.89 x2 moany foodsre-st art PPI, refer to GI Generalize d anxiety disorder 08655439 F41.1 07/22/24: would like to increase buspirone to 10 mg 10/2023: ELIZA 16started on hydroxyzin e 06/2023, takes it at nightwould like to try medication to take during the day to help with anxietytri al buspirone 5 mg BID, advised pt of ADRf/u in 1 mo Depression screening 171 805970 Z13.31 PHQ 0 [id number] J Luis Ford MD [facility] [address] [place] [address] 11/28/2024 08:42:14 11/28/2024 09:08:18 Nonischemic congestive cardiomyopathy 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 Currently she appears compensate d and has been able to stop several antihypert ensive medication s after gastric bypass surgery 5 months ago. I advised her to continue metoprolol tartrate 100 mg b.i.d. and lisinopril to 40 mg daily. History of anemia - iron deficient 636651155 Z86.2 035811 re-check levels todaywants to know if she can stop iron supplement Obstructiv e sleep apnea syndrome 48524070 G47.33 687372 sleep study scheduled 12/04/24 reports she was diagnosed with mild AUGUST in 2020never received CPAPwill send new referral for sleep study Hospital i npatient stay within past 30 days [id number] 106 Z78.9 [id number] Admitted to [place] for 2 days due to stroke. BP in ED was 179/94, pro BNP 1050, troponin negative. Brain MRI showed multiple small acute infarcts on both the left and right involving predominan tly posterior. CTA was normal. patient was seen by Cardiology , transthora cic echo showed left ventricula r dilation with moderate severe global systolic dysfunctio n ejection fraction estimated at 30-35%. Cardio recs continue lisinopril , metoprolol , and Jardiance. Also continue with aspirin and Plavix until she sees Neurology. History of cerebrovascular accident 758776425 Z86.73 [id number] 09/27/24: Brain MRI- Small acute infarcts on both the left and right involving predominan tly posterior but also some of the anterior circulatio n which suggest a shower of emboli from a central source to aorta. Several small foci of susceptibi lity artifact bilateral thalami and basal ganglia consistent with sequela of chronic microhemor rhage such as in the setting of hypertensi on with differenti al also including amyloid angiopathy following with Neuro, appt 12/16/24on plavix and aspirin Health Concerns Section Related Observation LastModified by Organization Detai ls LastModified Time None Recorded Concern Status LastModified by Organization Details LastModified Time None Recorded Advance Directives Directive N: Payers Insurance Date Sequence Insurance Name Policy Number Policy Benedict Covered Member ID Benedict Member ID Guarantor Name 12/01/2024 1 [facility] ON OR AFTER 10/07/20 (MEDICAID REPLACEMENT - HMO) Angelica Kruse [id number] Angelica Kruse 07/04/2022 1 [facility] PRIOR TO 10/07/2020 (MEDICAID REPLACEMENT - HMO) Angelica Kruse [id number] Angelica Kruse Notes Date Note Type Note Provider Name and Address Organization Details Recorded Time 07/06/2023 text/html ROS as noted in the HPI Pt presents with L ear pain, sore [...] for symptoms. LUCY ZAMBRANO Attn: Accounting,[address], [place], [address], [facility] 07/09/2023 11:05:18 10/23/2023 text/html ROS as noted in the HPI Pt presents to discuss high BP, low back pain, and anxiety. Reports that BP has been 140s/90s at home with taking all of her medications. C/o low back pain onset 5 days ago, taking tylenol w/ mild relief. No trauma or injury. C/o uncontrolled anxiety, taking hydroxyzine at night to help her sleep. LUCY ZAMBRANO Attn: Accounting,[address], [place], [address], [facility] 10/24/2023 12:33:36 01/02/2024 text/html ROS as noted in the HPI Pt presents for WWE. , vaginal births. [...] LUCY ZAMBRANO Attn: Accounting,[address], [place], [address], [place] [facility] 01/03/2024 09:46:51 07/22/2024 text/html ROS as noted in the HPI Patient presents for follow-up. States that after she eats she feels like food is getting stuck in her throat. Ongoing for the past 2 months. Does not matter what food she eats. She has discussed with the bariatric surgery who recommended EGD, but would like referral closer to home. LUCY ZAMBRANO Attn: Accounting,[address] , [place], [address], [facility] 09/23/2024 16:42:49 11/28/2024 text/html ROS as noted in the HPI Patient presents for hospital follow-up. Reports that in September she woke up with tightness and weakness to her arms and hands. She went to ER and was told that she has had multiple strokes. Patient was admitted to [facility], consulted by neuro, started on Plavix. She had recent visit with Cardiology who was concerned about her aortic valve, would like to max her out on metoprolol before referring her to discuss replacing her aortic valve. Cardio is also trying to get a weight loss injectable approved due to her heart failure. She complains of dizziness and light headedness with position changes and bending forward, ongoing since she has had the stroke Patient has upcoming sleep study, neuro appointment, EGD and colonoscopy. Unsure if she needs to stop taking her iron. LUCY ZAMBRANO Attn: Accounting,[address] , [place], [address], [facility] - [facility] 11/28/2024 09:28:06 OBGyn Episode No OBEpisode recorded.
--- OUTSIDE RECORDS SUMMARY | 2025-01-05 12:43 | XMS_ITS | Clinical Summary ---
Author Organization [facility] Eun Puckettgiselle Address [facility] [place] [address] Care Team Providers Care Calibration Laboratory Technician Name Role Phone Unavailable Primary Care Provider [...] (2024-2 6 season) 2024 05/15/2021, 04/15/2021 Insurance [facility] MEDICA[facility]
[2025-01-05 14:46] LABS: Cholesterol 152 mg/dL (0-200); HDL Direct 54 mg/dL; Triglycerides 98 mg/dL (<150)
== END 2025-01-05 12:41 | disposition home or self-care (01) ==
LOC: ANHLAB 12:41
PROVIDERS: PCP Physician Assistant; Visit Provider Psychiatry & Neurology Neurology
DX: Z86.73 Personal history of transient ischemic attack (TIA), and cerebral infarction without residual deficits (principal)
CPT/HCPCS: 36415; 80061